=== PATIENT | female | born 1970 | race African-American/Black ===

== ENCOUNTER 2018-05-28 08:11 | Inpatient (IN) | payer OTHER, SELFPAY ==
[2018-05-28 08:59] LABS: Absolute Lymphocytes (CBC) 0.9 K/uL (0.7-4.9); Absolute Monocytes 0.9 K/uL (0.1-1.3); Absolute Neutrophil 10.2 K/uL (1.8-8.0); Basophils % 0.3 % (0-1.3); Eosinophils % 0.4 % (0-4.4); Hematocrit 35.7 % (36.0-45.0); Lymphocytes % 7.9 % (15.3-44.8); MPV 8.9 fL (7.6-11.3); Monocytes % 7.1 % (3.3-12.3); RBC Red Blood Cell Count 4.15 M/uL (3.86-4.86)
[2018-05-28] MEDS ORDERED: IPRATROPIUM BROM 0.5MG/2.5ML ONE (09:01)
[2018-05-28] MEDS ORDERED: LEVALBUTEROL 1.25 MG/3 ML NEB ONE (09:02)
[2018-05-28] MEDS ORDERED: NA CHLORIDE 0.9% 1,000 ML ONE ×2 (09:02→09:55)
[2018-05-28 09:07] LABS: Protime INR 0.95
[2018-05-28 09:17] LABS: ALT/SGPT 17 U/L (12-78); AST/SGOT 10 U/L (15-37); Albumin 3.1 g/dL (3.4-5.0); Alkaline Phosphatase 62 U/L (45-117); BUN Blood Urea Nitrogen 10 mg/dL (7-18); Bicarbonate 26 mmol/L (21-32); Bilirubin Direct < 0.1 mg/dL (0-0.2); Bilirubin Total 0.4 mg/dL (0.2-1.0); CKMB Creatine Kinase MB < 1.0 ng/mL (0.3-3.6); Creatine Phosphokinase 77 U/L (26-192); Glucose Level 303 mg/dL (74-106); Lipase 129 U/L (73-393); Protein, Total 7.4 g/dL (6.4-8.2); Sodium Level 135 mmol/L (136-145); Troponin (Emerg Dept Use Only) < 0.02 ng/mL (0.0-0.045)
[2018-05-28] MEDS ORDERED: CEFTRIAXONE/SWI 1gm 1 GM/10 ML SYR ONE (09:28)
[2018-05-28 09:35] LABS: Urine Bacteria <20 /HPF (<20); Urine Culture Reflex Order NOT NEEDED
[2018-05-28 09:36] LABS: Urine Blood 1+ (NEG); Urine Glucose 3+ (NEG); Urine Protein 1+ (NEG); Urine Specific Gravity 1.015 (1.005-1.030); Urine pH 5.5 (5.0-7.0)
--- NOTE | 2018-05-28 09:54 | RAD REPORT ---
EXAM DESCRIPTION: RAD - Chest Single View - 05/28/2018 9:03 am CLINICAL HISTORY: Shortness of breath, vomiting, productive cough COMPARISON: None. TECHNIQUE: AP portable chest image was obtained 0857 hours . FINDINGS: Lungs are underinflated. There is a moderate-sized area of airspace opacification in the r ight midlung field. No significant left lung field process. Heart and vasculature are normal. No erlinda urable pleural effusion and no pneumothorax. No acute bony abnormality seen. No acute aortic findings suspected. IMPRESSION: Moderately large right lung field pneumonia.
[2018-05-28] MEDS ORDERED: AZITHROMYCIN IV 500 MG in NA CHLORIDE 0.9% 250 ML IVPB ONE (10:07)
--- NOTE | 2018-05-28 10:23 | ER ---
Nurse's Notes [facility] Name: Olivia Stewart Age: 47 yrs Sex: Female : 1970 Arrival Date: 05/28/2018 Time: 08:14 Bed 15 Private MD: out of town, doctor Diagnosis: Pneumonia, unspecified organism;Hypoxia Presentation: 05/28 08:15 Presenting complaint: Patient states: diarrhea, SOB, vomiting, dry heaving, left ear sv pain, productive cough, congestion since 05/25/18. Transition of care: patient was not received from another setting of care. Onset of symptoms was May 25, 2018. Care prior to arrival: None. 08:15 Method Of Arrival: Ambulatory sv 08:15 Acuity: HARDY 3 sv 08:22 Risk Assessment: Do you want to hurt yourself or someone else? Patient reports no rb1 desire to harm self or others. Initial Sepsis Screen: Does the patient have a suspected source of infection? Yes: Productive cough/pneumonia. 12:00 Initial Sepsis Screen: Does the patient meet any 2 criteria? RR > 20 per min. HR > 90 aj1 bpm. Yes. Triage Assessment: 08:15 General: Appears in no apparent distress. uncomfortable, Behavior is calm, cooperative, sv appropriate for age. Pain: Denies pain. EENT: Reports pain in left ear. Neuro: Level of Consciousness is awake, alert, obeys commands, Oriented to person, place, time, situation, Moves all extremities. Full function Gait is steady. Respiratory: Reports shortness of breath cough that is productive, pain with cough Airway is patent Respiratory effort is even, unlabored, Respiratory pattern is regular, symmetrical. Historical: - Allergies: 08:18 No Known Allergies; sv - PMHx: 08:18 Diabetes - NIDDM; Hypertension; sv - PSHx: 08:18 Tubal ligation; ; sv - Immunization history:: Flu vaccine is not up to date. - Social history:: Smoking status: Patient/guardian denies using tobacco. - Ebola Screening: : No symptoms or risks identified at this time. Screenin:22 Abuse screen: Denies threats or abuse. Nutritional screening: No deficits noted. rb1 Tuberculosis screening: No symptoms or risk factors identified. Fall Risk None identified. Assessment: 08:22 General: Appears uncomfortable, Behavior is calm, cooperative. Pain: Denies pain. rb1 Neuro: Level of Consciousness is awake, alert, obeys commands, Oriented to person, place, time, situation. Cardiovascular: Capillary refill < 3 seconds is brisk in bilateral fingers. 08:22 Respiratory: Reports shortness of breath at rest cough that is productive, blood tinged rb1 sputum Airway is patent Respiratory effort is even, unlabored, Respiratory pattern is regular, symmetrical, Breath sounds are diminished in right posterior lower lobe. GI: Reports diarrhea, nausea, vomiting. : No signs and/or symptoms were reported regarding the genitourinary system. Derm: Skin is dry, Skin is normal, Skin temperature is warm. 10:00 Reassessment: Patient reports chest pain 3/10 in center of chest. Patient is not aj1 wearing O2 at this time, patient placed back on O2 \T\ 2L nc, Notified Ger Chavira NP of patient complaint. Repeat EKG obtained. After being back on O2 for 3 minutes patient reports that her chest pain has resolved. 10:32 General: Appears in no apparent distress. uncomfortable, Behavior is calm, cooperative. aj1 Pain: Denies pain. Neuro: Level of Consciousness is awake, alert, obeys commands, Oriented to person, place, time, situation. Cardiovascular: Patient's skin is warm and dry. Respiratory: Airway is patent Respiratory effort is even, unlabored, Respiratory pattern is regular, symmetrical. GI: Reports nausea. : No signs and/or symptoms were reported regarding the genitourinary system. EENT: No signs and/or symptoms were reported regarding the EENT system. Derm: No signs and/or symptoms reported regarding the dermatologic system. Skin is pink, warm \T\ dry. normal. Musculoskeletal: No signs and/or symptoms reported regarding the musculoskeletal system. Circulation, motion, and sensation intact. 11:29 Reassessment: Patient appears in no apparent distress at this time. No changes from aj1 previously documented assessment. Patient and/or family updated on plan of care and expected duration. Pain level reassessed. Patient is alert, oriented x 3, equal unlabored respirations, skin warm/dry/pink. Vital Signs: 08:18 BP 147 / 79; Pulse 130; Resp 20; Temp 99.2; Pulse Ox 97% on R/A; Weight 86.18 kg; sv Height 5 ft. 5 in. (165.10 cm); Pain 0/10; 08:22 Pulse Ox 87% on R/A; rb1 09:00 BP 142 / 71; Pulse 123; Resp 19; Pulse Ox 100% on 2 lpm NC; dh3 09:29 BP 136 / 71; Pulse 124; Resp 18; Pulse Ox 100% on 2 lpm NC; dh3 10:33 BP 117 / 63; Pulse 120; Resp 18; Pulse Ox 95% on 2 lpm NC; aj1 11:31 BP 121 / 68; Pulse 119; Resp 24; Temp 98.7(O); Pulse Ox 95% on 2 lpm NC; aj1 08:18 Body Mass Index 31.62 (86.18 kg, 165.10 cm) sv 08:22 Administered 2 L NC, O2 sat increased to 96%. rb1 ED Course: 08:14 Patient arrived in ED. sb2 08:14 out of town, doctor is Private Physician. sb2 08:15 Ara Chavira [facility]-C is [facility]. kb 08:15 Roula Partida MD is Attending Physician. kb 08:17 Triage completed. sv 08:18 Arm band placed on. sv 08:22 Pulse ox on. NIBP on. rb1 08:30 Felicitas Delvalle, ANTWON is Primary Nurse. rb1 08:45 Flu and/or RSV swab sent to lab. dh3 09:02 Urine collected: clean catch specimen, clear, EKG done, by ED staff, reviewed by robbin SULLIVAN. 09:03 Chest Single View XRAY In Process Unspecified. EDMS 09:11 Second set of blood cultures drawn by dc, by venipuncture 23G to left ac. dh3 09:54 Report given to ANTWON Villasenor. rb1 10:08 Patient has correct armband on for positive identification. Bed in low position. Call rb1 light in reach. Side rails up X 1. 10:22 Clifford Oliva DO is Hospitalizing Provider. kb 11:45 Report given to ANTWON Culver on 2nd floor. aj1 12:00 No provider procedures requiring assistance completed. Patient admitted, IV remains in aj1 place. Administered Medications: 09:00 Drug: Xopenex (3) 1.25 mg Route: Inhalation; rb1 09:00 Drug: AtroVENT Aerosol 0.5 mg Route: Inhalation; rb1 09:20 Drug: Rocephin - (cefTRIAXone) 1 grams Route: IVPB; Infused Over: 30 mins; Site: right rb1 antecubital; 12:01 Follow up: Response: No adverse reaction aj1 10:42 Drug: Zithromax 500 mg Route: IVPB; Infused Over: 1 hrs; Site: right antecubital; aj1 12:01 Follow up: IV Status: Completed infusion; IV Intake: 250ml aj1 10:43 Drug: NS 0.9% (30 ml/kg) 30 ml/kg Route: IV; Rate: bolus; Site: right antecubital; aj1 12:02 Follow up: IV Status: Completed infusion; IV Intake: 2000ml aj1 Point of Care Testing: Blood Glucose: 08:44 Blood Glucose: 322 mg/dL; 3 Ranges: Intake: 12:01 IV: 250ml; Total: 250ml. aj1 12:02 IV: 2000ml; Total: 2250ml. aj1 Outcome: 10:23 Decision to Hospitalize by Provider. kb 12:00 Admitted to Tele accompanied by tech, via wheelchair, with oxygen, with chart. aj1 12:00 Condition: stable 12:00 Discharge instructions given to patient, Instructed on the need for admit, Demonstrated understanding of instructions. 12:02 Patient left the ED. aj1 Signatures: Dispatcher [employer] EDMS Ara Chavira, [employer]KER-C [employer]KER-Jacklyn Lemus RN RN aj1 Susan Storm RN ANTWON sv Felicitas Delvalle, RN RN rb1 Kirti Luciano 3 Yee Avila sb2 Corrections: (The following items were deleted from the chart) 08:22 08:15 Presenting complaint: Patient states: diarrhea, SOB, vomiting, dry heaving, left sv ear pain, congestion since 05/25/18. sv
--- NOTE | 2018-05-28 10:23 | EDPHYS ---
Physician Documentation [facility] Name: Olivia Stewart Age: 47 yrs Sex: Female : 1970 Arrival Date: 05/28/2018 Time: 08:14 Bed 15 Private MD: out of town, doctor ED Physician Roula Partida HPI: 05/28 10:18 This 47 yrs old Black Female presents to ER via Ambulatory with complaints of kb Congestion, Productive Cough, Shortness Of Breath. 10:18 The patient or guardian reports cough, that is intermittent, described as moderate, kb with productive sputum, pink, difficulty breathing. Onset: The symptoms/episode began/occurred 4 day(s) ago. Severity of symptoms: At their worst the symptoms were moderate, severe, in the emergency department the symptoms are unchanged. Modifying factors: The symptoms are alleviated by nothing, the symptoms are aggravated by nothing. Associated signs and symptoms: Pertinent positives: rhinorrhea, Pertinent negatives: diarrhea, ear ache, fever, nausea, sore throat, vomiting. The patient has not experienced similar symptoms in the past. The patient has not recently seen a physician. Pt reports cough and congestion that started on . Symptoms have gotten worse since then. Yesterday started having shortness of breath and it was worse this morning. . Historical: - Allergies: 08:18 No Known Allergies; sv - PMHx: 08:18 Diabetes - NIDDM; Hypertension; sv - PSHx: 08:18 Tubal ligation; ; sv - Immunization history:: Flu vaccine is not up to date. - Social history:: Smoking status: Patient/guardian denies using tobacco. - Ebola Screening: : No symptoms or risks identified at this time. ROS: 09:50 Constitutional: Negative for fever, chills, and weight loss, Neck: Negative for injury, kb pain, and swelling, Cardiovascular: Negative for chest pain, palpitations, and edema, Abdomen/GI: Negative for abdominal pain, nausea, vomiting, diarrhea, and constipation, Back: Negative for injury and pain, : Negative for injury, bleeding, discharge, and swelling, MS/Extremity: Negative for injury and deformity, Skin: Negative for injury, rash, and discoloration, Neuro: Negative for headache, weakness, numbness, tingling, and seizure. 09:50 ENT: Positive for rhinorrhea, sinus congestion. 09:50 Respiratory: Positive for cough, pink sputum, dyspnea on exertion, shortness of breath, Negative for hemoptysis, orthopnea, pleurisy, wheezing. Exam: 10:15 Constitutional: This is a well developed, well nourished patient who is awake, alert, kb and in no acute distress. Head/Face: Normocephalic, atraumatic. ENT: Nares patent. No nasal discharge, no septal abnormalities noted. Tympanic membranes are normal and external auditory canals are clear. Oropharynx with no redness, swelling, or masses, exudates, or evidence of obstruction, uvula midline. Mucous membranes moist. Neck: Trachea midline, no thyromegaly or masses palpated, and no cervical lymphadenopathy. Supple, full range of motion without nuchal rigidity, or vertebral point tenderness. No Meningismus. Chest/axilla: Normal chest wall appearance and motion. Nontender with no deformity. No lesions are appreciated. Cardiovascular: Regular rate and rhythm with a normal S1 and S2. No gallops, murmurs, or rubs. Normal PMI, no JVD. No pulse deficits. Abdomen/GI: Soft, non-tender, with normal bowel sounds. No distension or tympany. No guarding or rebound. No evidence of tenderness throughout. Skin: Warm, dry with normal turgor. Normal color with no rashes, no lesions, and no evidence of cellulitis. MS/ Extremity: Pulses equal, no cyanosis. Neurovascular intact. Full, normal range of motion. Neuro: Awake and alert, GCS 15, oriented to person, place, time, and situation. Cranial nerves II-XII grossly intact. Motor strength 5/5 in all extremities. Sensory grossly intact. Cerebellar exam normal. Normal gait. 10:15 Respiratory: mild respiratory distress is noted, Respirations: labored breathing, that is mild, Breath sounds: rales, are heard in the right upper lobe, right middle lobe, right lower lobe, right posterior upper lobe, right posterior middle lobe and right posterior lower lobe. Vital Signs: 08:18 BP 147 / 79; Pulse 130; Resp 20; Temp 99.2; Pulse Ox 97% on R/A; Weight 86.18 kg; sv Height 5 ft. 5 in. (165.10 cm); Pain 0/10; 08:22 Pulse Ox 87% on R/A; rb1 09:00 BP 142 / 71; Pulse 123; Resp 19; Pulse Ox 100% on 2 lpm NC; dh3 09:29 BP 136 / 71; Pulse 124; Resp 18; Pulse Ox 100% on 2 lpm NC; dh3 10:33 BP 117 / 63; Pulse 120; Resp 18; Pulse Ox 95% on 2 lpm NC; aj1 11:31 BP 121 / 68; Pulse 119; Resp 24; Temp 98.7(O); Pulse Ox 95% on 2 lpm NC; aj1 08:18 Body Mass Index 31.62 (86.18 kg, 165.10 cm) sv 08:22 Administered 2 L NC, O2 sat increased to 96%. rb1 MDM: 08:24 Patient medically screened. kb 10:15 Data reviewed: vital signs, nurses notes. Data interpreted: Pulse oximetry: on room air kb is 87 %. Interpretation: hypoxia. Plan: will initiate a nebulizer treatment. Counseling: I had a detailed discussion with the patient and/or guardian regarding: the historical points, exam findings, and any diagnostic results supporting the discharge/admit diagnosis, lab results, radiology results, the need for further work-up and treatment in the hospital. Physician consultation: Clifford Oliva DO was contacted at 10:15, regarding admission, to the telemetry unit. patient's condition, in the emergency department to see patient at 10:15. 05/28 08:33 Order name: Basic Metabolic Panel; Complete Time: 09:19 kb 05/28 08:33 Order name: Blood Culture Adult (2) kb 05/28 08:33 Order name: CBC with Diff; Complete Time: 09:15 kb 05/28 08:33 Order name: Ckmb; Complete Time: 09:19 kb 05/28 08:33 Order name: CPK; Complete Time: 09:19 kb 05/28 08:33 Order name: Lactate; Complete Time: 09:38 kb 05/28 08:33 Order name: LFT's; Complete Time: 09:19 kb 05/28 08:33 Order name: Lipase; Complete Time: 09:19 kb 05/28 08:33 Order name: Procalcitonin; Complete Time: 09:38 kb 05/28 08:33 Order name: Protime (+inr); Complete Time: 09:09 kb 05/28 08:33 Order name: Ptt, Activated; Complete Time: 09:09 kb 05/28 08:33 Order name: Troponin (emerg Dept Use Only); Complete Time: 09:19 kb 05/28 08:33 Order name: Urine Microscopic Only; Complete Time: 09:38 kb 05/28 08:35 Order name: Flu; Complete Time: 09:19 kb 05/28 08:33 Order name: Chest Single View XRAY; Complete Time: 09:55 kb 05/28 08:33 Order name: Accucheck; Complete Time: 08:44 kb 05/28 08:33 Order name: Cardiac monitoring; Complete Time: 08:45 kb 05/28 08:33 Order name: EKG - Nurse/Tech; Complete Time: 09:14 kb 05/28 08:33 Order name: IV Saline Lock - Large Bore; Complete Time: 08:45 kb 05/28 08:33 Order name: Labs collected and sent; Complete Time: 08:48 kb 05/28 08:33 Order name: O2 Per Protocol; Complete Time: 08:45 kb 05/28 08:33 Order name: O2 Sat Monitoring; Complete Time: 08:45 kb 05/28 09:12 Order name: Urine Dipstick--Ancillary (enter results); Complete Time: 09:38 eb 05/28 09:12 Order name: Urine --Ancillary (enter results); Complete Time: 09:38 eb 05/28 09:34 Order name: Glucose, Ancillary Testing; Complete Time: 09:38 EDMS 05/28 08:33 Order name: Urine Dipstick-Ancillary (obtain specimen); Complete Time: 09:14 kb Administered Medications: 09:00 Drug: Xopenex (3) 1.25 mg Route: Inhalation; rb1 09:00 Drug: AtroVENT Aerosol 0.5 mg Route: Inhalation; rb1 09:20 Drug: Rocephin - (cefTRIAXone) 1 grams Route: IVPB; Infused Over: 30 mins; Site: right rb1 antecubital; 12:01 Follow up: Response: No adverse reaction aj1 10:42 Drug: Zithromax 500 mg Route: IVPB; Infused Over: 1 hrs; Site: right antecubital; aj1 12:01 Follow up: IV Status: Completed infusion; IV Intake: 250ml aj1 10:43 Drug: NS 0.9% (30 ml/kg) 30 ml/kg Route: IV; Rate: bolus; Site: right antecubital; aj1 12:02 Follow up: IV Status: Completed infusion; IV Intake: 2000ml aj1 Point of Care Testing: Blood Glucose: 08:44 Blood Glucose: 322 mg/dL; dh3 Ranges: Critical Glucose Levels:Adult <50 mg/dl or >400 mg/dl <40 mg/dl or >180 mg/dl Disposition: 17: Co-signature as Attending Physician, Roula Partida MD. tx2 Disposition: 05/28/18 10:23 Hospitalization ordered by Clifford Oliva for Observation. Preliminary diagnosis are Pneumonia, unspecified organism, Hypoxia. - Bed requested for Telemetry/MedSurg (observation). - Status is Observation. aj1 - Condition is Stable. - Problem is new. - Symptoms are unchanged. UTI on Admission? No Signatures: Dispatcher [employer] EDMS Ara Chavira, CARLOS-C AIRLINE OPERATIONS AGENT-Jacklyn Lemus RN RN aj1 Susan Storm RN RN sv Barber, Rebecca, ANTWON [facility] Roula Partida MD MD tx2 Mesha Peterson Corrections: (The following items were deleted from the chart) 10:23 10:23 Hospitalization Ordered by Clifford Oliva DO for Observation. Preliminary kb diagnosis is Pneumonia, unspecified organism. Bed requested for Telemetry/MedSurg (observation). Status is Observation. Condition is Stable. Problem is new. Symptoms are unchanged. UTI on Admission? No. kb 11:02 10:23 05/28/2018 10:23 Hospitalization Ordered by Clifford Oliva DO for Observation. eb Preliminary diagnosis is Pneumonia, unspecified organism; Hypoxia. Bed requested for Telemetry/MedSurg (observation). Status is Observation. Condition is Stable. Problem is new. Symptoms are unchanged. UTI on Admission? No. kb 12:02 11:02 05/28/2018 10:23 Hospitalization Ordered by Clifford Oliva DO for Observation. aj1 Preliminary diagnosis is Pneumonia, unspecified organism; Hypoxia. Bed requested for Telemetry/MedSurg (observation). Status is Observation. Condition is Stable. Problem is new. Symptoms are unchanged. UTI on Admission? No. eb
--- NOTE | 2018-05-28 10:50 | P.HP ---
Certification for Inpatient Patient admitted to: Observation With expected LOS: <2 Midnights Patient will require the following post-hospital care: None Practitioner: I am a practitioner with admitting privileges, knowledge of patient current condition, hospital course, and medical plan of care. Services: Services provided to patient in accordance with Admission requirements found in Title 42 Section 412.3 of the Code of Federal Regulations Patient History Date of Service: 05/28/18 Primary Care Provider: [facility]([place], [place]) Reason for admission: Shortness of breath History of Present Illness: 47-year-old female presented to the emergency room with increasing shortness of breath and cough. Patient reports increasing shortness of breath, cough and congestion since . Her condition is not improved. Patient reports mild fever. Patient came to the ER for further evaluation. In the ER patient found to be hypoxic with a room air saturation of 87%. She was slightly tachycardic. On lab white count 12.0. Hemoglobin 12.6. Sodium 135, potassium 4.0, BUN of 10, creatinine 0.7 with a GFR greater than 90. Glucose 303. Pro calcitonin negative. Urinalysis negative. test negative. Influenza test negative. Chest x-ray showed a moderate to large right sided pneumonia. Patient was given IV fluids and antibiotic therapy in the emergency room. Patient admitted for further treatment. In the ER patient appeared stable. Shortness of breath improved. Patient reports secondhand smoke exposure. Patient with history of diabetes, hypertension. Allergies No Known Allergies Allergy (Unverified 01/22/16 23:19) Home medications list reviewed: Yes - Past Medical/Surgical History Diabetic: Yes -: Diabetes mellitus type 2 -: Hypertension -: Obesity -: Secondhand tobacco exposure -: Tubal ligation -: Psychosocial/ Personal History: Patient is . She has 5 children. 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 - Family History Mother -: Heart disease, Hypertension, Diabetes Father -: Heart disease, Diabetes - Social History Smoking Status: Never smoker Alcohol use: Yes CD- Drugs: No Caffeine use: Yes Place of Residence: Home Review of Systems General: Weakness Eyes: As per HPI ENT: Nose Congestion, As per HPI Respiratory: Cough, Shortness of Breath, As per HPI Cardiovascular: Unremarkable Gastrointestinal: Unremarkable Genitourinary: Unremarkable Musculoskeletal: Unremarkable Integumentary: Unremarkable Neurological: Unremarkable Lymphatics: Unremarkable Physical Examination - Physical Exam General: Alert, In no apparent distress, Oriented x3, Cooperative HEENT: Atraumatic, Normocephalic, Other (Mucous congestion bilateral) Neck: Supple, No Thyromegaly Respiratory: Crackles/rales (Right-sided) Cardiovascular: Abnormal pulses (Mild tachycardia) Gastrointestinal: Normal bowel sounds, Soft and benign, Non-distended, No tenderness, No masses, No rebound, No guarding Musculoskeletal: No erythema, No tenderness, No warmth Integumentary: No tenderness/swelling, No erythema, No warmth, No cyanosis Neurological: Normal speech, Normal strength at 5/5 x4 extr, Normal tone, Normal affect Lymphatics: No axilla or inguinal lymphadenopathy - Studies Laboratory Data (last 24 hrs) 05/28/18 08:37: PT 11.2, INR 0.95, APTT 28.5 05/28/18 08:37: WBC 12.0 H, Hgb 12.6, Hct 35.7 L, Plt Count 269 05/28/18 08:37: Sodium 135 L, Potassium 4.0, BUN 10, Creatinine 0.71, Glucose 303 H, Total Bilirubin 0.4, AST 10 L, ALT 17, Alkaline Phosphatase 62, Lipase 129 Microbiology Data (last 24 hrs): 05/28/18 08:37 Nasopharnyx Influenza Type A Antigen Screen - Final 05/28/18 08:37 Nasopharnyx Influenza Type B Antigen Screen - Final Assessment and Plan - Plan Impression: Shortness of breath, hypoxia and tachycardia secondary right-sided pneumonia Mild dehydration Diabetes mellitus type 2, A1c 8.0 Hypertension Obesity Suspect underlying sleep apnea Plan: Shortness of breath, hypoxia and tachycardia secondary right-sided pneumonia: Patient admitted for treatment. Will continue with Rocephin and Zithromax. Blood cultures obtained. Influenza test negative. Will monitor on telemetry. Will recheck chest x-ray in the morning. Will reassess tomorrow. Will wean off oxygen. Anticipate discharge in the next 24-48 hr depending on her status. Will continue with IV fluids Mild dehydration: Continue with IV fluids. Will monitor and adjust appropriately. Diabetes mellitus type 2, A1c 8.0: Will continue with her home medication. This includes Actos, glipizide and metformin. Will provide sliding scale. Lifestyle modification education addressed in detail. If blood sugars remain above 300 will consider adding basal insulin. Hypertension: Restart home medication of carvedilol, hydrochlorothiazide Norvasc and losartan. Will monitor and adjust appropriately. Obesity: Will calculate BMI. Will address lifestyle modification education. Suspect underlying sleep apnea: Patient likely with obstructive sleep apnea. Will recommend sleep study to be done as an outpatient. Discharge Plan: Home Plan to discharge in: 48 Hours - Advance Directives Does patient have a Living Will: No Does patient have a Durable POA for Healthcare: No - Code Status/Comfort Care Code Status Assessed: Yes (Patient full code) Time Spent Managing Pts Care (In Minutes): 55
[2018-05-28] MEDS: INSULIN -REGULAR HUMAN 50 UNIT/0.5 ML ML SQ SCH ×3 (11:43→21:00)
[2018-05-28] MEDS ORDERED: ACETAMINOPHEN 500 MG TAB PO PRN (11:43)
[2018-05-28] MEDS ORDERED: ONDANSETRON 4 MG/2 ML VIAL IV PRN (11:43)
[2018-05-28] MEDS ORDERED: IPRATROPIUM BROM 0.5MG/2.5ML NEB PRN (11:43)
[2018-05-28] MEDS ORDERED: ALBUTEROL 2.5 MG/3 ML NEB SOL NEB PRN (11:43)
[2018-05-28] MEDS: NA CHLORIDE 0.9% 1,000 ML IV SCH ×2 (12:51→20:11)
[2018-05-28] MEDS: BENZONATATE 100 MG CAP PO PRN ×2 (12:58→20:10)
[2018-05-28] MEDS: ENOXAPARIN 40 MG/0.4 ML SQ SCH (17:00)
[2018-05-28] MEDS: CARVEDILOL 12.5 MG TAB PO SCH ×2 (17:03→22:16)
[2018-05-28] MEDS: METFORMIN HCL 500 MG TAB PO SCH (17:21)
[2018-05-28] MEDS: glipiZIDE 5 MG TAB PO SCH (17:21)
[2018-05-28] MEDS: FLUTICASONE 50MCG NASAL SPRAY NAS SCH (20:09)
[2018-05-28] MEDS: GUAIFENESIN 600 MG SA TAB PO SCH (20:10)
[2018-05-28] MEDS: guaiFENesin 100 MG/5 ML UCUP PO PRN (22:16)
[2018-05-29 05:13] LABS: Absolute Lymphocytes (CBC) 1.6 K/uL (0.7-4.9); Absolute Monocytes 1.3 K/uL (0.1-1.3); Absolute Neutrophil 8.8 K/uL (1.8-8.0); Basophils % 0.4 % (0-1.3); Eosinophils % 0.2 % (0-4.4); Lymphocytes % 13.5 % (15.3-44.8); MPV 9.1 fL (7.6-11.3); Monocytes % 11.4 % (3.3-12.3); RBC Red Blood Cell Count 3.42 M/uL (3.86-4.86)
[2018-05-29] MEDS: CARVEDILOL 12.5 MG TAB PO SCH ×2 (05:32→17:28)
[2018-05-29] MEDS: guaiFENesin 100 MG/5 ML UCUP PO PRN ×2 (05:32→14:48)
[2018-05-29] MEDS: PANTOPRAZOLE 40MG TABLET PO SCH (05:32)
[2018-05-29 05:43] LABS: BUN Blood Urea Nitrogen 7 mg/dL (7-18); Bicarbonate 23 mmol/L (21-32); Glucose Level 185 mg/dL (74-106); Magnesium 1.9 mg/dL (1.8-2.4); Potassium 3.7 mmol/L (3.5-5.1); Sodium Level 139 mmol/L (136-145)
[2018-05-29] MEDS: FLUTICASONE 50MCG NASAL SPRAY NAS SCH ×2 (08:42→21:49)
[2018-05-29] MEDS: PIOGLITAZONE 15 MG TAB PO SCH (08:43)
[2018-05-29] MEDS: hydroCHLOROthiazide 25 MG TAB PO SCH (08:45)
[2018-05-29] MEDS: METFORMIN HCL 500 MG TAB PO SCH ×2 (08:46→16:39)
[2018-05-29] MEDS: LOSARTAN POTASSIUM 50 MG TABLET PO SCH (08:47)
[2018-05-29] MEDS: AMLODIPINE 10 MG TAB PO SCH (08:47)
[2018-05-29] MEDS: glipiZIDE 5 MG TAB PO SCH ×2 (08:47→16:39)
[2018-05-29] MEDS: GUAIFENESIN 600 MG SA TAB PO SCH ×2 (08:47→21:48)
[2018-05-29] MEDS: NA CHLORIDE 0.9% 1,000 ML IV SCH ×2 (08:48→16:43)
[2018-05-29] MEDS: INSULIN -REGULAR HUMAN 50 UNIT/0.5 ML ML SQ SCH ×4 (08:48→21:00)
[2018-05-29] MEDS ORDERED: POTASSIUM 25 MEQ EFFERV TAB PO ONE (09:00)
[2018-05-29] MEDS ORDERED: CEFTRIAXONE/SWI 1gm 1 GM/10 ML SYR IV SCH (09:00)
[2018-05-29] MEDS ORDERED: CEFTRIAXONE 1 GM/NS 50 ML 1 GM/50 ML BAG IV SCH (09:00)
[2018-05-29] MEDS ORDERED: AZITHROMYCIN IV 500 MG in NA CHLORIDE 0.9% 250 ML IVPB SCH (09:00)
--- NOTE | 2018-05-29 09:17 | P.PN ---
Subjective Date of Service: 05/29/18 Primary Care Provider: [facility]([place], [place]) Chief Complaint: Shortness of breath Subjective: Improving (Cough improved. Shortness of breath improved) Physical Examination - Vital Signs Temperature: 98.5 F Blood Pressure: 123/66 Pulse: 110 Respirations: 20 Pulse Ox (%): 90 - Physical Exam General: Alert, In no apparent distress, Oriented x3, Cooperative HEENT: Atraumatic Neck: Supple Respiratory: Other (Better air movement bilateral. Less congestion and crackles noted.) Cardiovascular: Abnormal pulses (Mild tachycardia but improved) Gastrointestinal: Normal bowel sounds, Soft and benign, Non-distended, No ascites, No tenderness, No masses, No rebound, No guarding Musculoskeletal: No erythema, No tenderness, No warmth Integumentary: No tenderness/swelling, No erythema, No warmth, No cyanosis Neurological: Normal speech, Normal strength at 5/5 x4 extr, Normal tone, Normal affect Lymphatics: No axilla or inguinal lymphadenopathy - Studies Laboratory Data (last 24 hrs) 05/28/18 08:37: Sodium 135 L, Potassium 4.0, BUN 10, Creatinine 0.71, Glucose 303 H, Total Bilirubin 0.4, AST 10 L, ALT 17, Alkaline Phosphatase 62, Lipase 129 Microbiology Data (last 24 hrs): 05/28/18 08:37 Nasopharnyx Influenza Type A Antigen Screen - Final 05/28/18 08:37 Nasopharnyx Influenza Type B Antigen Screen - Final Medications List Reviewed: Yes Assessment & Plan Discharge Plan: Home Plan to discharge in: 24 Hours Physician Review Additional Text: Impression: Shortness of breath, hypoxia and tachycardia secondary right-sided pneumonia Mild dehydration Diabetes mellitus type 2, A1c 8.0 Hypertension Obesity Suspect underlying sleep apnea Anemia likely from hydration Plan: Shortness of breath, hypoxia and tachycardia secondary right-sided pneumonia: Patient improved. Shortness of breath and cough improved. Continue wean off oxygen. Continue IV antibiotic therapy. Influenza test negative. Encourage ambulation. Will provide incentive spirometer. Anticipate discharge in the next 24 hr. Recheck chest x-ray. Mild dehydration: Continue with IV fluids. Will monitor and adjust appropriately. Diabetes mellitus type 2, A1c 8.0: Will continue with her home medication. This includes Actos, glipizide and metformin. Will provide sliding scale. Lifestyle modification education addressed in detail. If blood sugars remain above 300 will consider adding basal insulin. Hypertension: Continue with home medication-carvedilol, hydrochlorothiazide Norvasc and losartan. Will monitor and adjust appropriately. Obesity, BMI 31.6: Will address lifestyle modification education. Suspect underlying sleep apnea: Patient likely with obstructive sleep apnea. Will recommend sleep study to be done as an outpatient. Anemia likely from hydration: Will monitor closely. Time Spent Managing Pts Care (In Minutes): 55
--- NOTE | 2018-05-29 10:16 | EKG ---
Test Date: 2018-05-28 Test Time: 10:05:48 Cna Per Diem: MEASUREMENT RESULTS: Intervals: Rate: 122 [place]: 156 QRSD: 66 QT: 352 QTc: 501 [place]: P: 99 [place]: 156 QRS: -31 T: 102 INTERPRETIVE STATEMENTS: Sinus tachycardia Possible Left atrial enlargement Left axis deviation Pulmonary disease pattern ST & T wave abnormality, consider lateral ischemia Abnormal ECG Compared to ECG 05/28/2018 08:52:02 ST (T wave) deviation now present Myocardial infarct finding no longer present Electronically Signed On 05-29-18 10:16:12 SHOE REPAIRER HELPER by Shemar Schaeffer
--- NOTE | 2018-05-29 10:17 | EKG ---
Test Date: 2018-05-28 Test Time: 08:52:02 Insurance Loss Adjuster: CURT MEASUREMENT RESULTS: Intervals: Rate: 122 [place]: 144 QRSD: 74 QT: 308 QTc: 438 [place]: P: 66 [place]: 144 QRS: -33 T: 54 INTERPRETIVE STATEMENTS: Sinus tachycardia Possible Left atrial enlargement Left axis deviation Septal infarct, age undetermined Abnormal ECG Compared to ECG 06/01/2011 08:42:59 Left-axis deviation now present Myocardial infarct finding now present Sinus rhythm no longer present Electronically Signed On 05-29-18 10:17:33 [employer]BACCO PACKER by Shemar Schaeffer
[2018-05-29] MEDS: BENZONATATE 100 MG CAP PO PRN (12:09)
--- NOTE | 2018-05-29 12:46 | RAD REPORT ---
EXAM DESCRIPTION: RAD - Chest Pa And Lat (2 Views) - 05/29/2018 6:13 am CLINICAL HISTORY: follow up pneumonia Chest pain. COMPARISON: Chest Single View dated 05/28/2018 FINDINGS: Since 05/28/2018, there has been mild improvement in the bilateral pneumonia pattern, wors e on the right. The heart is normal in size. No displaced fractures. IMPRESSION: Mild improvement in the pneumonia pattern since the comparative study.
[2018-05-29] MEDS: levoFLOXacin 500 MG TAB PO SCH (14:42)
[2018-05-29] MEDS: ENOXAPARIN 40 MG/0.4 ML SQ SCH (16:40)
[2018-05-30] MEDS: NA CHLORIDE 0.9% 1,000 ML IV SCH ×2 (00:29→13:43)
[2018-05-30 06:07] LABS: Absolute Monocytes 1.8 K/uL (0.1-1.3); Absolute Neutrophil 7.3 K/uL (1.8-8.0); Basophils % 0.3 % (0-1.3); Hematocrit 27.6 % (36.0-45.0); Lymphocytes % 17.8 % (15.3-44.8); MPV 8.7 fL (7.6-11.3); RBC Red Blood Cell Count 3.24 M/uL (3.86-4.86)
[2018-05-30 06:25] LABS: BUN Blood Urea Nitrogen 6 mg/dL (7-18); Bicarbonate 25 mmol/L (21-32); Glucose Level 131 mg/dL (74-106); Magnesium 1.8 mg/dL (1.8-2.4); Potassium 3.2 mmol/L (3.5-5.1); Sodium Level 138 mmol/L (136-145)
[2018-05-30] MEDS ORDERED: MAGNESIUM SULFATE 1 gm IVPB 1 GM/100 ML BAG IV ONE (06:29)
[2018-05-30] MEDS ORDERED: POTASSIUM 25 MEQ EFFERV TAB PO ONE (06:29)
[2018-05-30] MEDS: PANTOPRAZOLE 40MG TABLET PO SCH (06:49)
[2018-05-30] MEDS: CARVEDILOL 12.5 MG TAB PO SCH ×2 (06:50→17:01)
[2018-05-30] MEDS: INSULIN -REGULAR HUMAN 50 UNIT/0.5 ML ML SQ SCH ×3 (07:30→17:00)
[2018-05-30] MEDS: PIOGLITAZONE 15 MG TAB PO SCH (08:16)
[2018-05-30] MEDS: METFORMIN HCL 500 MG TAB PO SCH ×2 (08:18→17:01)
[2018-05-30] MEDS: glipiZIDE 5 MG TAB PO SCH ×2 (08:18→17:01)
[2018-05-30] MEDS: hydroCHLOROthiazide 25 MG TAB PO SCH (08:19)
[2018-05-30] MEDS: levoFLOXacin 500 MG TAB PO SCH (08:19)
[2018-05-30] MEDS: GUAIFENESIN 600 MG SA TAB PO SCH (08:20)
[2018-05-30] MEDS: AMLODIPINE 10 MG TAB PO SCH (08:20)
[2018-05-30] MEDS: LOSARTAN POTASSIUM 50 MG TABLET PO SCH (08:20)
[2018-05-30] MEDS: FLUTICASONE 50MCG NASAL SPRAY NAS SCH (08:21)
--- NOTE | 2018-05-30 08:50 | P.DS ---
Admission Date: 05/29/18 Discharge Date: 05/30/18 Primary Care Provider: [facility]ina([place], [place]) Disposition: ROUTINE DISCHARGE Discharge Condition: GOOD Reason for Admission: Shortness of breath Consultations: None Procedures: CXR: COMPARISON: None. TECHNIQUE: AP portable chest image was obtained 0857 hours . FINDINGS: Lungs are underinflated. There is a moderate-sized area of airspace opacification in the right midlung field. No significant left lung field process. Heart and vasculature are normal. No measurable pleural effusion and no pneumothorax. No acute bony abnormality seen. No acute aortic findings suspected. IMPRESSION: Moderately large right lung field pneumonia. Follow up CXR: COMPARISON: Chest Single View dated 05/28/2018 FINDINGS: Since 05/28/2018, there has been mild improvement in the bilateral pneumonia pattern, worse on the right. The heart is normal in size. No displaced fractures. IMPRESSION: Mild improvement in the pneumonia pattern since the comparative study. Medical Problem List: Shortness of breath, hypoxia and tachycardia secondary to bilateral pneumonia right greater than left Mild dehydration, resolved Diabetes mellitus type 2, A1c 8.0 Hypertension Obesity, BMI 31.6 Suspect underlying sleep apnea Anemia likely from hydration Chronic rhinitis Brief History of Present Illness: 47-year-old female presented to the emergency room with increasing shortness of breath and cough. Patient reports increasing shortness of breath, cough and congestion since . Her condition is not improved. Patient reports mild fever. Patient came to the ER for further evaluation. In the ER patient found to be hypoxic with a room air saturation of 87%. She was slightly tachycardic. On lab white count 12.0. Hemoglobin 12.6. Sodium 135, potassium 4.0, BUN of 10, creatinine 0.7 with a GFR greater than 90. Glucose 303. Pro calcitonin negative. Urinalysis negative. test negative. Influenza test negative. Chest x-ray showed a moderate to large right sided pneumonia. Patient was given IV fluids and antibiotic therapy in the emergency room. Patient admitted for further treatment. In the ER patient appeared stable. Shortness of breath improved. Patient reports secondhand smoke exposure. Patient with history of diabetes, hypertension. Hospital Course: Patient presented with shortness of breath, hypoxia and tachycardia secondary to bilateral pneumonia right greater than left. Patient was admitted for treatment. Patient received oxygen, antibiotic therapy. Influenza test negative. Blood cultures negative. Patient responded well to therapy. At discharge she did not require any oxygen. Chest x-ray showed improvement. At discharge she will continue with Levaquin 500 mg 1 pill daily for 5 more days. Patient will continue with Mucinex 600 mg 1 pill twice daily for congestion and Tessalon 100 mg 3 times a day as needed for cough. Patient will also be provided Pro air 2 puffs 3 times a day as needed for shortness of breath. Patient will need to follow up with her PCP in 1 week to follow up this hospitalization. Recommendation to recheck chest x-ray in 4 weeks to monitor resolution. Patient had mild dehydration. Patient encouraged to continue increase oral intake. Recommend to recheck lab-BMP in 1 week. Patient has diabetes type 2. A1c 8.0. At discharge she will continue with Actos 45 mg daily, glipizide 10 mg 1 pill twice daily, and metformin 1000 mg twice daily. Recommendation is to maintain blood sugars less than 140 fasting and less than 200 after meals. Further adjustment can be done by her PCP. Recommend to recheck A1c in 3 months to monitor her progress. If her diabetes does not improve patient may require insulin in the future. Patient has hypertension. Blood pressures remain stable. At discharge she will continue with carvedilol 12.5 mg 1 pill twice daily, hydrochlorothiazide 25 mg 1 pill daily, Norvasc 10 mg 1 pill daily, and losartan 50 mg 1 pill daily. Recommendation is to maintain blood pressures less than 150/80. Further adjustment can be done by her PCP. Patient has Anemia. This remained stable. Recommend to continue with multi vitamin daily. This can be further worked up as an outpatient. Recommend to recheck lab-CBC in 1 week to monitor progress. Patient may have underlying obstructive sleep apnea. Recommendation for the patient to have a sleep study done as an outpatient to further evaluate. Patient may have underlying chronic rhinitis. Patient may continue with Flonase 1 spray per nostril twice daily. Patient with obesity, BMI 31.6. Lifestyle modification education will be provided. Vital Signs/Physical Exam: Temp Pulse Resp BP Pulse Ox 98.7 F 115 H 18 130/64 87 L 05/30/18 04:00 05/30/18 06:50 05/30/18 04:00 05/30/18 06:50 05/30/18 04:00 General: Alert, In no apparent distress, Oriented x3, Cooperative HEENT: Atraumatic Neck: Supple Respiratory: Clear to auscultation bilaterally, Normal air movement Cardiovascular: Normal pulses, Regular rate/rhythm Gastrointestinal: Normal bowel sounds, Soft and benign, Non-distended, No tenderness, No masses, No rebound, No guarding Musculoskeletal: No erythema, No tenderness, No warmth Integumentary: No tenderness/swelling, No erythema, No warmth, No cyanosis Neurological: Normal speech, Normal strength at 5/5 x4 extr, Normal tone, Normal affect Lymphatics: No axilla or inguinal lymphadenopathy Laboratory Data at Discharge: WBC 11.1 K/uL (4.3-10.9) H 05/30/18 05:30 Hgb 9.9 g/dL (12.0-15.0) L 05/30/18 05:30 Hct 27.6 % (36.0-45.0) L 05/30/18 05:30 Plt Count 264 K/uL (152-406) 05/30/18 05:30 PT 11.2 SECONDS (9.5-12.5) 05/28/18 08:37 INR 0.95 05/28/18 08:37 APTT 28.5 SECONDS (24.3-36.9) 05/28/18 08:37 Sodium 138 mmol/L (136-145) 05/30/18 05:30 Potassium 3.2 mmol/L (3.5-5.1) L 05/30/18 05:30 BUN 6 mg/dL (7-18) L 05/30/18 05:30 Creatinine 0.55 mg/dL (0.55-1.3) 05/30/18 05:30 Glucose 131 mg/dL (74-106) H 05/30/18 05:30 Magnesium 1.8 mg/dL (1.8-2.4) 05/30/18 05:30 Total Bilirubin 0.4 mg/dL (0.2-1.0) 05/28/18 08:37 AST 10 U/L (15-37) L 05/28/18 08:37 ALT 17 U/L (12-78) 05/28/18 08:37 Alkaline Phosphatase 62 U/L (45-117) 05/28/18 08:37 Lipase 129 U/L (73-393) 05/28/18 08:37 Home Medications: Amlodipine [Norvasc*] 10 mg PO DAILY 05/28/18 Carvedilol [Coreg] 12.5 mg PO BID 05/28/18 Glipizide [Glipizide ER] 10 mg PO BID 05/28/18 Hydrocodone/Acetaminophen [Orange 5-325 Tablet] 1 each PO Q6H PRN 05/28/18 Losartan Potassium [Cozaar*] 50 mg PO DAILY 05/28/18 Metformin HCl [Glucophage] 1,000 mg PO BID 05/28/18 Pioglitazone HCl [Actos] 45 mg PO DAILY 05/28/18 Albuterol Sulfate [Proair Hfa] 2 puff IH TID PRN #1 hfa.aer.ad 05/30/18 Benzonatate [Tessalon Perle*] 100 mg PO TID PRN #30 cap 05/30/18 Fluticasone [Flonase 50MCG Nasal [place]*] 1 sprays OSMANY BID #1 btl 05/30/18 Guaifenesin [Mucinex] 600 mg PO BID #30 tablet.er 05/30/18 Multivitamin [Daily Multiple Vitamin] 1 each PO DAILY #90 tablet 05/30/18 hydroCHLOROthiazide [Hydrodiuril*] 25 mg PO DAILY tab 05/30/18 levoFLOXacin [Levaquin*] 500 mg PO DAILY #5 tab 05/30/18 New Medications: Albuterol Sulfate [Proair Hfa] 2 puff IH TID PRN #1 hfa.aer.ad PRN Reason: Shortness Of Breath Benzonatate [Tessalon [place]*] 100 mg PO TID PRN #30 cap PRN Reason: Cough Fluticasone [Flonase 50MCG Nasal [place]*] 1 sprays OSMANY BID #1 btl Guaifenesin [Mucinex] 600 mg PO BID #30 tablet.er levoFLOXacin [Levaquin*] 500 mg PO DAILY #5 tab Multivitamin [Daily Multiple Vitamin] 1 each PO DAILY #90 tablet Patient Discharge Instructions: 1. Patient will need a follow up with her PCP in 1 week to follow up this hospitalization. 2. Patient presented with shortness of breath, hypoxia and tachycardia secondary to bilateral pneumonia right greater than left. Patient was admitted for treatment. Patient received oxygen, antibiotic therapy. Influenza test negative. Blood cultures negative. Patient responded well to therapy. At discharge she did not require any oxygen. Chest x-ray showed improvement. At discharge she will continue with Levaquin 500 mg 1 pill daily for 5 more days. Patient will continue with Mucinex 600 mg 1 pill twice daily for congestion and Tessalon 100 mg 3 times a day as needed for cough. Patient will also be provided Pro air 2 puffs 3 times a day as needed for shortness of breath. Patient will need to follow up with her PCP in 1 week to follow up this hospitalization. Recommendation to recheck chest x-ray in 4 weeks to monitor resolution. 3. Patient had mild dehydration. Patient encouraged to continue increase oral intake. Recommend to recheck lab-BMP in 1 week. 4. Patient has diabetes type 2. A1c 8.0. At discharge she will continue with Actos 45 mg daily, glipizide 10 mg 1 pill twice daily, and metformin 1000 mg twice daily. Recommendation is to maintain blood sugars less than 140 fasting and less than 200 after meals. Further adjustment can be done by her PCP. Recommend to recheck A1c in 3 months to monitor her progress. If her diabetes does not improve patient may require insulin in the future. 5. Patient has hypertension. Blood pressures remain stable. At discharge she will continue with carvedilol 12.5 mg 1 pill twice daily, hydrochlorothiazide 25 mg 1 pill daily, Norvasc 10 mg 1 pill daily, and losartan 50 mg 1 pill daily. Recommendation is to maintain blood pressures less than 150/80. Further adjustment can be done by her PCP. 6. Patient has Anemia. This remained stable. Recommend to continue with multi vitamin daily. This can be further worked up as an outpatient. Recommend to recheck lab-CBC in 1 week to monitor progress. 7. Patient may have underlying obstructive sleep apnea. Recommendation for the patient to have a sleep study done as an outpatient to further evaluate. 8. Patient may have underlying chronic rhinitis. Patient may continue with Flonase 1 spray per nostril twice daily. 9. Patient with obesity, BMI 31.6. Lifestyle modification education will be provided. Diet: ADA Activity: Ad mikey Time spent managing pt's care (in minutes): 55
--- NOTE | 2018-05-30 10:34 | RAD REPORT ---
EXAM DESCRIPTION: RAD - Chest Single View - 05/30/2018 6:08 am CLINICAL HISTORY: Follow up pneumonia Chest pain. COMPARISON: Chest Pa And Lat (2 Views) dated 05/29/2018; Chest Single View dated 05/28/2018 FINDINGS: Portable technique limits examination quality. Mild improvement in the bilateral pulmonary opacities since comparative study suggests mild improving pneumonia. The heart is normal in size. No displaced fractures.
[2018-05-30] MEDS ORDERED: LOPERAMIDE HCL 2 MG CAPSULE PO PRN (12:45)
[2018-05-30] MEDS ORDERED: LACTOBACILLUS/ACIDOPHILUS TAB PO SCH (14:00)
[2018-05-30] MEDS: ENOXAPARIN 40 MG/0.4 ML SQ SCH (17:02)
== END 2018-05-30 19:35 | disposition home or self-care (01) | DRG 195 ==
LOC: ER 08:11 → ERHOLD 10:37 → 2ND 11:49 → OBSVTOIN 05-29 17:54
PROVIDERS: ADMIT Family Medicine; ATTEND Family Medicine
DX: J18.9 Pneumonia, unspecified organism (principal); R09.02 Hypoxemia; Z77.22 Contact with and (suspected) exposure to environmental tobacco smoke (acute) (chronic); R00.0 Tachycardia, unspecified; E86.0 Dehydration; E11.9 Type 2 diabetes mellitus without complications; I10 Essential (primary) hypertension; D64.9 Anemia, unspecified; J31.0 Chronic rhinitis; E66.9 Obesity, unspecified; Z68.31 Body mass index [BMI] 31.0-31.9, adult
CPT/HCPCS: 36415; 71045; 71046; 80048; 80076; 81003; 81015; 81025; 82550; 82553; 82962; 83605; 83690; 83735; 84132; 84145; 84484; 85025; 85610; 85730; 87040; 87070; 87205; 87493; 87804; 93005; 94640; 96365; 96375; 99285; G0378; J0456; J0696; J1650; J3475; J7030

== ENCOUNTER 2018-12-04 22:43 | Observation (INO) | payer OTHER, SELFPAY ==
[2018-12-04 23:38] LABS: Absolute Lymphocytes (CBC) 2.3 K/uL (0.7-4.9); Basophils % 0.8 % (0-1.3); Eosinophils % 0.9 % (0-4.4); Hematocrit 39.9 % (36.0-45.0); Lymphocytes % 31.8 % (15.3-44.8); MPV 9.8 fL (7.6-11.3); Monocytes % 11.5 % (3.3-12.3); RBC Red Blood Cell Count 4.65 M/uL (3.86-4.86)
[2018-12-04 23:39] LABS: Protime INR 0.92
[2018-12-04 23:54] LABS: ALT/SGPT 18 U/L (12-78); AST/SGOT 17 U/L (15-37); Alkaline Phosphatase 69 U/L (45-117); BUN Blood Urea Nitrogen 10 mg/dL (7-18); Bicarbonate 27 mmol/L (21-32); Bilirubin Direct < 0.1 mg/dL (0-0.2); Bilirubin Total 0.3 mg/dL (0.2-1.0); Glucose Level 305 mg/dL (74-106); Magnesium 2.1 mg/dL (1.8-2.4); NT PRO-BNP 630 pg/mL (<125); Potassium 3.9 mmol/L (3.5-5.1); Protein, Total 7.2 g/dL (6.4-8.2); Sodium Level 140 mmol/L (136-145); Troponin (Emerg Dept Use Only) < 0.02 ng/mL (0.0-0.045)
--- NOTE | 2018-12-05 01:27 | EDPHYS ---
Physician Documentation [facility] Name: Olivia Stewart Age: 48 yrs Sex: Female : 1970 Arrival Date: 12/04/2018 Time: 22:44 Bed 17 Private MD: ED Physician Gurvinder Lugo HPI: 12/04 23:35 This 48 yrs old Black Female presents to ER via Ambulatory with complaints of Shortness snw Of Breath, Breathing Difficulty. 23:35 The patient has shortness of breath at rest, while talking. Onset: The symptoms/episode snw began/occurred suddenly, gradually, 3 day(s) ago, and became worse just prior to arrival. Associated signs and symptoms: The patient has no apparent associated signs or symptoms. Severity of symptoms: At their worst the symptoms were moderate severe in the emergency department the symptoms are unchanged. It is unknown whether or not the patient has had similar symptoms in the past. The patient has not recently seen a physician. pt has been out of multiple HTN meds and diuretics for about a month. 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 - Social history:: Smoking status: Patient/guardian denies using tobacco, Patient/guardian denies using alcohol, street drugs. - Ebola Screening: : Patient negative for fever greater than or equal to 101.5 degrees Fahrenheit, and additional compatible Ebola Virus Disease symptoms Patient denies exposure to infectious person Patient denies travel to an Ebola-affected area in the 21 days before illness onset. ROS: 23:34 Constitutional: Negative for fever, chills, and weight loss, Eyes: Negative for injury, snw pain, redness, and discharge, ENT: Negative for injury, pain, and discharge, Neck: Negative for injury, pain, and swelling. 23:34 Abdomen/GI: Negative for abdominal pain, nausea, vomiting, diarrhea, and constipation, Back: Negative for injury and pain, : Negative for injury, bleeding, discharge, and swelling, MS/Extremity: Negative for injury and deformity, Skin: Negative for injury, rash, and discoloration, Neuro: Negative for headache, weakness, numbness, tingling, and seizure, Psych: Negative for depression, anxiety, suicide ideation, homicidal ideation, and hallucinations. 23:34 Cardiovascular: Positive for chest pain, edema. 23:34 Respiratory: Positive for cough, shortness of breath, at rest. Exam: 23:33 Constitutional: This is a well developed, well nourished patient who is awake, alert, snw and in no acute distress. Head/Face: Normocephalic, atraumatic. Eyes: Pupils equal round and reactive to light, extra-ocular motions intact. Lids and lashes normal. Conjunctiva and sclera are non-icteric and not injected. Cornea within normal limits. Periorbital areas with no swelling, redness, or edema. ENT: Nares patent. No nasal discharge, no septal abnormalities noted. Tympanic membranes are normal and external auditory canals are clear. Oropharynx with no redness, swelling, or masses, exudates, or evidence of obstruction, uvula midline. Mucous membranes moist. Neck: Trachea midline, no thyromegaly or masses palpated, and no cervical lymphadenopathy. Supple, full range of motion without nuchal rigidity, or vertebral point tenderness. No Meningismus. Chest/axilla: Normal chest wall appearance and motion. Nontender with no deformity. No lesions are appreciated. 23:33 Abdomen/GI: Soft, non-tender, with normal bowel sounds. No distension or tympany. No guarding or rebound. No evidence of tenderness throughout. Back: No spinal tenderness. No costovertebral tenderness. Full range of motion. Skin: Warm, dry with normal turgor. Normal color with no rashes, no lesions, and no evidence of cellulitis. MS/ Extremity: Pulses equal, no cyanosis. Neurovascular intact. Full, normal range of motion. Neuro: Awake and alert, GCS 15, oriented to person, place, time, and situation. Cranial nerves II-XII grossly intact. Motor strength 5/5 in all extremities. Sensory grossly intact. Cerebellar exam normal. Normal gait. Psych: Awake, alert, with orientation to person, place and time. Behavior, mood, and affect are within normal limits. 23:33 Cardiovascular: Rate: tachycardic, Rhythm: regular, Heart sounds: normal. 23:33 Respiratory: moderate respiratory distress is noted, Respirations: accessory muscle usage, nasal flaring, intercostal retractions, shallow respirations, tachypnea, Breath sounds: rales, that are moderate, are located in both bases, decreased breath sounds, that are moderate. Vital Signs: 22:50 BP 157 / 82; Pulse 106; Resp 20; Temp 98.6(O); Pulse Ox 88% on R/A; Weight 90.72 kg fc (R); Height 5 ft. 5 in. (165.10 cm) (R); Pain 5/10; 23:30 BP 152 / 84; Pulse 81; Resp 20 S; Pulse Ox 98% on R/A; cc3 12/05 00:15 BP 134 / 76; Pulse 80; Resp 17 S; Pulse Ox 98% on R/A; cc3 01:08 BP 160 / 89; Pulse 82; Resp 19 S; Pulse Ox 98% on R/A; cc3 02:18 BP 145 / 81; Pulse 90; Resp 20 S; Pulse Ox 97% on R/A; cc3 03:00 BP 151 / 85; Pulse 95; Resp 19 S; Pulse Ox 98% on R/A; cc3 12/04 22:50 Body Mass Index 33.28 (90.72 kg, 165.10 cm) fc MDM: 12/04 23:00 The patient's pulmonary embolism risk score was calculated as follows: alternative snw diagnosis is less likely (3 Pts) the patients heart rate is greater than 100 beats per minute (1.5 Pts) Total Score: 3-6 points. This patient was found to be at moderate risk for a pulmonary embolism by using the Well's assessment criteria. Data reviewed: vital signs, nurses notes, lab test result(s), EKG, radiologic studies. Data interpreted: Pulse oximetry: on room air is 88 %. Interpretation: hypoxia. Plan: O2 by NC applied. Counseling: I had a detailed discussion with the patient and/or guardian regarding: the historical points, exam findings, and any diagnostic results supporting the discharge/admit diagnosis, the presence of at least one elevated blood pressure reading (>120/80) during this emergency department visit, lab results, radiology results, the need for further work-up and treatment in the hospital. Physician consultation: Charly Pitts MD was called at 01:28, was contacted at 01:28, regarding admission, to the telemetry unit. 23:27 Patient medically screened. snw 12/04 23:19 Order name: Basic Metabolic Panel; Complete Time: 23:59 snw 12/04 23:19 Order name: CBC with Diff; Complete Time: 23:47 snw 12/04 23:19 Order name: LFT's; Complete Time: 23:59 snw 12/04 23:19 Order name: Magnesium; Complete Time: 23:59 snw 12/04 23:19 Order name: NT PRO-BNP; Complete Time: 23:59 snw 12/04 23:19 Order name: PT-INR; Complete Time: 23:47 snw 12/04 23:19 Order name: Troponin (emerg Dept Use Only); Complete Time: 23:59 snw 12/04 23:19 Order name: XRAY Chest (1 view) snw 12/04 23:19 Order name: EKG; Complete Time: 23:21 snw 12/04 23:19 Order name: Cardiac monitoring; Complete Time: 23:20 snw 12/04 23:19 Order name: CT Chest For PE Angio snw 12/05 05:59 Order name: Procalcitonin EDNY 12/05 08:42 Order name: Glucose, Ancillary Testing EDNY 12/04 23:19 Order name: EKG - Nurse/Tech; Complete Time: 23:20 snw 12/04 23:19 Order name: IV Saline Lock; Complete Time: 23:23 snw 12/04 23:19 Order name: Labs collected and sent; Complete Time: 23:23 snw 12/04 23:19 Order name: O2 Per Protocol; Complete Time: 23:23 snw 12/04 23:19 Order name: O2 Sat Monitoring; Complete Time: 23:23 snw Administered Medications: 12/05 01:40 Drug: Lasix 20 mg Route: IVP; Site: right antecubital; cc3 02:00 Follow up: Response: No adverse reaction cc3 Disposition: 12/05/18 01:27 Hospitalization ordered by Charly Pitts for Observation. Preliminary diagnosis are Acute systolic (congestive) heart failure, Dyspnea, unspecified. - Bed requested for Telemetry/MedSurg (observation). - Status is Observation. aj - Condition is Stable. - Problem is new. - Symptoms are unchanged. UTI on Admission? No Signatures: Dispatcher [employer] EDMS Hawa Bingham RN Rubi Greene RN RN aj Therrien, Shelly, AUTO BODY REPAIRER-C AUTO BODY REPAIRER-Csnw Lakshmi Moody RN ANTWON Mitchell Kwame em1 Zara Goodwin cc3 Corrections: (The following items were deleted from the chart) 01:43 01:27 Hospitalization Ordered by Charly Pitts MD for Observation. Preliminary mw diagnosis is Acute systolic (congestive) heart failure; Dyspnea, unspecified. Bed requested for Telemetry/MedSurg (observation). Status is Observation. Condition is Stable. Problem is new. Symptoms are unchanged. UTI on Admission? No. snw 12:46 01:43 12/05/2018 01:27 Hospitalization Ordered by Charly Pitts MD for Observation. em1 Preliminary diagnosis is Acute systolic (congestive) heart failure; Dyspnea, unspecified. Bed requested for [facility] ER HOLD. Status is Observation. Condition is Stable. Problem is new. Symptoms are unchanged. UTI on Admission? No. mw 13:54 12:46 12/05/2018 01:27 Hospitalization Ordered by Charly Pitts MD for Observation. aj Preliminary diagnosis is Acute systolic (congestive) heart failure; Dyspnea, unspecified. Bed requested for Telemetry/MedSurg (observation). Status is Observation. Condition is Stable. Problem is new. Symptoms are unchanged. UTI on Admission? No. em1
--- NOTE | 2018-12-05 01:27 | ER ---
Nurse's Notes [facility] Name: Olivia Stewart Age: 48 yrs Sex: Female : 1970 Arrival Date: 12/04/2018 Time: 22:44 Bed 17 Private MD: Diagnosis: Acute systolic (congestive) heart failure;Dyspnea, unspecified Presentation: 12/04 22:50 Presenting complaint: Patient states: that 3 days ago she was working and noted that fc she was short of breath, then tonight she started to have a cough with yellow sputum. States that she feels as if she cannot catch her breath. Hx of pneumonia 6 months ago. Transition of care: patient was not received from another setting of care. Onset of symptoms was December 01, 2018. Risk Assessment: Do you want to hurt yourself or someone else? Patient reports no desire to harm self or others. Initial Sepsis Screen: Does the patient meet any 2 criteria? HR > 90 bpm. Yes Does the patient have a suspected source of infection? Yes: Productive cough/pneumonia. Care prior to arrival: None. 22:50 Method Of Arrival: Ambulatory 22:50 Acuity: HARDY 3 Triage Assessment: 23:01 General: Appears in no apparent distress. uncomfortable. Respiratory: Reports shortness cc3 of breath at rest on exertion since 3 days ago Onset: The symptoms/episode began/occurred 3 days ago, the patient has moderate shortness of breath. CAMP BOSS: 22:50 LMP 12/04/2018 Historical: - Allergies: 23:13 Lisinopril; - Home Meds: 23:13 carvedilol oral oral [Active]; Glipizide Oral [Active]; Metformin Oral [Active]; fc amlodipine oral [Active]; losartan oral oral [Active]; - PMHx: 23:13 Diabetes - NIDDM; Hypertension; Pneumonia; fc - PSHx: 23:13 ; fc - Immunization history:: Last tetanus immunization: unknown. - Social history:: Smoking status: Patient/guardian denies using tobacco, Patient/guardian denies using alcohol, street drugs. - Ebola Screening: : Patient negative for fever greater than or equal to 101.5 degrees Fahrenheit, and additional compatible Ebola Virus Disease symptoms Patient denies exposure to infectious person Patient denies travel to an Ebola-affected area in the 21 days before illness onset. Screenin:50 Abuse screen: Denies threats or abuse. Nutritional screening: No deficits noted. fc Tuberculosis screening: No symptoms or risk factors identified. Fall Risk None identified. Assessment: 23:01 General: Appears in no apparent distress. uncomfortable, Behavior is calm, cooperative, cc3 appropriate for age. Pain: Denies pain. Neuro: Level of Consciousness is awake, alert, obeys commands, Oriented to person, place, time, situation, Appropriate for age. Cardiovascular: Rhythm is sinus rhythm. Respiratory: Airway is patent Respiratory effort is even, unlabored, Respiratory pattern is regular, symmetrical, Breath sounds are diminished bilaterally. in bilateral bases Breath sounds with rales bilaterally. in bilateral bases. GI: Abdomen is round non-distended. : No signs and/or symptoms were reported regarding the genitourinary system. EENT: No signs and/or symptoms were reported regarding the EENT system. Derm: Skin is intact, is healthy with good turgor, Skin is normal, black. Musculoskeletal: Circulation, motion, and sensation intact. Range of motion: intact in all extremities. 12/05 00:39 Reassessment: Patient appears in no apparent distress at this time. Patient and/or cc3 family updated on plan of care and expected duration. Pain level reassessed. Patient is alert, oriented x 3, equal unlabored respirations, skin warm/dry/pink. Patient taken to CT scan department by diesel maintenance technician [place] by carlos manuel. Patient denies pain at this time. 01:03 Reassessment: Patient appears in no apparent distress at this time. Patient and/or cc3 family updated on plan of care and expected duration. Pain level reassessed. Patient is alert, oriented x 3, equal unlabored respirations, skin warm/dry/pink. Patient came back from CT scan department, awaiting result. Patient denies pain at this time. 02:18 Reassessment: Patient appears in no apparent distress at this time. Patient and/or cc3 family updated on plan of care and expected duration. Pain level reassessed. Patient is alert, oriented x 3, equal unlabored respirations, skin warm/dry/pink. Patient denies pain at this time. Patient states feeling better. 03:00 Reassessment: Patient appears in no apparent distress at this time. Patient and/or cc3 family updated on plan of care and expected duration. Pain level reassessed. Patient is alert, oriented x 3, equal unlabored respirations, skin warm/dry/pink. Patient for admission but put in ER Hold, documentation continued in [facility]. Patient denies pain at this time. Vital Signs: 12/04 22:50 BP 157 / 82; Pulse 106; Resp 20; Temp 98.6(O); Pulse Ox 88% on R/A; Weight 90.72 kg fc (R); Height 5 ft. 5 in. (165.10 cm) (R); Pain 5/10; 23:30 BP 152 / 84; Pulse 81; Resp 20 S; Pulse Ox 98% on R/A; cc3 12/05 00:15 BP 134 / 76; Pulse 80; Resp 17 S; Pulse Ox 98% on R/A; cc3 01:08 BP 160 / 89; Pulse 82; Resp 19 S; Pulse Ox 98% on R/A; cc3 02:18 BP 145 / 81; Pulse 90; Resp 20 S; Pulse Ox 97% on R/A; cc3 03:00 BP 151 / 85; Pulse 95; Resp 19 S; Pulse Ox 98% on R/A; cc3 12/04 22:50 Body Mass Index 33.28 (90.72 kg, 165.10 cm) ED Course: 12/04 22:44 Patient arrived in ED. am2 22:50 Arm band placed on Patient placed in an exam room, on a stretcher. fc 22:50 Patient has correct armband on for positive identification. Placed in gown. Bed in low fc position. Call light in reach. equipment monitor phototypesetting on. Pulse ox on. NIBP on. 22:50 No provider procedures requiring assistance completed. fc 23:01 Zara Goodwin is Primary Nurse. cc3 23:10 Triage completed. fc 23:16 Fiordaliza Ge FNP-C is [facility]. snw 23:16 Gurvinder Lugo MD is Attending Physician. snw 23:22 Inserted saline lock: 20 gauge in right antecubital area, using aseptic technique. mt Blood collected. 12/05 00:26 XRAY Chest (1 view) In Process Unspecified. EDMS 01:11 CT Chest For PE Angio In Process Unspecified. EDMS 01:26 Charly Pitts MD is Hospitalizing Provider. snw 07:00 Report given to ANTWON Mcgill. cc3 10:56 Echocardiogram with Doppler done by cardio tech. tc Administered Medications: 01:40 Drug: Lasix 20 mg Route: IVP; Site: right antecubital; cc3 02:00 Follow up: Response: No adverse reaction cc3 Outcome: 01:27 Decision to Hospitalize by Provider. snw 13:54 Patient left the ED. aj Signatures: Dispatcher [employer] EDRubi Denis RN RN aj Therrien, Shelly, NUCLEAR MEDICINE OFFICER-C NUCLEAR MEDICINE OFFICER-Csnw Lakshmi Moody RN RN fc Callis, Tiffany, finishing area supervisor EKG Ttc Rubi White amManju Heard mt, Charlene cc3 Corrections: (The following items were deleted from the chart) 06:19 03:00 Reassessment: Patient appears in no apparent distress at this time. Patient cc3 and/or family updated on plan of care and expected duration. Pain level reassessed. Patient is alert, oriented x 3, equal unlabored respirations, skin warm/dry/pink. Patient for admission but put in ER Hold, [facility] cc3
[2018-12-05] MEDS ORDERED: FUROSEMIDE 20 MG/ 2ML VIAL ONE (01:55)
--- NOTE | 2018-12-05 02:26 | P.HP ---
Certification for Inpatient Patient admitted to: Observation With expected LOS: <2 Midnights Practitioner: I am a practitioner with admitting privileges, knowledge of patient current condition, hospital course, and medical plan of care. Services: Services provided to patient in accordance with Admission requirements found in Title 42 Section 412.3 of the Code of Federal Regulations Patient History Date of Service: 12/05/18 Reason for admission: dyspnea, hypoxia History of Present Illness: Ms Stewart is a 48 years old woman with history of DM II, HTN, admitted for pneumonia about 6 months ago, who start with SOB last night around 20:30. She has had some wet cough with white secretion, but sometimes some yellowish. She denied fever or chills. No chest pain either. At arrival to ER, she was hypoxic 88% on RA, afebrile, BP 157/82, HR 106. CXR with bilateral venous congestion, WBC shows normal WBC count. At my encounter she was not on distress. Allergies No Known Allergies Allergy (Unverified 01/22/16 23:19) Home Medications: Amlodipine [Norvasc*] 10 mg PO DAILY 05/28/18 Carvedilol [Coreg] 12.5 mg PO BID 05/28/18 Glipizide [Glipizide ER] 10 mg PO BID 05/28/18 Hydrocodone/Acetaminophen [[place] 5-325 Tablet] 1 each PO Q6H PRN 05/28/18 Losartan Potassium [Cozaar*] 50 mg PO DAILY 05/28/18 Metformin HCl [Glucophage] 1,000 mg PO BID 05/28/18 Pioglitazone HCl [Actos] 45 mg PO DAILY 05/28/18 Albuterol Sulfate [Proair Hfa] 2 puff IH TID PRN #1 hfa.aer.ad 05/30/18 Benzonatate [Tessalon Perle*] 100 mg PO TID PRN #30 cap 05/30/18 Fluticasone [Flonase 50MCG Nasal [place]*] 1 sprays OSMANY BID #1 btl 05/30/18 Guaifenesin [Mucinex] 600 mg PO BID #30 tablet.er 05/30/18 Multivitamin [Daily Multiple Vitamin] 1 each PO DAILY #90 tablet 05/30/18 hydroCHLOROthiazide [Hydrodiuril] 25 mg PO DAILY #30 tab 05/30/18 levoFLOXacin [Levaquin*] 500 mg PO DAILY #5 tab 05/30/18 - Past Medical/Surgical History Has patient received pneumonia vaccine in the past: Yes Diabetic: Yes -: Diabetes mellitus type 2 -: Hypertension -: Obesity -: Secondhand tobacco exposure -: Tubal ligation -: Psychosocial/ Personal History: Patient is . She has 5 children. 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 - Family History Mother -: Heart disease, Hypertension, Diabetes Father -: Heart disease, Diabetes - Social History Smoking Status: Never smoker Alcohol use: Yes CD- Drugs: No Caffeine use: Yes Place of Residence: Home Review of Systems 10-point ROS is otherwise unremarkable Physical Examination - Physical Exam General: Alert, In no apparent distress HEENT: Atraumatic, PERRLA, Mucous membr. moist/pink, EOMI, Sclerae nonicteric Neck: Supple, 2+ carotid pulse no bruit, No LAD, Without JVD or thyroid abnormality Respiratory: Normal air movement, Crackles/rales (bibasilar rales) Cardiovascular: Regular rate/rhythm, Normal S1 S2 Gastrointestinal: Normal bowel sounds, No tenderness Musculoskeletal: No tenderness Integumentary: No rashes Neurological: Normal speech, Normal strength at 5/5 x4 extr, Normal tone, Normal affect Lymphatics: No axilla or inguinal lymphadenopathy - Studies Laboratory Data (last 24 hrs) 12/04/18 23:24: PT 10.9, INR 0.92 12/04/18 23:24: WBC 7.2, Hgb 13.7, Hct 39.9, Plt Count 252 12/04/18 23:24: Sodium 140, Potassium 3.9, BUN 10, Creatinine 1.01, Glucose 305 H, Magnesium 2.1, Total Bilirubin 0.3, AST 17, ALT 18, Alkaline Phosphatase 69 Assessment and Plan - Problems (Diagnosis) (1) Hypoxia Current Visit: Yes Status: Acute (2) Diabetes mellitus Current Visit: Yes Status: Acute Qualifiers: Diabetes mellitus type: type 2 Diabetes mellitus senior living insulin use: without petroleum terminal plant operator use Diabetes mellitus complication status: with other specified complication Qualified Code(s): E11.69 - Type 2 diabetes mellitus with other specified complication (3) HTN (hypertension) Current Visit: Yes Status: Acute Qualifiers: Hypertension type: essential hypertension Qualified Code(s): I10 - Essential (primary) hypertension (4) Dyspnea Current Visit: Yes Status: Acute Qualifiers: Dyspnea type: shortness of breath Qualified Code(s): R06.02 - Shortness of breath; R06.00 - Dyspnea, unspecified; R06.01 - Orthopnea - Plan The patient will be admitted due to dyspnea, hypoxia possible secondary to CHF. Will continue with Lasix IV, order ECHO in AM, close monitoring of vital signs and body fluid balance. - Advance Directives Does patient have a Living Will: No Does patient have a Durable POA for Healthcare: No - Code Status/Comfort Care Code Status Assessed: Yes Code Status: Full Code
[2018-12-05] MEDS ORDERED: ONDANSETRON 4 MG/2 ML VIAL IV PRN (03:29)
[2018-12-05] MEDS: INSULIN -REGULAR HUMAN 50 UNIT/0.5 ML ML SQ SCH ×4 (07:30→20:53)
[2018-12-05] MEDS ORDERED: ENOXAPARIN 40 MG/0.4 ML SQ ONE (08:36)
[2018-12-05] MEDS ORDERED: FUROSEMIDE 40 MG/4 ML VIAL ONE (08:36)
[2018-12-05] MEDS ORDERED: INSULIN -REGULAR HUMAN 50 UNIT/0.5 ML ML ONE (08:38)
[2018-12-05] MEDS: FUROSEMIDE 40 MG/4 ML VIAL IV SCH ×2 (08:38→17:01)
[2018-12-05] MEDS: ENOXAPARIN 40 MG/0.4 ML SQ SCH (08:38)
--- NOTE | 2018-12-05 08:53 | RAD REPORT ---
EXAM DESCRIPTION: RAD - Chest Single View - 12/05/2018 12:26 am CLINICAL HISTORY: Cough, dyspnea COMPARISON: April 2018 TECHNIQUE: AP portable chest image was obtained 2345 hours . FINDINGS: Lung volumes are low accentuating baseline interstitial pattern. No focal right lung field finding. The airspace opacity seen on the prior study have cleared. Minimal prominence of the inters titial markings on the left. Trachea is midline. Heart and vasculature are normal. No measurable pleu ral effusion and no pneumothorax. No acute bony abnormality seen. No acute aortic findings suspected. IMPRESSION: No focal lung parenchymal process seen. Multiple airspace opacity seen in April has c leared. Lung markings are accentuated by shallow inspiration potentially masking early interstitial edema or infiltrate.
--- NOTE | 2018-12-05 10:08 | RAD REPORT ---
EXAM DESCRIPTION: CT - Chest For Pe Angio - 12/05/2018 3:56 am CLINICAL HISTORY: The patient is 48 years old and is Female; Cough;Dyspnea;SOB TECHNIQUE: Axial computed tomographic angiography images of the chest with intravenous contrast usin g pulmonary embolism protocol. Sagittal and coronal reformatted images were created and reviewed. This CT exam was performed using one or more of the following dose reduction techniques: automated exposure control, adjustment of the mA and/or kV according to patient size, and/or use of iterative reconstruction technique. MIP reconstructed images were created and reviewed. COMPARISON: No relevant prior studies available. FINDINGS: PULMONARY ARTERIES: There are no obvious filling defects identified within the pulmonary arteries to suggest pulmonary embolism. AORTA: No acute findings. No thoracic aortic aneurysm. LUNGS: Scattered nodular groundglass opacities are present throughout the lungs. PLEURAL SPACE: Unremarkable. No significant effusion. No pneumothorax. HEART: Unremarkable. No cardiomegaly. No significant pericardial effusion. No evidence of RV dysfunction. MEDIASTINUM: The tracheobronchial tree is widely patent. BONES/JOINTS: No acute fracture. No dislocation. SOFT TISSUES: Unremarkable. LYMPH NODES: Unremarkable. No enlarged lymph nodes. IMPRESSION: 1. No evidence of pulmonary embolism. 2. Diffuse nodular groundglass opacities throughout the lungs. Groundglass opacification is a nonsp ecific finding and not necessarily indicative of significant pathology. However, in the appropriate c linical setting, pulmonary edema, pneumonia, or various causes of alveolitis should be considered. Electronically signed by: Kristyn Jara MD 12/05/2018 1:16 AM CDT Due to temporary technical issues with the PACS/Fluency reporting system, reports are being signed by the in house radiologist as a courtesy to ensure prompt reporting. The interpreting radiologist is f ully responsible for the content of the report.
--- NOTE | 2018-12-05 12:52 | EKG ---
Test Date: 2018-12-04 Test Time: 23:15:00 Tobacco Grader: RUMA MEASUREMENT RESULTS: Intervals: Rate: 104 NE: 162 QRSD: 76 QT: 344 QTc: 452 [place]: P: 66 NE: 162 QRS: -34 T: 55 INTERPRETIVE STATEMENTS: Sinus tachycardia Left axis deviation Minimal voltage criteria for LVH, may be normal variant Anteroseptal infarct, age undetermined Abnormal ECG Compared to ECG 05/28/2018 10:05:48 Left ventricular hypertrophy now present Myocardial infarct finding now present ST (T wave) deviation no longer present Possible ischemia no longer present Electronically Signed On 12-05-18 12:49:36 CDT by Андрей Woods
--- NOTE | 2018-12-05 13:30 | ECHO ---
HEIGHT: 5 ft 5 in WEIGHT: 198 lb 0 oz DATE OF STUDY: 12/05/[address]: Charly Pak MD 2-DIMENSIONAL: YES M.MODE: YES DOPPLER: YES COLOR FLOW: YES TDS: NO PORTABLE: NO DEFINITY: NO BUBBLE STUDY: NO DIAGNOSIS: CONGESTIVE HEART FAILURE CARDIAC HISTORY: CATHERIZATION: NO SURGERY: NO PROSTHETIC VALVE: NO PACEMAKER: NO MEASUREMENTS (cm) DIASTOLIC (NORMALS) SYSTOLIC (NORMALS) IVSd 0.9 (0.6-1.2) LA Diam 3.7 (1.9-4.0) LVEF 52% LVIDd 4.0 (3.5-5.7) LVIDs 2.9 (2.0-3.5) %FS 26% LVPWd 1.2 (0.6-1.2) Ao Diam 2.6 (2.0-3.7) 2 DIMENSIONAL ASSESSMENT: RIGHT ATRIUM: NORMAL LEFT ATRIUM: NORMAL RIGHT VENTRICLE: NORMAL LEFT VENTRICLE: NORMAL TRICUSPID VALVE: NORMAL MITRAL VALVE: NORMAL PULMONIC VALVE: NORMAL AORTIC VALVE: NORMAL PERICARDIAL EFFUSION: NONE AORTIC ROOT: NORMAL LEFT VENTRICULAR WALL MOTION: NORMAL LEFT VENTRICULAR COMPLIANCE. DOPPLER/COLOR FLOW: MILD TRICUSPID REGURGITATION. COMMENTS: MILD TRICUSPID REGURGITATION NORMAL RIGHT VENTRICULAR SYSTOLIC PRESSURE. DECREASED LEFT VENTRICULAR COMPLIANCE. NO EFFUSION. TECHNOLOGIST: BRENT ZAYAS
[2018-12-05] MEDS: GLIPIZIDE S.A. 5 MG TAB PO SCH (17:01)
--- NOTE | 2018-12-05 18:43 | PN ---
Date of Progress Note: 12/05/2018 Subjective: The patient is seen and examined. Chart reviewed and case discussed with RN. The patient feels that her shortness of breath has improved slightly, was given Lasix in the ER. Medications list reviewed. Physical Examination: Vital Signs: Temperature 97.4, heart rate 92, blood pressure 151/99, respirations 18, O2 99% on room air. General: Awake, alert, oriented x3, not in any acute distress. Ill-appearing female, obese. CV: S1, S2. Regular rate and rhythm. Peripheral pulses present. Respiratory: Diminished breath sounds. Some crackles present. No wheezing or stridor. Gastrointestinal: Abdomen is soft, nontender, nondistended. Positive bowel sounds. No guarding or rigidity. Extremities: No clubbing or cyanosis. The patient does have peripheral edema. Neurologic: Nonfocal. Laboratory Data: Glucose is 269. Procalcitonin less than 0.05. CT angio chest negative for pulmonary embolism. Does show diffuse nodular ground-glass opacities throughout the lungs, nonspecific finding. Assessment And Plan: 1. Hypoxia. CT angio negative for pulmonary embolism likely due to new onset congestive heart failure. 2. Shortness of breath, likely secondary to congestive heart failure. 3. Acute congestive heart failure, unknown ejection fraction. We will obtain echocardiogram. The patient has improved. The patient has improvement with IV Lasix. We will continue to monitor I's and O's, strict fluid restriction and monitor daily weights. The patient has been counseled regarding dietary restrictions. 4. Diabetes mellitus type 2 without long-term use of insulin with hyperglycemia. Continue sliding scale insulin, monitor blood glucose levels. 5. Essential hypertension, stable. 6. Obesity, BMI 32.9. 7. Deep venous thrombosis prophylaxis addressed. Plan: Continue to monitor. We will follow up on echocardiogram. Likely discharge in next 24 hours depending on clinical response. /REVA Voice ID: [id number] Report ID: [id number] TANNER
[2018-12-05] MEDS ORDERED: POTASSIUM CL SA 10 MEQ TAB PO ONE (19:29)
[2018-12-05] MEDS: CARVEDILOL 12.5 MG TAB PO SCH (20:52)
[2018-12-06 06:11] LABS: Absolute Lymphocytes (CBC) 2.3 K/uL (0.7-4.9); Basophils % 0.7 % (0-1.3); Eosinophils % 1.8 % (0-4.4); Hematocrit 38.5 % (36.0-45.0); Lymphocytes % 32.1 % (15.3-44.8); MPV 9.6 fL (7.6-11.3); Monocytes % 16.9 % (3.3-12.3)
[2018-12-06 06:26] LABS: BUN Blood Urea Nitrogen 11 mg/dL (7-18); Bicarbonate 27 mmol/L (21-32); Glucose Level 176 mg/dL (74-106); Potassium 3.5 mmol/L (3.5-5.1); Sodium Level 140 mmol/L (136-145)
[2018-12-06 08:19] LABS: Blood Morphology Comment NOT SEEN (NOT SEEN); Platelet Estimate ADEQ
[2018-12-06] MEDS: INSULIN -REGULAR HUMAN 50 UNIT/0.5 ML ML SQ SCH ×2 (08:30→12:40)
[2018-12-06] MEDS: FUROSEMIDE 40 MG/4 ML VIAL IV SCH (08:30)
[2018-12-06] MEDS: GLIPIZIDE S.A. 5 MG TAB PO SCH (08:31)
[2018-12-06] MEDS: CARVEDILOL 12.5 MG TAB PO SCH (08:31)
[2018-12-06] MEDS: ENOXAPARIN 40 MG/0.4 ML SQ SCH (08:33)
[2018-12-06] MEDS ORDERED: LOSARTAN POTASSIUM 50 MG TABLET PO SCH (09:00)
[2018-12-06] MEDS ORDERED: POTASSIUM CL SA 10 MEQ TAB PO ONE (09:00)
[2018-12-06 09:27] LABS: Urine Appearance CLOUDY; Urine Blood 3+ (NEG); Urine Color OTHER; Urine Glucose NEGATIVE (NEG); Urine Protein 2+ (NEG); Urine Specific Gravity >=1.030 (1.005-1.030); Urine Urobilinogen 0.2 mg/dL (0.2-1.0)
[2018-12-06 09:40] LABS: Urine Bilirubin NEGATIVE (NEG); Urine Microscopic Reflex ORDER UMIC
[2018-12-06 09:49] LABS: Urine Bacteria <20 /HPF (<20); Urine Culture Reflex Order REFLEXED; Urine RBC >50 /HPF (NONE SEEN)
--- NOTE | 2018-12-07 02:16 | DS ---
Date of Discharge: 12/06/2018 Admitting Diagnoses: 1.Hypoxia. 2.Diabetes mellitus, type 2, without long-term use of insulin. 3.Essential hypertension. 4.Dyspnea. Discharge Diagnoses: 1.Hypoxia. CT angio negative for PE. 2.Shortness of breath, likely related to congestive heart failure. 3.Acute congestive heart failure, new onset, diastolic dysfunction. Echocardiogram shows EF of 52%, decreased left ventricular compliance. 4.Diabetes mellitus, type 2, without long-term use of insulin with hyperglycemia, stable. 5.Essential hypertension, stable. 6.Obesity, BMI 32.9. Hospital Course: The patient is a 48-year-old female with past medical history of diabetes, hyperten tessy, comes in with shortness of breath, hypoxia. The patient was 88% on room air. Her chest x-ray showed venous congestion. She was thought to have congestive heart failure from longstanding diabete s and hypertension. The patient was started on Lasix. Echocardiogram was obtained, which showed EF of 52%. She did have decreased left ventricular compliance. There was no effusion. Her procalciton in was negative. There were no signs of infection. The patient's breathing was better. She was abl e to be weaned off supplemental oxygen. The patient was then referred for outpatient [facility]. She was able to ambulate without difficulty. She was counseled regarding tight glycemic and b lood pressure control. The patient was then cleared for discharge, sent home in a stable condition. Activity: As tolerated. Medications: As per medication reconciliation list. Followup: Follow up with primary care physician in 2-3 days. Follow up with overhead cleaner maintainer, Dr. Bry anderson, in 1 week. Return to ER for worsening condition. Diet: Diabetic, 1500 mL and 2 g sodium restriction. Physical Examination: General: Awake, alert, oriented x3. No acute distress. CV: S1, S2. No murmurs. Respiratory: Moving air well bilaterally. Abdomen: Soft, nontender, nondistended. Positive bowel sounds. Extremities: No clubbing, cyanosis, or edema. Neuro: Nonfocal. SA/MODL Voice ID: [id number] Report ID: [id number]
== END 2018-12-06 13:15 | disposition home or self-care (01) ==
LOC: ER 22:43 → ERHOLD 12-05 02:17 → 2ND 12-05 12:49
PROVIDERS: ADMIT Internal Medicine; ATTEND Internal Medicine
DX: I11.0 Hypertensive heart disease with heart failure (principal); I50.31 Acute diastolic (congestive) heart failure; E11.65 Type 2 diabetes mellitus with hyperglycemia; E66.9 Obesity, unspecified; Z68.31 Body mass index [BMI] 31.0-31.9, adult; R09.02 Hypoxemia
CPT/HCPCS: 36415; 71045; 71275; 80048; 80076; 81003; 81015; 82962; 83735; 83880; 84145; 84484; 85025; 85610; 87077; 87086; 87088; 87186; 93005; 93306; 94760; 96374; 99284; G0378; J1650; J1940; Q9967

== ENCOUNTER 2023-11-08 07:01 | Emergency (ER) | payer OTHER ==
--- OUTSIDE RECORDS SUMMARY | 2023-11-08 07:15 | XMS REPORT | Continuity of Care Document ---
Author Name Unknown Address [address] [facility] [address] [place] [address] [facility] thconnect Address [address] [facility]. [address] [place] [address] Care Team Providers Care Telecommunications Officer Name Role Phone Pcp, Patient Does Not Have A Primary Care Physic sonia Campaigns, Generic Provider Attending Clinician Unavailable ESAU MERRITT Attending Clinician Unavailable Esau Merritt MD Attending Clinician [phone] Attending Clinician Unavailable Jd Becker DO Attending Clinician [phone] JD BECKER Attending Clinician Unavailable ESAU MERRITT Admitting Clinician Unavailable JD BECKER Admitting Clinician Unavailable Payers Payer Name Policy Type Policy Number Effective Date Expirati on Date Source [facility] RAUL PADILLA COPAY FOCUS 9 [id number] 2023 00:00:00 Allergies, Adverse Reactions, Alerts Allergy Name Allergy Type Status Severity Reaction(s) Onset Date Inactive Date Treating Clinician Comments Source Tylenol- Codeine Propensi ty to adverse reaction to drug Active 10-03 00:00: 00 Mikey Davila LISINOPR [place] DRUG INGREDI Active COUGH 09-05 00:00: 00 [facility] AMLODIPI NE DRUG INGREDI Active Med Swelling 09-05 00:00: 00 [facility] Amlodipi ne Propensi ty to adverse reaction s Active Swelling - 00:00: 00 [facility] Lisinopr il Propensi ty to adverse reaction s Active Cough -08 00:00: 00 [facility] [place] - Intraven ous Propensi ty to adverse reaction to drug Active 6-23 00:00: 00 Mikey Davila n Propensi ty to adverse reaction to drug Active 5-17 00:00: 00 Mikey Davila Lisinopr il - Oral Propensi ty to adverse reaction to drug Active -22 00:00: 00 Mikey Davila NO KNOWN ALLERGIE S Drug Class Active [facility] Social History Social Habit Start Date Stop Date Quantity Comments [facility] 2023-05-02 00:00:00 2023-05-02 00:00:00 Current non-drinker of alcohol (finding) [facility] History of Social function 2023-05-02 00:00:00 2023-05-02 00:00:00 [facility] Tobacco use and exposure 2013-10-31 00:00:00 2013-10-31 00:00:00 Smokeless tobacco non-user [facility] Sex Assigned At 1970 00:00:00 1970 00:00:00 [facility] Smoking Status Start Date Stop Date Source Never smoked tobacco [facility] Medications Ordered Medication Name Filled Medication Name Start Date Stop Date Current Medication? Ordering Clinician Indication Dosage Frequency Signature (SIG) Comments Components Source rosuvastati n 20 mg tablet 10-03 00:00: 00 Yes 1mg Mikey Davila furosemide 40 mg tablet 10-03 00:00: 00 Yes 1mg Mikey Davila losartan 100 mg tablet 10-03 00:00: 00 Yes 1mg Mikey Davila clopidogrel 75 mg tablet 10-03 00:00: 00 Yes 1mg Mikey Davila Juan Manuel Aspirin 325 mg tablet 10-03 00:00: 00 Yes 1mg Mikey Davila glipizide 10 mg tablet 10-03 00:00: 00 Yes 1mg Mikey Davila Janumet XR 50 mg-500 mg tablet,exte nded release 10-03 00:00: 00 Yes 1mg Mikey Davila potassium chloride ER 20 mEq tablet,exte nded release(par t/cryst) 10-03 00:00: 00 Yes 1mEq Mikey Davila Flonase Allergy Relief 50 mcg/actuati on nasal spray,suspe nsion 09-22 00:00: 00 Yes mcg/act uation Mikey Davila loratadine 10 mg tablet 09-22 00:00: 00 Yes 1mg Mikey Davila amoxicillin 500 mg tablet 09-22 00:00: 00 Yes 1mg Mikey Davila AMOXICILLIN 500 MG 09-22 00:00: 00 Yes Mikey Davila FLUTICASONE PROPIONATE 50 MCG/ACT SUSP 09-22 00:00: 00 Yes Mikey Davila levoFLOXaci n (LEVAQUIN) tablet 500 mg 09-06 03:15: 00 09-06 03:15 :00 No 500mg 500 mg, Oral, ONCE, 1 dose, On Wed09/06/23 at 2215, JENNY
Re ason for Anti-Infec tive: Empiric Therapy for Suspected Infection< br>Empiric Therapy Site: Respirator y
Durat ion of therapy: Once (ED) [facility] acetaminoph en-codeine (TYLENOL #3) 300-30 mg tablet 1 tablet 09-06 02:45: 00 09-06 03:01 :00 No 1{tbl} 1 tablet, Oral, ONCE, 1 dose, On Wed09/06/23 at 2145, JENNY [facility] metFORMIN (GLUCOPHAGE ) 500 mg tablet 09-05 19:58: 43 Yes [id number] 500mg Take 1 tablet by mouth in the morning and 1 tablet in the evening. Take with meals. [facility] amLODIPine (NORVASC) 5 mg tablet 09-05 19:58: 43 Yes [id number] 5mg Take 1 tablet by mouth in the morning. [facility] METOPROLOL SUCCINATE ORAL 09-05 19:58: 43 Yes [id number] 1{tbl} Take 1 Tab by mouth 2 (two) times daily. [facility] TAKE 10 ML BY MOUTH EVERY 4 TO 6 HOURS NEEDED FOR COUGH. 09-05 00:00: 00 Yes [id number] Mikey Davila TAKE 1 TABLET BY MOUTH IN THE MORNING FOR 9 DAYS 09-05 00:00: 00 Yes Mikey Davila DISSOLVE 1 TABLET IN MOUTH EVERY 12 HOURS NEEDED FOR NAUSEA AND VOMITING 09-05 00:00: 00 Yes Mikey Davila BROMPHEN/PS EUDOEPHEDRI NE HCL/DEXTRO METHORPHAN HBR 30-2-10 MG/5ML SYRP 09-05 00:00: 00 Yes Mikey Davila TAKE 1 TABLET BY MOUTH EVERY 4 HOURS NEEDED FOR SEVERE COUGH OR BODY ACHES FOR UP TO 7 DAYS 09-05 00:00: 00 Yes Mikey Davila ondansetron 4 mg disintegrat ing tablet 09-05 00:00: 00 Yes [id number] 4mg Take 1 tablet by mouth every 12 (twelve) hours as needed for Nausea and Vomiting (N/V). [facility] levoFLOXaci n 500 mg tablet 09-05 00:00: 00 09-15 04:59 :00 Yes [id number] 500mg Take 1 tablet by mouth in the morning for 9 days. [facility] acetaminoph en-codeine 300-30 mg tablet 09-05 00:00: 00 09-13 04:59 :00 Yes [id number] 1{tbl} Take 1 tablet by mouth every 4 (four) hours as needed (severe cough or body aches) for up to 7 days. Indication s: acute pain [facility] furosemide 40 mg tablet 07-01 00:00: 00 Yes mg Mikey Davila glipizide 10 mg tablet 07-01 00:00: 00 Yes mg Mikey Davila losartan 100 mg tablet 07-01 00:00: 00 Yes mg Mikey Davila TAKE 1 TABLET AT BEDTIME. 06-11 00:00: 00 Yes 20 Mikey Davila TAKE 1 TABLET TWICE DAILY 30 MINUTES BEFORE MEALS. 06-11 00:00: 00 Yes 10 Mikey Davila TAKE 1 TABLET DAILY. 06-11 00:00: 00 Yes 10 Mikey Davila TAKE 1 TABLET TWICE DAILY WITH MEALS 06-11 00:00: 00 Yes [id number] Mikey Davila TAKE 1 TABLET DAILY. 06-11 00:00: 00 Yes 40 Mikey Davila TAKE 1 TABLET DAILY. 06-11 00:00: 00 Yes 100 Mikey Davila POTASSIUM CHLORIDE ER 10 MEQ CPCR 06-11 00:00: 00 Yes Mikey Davila ibuprofen 600 mg tablet 2022-05 00:00: 00 Yes mg Mikey Davila methocarbam ol 750 mg tablet 2022-05 00:00: 00 Yes mg Mikey Davila ketoconazol e 2 % shampoo 2022-05 00:00: 00 Yes % Mikey Davila ibuprofen (IBU) tablet 600 mg 2022-05 22:45: 00 05-02 23:15 :00 No 600mg 600 mg, Oral, ONCE, 1 dose, On 05/02/23 at 1645, JENNY [facility] ibuprofen 600 mg tablet 2022-05 00:00: 00 Yes [id number] 600mg Take 1 tablet by mouth every 6 (six) hours as needed for Pain (scale 4-6) for up to 30 doses. [facility] methocarbam oL 750 mg tablet 2022-05 00:00: 00 Yes [id number] 750mg Take 1 tablet by mouth 4 (four) times daily. [facility] TAKE 1 TABLET BY MOUTH EVERY 6 HOURS NEEDED FOR PAIN (SCALE 4-6) FOR UP TO 30 DOSES 2022-05 00:00: 00 10-03 00:00 :00 No Mikey Davila TAKE 1 TABLET TWICE DAILY WITH FOOD. 2022-05 00:00: 00 10-03 00:00 :00 No [id number] Mikey Davila TAKE 1 TABLET BY MOUTH TWICE A DAY 12-30 00:00: 00 10-03 00:00 :00 No [id number] Mikey Davila TAKE 1 TABLET DAILY. 12-30 00:00: 00 10-03 00:00 :00 No 40 Mikeyhola Davila TAKE 1 TABLET DAILY. 12-30 00:00: 00 10-03 00:00 :00 No 100 Mikey Davila TAKE 1 TABLET DAILY. 12-30 00:00: 00 10-03 00:00 :00 No 10 Mikeyhola Davila TAKE 1 TABLET TWICE DAILY 30 MINUTES BEFORE MEALS. 12-30 00:00: 00 10-03 00:00 :00 No 10 Mikey Davila TAKE 1 TABLET DAILY. 12-30 00:00: 00 10-03 00:00 :00 No 20 Mikey Quyen Davila APPLY TO SCALP EVERY OTHER DAY FOR 5 MINUTES AND RINSE. 6-16 00:00: 00 10-03 00:00 :00 No 2 Mikey Quyen Davila POT CHLORIDE 10MEQ ER 3- 00:00: 00 Yes Mikyehola Davila JANUMET 50-1000 3- 00:00: 00 10-03 00:00 :00 No Mikey Quyen Davila LOSARTAN 100MG 3- 00:00: 00 10-03 00:00 :00 No 100 Mikeyhloa Davila ROSUVASTATI N 20MG 3- 00:00: 00 10-03 00:00 :00 No 20 Mikey Quyen Davila GLIPIZIDE 10MG 3- 00:00: 00 10-03 00:00 :00 No [id number] Mikeyhola Davila FUROSEMIDE 40MG 3- 00:00: 00 10-03 00:00 :00 No [id number] Mikey Davila TAKE 1 TABLET TWICE DAILY 30 MINUTES BEFORE MEALS. - 00:00: 00 10-03 00:00 :00 No 10 Mikey Davila TAKE 1 TABLET BY MOUTH TWICE A DAY 06-22 00:00: 00 10-03 00:00 :00 No [id number] Mikey Quyen Giovanni TAKE 1 TABLET DAILY. 06-22 00:00: 00 10-03 00:00 :00 No 40 Mikey Davila TAKE 1 TABLET DAILY. 06-22 00:00: 00 10-03 00:00 :00 No 100 Mikey Davila TAKE 1 TABLET DAILY. 06-22 00:00: 00 10-03 00:00 :00 No 10 Mikey Davila TAKE 1 TABLET DAILY. 06-22 00:00: 00 10-03 00:00 :00 No 20 Mikey Davila FUROSEMIDE 40MG 06-18 00:00: 00 10-03 00:00 :00 No Mikey Davila JANUMET 50-1000 06-18 00:00: 00 10-03 00:00 :00 No Mikey Davila GLIPIZIDE 10MG 06-18 00:00: 00 10-03 00:00 :00 No Mikey Davila TAKE 1 TABLET DAILY. 2021-05 00:00: 00 10-03 00:00 :00 No Mikey Davila Dose Unknown 2021-05 00:00: 00 10-03 00:00 :00 No 500 Mikey Davila TAKE 1 TABLET BY MOUTH ONCE DAILY 2021-05 00:00: 00 10-03 00:00 :00 No Mikey Davila TAKE 1 TABLET BY MOUTH ONCE DAILY NEEDED FOR ALLERGIES 2021-05 00:00: 00 10-03 00:00 :00 No 10 Mikey Davila USE 1 SPRAY(S) IN EACH NOSTRIL IN THE MORNING 2021-05 00:00: 00 10-03 00:00 :00 No Mikey Davila TAKE 1 TABLET BY MOUTH EVERY 8 HOURS NEEDED 2021-05 00:00: 00 10-03 00:00 :00 No [id number] Mikey Davila TAKE 1 TABLET BY MOUTH TWICE A DAY 2021-05 00:00: 10-03 00:00 :00 No [id number] Mikey Davila TAKE 1 TABLET DAILY. 2021-05 00:00: 00 10-03 00:00 :00 No 100unit Mikey Quyen Davila 1 po qd 2021-05 00:00: 00 10-03 00:00 :00 No 10unit Mikey Quyen Davila TAKE 1 TABLET DAILY. 2021-05 00:00: 00 10-03 00:00 :00 No 10 Mikey Quyen Davila TAKE 1 TABLET DAILY. 2021-05 00:00: 00 10-03 00:00 :00 No 40 Mikey F Giovanni TAKE 1 TABLET TWICE DAILY 30 MINUTES BEFORE MEALS. 2021-05 00:00: 00 10-03 00:00 :00 No 10 Mikey F Giovanni Dose Unknown 02-11 00:00: 00 Yes Mikey Davila TAKE 1 TABLET TWICE DAILY 30 MINUTES BEFORE MEALS. 02-11 00:00: 00 No TAKE 1 TABLET TWICE DAILY 30 MINUTES BEFORE MEALS. 02-11 00:00: 00 No TAKE 1 TABLET TWICE DAILY 30 MINUTES BEFORE MEALS. 02-11 00:00: 00 No Dose Unknown 02-05 00:00: 00 No Dose Unknown 02-05 00:00: 00 No Dose Unknown 02-05 00:00: 00 No Dose Unknown 02-05 00:00: 00 No Dose Unknown 02-05 00:00: 00 No Dose Unknown 02-05 00:00: 00 No Dose Unknown 02-05 00:00: 00 10-03 00:00 :00 No Mikey F Giovanin Dose Unknown 02-05 00:00: 00 10-03 00:00 :00 No Mikey F Giovanni Dose Unknown 12-31 00:00: 00 Yes Mikey F Giovanni TAKE 1 TABLET BY MOUTH TWICE A DAY 12-31 00:00: 00 Yes [id number] Mikey Quyen Davila TAKE 1 TABLET DAILY. 12-31 00:00: 00 Yes 40 Mikey F Giovanni Dose Unknown 12-31 00:00: 00 No TAKE 1 TABLET BY MOUTH TWICE A DAY 12-31 00:00: 00 No [id number] TAKE 1 TABLET DAILY. 12-31 00:00: 00 No 40 Dose Unknown 12-31 00:00: 00 No TAKE 1 TABLET BY MOUTH TWICE A DAY 12-31 00:00: 00 No [id number] TAKE 1 TABLET DAILY. 12-31 00:00: 00 No 40 Dose Unknown 12-31 00:00: 00 No TAKE 1 TABLET BY MOUTH TWICE A DAY 12-31 00:00: 00 No [id number] TAKE 1 TABLET DAILY. 12-31 00:00: 00 No 40 &lt 12-30 00:00: 00 Yes 40 Mikey Davila TAKE 1 TABLET BY MOUTH TWICE DAILY 12-30 00:00: 00 Yes 500 Mikey Davila &lt 12-30 00:00: 00 No 40 TAKE 1 TABLET BY MOUTH TWICE DAILY 12-30 00:00: 00 No 500 &lt 12-30 00:00: 00 No 40 TAKE 1 TABLET BY MOUTH TWICE DAILY 12-30 00:00: 00 No 500 &lt 12-30 00:00: 00 No 40 TAKE 1 TABLET BY MOUTH TWICE DAILY 12-30 00:00: 00 No 500 TAKE 1 TABLET BY MOUTH TWICE DAILY 11-20 00:00: 00 Yes Mikey Davila USE 1 SPRAY(S) IN EACH NOSTRIL IN THE MORNING 11-20 00:00: 00 Yes Mikey Davila TAKE 1 TABLET BY MOUTH TWICE DAILY 11-20 00:00: 00 No USE 1 SPRAY(S) IN EACH NOSTRIL IN THE MORNING 11-20 00:00: 00 No TAKE 1 TABLET BY MOUTH TWICE DAILY 11-20 00:00: 00 No USE 1 SPRAY(S) IN EACH NOSTRIL IN THE MORNING 11-20 00:00: 00 No TAKE 1 TABLET BY MOUTH TWICE DAILY 11-20 00:00: 00 No USE 1 SPRAY(S) IN EACH NOSTRIL IN THE MORNING 2021-0 6 00:00: 00 No Dose Unknown 2-0 09-26 00:00: 00 Yes Mikey Davila Jardiance 10 mg tablet 2021-0 09-26 00:00: 00 No 1mg Jardiance 10 mg tablet 2-0 09-26 00:00: 00 No 1mg Jardiance 10 mg tablet 2021-0 09-26 00:00: 00 No 1mg Dose Unknown 2021-0 09-24 00:00: 00 Yes Mikey Davila Dose Unknown 2021-0 09-24 00:00: 00 No Dose Unknown 2021-0 09-24 00:00: 00 No Dose Unknown 2021-0 09-24 00:00: 00 No Dose Unknown 2021-0 09-23 00:00: 00 Yes Mikey Davila Dose Unknown 2021-0 09-23 00:00: 00 No Dose Unknown 2021-0 09-23 00:00: 00 No Dose Unknown 2021-0 09-23 00:00: 00 No Dose Unknown 2-0 09-22 00:00: 00 Yes Mikey Davila Dose Unknown 2021-0 4 00:00: 00 No Dose Unknown 2-0 4 00:00: 00 No Dose Unknown 2-0 25 00:00: 00 No Dose Unknown 2021-0 09-20 00:00: 00 Yes Mikey Davila Dose Unknown 0 09-20 00:00: 00 No Dose Unknown 2021-0 09-20 00:00: 00 No Dose Unknown 2021-0 09-20 00:00: 00 No furosemide 40 mg tablet 0 09-19 00:00: 00 No 1mg losartan 100 mg tablet 0 09-19 00:00: 00 No 1mg Jardiance 10 mg tablet 2021-0 09-19 00:00: 00 No 1mg carvedilol 12.5 mg tablet 0 09-19 00:00: 00 No 1mg Janumet XR 50 mg-1,000 mg tablet,exte nded release 0 - 00:00: 00 No 1mg TAKE 1 TABLET TWICE DAILY 30 MINUTES BEFORE MEALS. 2021-0 - 00:00: 00 No rosuvastati n 20 mg tablet 09-19 00:00: 00 No 1mg potassium chloride ER 10 mEq tablet,exte nded release 09-19 00:00: 00 No 1mEq loratadine 10 mg capsule 09-19 00:00: 00 No 1mg Dose Unknown 09-19 00:00: 00 No Dose Unknown 09-19 00:00: 00 No furosemide 40 mg tablet 09-19 00:00: 00 No 1mg losartan 100 mg tablet 09-19 00:00: 00 No 1mg Jardiance 10 mg tablet 09-19 00:00: 00 No 1mg carvedilol 12.5 mg tablet 09-19 00:00: 00 No 1mg Janumet XR 50 mg-1,000 mg tablet,exte nded release 09-19 00:00: 00 No 1mg TAKE 1 TABLET TWICE DAILY 30 MINUTES BEFORE MEALS. 09-19 00:00: 00 No rosuvastati n 20 mg tablet 09-19 00:00: 00 No 1mg potassium chloride ER 10 mEq tablet,exte nded release 09-19 00:00: 00 No 1mEq loratadine 10 mg capsule 09-19 00:00: 00 No 1mg Dose Unknown 09-19 00:00: 00 No Dose Unknown 09-19 00:00: 00 No furosemide 40 mg tablet 09-19 00:00: 00 No 1mg losartan 100 mg tablet 09-19 00:00: 00 No 1mg Jardiance 10 mg tablet 09-19 00:00: 00 No 1mg carvedilol 12.5 mg tablet 09-19 00:00: 00 No 1mg Janumet XR 50 mg-1,000 mg tablet,exte nded release 09-19 00:00: 00 No 1mg TAKE 1 TABLET TWICE DAILY 30 MINUTES BEFORE MEALS. 09-19 00:00: 00 No rosuvastati n 20 mg tablet 09-19 00:00: 00 No 1mg potassium chloride ER 10 mEq tablet,exte nded release 09-19 00:00: 00 No 1mEq loratadine 10 mg capsule 09-19 00:00: 00 No 1mg Dose Unknown 0 09-19 00:00: 00 No Dose Unknown 0 09-19 00:00: 00 No furosemide 40 mg tablet 0 09-19 00:00: 00 Yes 1mg Mikey Davila losartan 100 mg tablet 09-19 00:00: 00 Yes 1mg Mikey Davila potassium chloride ER 10 mEq tablet,exte nded release 09-19 00:00: 00 Yes 1mEq Mikey Davila Dose Unknown 09-19 00:00: 00 Yes Mikey Quyen Giovanni Dose Unknown 09-19 00:00: 00 Yes Mikey Quyen Giovanni Dose Unknown 09-19 00:00: 00 Yes Mikey Quyen Giovanni Dose Unknown 09-19 00:00: 00 Yes Mikey Quyen Giovanni Dose Unknown 0 09-19 00:00: 00 Yes Mikey Quyen Giovanni Dose Unknown 0 09-19 00:00: 00 Yes Mikey Quyen Davila Dose Unknown 0 09-19 00:00: 00 Yes Mikey Davila Dose Unknown 2020-05 00:00: 00 No Dose Unknown 2020-05 00:00: 00 No Dose Unknown 2020-05 00:00: 00 No Dose Unknown 2020-05 00:00: 00 Yes Mikey Davila Janumet XR 50 mg-1,000 mg tablet,exte nded release 2020-05 00:00: 00 No 1mg TAKE 1 TABLET TWICE DAILY 30 MINUTES BEFORE MEALS. 2020-05 00:00: 00 No Janumet XR 50 mg-1,000 mg tablet,exte nded release 2020-05 00:00: 00 No 1mg TAKE 1 TABLET TWICE DAILY 30 MINUTES BEFORE MEALS. 2020-05 00:00: 00 No Janumet XR 50 mg-1,000 mg tablet,exte nded release 2020-05 00:00: 00 No 1mg TAKE 1 TABLET TWICE DAILY 30 MINUTES BEFORE MEALS. 2020-05 00:00: 00 No Dose Unknown 2020-05 00:00: 00 Yes Mikey Davila Dose Unknown 2020-05 00:00: 00 Yes Mikey Davila TAKE 1 TABLET TWICE DAILY 30 MINUTES BEFORE MEALS. 2020-05 00:00: 00 No losartan 100 mg tablet 2020-05 00:00: 00 No 1mg amlodipine 10 mg tablet 2020-05 00:00: 00 No 1mg furosemide 40 mg tablet 2020-05 00:00: 00 No 1mg Janumet XR 50 mg-1,000 mg tablet,exte nded release 2020-05 00:00: 00 No 1mg carvedilol 12.5 mg tablet 2020-05 00:00: 00 No 1mg rosuvastati n 20 mg tablet 2020-05 00:00: 00 No 1mg potassium chloride ER 10 mEq tablet,exte nded release 2020-05 00:00: 00 No 1mEq loratadine 10 mg capsule 2020-05 00:00: 00 No 1mg TAKE 1 TABLET TWICE DAILY 30 MINUTES BEFORE MEALS. 2020-05 00:00: 00 No losartan 100 mg tablet 2020-05 00:00: 00 No 1mg amlodipine 10 mg tablet 2020-05 00:00: 00 No 1mg furosemide 40 mg tablet 2020-05 00:00: 00 No 1mg Janumet XR 50 mg-1,000 mg tablet,exte nded release 2020-05 00:00: 00 No 1mg carvedilol 12.5 mg tablet 2020-05 00:00: 00 No 1mg rosuvastati n 20 mg tablet 2020-05 00:00: 00 No 1mg potassium chloride ER 10 mEq tablet,exte nded release 2020-05 00:00: 00 No 1mEq loratadine 10 mg capsule 2020-05 00:00: 00 No 1mg TAKE 1 TABLET TWICE DAILY 30 MINUTES BEFORE MEALS. 2020-05 00:00: 00 No losartan 100 mg tablet 2020-05 00:00: 00 No 1mg amlodipine 10 mg tablet 2020-05 00:00: 00 No 1mg furosemide 40 mg tablet 2020-05 00:00: 00 No 1mg Janumet XR 50 mg-1,000 mg tablet,exte nded release 2020-05 00:00: 00 No 1mg carvedilol 12.5 mg tablet 2020-05 00:00: 00 No 1mg rosuvastati n 20 mg tablet 2020-05 00:00: 00 No 1mg potassium chloride ER 10 mEq tablet,exte nded release 2020-05 00:00: 00 No 1mEq loratadine 10 mg capsule 2020-05 00:00: 00 No 1mg losartan 100 mg tablet 2020-05 00:00: 00 Yes 1mg Mikey Davila amlodipine 10 mg tablet 2020-05 00:00: 00 Yes 1mg Mikey Davila furosemide 40 mg tablet 2020-05 00:00: 00 Yes 1mg Mikey Davila potassium chloride ER 10 mEq tablet,exte nded release 2020-05 00:00: 00 Yes 1mEq Mikey Davila Dose Unknown 2020-05 00:00: 00 Yes Mikey Quyen Giovanni Dose Unknown 2020-05 00:00: 00 Yes Mikey F Giovanni Dose Unknown 2020-05 00:00: 00 Yes Mikey F Giovanni Dose Unknown 2020-05 00:00: 00 Yes Mikey F Giovanni Dose Unknown 2020-05 00:00: 00 Yes Mikey Napier Giovanni Flonase Allergy Relief 50 mcg/actuati on nasal spray,suspe nsion 12-04 00:00: 00 No 1mcg/ac tuation loratadine 10 mg capsule 12-04 00:00: 00 No 1mg Flonase Allergy Relief 50 mcg/actuati on nasal spray,suspe nsion 12-04 00:00: 00 No 1mcg/ac tuation loratadine 10 mg capsule 12-04 00:00: 00 No 1mg Flonase Allergy Relief 50 mcg/actuati on nasal spray,suspe nsion 12-04 00:00: 00 No 1mcg/ac tuation loratadine 10 mg capsule 12-04 00:00: 00 No 1mg Dose Unknown 12-04 00:00: 00 Yes Mikey Davila loratadine 10 mg capsule 12-04 00:00: 00 Yes 1mg Mikey Davila TAKE 1 TABLET TWICE DAILY 30 MINUTES BEFORE MEALS. 11-26 00:00: 00 No TAKE 1 TABLET TWICE DAILY 30 MINUTES BEFORE MEALS. 11-26 00:00: 00 No TAKE 1 TABLET TWICE DAILY 30 MINUTES BEFORE MEALS. 11-26 00:00: 00 No Dose Unknown 11-26 00:00: 00 Yes Mikey Davila Janumet XR 50 mg-1,000 mg tablet,exte nded release 11-21 00:00: 00 No 1mg Janumet XR 50 mg-1,000 mg tablet,exte nded release 11-21 00:00: 00 No 1mg Janumet XR 50 mg-1,000 mg tablet,exte nded release 11-21 00:00: 00 No 1mg Janumet XR 50 mg-1,000 mg tablet,exte nded release 11-21 00:00: 00 Yes 1mg Mikey Davila Lantus Solostar U-100 Insulin 100 unit/mL (3 mL) subcutaneou s pen 11-18 00:00: 00 No (3 mL) losartan 100 mg tablet 11-18 00:00: 00 No 1mg amlodipine 10 mg tablet 11-18 00:00: 00 No 1mg furosemide 40 mg tablet 11-18 00:00: 00 No 1mg metformin 1,000 mg tablet 11-18 00:00: 00 No 1mg carvedilol 12.5 mg tablet 11-18 00:00: 00 No 1mg rosuvastati n 20 mg tablet 11-18 00:00: 00 No 1mg Lantus Solostar U-100 Insulin 100 unit/mL (3 mL) subcutaneou s pen 11-18 00:00: 00 No (3 mL) losartan 100 mg tablet 11-18 00:00: 00 No 1mg amlodipine 10 mg tablet 11-18 00:00: 00 No 1mg furosemide 40 mg tablet 11-18 00:00: 00 No 1mg metformin 1,000 mg tablet 11-18 00:00: 00 No 1mg carvedilol 12.5 mg tablet 11-18 00:00: 00 No 1mg rosuvastati n 20 mg tablet 11-18 00:00: 00 No 1mg Lantus Solostar U-100 Insulin 100 unit/mL (3 mL) subcutaneou s pen 11-18 00:00: 00 No (3 mL) losartan 100 mg tablet 11-18 00:00: 00 No 1mg amlodipine 10 mg tablet 11-18 00:00: 00 No 1mg furosemide 40 mg tablet 11-18 00:00: 00 No 1mg metformin 1,000 mg tablet 11-18 00:00: 00 No 1mg carvedilol 12.5 mg tablet 11-18 00:00: 00 No 1mg rosuvastati n 20 mg tablet 11-18 00:00: 00 No 1mg Dose Unknown 11-18 00:00: 00 Yes 500 Mikey Davila losartan 100 mg tablet 11-18 00:00: 00 Yes 1mg Mikey Davila amlodipine 10 mg tablet 11-18 00:00: 00 Yes 1mg Mikey Davila furosemide 40 mg tablet 11-18 00:00: 00 Yes 1mg Mikey Davila carvedilol 12.5 mg tablet 11-18 00:00: 00 Yes 1mg Mikey Davila rosuvastati n 20 mg tablet 11-18 00:00: 00 Yes 1mg Mikey Davila Dose Unknown 11-18 00:00: 00 Yes Mikey Davila Lantus Solostar U-100 Insulin 100 unit/mL (3 mL) subcutaneou s pen 08-02 00:00: 00 No (3 mL) metformin 1,000 mg tablet 08-02 00:00: 00 No 1mg Lantus Solostar U-100 Insulin 100 unit/mL (3 mL) subcutaneou s pen 08-02 00:00: 00 No (3 mL) metformin 1,000 mg tablet 08-02 00:00: 00 No 1mg Lantus Solostar U-100 [facility]ulin 100 unit/mL (3 mL[facility] 00:00: 00 No (3 mL) metformin 1,000 mg tablet 08-02 00:00: 00 No 1mg Dose Unknown 08-02 00:00: 00 Yes 500 Mikey Davila metformin 1,000 mg tablet 08-02 00:00: 00 Yes 1mg Mikey Davila Lantus Solostar U-100 Insulin 100 unit/mL (3 mL) [facility] 06[facility]18 00:00: 00 No (3 mL) furosemide 40 mg tablet 06-18 00:00: 00 No 1mg losartan 100 mg tablet 06-18 00:00: 00 No 1mg amlodipine 10 mg tablet 06-18 00:00: 00 No 1mg carvedilol 12.5 mg tablet 06-18 00:00: 00 No 1mg rosuvastati n 20 mg tablet 06-18 00:00: 00 No 1mg potassium chloride ER 10 mEq tablet,exte nded release 06-18 00:00: 00 No 1mEq Lantus Solostar U-100 Insulin 100 unit/mL (3 mL) [facility] 06[facility] 00:00: 00 No (3 mL) furosemide 40 mg tablet 06-18 00:00: 00 No 1mg losartan 100 mg tablet 06-18 00:00: 00 No 1mg amlodipine 10 mg tablet 06-18 00:00: 00 No 1mg carvedilol 12.5 mg tablet 06-18 00:00: 00 No 1mg rosuvastati n 20 mg tablet 06-18 00:00: 00 No 1mg potassium chloride ER 10 mEq tablet,exte nded release 06-18 00:00: 00 No 1mEq Lantus Solostar U-100 Insulin 100 unit/mL (3 mL) subcutaneou s pen 06-18 00:00: 00 No (3 mL) furosemide 40 mg tablet 06-18 00:00: 00 No 1mg losartan 100 mg tablet 06-18 00:00: 00 No 1mg amlodipine 10 mg tablet 06-18 00:00: 00 No 1mg carvedilol 12.5 mg tablet 06-18 00:00: 00 No 1mg rosuvastati n 20 mg tablet 06-18 00:00: 00 No 1mg potassium chloride ER 10 mEq tablet,exte nded release 06-18 00:00: 00 No 1mEq Lantus Solostar U-100 Insulin 100 unit/mL (3 mL) subcutaneou s pen 06-18 00:00: 00 Yes (3 mL) Mikey Davila furosemide 40 mg tablet 06-18 00:00: 00 Yes 1mg Mikey Davila losartan 100 mg tablet 06-18 00:00: 00 Yes 1mg Mikey Davila amlodipine 10 mg tablet 06-18 00:00: 00 Yes 1mg Mikey Davila carvedilol 12.5 mg tablet 06-18 00:00: 00 Yes 1mg Mikey Davila rosuvastati n 20 mg tablet 06-18 00:00: 00 Yes 1mg Mikey Davila potassium chloride ER 10 mEq tablet,exte nded release 06-18 00:00: 00 Yes 1mEq Mikey Davila Lantus Solostar U-100 Insulin 100 unit/mL (3 mL) subcutaneou s pen 2019-05 00:00: 00 No (3 mL) furosemide 40 mg tablet 2019-05 00:00: 00 No 1mg losartan 100 mg tablet 2019-05 00:00: 00 No 1mg amlodipine 10 mg tablet 2019-05 00:00: 00 No 1mg carvedilol 12.5 mg tablet 2019-05 00:00: 00 No 1mg rosuvastati n 20 mg tablet 2019-05 00:00: 00 No 1mg potassium chloride ER 10 mEq tablet,exte nded release 2019-05 00:00: 00 No 1mEq Lantus Solostar U-100 Insulin 100 unit/mL (3 mL) subcutaneou s pen 2019-05 00:00: 00 No (3 mL) furosemide 40 mg tablet 2019-05 00:00: 00 No 1mg losartan 100 mg tablet 2019-05 00:00: 00 No 1mg amlodipine 10 mg tablet 2019-05 00:00: 00 No 1mg carvedilol 12.5 mg tablet 2019-05 00:00: 00 No 1mg rosuvastati n 20 mg tablet 2019-05 00:00: 00 No 1mg potassium chloride ER 10 mEq tablet,exte nded release 2019-05 00:00: 00 No 1mEq Lantus Solostar U-100 Insulin 100 unit/mL (3 mL) subcutaneou s pen 2019-05 00:00: 00 No (3 mL) furosemide 40 mg tablet 2019-05 00:00: 00 No 1mg losartan 100 mg tablet 2019-05 00:00: 00 No 1mg amlodipine 10 mg tablet 2019-05 00:00: 00 No 1mg carvedilol 12.5 mg tablet 2019-05 00:00: 00 No 1mg rosuvastati n 20 mg tablet 2019-05 00:00: 00 No 1mg potassium chloride ER 10 mEq tablet,exte nded release 2019-05 00:00: 00 No 1mEq Lantus Solostar U-100 Insulin 100 unit/mL (3 mL) subcutaneou s pen 2019-05 00:00: 00 Yes (3 mL) Mikey Davila furosemide 40 mg tablet 2019-05 00:00: 00 Yes 1mg Mikey Davila losartan 100 mg tablet 2019-05 00:00: 00 Yes 1mg Mikey Davila amlodipine 10 mg tablet 2019-05 00:00: 00 Yes 1mg Mikey Davila carvedilol 12.5 mg tablet 2019-05 00:00: 00 Yes 1mg Mikey Davila rosuvastati n 20 mg tablet 2019-05 00:00: 00 Yes 1mg Mikey Davila potassium chloride ER 10 mEq tablet,exte nded release 2019-05 00:00: 00 Yes 1mEq Mikey Davila metformin ER 1,000 mg 24 hr tablet,exte nded release (gastric) 2019-05 00:00: 00 No 1mg metformin ER 1,000 mg 24 hr tablet,exte nded release (gastric) 2019-05 00:00: 00 No 1mg metformin ER 1,000 mg 24 hr tablet,exte nded release (gastric) 2019-05 00:00: 00 No 1mg metformin ER 1,000 mg 24 hr tablet,exte nded release (gastric) 2019-05 00:00: 00 Yes 1mg Mikey Davila furosemide 40 mg tablet 02-25 00:00: 00 No 1mg losartan 100 mg tablet 02-25 00:00: 00 No 1mg amlodipine 10 mg tablet 02-25 00:00: 00 No 1mg Janumet XR 50 mg-1,000 mg tablet,exte nded release 02-25 00:00: 00 No 1mg carvedilol 12.5 mg tablet 02-25 00:00: 00 No 1mg rosuvastati n 20 mg tablet 02-25 00:00: 00 No 1mg potassium chloride ER 10 mEq tablet,exte nded release 02-25 00:00: 00 No 1mEq Lantus Solostar U-100 Insulin 100 unit/mL (3 mL) subcutaneou s pen 02-25 00:00: 00 No (3 mL) furosemide 40 mg tablet 02-25 00:00: 00 No 1mg losartan 100 mg tablet 02-25 00:00: 00 No 1mg amlodipine 10 mg tablet 02-25 00:00: 00 No 1mg Janumet XR 50 mg-1,000 mg tablet,exte nded release 02-25 00:00: 00 No 1mg carvedilol 12.5 mg tablet 02-25 00:00: 00 No 1mg rosuvastati n 20 mg tablet 02-25 00:00: 00 No 1mg potassium chloride ER 10 mEq tablet,exte nded release 02-25 00:00: 00 No 1mEq Lantus Solostar U-100 Insulin 100 unit/mL (3 mL) subcutaneou s pen 02-25 00:00: 00 No (3 mL) furosemide 40 mg tablet 02-25 00:00: 00 No 1mg losartan 100 mg tablet 02-25 00:00: 00 No 1mg amlodipine 10 mg tablet 02-25 00:00: 00 No 1mg Janumet XR 50 mg-1,000 mg tablet,exte nded release 02-25 00:00: 00 No 1mg carvedilol 12.5 mg tablet 02-25 00:00: 00 No 1mg rosuvastati n 20 mg tablet 02-25 00:00: 00 No 1mg potassium chloride ER 10 mEq tablet,exte nded release 02-25 00:00: 00 No 1mEq Lantus Solostar U-[facility] 00 No (3 mL) Lantus Solostar U-100 Insulin 100 unit[facility] (3 [facility]:00: 00 Yes (3 mL) Mikey Davila furosemide 40 mg tablet 02-25 00:00: 00 Yes 1mg Mikey Davila losartan 100 mg tablet 02-25 00:00: 00 Yes 1mg Mikey Davila amlodipine 10 mg tablet 02-25 00:00: 00 Yes 1mg Mikey Davila Janumet XR 50 mg-1,000 mg tablet,exte nded release 02-25 00:00: 00 Yes 1mg Mikey Davila carvedilol 12.5 mg tablet 02-25 00:00: 00 Yes 1mg Mikey Davila rosuvastati n 20 mg tablet 02-25 00:00: 00 Yes 1mg Mikey Davila potassium chloride ER 10 mEq tablet,exte nded release 02-25 00:00: 00 Yes 1mEq Mikey Davila Lantus Solostar U-100 Insulin 100 unit/mL (3 mL) subcutaneou s pen 12-18 00:00: 00 No (3 mL) amlodipine 10 mg tablet 12-18 00:00: 00 No 1mg losartan 100 mg tablet 12-18 00:00: 00 No 1mg furosemide 40 mg tablet 12-18 00:00: 00 No 1mg glimepiride 4 mg tablet 12-18 00:00: 00 No 1mg carvedilol 12.5 mg tablet 12-18 00:00: 00 No 1mg metformin ER 1,000 mg 24 hr tablet,exte nded release (gastric) 12-18 00:00: 00 No 1mg rosuvastati n 20 mg tablet 12-18 00:00: 00 No 1mg potassium chloride ER 10 mEq tablet,exte nded release 12-18 00:00: 00 No 1mEq Lantus Solostar U-100 Insulin 100 unit/mL (3 mL) subcutaneou s pen 12-18 00:00: 00 No (3 mL) amlodipine 10 mg tablet 12-18 00:00: 00 No 1mg losartan 100 mg tablet 12-18 00:00: 00 No 1mg furosemide 40 mg tablet 12-18 00:00: 00 No 1mg glimepiride 4 mg tablet 12-18 00:00: 00 No 1mg carvedilol 12.5 mg tablet 12-18 00:00: 00 No 1mg metformin ER 1,000 mg 24 hr tablet,exte nded release (gastric) 12-18 00:00: 00 No 1mg rosuvastati n 20 mg tablet 12-18 00:00: 00 No 1mg potassium chloride ER 10 mEq tablet,exte nded release 12-18 00:00: 00 No 1mEq Lantus Solostar U-100 Insulin 100 unit/mL (3 mL) subcutaneou s pen 12-18 00:00: 00 No (3 mL) amlodipine 10 mg tablet 12-18 00:00: 00 No 1mg losartan 100 mg tablet 12-18 00:00: 00 No 1mg furosemide 40 mg tablet 12-18 00:00: 00 No 1mg glimepiride 4 mg tablet 12-18 00:00: 00 No 1mg carvedilol 12.5 mg tablet 12-18 00:00: 00 No 1mg metformin ER 1,000 mg 24 hr tablet,exte nded release (gastric) 12-18 00:00: 00 No 1mg rosuvastati n 20 mg tablet 12-18 00:00: 00 No 1mg potassium chloride ER 10 mEq tablet,exte nded release 12-18 00:00: 00 No 1mEq Lantus Solostar U-100 Insulin 100 unit[facility] (3 [facility]:00: 00 Yes (3 mL) Mikey Davila amlodipine 10 mg tablet 12-18 00:00: 00 Yes 1mg Mikey Davila losartan 100 mg tablet 12-18 00:00: 00 Yes 1mg Mikey Davila furosemide 40 mg tablet 12-18 00:00: 00 Yes 1mg Mikey Davila glimepiride 4 mg tablet 12-18 00:00: 00 Yes 1mg Mikey Davila carvedilol 12.5 mg tablet 12-18 00:00: 00 Yes 1mg Mikey Davila metformin ER 1,000 mg 24 hr tablet,exte nded release (gastric) 12-18 00:00: 00 Yes 1mg Mikey Davila rosuvastati n 20 mg tablet 12-18 00:00: 00 Yes 1mg Mikey Davila potassium chloride ER 10 mEq tablet,exte nded release 12-18 00:00: 00 Yes 1mEq Mikey Davila Lantus Solostar U-100 Insulin 100 unit/mL (3 [facility] 00:00: 00 No (3 mL) amlodipine 10 mg tablet 11-06 00:00: 00 No 1mg losartan 100 mg tablet 11-06 00:00: 00 No 1mg furosemide 40 mg tablet 11-06 00:00: 00 No 1mg glimepiride 4 mg tablet 11-06 00:00: 00 No 1mg carvedilol 12.5 mg tablet 11-06 00:00: 00 No 1mg metformin ER 1,000 mg 24 hr tablet,exte nded release (gastric) 11-06 00:00: 00 No 1mg rosuvastati n 20 mg tablet 11-06 00:00: 00 No 1mg potassium chloride ER 10 mEq tablet,exte nded release 11-06 00:00: 00 No 1mEq Lantus Solostar U-100 Insulin 100 unit/mL (3 mL[facility] 00:00: 00 No (3 mL) amlodipine 10 mg tablet 11-06 00:00: 00 No 1mg losartan 100 mg tablet 11-06 00:00: 00 No 1mg furosemide 40 mg tablet 11-06 00:00: 00 No 1mg glimepiride 4 mg tablet 11-06 00:00: 00 No 1mg carvedilol 12.5 mg tablet 11-06 00:00: 00 No 1mg metformin ER 1,000 mg 24 hr tablet,exte nded release (gastric) 11-06 00:00: 00 No 1mg rosuvastati n 20 mg tablet 11-06 00:00: 00 No 1mg potassium chloride ER 10 mEq tablet,exte nded release 11-06 00:00: 00 No 1mEq Lantus Solostar U-100 Insulin 100 unit/mL (3 mL[facility] 00:00: 00 No (3 mL) amlodipine 10 mg tablet 11-06 00:00: 00 No 1mg losartan 100 mg tablet 11-06 00:00: 00 No 1mg furosemide 40 mg tablet 11-06 00:00: 00 No 1mg glimepiride 4 mg tablet 11-06 00:00: 00 No 1mg carvedilol 12.5 mg tablet 11-06 00:00: 00 No 1mg metformin ER 1,000 mg 24 hr tablet,exte nded release (gastric) 11-06 00:00: 00 No 1mg rosuvastati n 20 mg tablet 11-06 00:00: 00 No 1mg potassium chloride ER 10 mEq tablet,exte nded release 11-06 00:00: 00 No 1mEq Lantus Solostar U-100 Insulin 100 unit/mL (3 mL) subcutaneou s pen 11-06 00:00: 00 Yes (3 mL) Mikey Davila amlodipine 10 mg tablet 11-06 00:00: 00 Yes 1mg Mikey Davila losartan 100 mg tablet 11-06 00:00: 00 Yes 1mg Mikey Davila furosemide 40 mg tablet 11-06 00:00: 00 Yes 1mg Mikey Davila glimepiride 4 mg tablet 11-06 00:00: 00 Yes 1mg Mikey Davila carvedilol 12.5 mg tablet 11-06 00:00: 00 Yes 1mg Mikey Davila metformin ER 1,000 mg 24 hr tablet,exte nded release (gastric) 11-06 00:00: 00 Yes 1mg Mikey Davila rosuvastati n 20 mg tablet 11-06 00:00: 00 Yes 1mg Mikey Davila potassium chloride ER 10 mEq tablet,exte nded release 11-06 00:00: 00 Yes 1mEq Mikey Davila Polytrim 10,000 unit-1 mg/mL eye drops 20 00:00: 00 No 11 mg/mL Polytrim 10,000 unit-1 mg/mL eye drops 20 00:00: 00 No 11 mg/mL Polytrim 10,000 unit-1 mg/mL eye drops 09-17 00:00: 00 No 11 mg/mL Polytrim 10,000 unit-1 mg/mL eye drops 09-17 00:00: 00 Yes 11 mg/mL Mikey Davila Victoza 2-Claudy 0.6 mg/0.1 mL (18 mg/3 mL) subcutaneou s pen injector 09-12 00:00: 00 No (18 mg/3 mL) Victoza 2-Claudy 0.6 mg/0.1 mL (18 mg/3 mL) subcutaneou s pen injector 09-12 00:00: 00 No (18 mg/3 mL) Victoza 2-Claudy 0.6 mg/0.1 mL (18 mg/3 mL) subcutaneou s pen injector 09-12 00:00: 00 No (18 mg/3 mL) Victoza 2-Claudy 0.6 mg/0.1 mL (18 mg/3 mL) subcutaneou s pen injector 09-12 00:00: 00 Yes (18 mg/3 mL) Mikey Davila Lantus Solostar U-100 Insulin 100 unit/mL (3 mL) subcutaneou s pen 09-10 00:00: 00 No (3 mL) amlodipine 10 mg tablet 09-10 00:00: 00 No 1mg rosuvastati n 20 mg tablet 09-10 00:00: 00 No 1mg losartan 100 mg tablet 09-10 00:00: 00 No 1mg furosemide 40 mg tablet 09-10 00:00: 00 No 1mg carvedilol 12.5 mg tablet 09-10 00:00: 00 No 1mg potassium chloride ER 10 mEq tablet,exte nded release 09-10 00:00: 00 No 1mEq Lantus Solostar U-100 Insulin 100 unit/mL (3 mL) subcutaneou s pen 09-10 00:00: 00 No (3 mL) amlodipine 10 mg tablet 09-10 00:00: 00 No 1mg rosuvastati n 20 mg tablet 09-10 00:00: 00 No 1mg losartan 100 mg tablet 09-10 00:00: 00 No 1mg furosemide 40 mg tablet 09-10 00:00: 00 No 1mg carvedilol 12.5 mg tablet 09-10 00:00: 00 No 1mg potassium chloride ER 10 mEq tablet,exte nded release 09-10 00:00: 00 No 1mEq Lantus Solostar U-100 Insulin 100 unit/mL (3 mL) subcutane s pen 09-10 00:00: 00 No (3 mL) amlodipine 10 mg tablet 09-10 00:00: 00 No 1mg rosuvastati n 20 mg tablet 09-10 00:00: 00 No 1mg losartan 100 mg tablet 09-10 00:00: 00 No 1mg furosemide 40 mg tablet 09-10 00:00: 00 No 1mg carvedilol 12.5 mg tablet 09-10 00:00: 00 No 1mg potassium chloride ER 10 mEq tablet,exte nded release 09-10 00:00: 00 No 1mEq Lantus Solostar U-100 Insulin 100 unit/mL (3 [facility]:00: 00 Yes (3 mL) Mikey Davila amlodipine 10 mg tablet 09-10 00:00: 00 Yes 1mg Mikey Davila rosuvastati n 20 mg tablet 09-10 00:00: 00 Yes 1mg Mikey Davila losartan 100 mg tablet 09-10 00:00: 00 Yes 1mg Mikey Davila furosemide 40 mg tablet 09-10 00:00: 00 Yes 1mg Mikey Davila carvedilol 12.5 mg tablet 09-10 00:00: 00 Yes 1mg Mikey Davila potassium chloride ER 10 mEq tablet,exte nded release 09-10 00:00: 00 Yes 1mEq Mikey Davila Victoza 2-Claudy 0.6 mg/0.1 mL (18 mg/3 mL) subcutane s pen injector 210 00:00: 00 No (18 mg/3 mL) Levemir FlexTouch U-100 Insulin 100 unit/mL (3 mL) subcutaneou s pen 0 2-10 00:00: 00 No 1(3 mL) rosuvastati n 20 mg tablet 0 2-10 00:00: 00 No 1mg amlodipine 10 mg tablet 0 2-10 00:00: 00 No 1mg furosemide 40 mg tablet 0 2-10 00:00: 00 No 1mg losartan 100 mg tablet 0 2-10 00:00: 00 No 1mg carvedilol 12.5 mg tablet 0 2-10 00:00: 00 No 1mg potassium chloride ER 10 mEq tablet,exte nded release 0 2-10 00:00: 00 No 1mEq Victoza 2-Claudy 0.6 mg/0.1 mL (18 mg/3 mL) subcutaneou s pen injector 0 2-10 00:00: 00 No (18 mg/3 mL) Levemir FlexTouch U-100 Insulin 100 unit/mL (3 mL) subcutaneou s pen 0 2-10 00:00: 00 No 1(3 mL) rosuvastati n 20 mg tablet 2-10 00:00: 00 No 1mg amlodipine 10 mg tablet 2-10 00:00: 00 No 1mg furosemide 40 mg tablet 2-10 00:00: 00 No 1mg losartan 100 mg tablet 2-10 00:00: 00 No 1mg carvedilol 12.5 mg tablet 2-10 00:00: 00 No 1mg potassium chloride ER 10 mEq tablet,exte nded release 2-10 00:00: 00 No 1mEq Victoza 2-Claudy 0.6 mg/0.1 mL (18 mg/3 mL) subcutaneou s pen injector 2-10 00:00: 00 No (18 mg/3 mL) Levemir FlexTouch U-100 Insulin 100 unit/mL (3 mL) subcutaneou s pen 2-10 00:00: 00 No 1(3 mL) rosuvastati n 20 mg tablet 2-10 00:00: 00 No 1mg amlodipine 10 mg tablet 2-10 00:00: 00 No 1mg furosemide 40 mg tablet 0 2-10 00:00: 00 No 1mg losartan 100 mg tablet 0 2-10 00:00: 00 No 1mg carvedilol 12.5 mg tablet 0 2-10 00:00: 00 No 1mg potassium chloride ER 10 mEq tablet,exte nded release 0 2-10 00:00: 00 No 1mEq Victoza 2-Claudy 0.6 mg/0.1 mL (18 mg/3 mL) subcutaneou s pen injector 0 2-10 00:00: 00 Yes (18 mg/3 mL) Mikey Davila Levemir FlexTouch U-100 Insulin 100 unit/mL (3 mL) subcutaneou s pen 0 2-10 00:00: 00 Yes 1(3 mL) Mikey Davila rosuvastati n 20 mg tablet 0 2-10 00:00: 00 Yes 1mg Mikey Davila amlodipine 10 mg tablet 2-10 00:00: 00 Yes 1mg Mikey Davila furosemide 40 mg tablet 2-10 00:00: 00 Yes 1mg Mikey Davila losartan 100 mg tablet 2-10 00:00: 00 Yes 1mg Mikey Davila carvedilol 12.5 mg tablet 2-10 00:00: 00 Yes 1mg Mikey Davila potassium chloride ER 10 mEq tablet,exte nded release 0 2-10 00:00: 00 Yes 1mEq Mikey Davila Levemir FlexTouch U-100 Insulin 100 unit/mL (3 mL) subcutaneou s pen 0 2-05 00:00: 00 No 1(3 mL) amlodipine 10 mg tablet 2-05 00:00: 00 No 1mg metformin ER 500 mg 24 hr tablet,exte nded release (gastric) 0 2-05 00:00: 00 No 2mg carvedilol 12.5 mg tablet 2-05 00:00: 00 No 1mg Levemir FlexTouch U-100 Insulin 100 unit/mL (3 mL) subcutaneou s pen 2-05 00:00: 00 No 1(3 mL) amlodipine 10 mg tablet 07-05 00:00: 00 No 1mg metformin ER 500 mg 24 hr tablet,exte nded release (gastric) 2- 00:00: 00 No 2mg carvedilol 12.5 mg tablet 2- 00:00: 00 No 1mg Levemir FlexTouch U-100 Insulin 100 unit/mL (3 mL) subcutaneou s pen 2- 00:00: 00 No 1(3 mL) amlodipine 10 mg tablet 2- 00:00: 00 No 1mg metformin ER 500 mg 24 hr tablet,exte nded release (gastric) 07-05 00:00: 00 No 2mg carvedilol 12.5 mg tablet 2 00:00: 00 No 1mg Levemir FlexTouch U-100 Insulin 100 unit/mL (3 mL) subcutaneou s pen 2- 00:00: 00 Yes 1(3 mL) Mikey Davila amlodipine 10 mg tablet 2- 00:00: 00 Yes 1mg Mikey Davila metformin ER 500 mg 24 hr tablet,exte nded release (gastric) 2- 00:00: 00 Yes 2mg Mikey Davila carvedilol 12.5 mg tablet 2- 00:00: 00 Yes 1mg Mikey Davila metformin ER 500 mg 24 hr tablet,exte nded release 2- 00:00: 00 No 2mg carvedilol 12.5 mg tablet 2- 00:00: 00 No 1mg Levemir FlexTouch U-100 Insulin 100 unit/mL (3 mL) subcutaneou s pen 2- 00:00: 00 No 1(3 mL) amlodipine 10 mg tablet 2- 00:00: 00 No 1mg metformin ER 500 mg 24 hr tablet,exte nded release 2- 00:00: 00 No 2mg carvedilol 12.5 mg tablet 2- 00:00: 00 No 1mg Levemir FlexTouch U-100 Insulin 100 unit/mL (3 mL) subcutaneou s pen 2- 00:00: 00 No 1(3 mL) amlodipine 10 mg tablet 2 00:00: 00 No 1mg metformin ER 500 mg 24 hr tablet,exte nded release 07-04 00:00: 00 No 2mg carvedilol 12.5 mg tablet 07-04 00:00: 00 No 1mg Levemir FlexTouch U-100 Insulin 100 unit/mL (3 mL) subcutaneou s pen 07-04 00:00: 00 No 1(3 mL) amlodipine 10 mg tablet 07-04 00:00: 00 No 1mg Levemir FlexTouch U-100 Insulin 100 unit/mL (3 mL) subcutaneou s pen 07-04 00:00: 00 Yes 1(3 mL) Mikey Davila amlodipine 10 mg tablet 07-04 00:00: 00 Yes 1mg Mikey Davila metformin ER 500 mg 24 hr tablet,exte nded release 07-04 00:00: 00 Yes 2mg Mikey Davila carvedilol 12.5 mg tablet 07-04 00:00: 00 Yes 1mg Mikey Davila losartan 100 mg tablet 06-13 00:00: 00 No 1mg furosemide 40 mg tablet 06-13 00:00: 00 No 1mg potassium chloride ER 10 mEq tablet,exte nded release 06-13 00:00: 00 No 1mEq losartan 100 mg tablet 06-13 00:00: 00 No 1mg furosemide 40 mg tablet 06-13 00:00: 00 No 1mg losartan 100 mg tablet 06-13 00:00: 00 No 1mg furosemide 40 mg tablet 06-13 00:00: 00 No 1mg potassium chloride ER 10 mEq tablet,exte nded release 06-13 00:00: 00 No 1mEq potassium chloride ER 10 mEq tablet,exte nded release 06-13 00:00: 00 No 1mEq losartan 100 mg tablet 06-13 00:00: 00 Yes 1mg Mikey Davila furosemide 40 mg tablet 06-13 00:00: 00 Yes 1mg Mikey Davila potassium chloride ER 10 mEq tablet,exte nded release 06-13 00:00: 00 Yes 1mEq Mikey Davila furosemide 40 mg tablet 06-12 00:00: 00 No 1mg potassium chloride ER 10 mEq tablet,exte nded release 06-12 00:00: 00 No 1mEq furosemide 40 mg tablet 06-12 00:00: 00 No 1mg potassium chloride ER 10 mEq tablet,exte nded release 06-12 00:00: 00 No 1mEq furosemide 40 mg tablet 06-12 00:00: 00 No 1mg potassium chloride ER 10 mEq tablet,exte nded release 06-12 00:00: 00 No 1mEq furosemide 40 mg tablet 06-12 00:00: 00 Yes 1mg Mikey Davila potassium chloride ER 10 mEq tablet,exte nded release 06-12 00:00: 00 Yes 1mEq Mikey Davila Levemir FlexTouch U-100 Insulin 100 unit/mL (3 mL) subcutaneou s pen 2018-05 00:00: 00 No 1(3 mL) amlodipine 10 mg tablet 2018-05 00:00: 00 No 1mg furosemide 40 mg tablet 2018-05 00:00: 00 No 1mg atorvastati n 40 mg tablet 2018-05 00:00: 00 No 1mg metformin ER 500 mg 24 hr tablet,exte nded release 2018-05 00:00: 00 No 2mg potassium chloride ER 10 mEq tablet,exte nded release 2018-05 00:00: 00 No 1mEq Levemir FlexTouch U-100 Insulin 100 unit/mL (3 mL) subcutaneou s pen 2018-05 00:00: 00 No 1(3 mL) amlodipine 10 mg tablet 2018-05 00:00: 00 No 1mg furosemide 40 mg tablet 2018-05 00:00: 00 No 1mg atorvastati n 40 mg tablet 2018-05 00:00: 00 No 1mg metformin ER 500 mg 24 hr tablet,exte nded release 2018-05 00:00: 00 No 2mg potassium chloride ER 10 mEq tablet,exte nded release 2018-05 00:00: 00 No 1mEq Levemir FlexTouch U-100 Insulin 100 unit/mL (3 mL) subcutaneou s pen 2018-05 00:00: 00 No 1(3 mL) amlodipine 10 mg tablet 2018-05 00:00: 00 No 1mg furosemide 40 mg tablet 2018-05 00:00: 00 No 1mg atorvastati n 40 mg tablet 2018-05 00:00: 00 No 1mg metformin ER 500 mg 24 hr tablet,exte nded release 2018-05 00:00: 00 No 2mg potassium chloride ER 10 mEq tablet,exte nded release 2018-05 00:00: 00 No 1mEq Levemir FlexTouch U-100 Insulin 100 unit/mL (3 mL) subcutaneou s pen 2018-05 00:00: 00 Yes 1(3 mL) Mikey Davila amlodipine 10 mg tablet 2018-05 00:00: 00 Yes 1mg Mikey Davila furosemide 40 mg tablet 2018-05 00:00: 00 Yes 1mg Mikey Davila atorvastati n 40 mg tablet 2018-05 00:00: 00 Yes 1mg Mikey Davila metformin ER 500 mg 24 hr tablet,exte nded release 2018-05 00:00: 00 Yes 2mg Mikey Davila potassium chloride ER 10 mEq tablet,exte nded release 2018-05 00:00: 00 Yes 1mEq Mikey Davila furosemide 40 mg tablet 2018-05 00:00: 00 No 1mg amlodipine 10 mg tablet 2018-05 00:00: 00 No 1mg carvedilol 12.5 mg tablet 2018-05 00:00: 00 No 1mg potassium chloride ER 10 mEq tablet,exte nded release 2018-05 00:00: 00 No 1mEq furosemide 40 mg tablet 2018-05 00:00: 00 No 1mg amlodipine 10 mg tablet 2018-05 00:00: 00 No 1mg carvedilol 12.5 mg tablet 2018-05 00:00: 00 No 1mg potassium chloride ER 10 mEq tablet,exte nded release 2018-05 00:00: 00 No 1mEq furosemide 40 mg tablet 2018-05 00:00: 00 No 1mg amlodipine 10 mg tablet 2018-05 00:00: 00 No 1mg carvedilol 12.5 mg tablet 2018-05 00:00: 00 No 1mg potassium chloride ER 10 mEq tablet,exte nded release 2018-05 00:00: 00 No 1mEq furosemide 40 mg tablet 2018-05 00:00: 00 Yes 1mg Mikey Davila amlodipine 10 mg tablet 2018-05 00:00: 00 Yes 1mg Mikey Davila carvedilol 12.5 mg tablet 2018-05 00:00: 00 Yes 1mg Mikey Davila potassium chloride ER 10 mEq tablet,exte nded release 2018-05 00:00: 00 Yes 1mEq Mikey Napier Giovanni furosemide 40 mg tablet 12-21 00:00: 00 No 1mg amlodipine 10 mg tablet 12-21 00:00: 00 No 1mg carvedilol 12.5 mg tablet 12-21 00:00: 00 No 1mg potassium chloride ER 10 mEq tablet,exte nded release 12-21 00:00: 00 No 1mEq furosemide 40 mg tablet 12-21 00:00: 00 No 1mg amlodipine 10 mg tablet 12-21 00:00: 00 No 1mg carvedilol 12.5 mg tablet 12-21 00:00: 00 No 1mg potassium chloride ER 10 mEq tablet,exte nded release 12-21 00:00: 00 No 1mEq furosemide 40 mg tablet 12-21 00:00: 00 No 1mg amlodipine 10 mg tablet 12-21 00:00: 00 No 1mg carvedilol 12.5 mg tablet 12-21 00:00: 00 No 1mg potassium chloride ER 10 mEq tablet,exte nded release 12-21 00:00: 00 No 1mEq furosemide 40 mg tablet 12-21 00:00: 00 Yes 1mg Mikey Davila amlodipine 10 mg tablet 12-21 00:00: 00 Yes 1mg Mikey Davila carvedilol 12.5 mg tablet 12-21 00:00: 00 Yes 1mg Mikey Davila potassium chloride ER 10 mEq tablet,exte nded release 12-21 00:00: 00 Yes 1mEq Mikey Davila amlodipine 10 mg tablet 2017-05 00:00: 00 No 1mg hydrochloro thiazide 25 mg tablet 2017-05 00:00: 00 No 1mg metformin 1,000 mg tablet 2017-05 00:00: 00 No 1mg glipizide ER 10 mg tablet, extended release 24 hr 2017-05 00:00: 00 No 1mg carvedilol 12.5 mg tablet 2017-05 00:00: 00 No 1mg amlodipine 10 mg tablet 2017-05 00:00: 00 No 1mg hydrochloro thiazide 25 mg tablet 2017-05 00:00: 00 No 1mg metformin 1,000 mg tablet 2017-05 00:00: 00 No 1mg glipizide ER 10 mg tablet, extended release 24 hr 2017-05 00:00: 00 No 1mg carvedilol 12.5 mg tablet 2017-05 00:00: 00 No 1mg amlodipine 10 mg tablet 2017-05 00:00: 00 No 1mg hydrochloro thiazide 25 mg tablet 2017-05 00:00: 00 No 1mg metformin 1,000 mg tablet 2017-05 00:00: 00 No 1mg glipizide ER 10 mg tablet, extended release 24 hr 2017-05 00:00: 00 No 1mg carvedilol 12.5 mg tablet 2017-05 00:00: 00 No 1mg amlodipine 10 mg tablet 2017-05 00:00: 00 Yes 1mg Mikey Davila hydrochloro thiazide 25 mg tablet 2017-05 00:00: 00 Yes 1mg Mikey Davila metformin 1,000 mg tablet 2017-05 00:00: 00 Yes 1mg Mikey Davila glipizide ER 10 mg tablet, extended release 24 hr 2017-05 00:00: 00 Yes 1mg Mikey Davila carvedilol 12.5 mg tablet 2017-05 221 00:00: 00 Yes 1mg Mikey Davila amlodipine 10 mg tablet 2017-05 00:00: 00 No 1mg amlodipine 10 mg tablet 2017-05 00:00: 00 No 1mg amlodipine 10 mg tablet 2017-05 00:00: 00 No 1mg amlodipine 10 mg tablet 2017-05 00:00: 00 Yes 1mg Mikey Davila metformin 1,000 mg tablet 02-07 00:00: 00 No 1mg glipizide ER 10 mg tablet, extended release 24 hr 02-07 00:00: 00 No 1mg metformin 1,000 mg tablet 02-07 00:00: 00 No 1mg glipizide ER 10 mg tablet, extended release 24 hr 02-07 00:00: 00 No 1mg metformin 1,000 mg tablet 02-07 00:00: 00 No 1mg glipizide ER 10 mg tablet, extended release 24 hr 02-07 00:00: 00 No 1mg metformin 1,000 mg tablet 02-07 00:00: 00 Yes 1mg Mikey Davila glipizide ER 10 mg tablet, extended release 24 hr 02-07 00:00: 00 Yes 1mg Mikey Davila lovastatin 20 mg tablet 12-27 00:00: 00 No 1mg amlodipine 10 mg tablet 12-27 00:00: 00 No 1mg glipizide ER 10 mg tablet, extended release 24 hr 12-27 00:00: 00 No 1mg carvedilol 12.5 mg tablet 12-27 00:00: 00 No 1mg lovastatin 20 mg tablet 12-27 00:00: 00 No 1mg amlodipine 10 mg tablet 12-27 00:00: 00 No 1mg glipizide ER 10 mg tablet, extended release 24 hr 12-27 00:00: 00 No 1mg carvedilol 12.5 mg tablet 12-27 00:00: 00 No 1mg lovastatin 20 mg tablet 12-27 00:00: 00 No 1mg amlodipine 10 mg tablet 12-27 00:00: 00 No 1mg glipizide ER 10 mg tablet, extended release 24 hr 12-27 00:00: 00 No 1mg carvedilol 12.5 mg tablet 12-27 00:00: 00 No 1mg lovastatin 20 mg tablet 12-27 00:00: 00 Yes 1mg Mikey Davila amlodipine 10 mg tablet 12-27 00:00: 00 Yes 1mg Mikey Davila glipizide ER 10 mg tablet, extended release 24 hr 12-27 00:00: 00 Yes 1mg Mikey Davila carvedilol 12.5 mg tablet 12-27 00:00: 00 Yes 1mg Mikey Davila glipizide ER 5 mg tablet, extended release 24 hr 12-17 00:00: 00 No 1mg glipizide ER 5 mg tablet, extended release 24 hr 12-17 00:00: 00 No 1mg glipizide ER 5 mg tablet, extended release 24 hr 12-17 00:00: 00 No 1mg glipizide ER 5 mg tablet, extended release 24 hr 12-17 00:00: 00 Yes 1mg Mikey Davila amlodipine 10 mg tablet 11-29 00:00: 00 No 1mg lovastatin 20 mg tablet 11-29 00:00: 00 No 1mg glipizide ER 5 mg tablet, extended release 24 hr 11-29 00:00: 00 No 1mg carvedilol 12.5 mg tablet 11-29 00:00: 00 No 1mg amlodipine 10 mg tablet 11-29 00:00: 00 No 1mg lovastatin 20 mg tablet 11-29 00:00: 00 No 1mg glipizide ER 5 mg tablet, extended release 24 hr 11-29 00:00: 00 No 1mg carvedilol 12.5 mg tablet 11-29 00:00: 00 No 1mg amlodipine 10 mg tablet 11-29 00:00: 00 No 1mg lovastatin 20 mg tablet 11-29 00:00: 00 No 1mg glipizide ER 5 mg tablet, extended release 24 hr 11-29 00:00: 00 No 1mg carvedilol 12.5 mg tablet 11-29 00:00: 00 No 1mg amlodipine 10 mg tablet 11-29 00:00: 00 Yes 1mg Mikey Davila lovastatin 20 mg tablet 11-29 00:00: 00 Yes 1mg Mikey Davila glipizide ER 5 mg tablet, extended release 24 hr 11-29 00:00: 00 Yes 1mg iMkey Davila carvedilol 12.5 mg tablet 11-29 00:00: 00 Yes 1mg Mikey Davila hydrochloro thiazide 25 mg tablet 08-24 00:00: 00 No 1mg hydrochloro thiazide 25 mg tablet 08-24 00:00: 00 No 1mg hydrochloro thiazide 25 mg tablet 08-24 00:00: 00 No 1mg hydrochloro thiazide 25 mg tablet 08-24 00:00: 00 Yes 1mg Mikey Davila amlodipine 10 mg tablet 08-17 00:00: 00 No 1mg metformin 1,000 mg tablet 08-17 00:00: 00 No 1mg carvedilol 12.5 mg tablet 08-17 00:00: 00 No 1mg lovastatin 10 mg tablet 08-17 00:00: 00 No 1mg amlodipine 10 mg tablet 08-17 00:00: 00 No 1mg metformin 1,000 mg tablet 08-17 00:00: 00 No 1mg carvedilol 12.5 mg tablet 08-17 00:00: 00 No 1mg lovastatin 10 mg tablet 08-17 00:00: 00 No 1mg amlodipine 10 mg tablet 08-17 00:00: 00 No 1mg metformin 1,000 mg tablet 08-17 00:00: 00 No 1mg carvedilol 12.5 mg tablet 08-17 00:00: 00 No 1mg lovastatin 10 mg tablet 08-17 00:00: 00 No 1mg amlodipine 10 mg tablet 08-17 00:00: 00 Yes 1mg Mikey Davila metformin 1,000 mg tablet 08-17 00:00: 00 Yes 1mg Mikey Davila carvedilol 12.5 mg tablet 08-17 00:00: 00 Yes 1mg Mikey Davila lovastatin 10 mg tablet 08-17 00:00: 00 Yes 1mg Mikey Davila amlodipine 10 mg tablet 06-21 00:00: 00 No 1mg amlodipine 10 mg tablet 06-21 00:00: 00 No 1mg amlodipine 10 mg tablet 06-21 00:00: 00 No 1mg amlodipine 10 mg tablet 06-21 00:00: 00 Yes 1mg Mikey Davila hydrochloro thiazide 25 mg tablet 06-16 00:00: 00 No 1mg carvedilol 12.5 mg tablet 06-16 00:00: 00 No 1mg metformin 1,000 mg tablet 06-16 00:00: 00 No 1mg lovastatin 10 mg tablet 06-16 00:00: 00 No 1mg hydrochloro thiazide 25 mg tablet 06-16 00:00: 00 No 1mg carvedilol 12.5 mg tablet 06-16 00:00: 00 No 1mg metformin 1,000 mg tablet 06-16 00:00: 00 No 1mg lovastatin 10 mg tablet 06-16 00:00: 00 No 1mg hydrochloro thiazide 25 mg tablet 06-16 00:00: 00 No 1mg carvedilol 12.5 mg tablet 06-16 00:00: 00 No 1mg metformin 1,000 mg tablet 06-16 00:00: 00 No 1mg lovastatin 10 mg tablet 06-16 00:00: 00 No 1mg hydrochloro thiazide 25 mg tablet 06-16 00:00: 00 Yes 1mg Mikey Davila carvedilol 12.5 mg tablet 06-16 00:00: 00 Yes 1mg Mikey Davila metformin 1,000 mg tablet 06-16 00:00: 00 Yes 1mg Mikey Davila lovastatin 10 mg tablet 06-16 00:00: 00 Yes 1mg Mikey Davila hydrochloro thiazide 25 mg tablet 06-01 00:00: 00 No 1mg carvedilol 12.5 mg tablet 06-01 00:00: 00 No 1mg hydrochloro thiazide 25 mg tablet 06-01 00:00: 00 No 1mg carvedilol 12.5 mg tablet 06-01 00:00: 00 No 1mg hydrochloro thiazide 25 mg tablet 06-01 00:00: 00 No 1mg carvedilol 12.5 mg tablet 06-01 00:00: 00 No 1mg hydrochloro thiazide 25 mg tablet 06-01 00:00: 00 Yes 1mg Mikey Davila carvedilol 12.5 mg tablet 06-01 00:00: 00 Yes 1mg Mikey Davila metformin 500 mg tablet 2016-05 00:00: 00 No 1mg metformin 500 mg tablet 2016-05 00:00: 00 No 1mg metformin 500 mg tablet 2016-05 00:00: 00 No 1mg metformin 500 mg tablet 2016-05 00:00: 00 Yes 1mg Mikey Davila pravastatin 40 mg tablet 08-19 00:00: 00 No 1mg pravastatin 40 mg tablet 08-19 00:00: 00 No 1mg pravastatin 40 mg tablet 08-19 00:00: 00 No 1mg pravastatin 40 mg tablet 08-19 00:00: 00 Yes 1mg Mikey Davila amlodipine 10 mg tablet 06-11 00:00: 00 No 1mg glipizide ER 10 mg tablet, extended release 24 hr 06-11 00:00: 00 No 1mg metformin 1,000 mg tablet 06-11 00:00: 00 No 1mg glyburide 5 mg tablet 06-11 00:00: 00 No 2mg amlodipine 10 mg tablet 06-11 00:00: 00 No 1mg glipizide ER 10 mg tablet, extended release 24 hr 06-11 00:00: 00 No 1mg metformin 1,000 mg tablet 06-11 00:00: 00 No 1mg glyburide 5 mg tablet 06-11 00:00: 00 No 2mg amlodipine 10 mg tablet 06-11 00:00: 00 No 1mg glipizide ER 10 mg tablet, extended release 24 hr 06-11 00:00: 00 No 1mg metformin 1,000 mg tablet 06-11 00:00: 00 No 1mg glyburide 5 mg tablet 06-11 00:00: 00 No 2mg amlodipine 10 mg tablet 06-11 00:00: 00 Yes 1mg Mikey Davila glipizide ER 10 mg tablet, extended release 24 hr 06-11 00:00: 00 Yes 1mg Mikey Davila metformin 1,000 mg tablet 06-11 00:00: 00 Yes 1mg Mikey Davila glyburide 5 mg tablet 06-11 00:00: 00 Yes 2mg Mikey Davila amlodipine 10 mg tablet 06-02 00:00: 00 No 1mg amlodipine 10 mg tablet 06-02 00:00: 00 No 1mg amlodipine 10 mg tablet 06-02 00:00: 00 No 1mg amlodipine 10 mg tablet 06-02 00:00: 00 Yes 1mg Mikey Davila loratadine 10 mg tablet 2015-05 00:00: 00 No 1mg Norvasc 5 mg tablet 2015-05 00:00: 00 No 1mg glipizide ER 10 mg tablet, extended release 24 hr 2015-05 00:00: 00 No 1mg hydrochloro thiazide 25 mg tablet 2015-05 00:00: 00 No 1mg metformin 1,000 mg tablet 2015-05 00:00: 00 No 1mg glyburide 5 mg tablet 2015-05 00:00: 00 No 2mg carvedilol 12.5 mg tablet 2015-05 00:00: 00 No 1mg amoxicillin 500 mg tablet 2015-05 00:00: 00 No 1mg loratadine 10 mg tablet 2015-05 00:00: 00 No 1mg Norvasc 5 mg tablet 2015-05 00:00: 00 No 1mg glipizide ER 10 mg tablet, extended release 24 hr 2015-05 00:00: 00 No 1mg hydrochloro thiazide 25 mg tablet 2015-05 00:00: 00 No 1mg metformin 1,000 mg tablet 2015-05 00:00: 00 No 1mg glyburide 5 mg tablet 2015-05 00:00: 00 No 2mg carvedilol 12.5 mg tablet 2015-05 00:00: 00 No 1mg amoxicillin 500 mg tablet 2015-05 00:00: 00 No 1mg loratadine 10 mg tablet 2015-05 00:00: 00 No 1mg Norvasc 5 mg tablet 2015-05 00:00: 00 No 1mg glipizide ER 10 mg tablet, extended release 24 hr 2015-05 00:00: 00 No 1mg hydrochloro thiazide 25 mg tablet 2015-05 00:00: 00 No 1mg metformin 1,000 mg tablet 2015-05 00:00: 00 No 1mg glyburide 5 mg tablet 2015-05 00:00: 00 No 2mg carvedilol 12.5 mg tablet 2015-05 00:00: 00 No 1mg amoxicillin 500 mg tablet 2015-05 00:00: 00 No 1mg loratadine 10 mg tablet 2015-05 00:00: 00 Yes 1mg Mikey Davila Norvasc 5 mg tablet 2015-05 00:00: 00 Yes 1mg Mikey Davila glipizide ER 10 mg tablet, extended release 24 hr 2015-05 00:00: 00 Yes 1mg Mikey Davila hydrochloro thiazide 25 mg tablet 2015-05 00:00: 00 Yes 1mg Mikey Davila metformin 1,000 mg tablet 2015-05 00:00: 00 Yes 1mg Mikey Davila glyburide 5 mg tablet 2015-05 00:00: 00 Yes 2mg Mikey Davila carvedilol 12.5 mg tablet 2015-05 00:00: 00 Yes 1mg Mikey Davila amoxicillin 500 mg tablet 2015-05 00:00: 00 Yes 1mg Mikey Davila glipizide ER 10 mg tablet, extended release 24 hr 01-16 00:00: 00 No 1mg hydrochloro thiazide 25 mg tablet 01-16 00:00: 00 No 1mg metformin 1,000 mg tablet 01-16 00:00: 00 No 1mg glyburide 5 mg tablet 01-16 00:00: 00 No 2mg carvedilol 12.5 mg tablet 01-16 00:00: 00 No 1mg Bactrim DS 800 mg-160 mg tablet 01-16 00:00: 00 No 1mg glipizide ER 10 mg tablet, extended release 24 hr 01-16 00:00: 00 No 1mg hydrochloro thiazide 25 mg tablet 01-16 00:00: 00 No 1mg metformin 1,000 mg tablet 01-16 00:00: 00 No 1mg glyburide 5 mg tablet 01-16 00:00: 00 No 2mg carvedilol 12.5 mg tablet 01-16 00:00: 00 No 1mg Bactrim DS 800 mg-160 mg tablet 01-16 00:00: 00 No 1mg glipizide ER 10 mg tablet, extended release 24 hr 01-16 00:00: 00 No 1mg hydrochloro thiazide 25 mg tablet 01-16 00:00: 00 No 1mg metformin 1,000 mg tablet 01-16 00:00: 00 No 1mg glyburide 5 mg tablet 01-16 00:00: 00 No 2mg carvedilol 12.5 mg tablet 01-16 00:00: 00 No 1mg Bactrim DS 800 mg-160 mg tablet 01-16 00:00: 00 No 1mg glipizide ER 10 mg tablet, extended release hr 01-16 00:00: 00 Yes 1mg Mikey Davila hydrochloro thiazide 25 mg tablet 01-16 00:00: 00 Yes 1mg Mikey Davila metformin 1,000 mg tablet 01-16 00:00: 00 Yes 1mg Mikey Quyen Giovanni glyburide 5 mg tablet 01-16 00:00: 00 Yes 2mg Mikey Davila carvedilol 12.5 mg tablet 01-16 00:00: 00 Yes 1mg Mikey Davila Bactrim DS 800 mg-160 mg tablet 01-16 00:00: 00 Yes 1mg Mikey Davila Novolin N 100 unit/mL subcutaneou s suspension 09-21 00:00: 00 No 10unit/ mL Novolin N 100 unit/mL subcutaneou s suspension 09-21 00:00: 00 No 10unit/ mL Novolin N 100 unit/mL subcutaneou s suspension 09-21 00:00: 00 No 10unit/ mL Novolin N 100 unit/mL subcutaneou s suspension 09-21 00:00: 00 Yes 10unit/ mL Mikey Davila loratadine 10 mg tablet 09-11 00:00: 00 No 1mg metoprolol tartrate 50 mg tablet 09-11 00:00: 00 No 1mg glyburide 5 mg tablet 09-11 00:00: 00 No 2mg metformin 1,000 mg tablet 09-11 00:00: 00 No 1mg lisinopril 20 mg-hydrochl orothiazide 12.5 mg tablet 09-11 00:00: 00 No 1mg amoxicillin 500 mg tablet 09-11 00:00: 00 No 1mg loratadine 10 mg tablet 09-11 00:00: 00 No 1mg metoprolol tartrate 50 mg tablet 09-11 00:00: 00 No 1mg glyburide 5 mg tablet 09-11 00:00: 00 No 2mg metformin 1,000 mg tablet 09-11 00:00: 00 No 1mg lisinopril 20 mg-hydrochl orothiazide 12.5 mg tablet 09-11 00:00: 00 No 1mg amoxicillin 500 mg tablet 09-11 00:00: 00 No 1mg loratadine 10 mg tablet 09-11 00:00: 00 No 1mg metoprolol tartrate 50 mg tablet 09-11 00:00: 00 No 1mg glyburide 5 mg tablet 09-11 00:00: 00 No 2mg metformin 1,000 mg tablet 09-11 00:00: 00 No 1mg lisinopril 20 mg-hydrochl orothiazide 12.5 mg tablet 09-11 00:00: 00 No 1mg amoxicillin 500 mg tablet 09-11 00:00: 00 No 1mg loratadine 10 mg tablet 09-11 00:00: 00 Yes 1mg Mikey Davila metoprolol tartrate 50 mg tablet 09-11 00:00: 00 Yes 1mg Mikey Davila glyburide 5 mg tablet 09-11 00:00: 00 Yes 2mg Mikey Davila metformin 1,000 mg tablet 09-11 00:00: 00 Yes 1mg Mikey Davila lisinopril 20 mg-hydrochl orothiazide 12.5 mg tablet 09-11 00:00: 00 Yes 1mg Mikey Davila amoxicillin 500 mg tablet 09-11 00:00: 00 Yes 1mg Mikey Davila metoprolol tartrate 50 mg tablet 2014-05 00:00: 00 No 1mg glyburide 5 mg tablet 2014-05 00:00: 00 No 2mg metoprolol tartrate 50 mg tablet 2014-05 00:00: 00 No 1mg glyburide 5 mg tablet 2014-05 00:00: 00 No 2mg metoprolol tartrate 50 mg tablet 2014-05 00:00: 00 No 1mg glyburide 5 mg tablet 2014-05 00:00: 00 No 2mg metoprolol tartrate 50 mg tablet 2014-05 00:00: 00 Yes 1mg Mikey Davila glyburide 5 mg tablet 2014-05 00:00: 00 Yes 2mg Mikey Davila glyburide 5 mg tablet 2014-05 00:00: 00 No 2mg lisinopril 20 mg-hydrochl orothiazide 12.5 mg tablet 2014-05 00:00: 00 No 1mg metformin 1,000 mg tablet 2014-05 00:00: 00 No 1mg glyburide 5 mg tablet 2014-05 00:00: 00 No 2mg lisinopril 20 mg-hydrochl orothiazide 12.5 mg tablet 2014-05 00:00: 00 No 1mg metformin 1,000 mg tablet 2014-05 00:00: 00 No 1mg glyburide 5 mg tablet 2014-05 00:00: 00 No 2mg lisinopril 20 mg-hydrochl orothiazide 12.5 mg tablet 2014-05 00:00: 00 No 1mg metformin 1,000 mg tablet 2014-05 00:00: 00 No 1mg glyburide 5 mg tablet 2014-05 00:00: 00 Yes 2mg Mikey Davila lisinopril 20 mg-hydrochl orothiazide 12.5 mg tablet 2014-05 00:00: 00 Yes 1mg Mikey Davila metformin 1,000 mg tablet 2014-05 00:00: 00 Yes 1mg Mikey Davila hydrochloro thiazide 25 mg tablet 07-25 00:00: 00 No 1mg amlodipine 5 mg tablet 07-25 00:00: 00 No 1mg glyburide 5 mg tablet 07-25 00:00: 00 No 2mg metformin 1,000 mg tablet 07-25 00:00: 00 No 1mg hydrochloro thiazide 25 mg tablet 07-25 00:00: 00 No 1mg amlodipine 5 mg tablet 07-25 00:00: 00 No 1mg glyburide 5 mg tablet 07-25 00:00: 00 No 2mg hydrochloro thiazide 25 mg tablet 07-25 00:00: 00 No 1mg amlodipine 5 mg tablet 07-25 00:00: 00 No 1mg glyburide 5 mg tablet 07-25 00:00: 00 No 2mg metformin 1,000 mg tablet 07-25 00:00: 00 No 1mg metformin 1,000 mg tablet 07-25 00:00: 00 No 1mg hydrochloro thiazide 25 mg tablet 07-25 00:00: 00 Yes 1mg Mikey Davila amlodipine 5 mg tablet 07-25 00:00: 00 Yes 1mg Mikey Davila glyburide 5 mg tablet 07-25 00:00: 00 Yes 2mg Mikey Davila metformin 1,000 mg tablet 07-25 00:00: 00 Yes 1mg Mikey Davila GLIMEPIRIDE ORAL 10-31 18:20: 32 Yes [id number] 6mg Take 6 mg by mouth daily. [facility] metFORMIN (GLUCOPHAGE ) 500 mg tablet 10-31 18:20: 32 Yes [id number] 500mg Take 500 mg by mouth 2 (two) times daily with meals. [facility] amLODIPine (NORVASC) 5 mg tablet 10-31 18:20: 32 Yes [id number] 5mg Take 5 mg by mouth daily. [facility] hydrochloro thiazide (ESIDRIX) 12.5 mg capsule 10-31 18:20: 32 Yes [id number] 12.5mg Take 12.5 mg by mouth daily. [facility] METOPROLOL SUCCINATE ORAL 10-31 18:20: 32 Yes [id number] 1{tbl} Take 1 Tab by mouth 2 (two) times daily. [facility] Immunizations Ordered Immunization Name Filled Immunization Name Date Status Comments Source Tdap Tdap 2023-08-25 00:00:00 Completed Mikey Davila TD, NOS Unknown Completed [facility] TDAP Unknown Completed [facility] TD, NOS Unknown Completed [facility] TDAP Unknown Completed [facility] TD, NOS Unknown Completed [facility] TDAP Unknown Completed [facility] Vital Signs Vital Name Observation Time Observation Value Comments S mathew Systolic blood pressure 2023-09-07 03:45:00 133 mm[Hg] [facility] Diastolic blood pressure 2023-09-07 03:45:00 59 mm[Hg] [facility] Heart rate 2023-09-07 03:45:00 92 /min [facility] Respiratory rate 2023-09-07 03:45:00 18 /min [facility] Oxygen saturation in Arterial blood by Pulse oximetry 2023-09-07 03:45:00 98 /min [facility] Body temperature 2023-09-07 01:00:00 37.72 Fatemeh [facility] Body height 2023-09-07 01:00:00 165.1 cm [facility] Body weight 2023-09-07 01:00:00 83.507 kg [facility] BMI 2023-09-07 01:00:00 30.64 kg/m2 [facility] Systolic blood pressure 2023-05-02 23:55:00 137 mm[Hg] [facility] Diastolic blood pressure 2023-05-02 23:55:00 74 mm[Hg] [facility] Heart rate 2023-05-02 23:55:00 76 /min [facility] Respiratory rate 2023-05-02 23:55:00 16 /min [facility] Oxygen saturation in Arterial blood by Pulse oximetry 2023-05-02 23:55:00 98 /min [facility] Body temperature 2023-05-02 22:35:00 37 Fatemeh [facility] Body height 2023-05-02 22:35:00 165.1 cm [facility] Body weight 2023-05-02 22:35:00 81.647 kg [facility] BMI 2023-05-02 22:35:00 29.95 kg/m2 [facility] BP Systolic 2023-10-04 08:50:00 132 mm[Hg] Step hen Quyen Giovanni BP Diastolic 2023-10-04 08:50:00 76 mm[Hg] Tree phen F Giovanni Weight Measured 2023-10-04 08:50:00 181.00 pounds Mikey F Giovanni Height Measured 2023-10-04 08:50:00 65.00 inches Mikey F Giovanni Body Temperature 2023-10-04 08:50:00 97.40 degrees Mikey F Giovanni Heart Rate 2023-10-04 08:50:00 89.00 /min Mckenna en F Giovanni Respiratory Rate 2023-10-04 08:50:00 18.00 /min Mikey Quyen Giovanni BP Systolic 2023-09-23 13:54:00 162 mm[Hg] Step hen F Giovanni BP Diastolic 2023-09-23 13:54:00 83 mm[Hg] Tree phen F Giovanni Weight Measured 2023-09-23 13:54:00 176.00 pounds Mikey F Giovanni Height Measured 2023-09-23 13:54:00 65.00 inches Mikey F Giovanni Body Temperature 2023-09-23 13:54:00 98.20 degrees Mikey F Giovanni Heart Rate 2023-09-23 13:54:00 88.00 /min Mckenna en F Giovanni Respiratory Rate 2023-09-23 13:54:00 Mikey F Giovanni BP Systolic 2023-08-25 16:26:00 153 mm[Hg] Step hen F Giovanni BP Diastolic 2023-08-25 16:26:00 88 mm[Hg] Tree phen F Giovanni Weight Measured 2023-08-25 16:26:00 183.40 pounds Mikey F Giovanni Height Measured 2023-08-25 16:26:00 65.00 inches Mikey F Giovanni Body Temperature 2023-08-25 16:26:00 98.10 degrees Mikey F Giovanni Heart Rate 2023-08-25 16:26:00 98.00 /min Mckenna en F Giovanni Respiratory Rate 2023-08-25 16:26:00 19.00 /min Mikey F Giovanni BP Systolic 2023-06-11 16:07:00 134 mm[Hg] Step hen F Giovanni BP Diastolic 2023-06-11 16:07:00 81 mm[Hg] Tree phen F Giovanni Weight Measured 2023-06-11 16:07:00 184.20 pounds Mikey F Giovanni Height Measured 2023-06-11 16:07:00 65.00 inches Mikey F Giovanni Body Temperature 2023-06-11 16:07:00 97.80 degrees Mikey F Giovanni Heart Rate 2023-06-11 16:07:00 85.00 /min Mckenna en F Giovanni Respiratory Rate 2023-06-11 16:07:00 Mikey F Giovanni BP Systolic 2023-04-20 11:23:00 Step hen F Giovanni BP Diastolic 2023-04-20 11:23:00 Tree phen F Giovanni Weight Measured 2023-04-20 11:23:00 180.00 pounds Mikey F Giovanni Height Measured 2023-04-20 11:23:00 65.00 inches Mikey F Giovanni Body Temperature 2023-04-20 11:23:00 Mikey F Giovanni Heart Rate 2023-04-20 11:23:00 Mckenna en F Giovanni Respiratory Rate 2023-04-20 11:23:00 Mikey F Giovanni BP Systolic 2023-04-16 14:13:00 Step hen F Giovanni BP Diastolic 2023-04-16 14:13:00 Tree phen F Giovanni Weight Measured 2023-04-16 14:13:00 180.00 pounds Mikey F Giovanni Height Measured 2023-04-16 14:13:00 65.00 inches Mikey F Giovanni Body Temperature 2023-04-16 14:13:00 Mikey F Giovanni Heart Rate 2023-04-16 14:13:00 Mckenna en F Giovanni Respiratory Rate 2023-04-16 14:13:00 Mikey F Giovnani BP Systolic 2022-12-30 15:06:00 165 mm[Hg] Step hen F Giovanni BP Diastolic 2022-12-30 15:06:00 88 mm[Hg] Tree phen F Giovanni Weight Measured 2022-12-30 15:06:00 183.60 pounds Mikey F Giovanni Height Measured 2022-12-30 15:06:00 65.00 inches Mikey F Giovanni Body Temperature 2022-12-30 15:06:00 98.00 degrees Mikey F Giovanni Heart Rate 2022-12-30 15:06:00 83.00 /min Mckenna en F Giovanni Respiratory Rate 2022-12-30 15:06:00 18.00 /min Mikey F Giovanni BP Systolic 2022-11-13 11:38:00 157 mm[Hg] Step hen F Giovanni BP Diastolic 2022-11-13 11:38:00 83 mm[Hg] Tree phen F Giovanni Weight Measured 2022-11-13 11:38:00 182.00 pounds Mikey F Giovanni Height Measured 2022-11-13 11:38:00 65.00 inches Mikey F Giovanni Body Temperature 2022-11-13 11:38:00 98.00 degrees Mikey F Giovanni Heart Rate 2022-11-13 11:38:00 97.00 /min Mckenna en F Giovanni Respiratory Rate 2022-11-13 11:38:00 18.00 /min Mikey F Giovanni BP Systolic 2022-06-22 11:23:00 146 mm[Hg] Step hen F Giovanni BP Diastolic 2022-06-22 11:23:00 81 mm[Hg] Tree phen F Giovanni Weight Measured 2022-06-22 11:23:00 187.20 pounds Mikey Quyen Davila Height Measured 2022-06-22 11:23:00 65.00 inches Mikey F Giovanni Body Temperature 2022-06-22 11:23:00 97.30 degrees Mikey F Giovanni Heart Rate 2022-06-22 11:23:00 87.00 /min Mckenna en F Giovanni Respiratory Rate 2022-06-22 11:23:00 Mikey F Giovanni BP Systolic 2022-05-11 14:12:00 143 mm[Hg] Step hen F Giovanni BP Diastolic 2022-05-11 14:12:00 83 mm[Hg] Tree phen F Giovanni Weight Measured 2022-05-11 14:12:00 189.60 pounds Mikey F Giovanni Height Measured 2022-05-11 14:12:00 65.00 inches Mikey Davila Body Temperature 2022-05-11 14:12:00 97.60 degrees Mikey F Giovanni Heart Rate 2022-05-11 14:12:00 91.00 /min Mckenna en F Giovanni Respiratory Rate 2022-05-11 14:12:00 19.00 /min Mikey F Giovanni BP Systolic 2022-03-31 13:42:00 130 mm[Hg] BP Diastolic 2022-03-31 13:42:00 82 mm[Hg] Weight Measured 2022-03-31 13:42:00 194.00 pounds Height Measured 2022-03-31 13:42:00 65.00 inches Body Temperature 2022-03-31 13:42:00 97.90 degrees Heart Rate 2022-03-31 13:42:00 86.00 /min Respiratory Rate 2022-03-31 13:42:00 16.00 /min BP Systolic 2022-02-11 11:57:00 158 mm[Hg] BP Diastolic 2022-02-11 11:57:00 78 mm[Hg] Weight Measured 2022-02-11 11:57:00 184.80 pounds Height Measured 2022-02-11 11:57:00 65.00 inches Body Temperature 2022-02-11 11:57:00 98.30 degrees Heart Rate 2022-02-11 11:57:00 87.00 /min Respiratory Rate 2022-02-11 11:57:00 18.00 /min BP Systolic 2021-11-20 13:48:00 160 mm[Hg] BP Diastolic 2021-11-20 13:48:00 88 mm[Hg] Weight Measured 2021-11-20 13:48:00 179.80 pounds Height Measured 2021-11-20 13:48:00 65.00 inches Body Temperature 2021-11-20 13:48:00 98.30 degrees Heart Rate 2021-11-20 13:48:00 83.00 /min Respiratory Rate 2021-11-20 13:48:00 18.00 /min BP Systolic 2021-09-19 16:20:00 130 mm[Hg] BP Diastolic 2021-09-19 16:20:00 82 mm[Hg] Weight Measured 2021-09-19 16:20:00 186.60 pounds Height Measured 2021-09-19 16:20:00 65.00 inches Body Temperature 2021-09-19 16:20:00 98.30 degrees Heart Rate 2021-09-19 16:20:00 93.00 /min Respiratory Rate 2021-09-19 16:20:00 BP Systolic 2021-06-19 11:23:00 143 mm[Hg] BP Diastolic 2021-06-19 11:23:00 80 mm[Hg] Weight Measured 2021-06-19 11:23:00 187.80 pounds Height Measured 2021-06-19 11:23:00 65.00 inches Body Temperature 2021-06-19 11:23:00 98.10 degrees Heart Rate 2021-06-19 11:23:00 81.00 /min Respiratory Rate 2021-06-19 11:23:00 BP Systolic 2021-05-21 13:17:00 126 mm[Hg] BP Diastolic 2021-05-21 13:17:00 82 mm[Hg] Weight Measured 2021-05-21 13:17:00 192.20 pounds Height Measured 2021-05-21 13:17:00 65.00 inches Body Temperature 2021-05-21 13:17:00 98.20 degrees Heart Rate 2021-05-21 13:17:00 83.00 /min Respiratory Rate 2021-05-21 13:17:00 BP Systolic 2021-05-12 14:40:00 135 mm[Hg] BP Diastolic 2021-05-12 14:40:00 72 mm[Hg] Weight Measured 2021-05-12 14:40:00 192.00 pounds Height Measured 2021-05-12 14:40:00 65.00 inches Body Temperature 2021-05-12 14:40:00 97.90 degrees Heart Rate 2021-05-12 14:40:00 89.00 /min Respiratory Rate 2021-05-12 14:40:00 21.00 /min BP Systolic 2021-03-27 16:18:00 147 mm[Hg] BP Diastolic 2021-03-27 16:18:00 87 mm[Hg] Weight Measured 2021-03-27 16:18:00 192.60 pounds Height Measured 2021-03-27 16:18:00 65.00 inches Body Temperature 2021-03-27 16:18:00 98.60 degrees Heart Rate 2021-03-27 16:18:00 93.00 /min Respiratory Rate 2021-03-27 16:18:00 16.00 /min BP Systolic 2020-11-16 16:36:00 144 mm[Hg] BP Diastolic 2020-11-16 16:36:00 86 mm[Hg] Weight Measured 2020-11-16 16:36:00 184.00 pounds Height Measured 2020-11-16 16:36:00 65.00 inches Body Temperature 2020-11-16 16:36:00 98.00 degrees Heart Rate 2020-11-16 16:36:00 97.00 /min Respiratory Rate 2020-11-16 16:36:00 BP Systolic 2020-11-16 16:27:00 144 mm[Hg] BP Diastolic 2020-11-16 16:27:00 86 mm[Hg] Weight Measured 2020-11-16 16:27:00 184.00 pounds Height Measured 2020-11-16 16:27:00 65.00 inches Body Temperature 2020-11-16 16:27:00 98.00 degrees Heart Rate 2020-11-16 16:27:00 97.00 /min Respiratory Rate 2020-11-16 16:27:00 BP Systolic 2020-08-02 09:23:00 111 mm[Hg] BP Diastolic 2020-08-02 09:23:00 74 mm[Hg] Weight Measured 2020-08-02 09:23:00 187.20 pounds Height Measured 2020-08-02 09:23:00 65.00 inches Body Temperature 2020-08-02 09:23:00 98.80 degrees Heart Rate 2020-08-02 09:23:00 82.00 /min Respiratory Rate 2020-08-02 09:23:00 17.00 /min Procedures Procedure Date / Time Performed Performing Clinicia n Source URINALYSIS 2023-09-07 03:13:00 Esau Merritt [facility] RAPID INFLUENZA A/B 2023-09-07 01:08:00 Esau Merritt [facility] COVID-19 (ID NOW RAPID TESTING) 2023-09-07 01:08:00 Esau Merritt [facility] XR LUMBAR SPINE 3 VW 2023-05-02 23:03:24 Mary Jane Becker y [facility] XR CERVICAL SPINE 3 VW 2023-05-02 23:03:24 Arslan Becker thy [facility] XR WRIST 3+ VW LEFT 2023-05-02 23:03:24 Jd Becker [facility] CONSENT/REFUSAL FOR DIAGNOSIS AND TREATMENT 2023-05-02 22:27:06 Doctor Unassigned, [place] [facility] Plan of Care Planned Activity Planned Date Details Comments Source Goal Plan of Care Note [code = 32743-3] Goal Plan of Care Note [code = 44770-3] Goal Plan of Care Note [code = 13277-8] Goal Plan of Care Note [code = 26519-5] Goal Plan of Care Note [code = 19611-9] Goal Plan of Care Note [code = 04659-2] Goal Plan of Care Note [code = 26643-9] Goal Plan of Care Note [code = 88554-2] Goal Plan of Care Note [code = 59030-8] Goal Plan of Care Note [code = 95573-7] Goal Plan of Care Note [code = 38628-8] Goal Plan of Care Note [code = 47776-2] Goal Plan of Care Note [code = 26347-7] Goal Plan of Care Note [code = 07991-6] Goal Plan of Care Note [code = 27537-2] Goal Plan of Care Note [code = 71028-0] Goal Plan of Care Note [code = 93080-4] Goal Plan of Care Note [code = 19872-1] Goal Plan of Care Note [code = 20893-7] Goal Plan of Care Note [code = 62132-9] Goal Plan of Care Note [code = 20999-7] Goal Plan of Care Note [code = 79447-9] Goal Plan of Care Note [code = 52060-6] Goal Plan of Care Note [code = 29460-9] Goal Plan of Care Note [code = 22167-3] Goal Plan of Care Note [code = 02330-9] Goal Plan of Care Note [code = 82018-4] Goal Plan of Care Note [code = 91422-5] Goal Plan of Care Note [code = 19964-4] Goal Plan of Care Note [code = 15825-4] Goal Plan of Care Note [code = 46276-7] Goal Plan of Care Note [code = 38291-6] Goal Plan of Care Note [code = 85164-8] Goal Plan of Care Note [code = 61816-6] Goal Plan of Care Note [code = 63143-5] Goal Plan of Care Note [code = 45543-0] Goal Plan of Care Note [code = 55056-0] Goal Plan of Care Note [code = 18624-7] Goal Plan of Care Note [code = 12716-6] Goal Plan of Care Note [code = 01226-9] Goal Plan of Care Note [code = 00686-8] Goal Plan of Care Note [code = 91111-5] Goal Plan of Care Note [code = 01167-6] Goal Plan of Care Note [code = 51749-6] Goal Plan of Care Note [code = 01388-5] Goal Plan of Care Note [code = 91339-1] Goal Plan of Care Note [code = 27560-8] Goal Plan of Care Note [code = 34228-6] Goal Plan of Care Note [code = 82121-1] Goal Plan of Care Note [code = 15799-6] Goal Plan of Care Note [code = 98213-6] Goal Plan of Care Note [code = 03407-3] Goal Plan of Care Note [code = 05720-6] Goal Plan of Care Note [code = 52861-6] Goal Plan of Care Note [code = 87440-5] Goal Plan of Care Note [code = 72235-9] Goal Plan of Care Note [code = 49269-5] Goal Plan of Care Note [code = 78820-5] Goal Plan of Care Note [code = 18599-3] Goal Plan of Care Note [code = 42647-0] Goal Plan of Care Note [code = 33911-9] Encounters Start Date/Time End Date/Time Encounter Type Admission Type Attending Clinicians [facility] Care Department Encounter ID Source 2023-10-04 08:31:23 2023-10-04 08:31:23 Outpatient SFA [facility] [id number] Mikey Napier Giovanni 2023-10-04 00:00:00 2023-10-04 00:00:00 Outpatient Visit [facility] [id number] iMkey Davila 2023-09-23 13:48:40 2023-09-23 13:48:40 Outpatient SFA [facility] [id number] Mikey Davila 2023-09-15 00:00:00 2023-09-15 00:00:00 Letter (Out) Campaigns, Generic Provider [facility] 1.0.114 [id number] [facility] 2023-09-06 20:08:00 2023-09-06 23:20:00 Emergency X ESAU MERRITT [facility] ERT [id number] [facility] 2023-09-06 20:08:00 2023-09-06 23:20:00 Emergency Esau Merritt [facility] ..114 [id number] [id number] [facility] 2023-08-25 16:17:14 2023-08-25 16:17:14 Outpatient SFA SFA 0327 Mikey Davila 2023-08-25 14:20:00 2023-08-25 14:20:00 Outpatient LAB90 NITZA HOWE [id number] Nitza Alvarez 2023-06-11 16:04:31 2023-06-11 16:04:31 Outpatient SFA SFA 0112 Mikey Davila 2023-06-04 16:12:58 2023-06-04 16:12:58 Outpatient SFA SFA 0105 Mikey Davila 2023-05-28 15:24:23 2023-05-28 15:24:23 Outpatient SFA SFA 1229 Mikey Davila 2023-05-02 16:41:00 2023-05-02 18:07:00 Emergency Jd Becker [facility] [id number] [facility] 2023-05-02 16:41:00 2023-05-02 18:07:00 Emergency X JD BECKER TIMOTHY [facility] ERT [id number] [facility] 2022-12-30 14:54:51 2022-12-30 14:54:51 Outpatient SFA SFA 0802 Mikey Davila 2022-11-13 11:31:39 2022-11-13 11:31:39 Outpatient SFA SFA 0616 Mikey Davila 2022-06-22 11:23:50 2022-06-22 11:23:50 Outpatient SFA SFA 0123 Mikey Davila 2022-05-11 14:04:59 2022-05-11 14:04:59 Outpatient SFA SFA 1212 Mikey Davila 2022-05-11 00:00:00 2022-05-11 00:00:00 Outpatient Visit [id number] 2022-03-31 13:29:20 2022-03-31 13:29:20 Outpatient SFA [facility] 1101 Mikey Davila 2022-03-31 00:00:00 2022-03-31 00:00:00 Outpatient Visit [id number] 2022-02-11 00:00:00 2022-02-11 00:00:00 Outpatient Visit [id number] Results Test Description Test Time Test Comments Results Result Co mments Source MUMPS IgG AND [id number] 00:00:00* Test Item Value Reference Range Interpretation Comme nts MUMPS VIRUS IgG (test code = 30398) <5.0 AU/mL MUMPS VIRUS IgM (test code = 4587) 0.38 IV Mikey DavilaRUBEOLA AB, [id number] 15:12:33* Test Item Value Reference Range Interpretation Comme nts RUBEOLA AB, IgG (test code = 79850) 33.1 AU/ML SEE BELOW INTERPRETATION U NITS RANGE ----- ----- NEGATIVE AU/ML <13.5 EQUIVOCAL AU/ML 13.5-16.4 NOTE: CONSIDER RETESTING IN A CLINICALLY SUITABLE PERIOD OF TIME, NO SOONER THAN 1-2 WEEKS. POSITIVE AU/ML >=16.5 VARICELLA ZOSTER [id number] 15:12:33* Test Item Value Reference Range Interpretation Comme nts VARICELLA ZOSTER IgG (test code = 21537) >2000 INDEX SEE BELOW INTERPRETATION V ZV IgG NEGATIVE . . . . . . . . . . . . INDEX <135 EQUIVOCAL. . . . . . . . . . . . INDEX 135-164 NOTE: CONSIDER RETESTING IN A CLINICALLY SUITABLE PERIOD OF TIME, NO SOONER THAN 1-2 WEEKS. POSITIVE . . . . . . . . . . . . INDEX >=165 UNLESS OTHERWISE INDICATED, ALL TESTING PERFORMED AT [facility] [address] [place] [address] NONDESTRUCTIVE TESTER: ANGEL MEDINA M.D. [place] NUMBER [id number] [facility] [place]. [id number] HEPATITIS B SURFACE [id number] 04:02:39* Test Item Value Reference Range Interpretation Comme nts HEPATITIS B SURFACE AB (test code = 2737) NON-REACTIVE NON-REACTIVE RUBELLA ANTIBODY [id number] 04:02:39* Test Item Value Reference Range Interpretation Comme nts RUBELLA ANTIBODY SCREEN (test code = 4600) 244 IU/ML SEE BELOW RUBELLA IgG INTERP (test code = 98137) REACTIVE REACTIVE INTERPRETATI ON UNITS RANGE NON-REACTIVE/NON-IMMUNE IU/ML <10 REACTIVE/IMMUNE IU/ML >=10 RUBEOLA IgG [id number] 00:00:00* Test Item Value Reference Range Interpretation Comme nts RUBEOLA AB, IgG (test code = 10714) 33.1 AU/ML Mikey DavilaRUBELLA ANTIBODY [id number] 00:00:00* Test Item Value Reference Range Interpretation Comme nts RUBELLA ANTIBODY SCREEN (ramon t code = 4600) 244 IU/ML RUBELLA IgG INTERP (test cod e = 54180) REACTIVE Mikey DavilaVARICELLA ZOSTER [id number] 00:00:00* Test Item Value Reference Range Interpretation Comme nts VARICELLA ZOSTER IgG (test c ode = 97651) >2000 INDEX Mikey DavilaHEPATITIS B SURFACE [id number] 00:00:00* Test Item Value Reference Range Interpretation Comme nts HEPATITIS B SURFACE AB (test code = 2737) NON-REACTIVE Mikey Napier AustinLIPID [id number] 06:46:08* Test Item Value Reference Range Interpretation Comme nts CHOLESTEROL (test code = 2210) 143 MG/DL <200 TRIGLYCERIDES (test code = 2232) 101 MG/DL <150 HDL CHOLESTEROL (test code = 2220) 61 MG/DL >39 CALC LDL CHOL (test code = 2237) 64 MG/DL <100 NOTE: CALCULATED LDL IS BASED ON PATRICK-PALMER METHOD WHICHINCLUDES ADJUSTABLE TRIGLYCERIDE:VLDL CHOLESTEROL RATIO.THIS FACTOR VARIES BY MEASURED TRIGLYCERIDE AND NON-HDLCHOLESTEROL CONCENTRATIONS WITH INCREASED CALCULATED LDL SEENIN HIGHER TRIGLYCERIDE OR LOWER NON-HDL SPECIMENS. FOR MOREINFORMATION, SEE CLIENT ANNOUNCEMENT AT [email or web address] RISK RATIO LDL/HDL (test code = 2237) 1.05 RATIO <3.22 COMPREHENSIVE METABOLIC [id number] 06:46:08* Test Item Value Reference Range Interpretation Comme nts GLUCOSE (test code = 2216) 346 MG/DL 70-99 H BUN (test code = 2207) 11 MG/DL 6-20 CREATININE (test code = 2213) 0.67 MG/DL 0.60-1.30 eGFR (2020 CKD-EPI) (test code = ) 105 ML/MIN/1.73 >60 CALC BUN/CREAT (test code = 2234) 16 RATIO 6-28 SODIUM (test code = 2230) 140 MEQ/L 133-146 POTASSIUM (test code = 2227) 4.7 MEQ/L 3.5-5.4 CHLORIDE (test code = 2214) 103 MEQ/L 95-107 CARBON DIOXIDE (test code = 2205) 26 MEQ/L 19-31 CALCIUM (test code = 2208) 9.4 MG/DL 8.5-10.5 PROTEIN, TOTAL (test code = 2228) 6.3 G/DL 6.1-8.3 ALBUMIN (test code = 2200) 3.9 G/DL 3.5-5.2 CALC GLOBULIN (test code = 0) 2.4 G/DL 1.9-3.7 CALC A/G RATIO (test code = 2233) 1.6 RATIO 1.0-2.6 BILIRUBIN, TOTAL (test code = 2206) <0.2 MG/DL <=1.2 ALKALINE PHOSPHATASE (test code = 2203) 57 U/L 40-132 AST (test code = 2217) 11 U/L 9-40 ALT (test code = 2218) 10 U/L 5-40 ALBUMIN/CREATININE RATIO, URINE, [id number] 05:59:16* Test Item Value Reference Range Interpretation Comme nts CREATININE, URINE, CONC. (test code = 2072) 78.4 MG/DL NOT ESTAB ALBUMIN, URINE, RANDOM (test code = 80936) 77.3 MG/DL NOT ESTAB CALC ALBUMIN/CREAT, RND (test code = 55432) 986 MG/G <30 H Note: Albumin/Creatinine ratio reference interval reflects ADA and NKF guidelines. HEMOGLOBIN [id number] 05:10:11* Test Item Value Reference Range Interpretation Comme [facility] HEMOGLOBIN A1c (test code = 27202) 9.4 % 4.2-5.6 H [employer] GUIDELINES FOR HGB A1C: PREDIABETES/INCREASED RISK . . . . . . . 5.7-6.4% DIAGNOSIS OF DIABETES . . . . . . . . . >=6.5% WITH CONFIRMATION OR APPROPRIATE SYMPTOMS NOTE: ASSAY MAY BE AFFECTED BY HEMOGLOBINOPATHIES (SICKLE CELL ANEMIA, S-C DISEASE, OTHERS) OR ARTIFICIALLY LOWERED BY DECREASED RED CELL SURVIVAL (HEMOLYTIC ANEMIAS, BLOOD LOSS, ETC.). CONSIDER ALTERNATE TESTING OR LABORATORY CONSULTATION. UNLESS OTHERWISE INDICATED, ALL TESTING PERFORMED AT [facility] [address] [place] [address] NONDESTRUCTIVE TESTER: ANGEL MEDINA M.D. CLIA NUMBER [id number] [facility] [place]. [id number] ALBUMIN/CREATININE RATIO, RANDOM [id number] 00:00:00* Test Item Value Reference Range Interpretation Comme nts CREATININE, URINE, CONC. (te st code = 2072) 78.4 MG/DL ALBUMIN, URINE, RANDOM (test code = 31870) 77.3 MG/DL CALC ALBUMIN/CREAT, RND (ramon t code = 32080) 986 MG/G Mikey F GiovanniCOMPREHENSIVE METABOLIC [id number] 00:00:00* Test Item Value Reference Range Interpretation Comme nts GLUCOSE (test code = 2217) 346 MG/DL BUN (test code = 2208) 11 MG/DL CREATININE (test code = 2214) 0.67 MG/DL eGFR (2020 CKD-EPI) (test code = 21949) 105 ML/MIN/1.73 CALC BUN/CREAT (test code = 2235) 16 RATIO SODIUM (test code = 2231) 140 MEQ/L POTASSIUM (test code = 2228) 4.7 MEQ/L CHLORIDE (test code = 2215) 103 MEQ/L CARBON DIOXIDE (test code = 2206) 26 MEQ/L CALCIUM (test code = 2209) 9.4 MG/DL PROTEIN, TOTAL (test code = 2229) 6.3 G/DL ALBUMIN (test code = 2201) 3.9 G/DL CALC GLOBULIN (test code = 2240) 2.4 G/DL CALC A/G RATIO (test code = 2234) 1.6 RATIO BILIRUBIN, TOTAL (test code = 2207) <0.2 MG/DL ALKALINE PHOSPHATASE (test code = 2204) 57 U/L AST (test code = 2218) 11 U/L ALT (test code = 2219) 10 U/L Mikey DavilaLIPID [id number] 00:00:00* Test Item Value Reference Range Interpretation Comme nts CHOLESTEROL (test code = 2210) 143 MG/DL TRIGLYCERIDES (test code = 2232) 101 MG/DL HDL CHOLESTEROL (test code = 2220) 61 MG/DL CALC LDL CHOL (test code = 2237) 64 MG/DL RISK RATIO LDL/HDL (test cod e = 2238) 1.05 RATIO Mikey DavilaHEMOGLOBIN [id number] 00:00:00* Test Item Value Reference Range Interpretation Comme jacquie HEMOGLOBIN A1c (test code = 62734) 9.4 % Mikey DavilaHEMOGLOBIN [id number] 03:47:14* Test Item Value Reference Range Interpretation Comme jacquie HEMOGLOBIN A1c (test code = 01831) 8.2 % 4.2-5.6 H [employer] GUIDELINES FOR HGB A1C: PREDIABETES/INCREASED RISK . . . . . . . 5.7-6.4% DIAGNOSIS OF DIABETES . . . . . . . . . >=6.5% WITH CONFIRMATION OR APPROPRIATE SYMPTOMS NOTE: ASSAY MAY BE AFFECTED BY HEMOGLOBINOPATHIES (SICKLE CELL ANEMIA, S-C DISEASE, OTHERS) OR ARTIFICIALLY LOWERED BY DECREASED RED CELL SURVIVAL (HEMOLYTIC ANEMIAS, BLOOD LOSS, ETC.). CONSIDER ALTERNATE TESTING OR LABORATORY CONSULTATION. COMPREHENSIVE METABOLIC [id number] 03:11:24* Test Item Value Reference Range Interpretation Comme nts GLUCOSE (test code = 2217) 254 MG/DL 70-99 H BUN (test code = 2208) 12 MG/DL 6-20 CREATININE (test code = 2214) 0.70 MG/DL 0.60-1.30 eGFR (2020 CKD-EPI) (test code = 21919) 105 ML/MIN/1.73 >60 CALC BUN/CREAT (test code = 2234) 17 RATIO 6-28 SODIUM (test code = 2230) 141 MEQ/L 133-146 POTASSIUM (test code = 2227) 4.9 MEQ/L 3.5-5.4 CHLORIDE (test code = 2214) 106 MEQ/L 95-107 CARBON DIOXIDE (test code = 2205) 27 MEQ/L 19-31 CALCIUM (test code = 2208) 9.4 MG/DL 8.5-10.5 PROTEIN, TOTAL (test code = 2228) 6.8 G/DL 6.1-8.3 ALBUMIN (test code = 2200) 4.1 G/DL 3.5-5.2 CALC GLOBULIN (test code = 2239) 2.7 G/DL 1.9-3.7 CALC A/G RATIO (test code = 2233) 1.5 RATIO 1.0-2.6 BILIRUBIN, TOTAL (test code = 2206) 0.3 MG/DL See_Comment [Automated me ssage] The system which generated this result transmitted reference range: <=1.2. The reference range was not used to interpret this result as normal/abnormal. ALKALINE PHOSPHATASE (test code = 2203) 57 U/L 40-130 AST (test code = 2217) 16 U/L 9-40 ALT (test code = 2218) 13 U/L 5-40 LIPID [id number] 03:11:24* Test Item Value Reference Range Interpretation Comme nts CHOLESTEROL (test code = 2209) 147 MG/DL <200 TRIGLYCERIDES (test code = 2231) 62 MG/DL <150 HDL CHOLESTEROL (test code = 2219) 66 MG/DL >39 CALC LDL CHOL (test code = 2236) 67 MG/DL <100 NOTE: CALCULATED LDL IS BASED ON PATRICK-PALMER METHOD WHICHINCLUDES ADJUSTABLE TRIGLYCERIDE:VLDL CHOLESTEROL RATIO.THIS FACTOR VARIES BY MEASURED TRIGLYCERIDE AND NON-HDLCHOLESTEROL CONCENTRATIONS WITH INCREASED CALCULATED LDL SEENIN HIGHER TRIGLYCERIDE OR LOWER NON-HDL SPECIMENS. FOR MOREINFORMATION, SEE CLIENT ANNOUNCEMENT AT [email or web address] /CalcLDL-C RISK RATIO LDL/HDL (test code = 2237) 1.02 RATIO <3.22 UNLESS OTHERW ISE INDICATED, [facility] [address] [place] [address] NONDESTRUCTIVE TESTER: ARRON CHOWDHURY M.D. CLIA NUMBER [id number] [facility] [place]. [id number] COMPREHENSIVE METABOLIC [id number] 00:00:00* Test Item Value Reference Range Interpretation Comme nts GLUCOSE (test code = 2217) 254 MG/DL BUN (test code = 2208) 12 MG/DL CREATININE (test code = 2214) 0.70 MG/DL eGFR (2020 CKD-EPI) (test code = 21122) 105 ML/MIN/1.73 CALC BUN/CREAT (test code = 2235) 17 RATIO SODIUM (test code = 2231) 141 MEQ/L POTASSIUM (test code = 2228) 4.9 MEQ/L CHLORIDE (test code = 2215) 106 MEQ/L CARBON DIOXIDE (test code = 2206) 27 MEQ/L CALCIUM (test code = 2209) 9.4 MG/DL PROTEIN, TOTAL (test code = 2229) 6.8 G/DL ALBUMIN (test code = 2201) 4.1 G/DL CALC GLOBULIN (test code = 2240) 2.7 G/DL CALC A/G RATIO (test code = 2234) 1.5 RATIO BILIRUBIN, TOTAL (test code = 2207) 0.3 MG/DL ALKALINE PHOSPHATASE (test code = 2204) 57 U/L AST (test code = 2218) 16 U/L ALT (test code = 2219) 13 U/L Mikey Napier AustinLIPID [id number] 00:00:00* Test Item Value Reference Range Interpretation Comme nts CHOLESTEROL (test code = 2210) 147 MG/DL TRIGLYCERIDES (test code = 2232) 62 MG/DL HDL CHOLESTEROL (test code = 2220) 66 MG/DL CALC LDL CHOL (test code = 2237) 67 MG/DL RISK RATIO LDL/HDL (test cod e = 2238) 1.02 RATIO Mikey Napier AustinHEMOGLOBIN [id number] 00:00:00* Test Item Value Reference Range Interpretation Comme nts HEMOGLOBIN A1c (test code = 16350) 8.2 % Mikey Napier AustinHEMOGLOBIN [id number] 00:00:00* Test Item Value Reference Range Interpretation Comme nts HEMOGLOBIN A1c (test code = 48479) 8.2 % HEMOGLOBIN [id number] 00:00:00* Test Item Value Reference Range Interpretation Comme nts HEMOGLOBIN A1c (test code = 33681) 8.2 % HEMOGLOBIN [id number] 00:00:00* Test Item Value Reference Range Interpretation Comme nts HEMOGLOBIN A1c (test code = 01201) 8.2 % COMPREHENSIVE METABOLIC [id number] 00:00:00* Test Item Value Reference Range Interpretation Comme nts GLUCOSE (test code = 2217) 254 MG/DL BUN (test code = 2208) 12 MG/DL CREATININE (test code = 2214) 0.70 MG/DL eGFR (2020 CKD-EPI) (test code = 53410) 105 ML/MIN/1.73 CALC BUN/CREAT (test code = 2235) 17 RATIO SODIUM (test code = 2231) 141 MEQ/L POTASSIUM (test code = 2228) 4.9 MEQ/L CHLORIDE (test code = 2215) 106 MEQ/L CARBON DIOXIDE (test code = 2206) 27 MEQ/L CALCIUM (test code = 2209) 9.4 MG/DL PROTEIN, TOTAL (test code = 2229) 6.8 G/DL ALBUMIN (test code = 2201) 4.1 G/DL CALC GLOBULIN (test code = 2240) 2.7 G/DL CALC A/G RATIO (test code = 2234) 1.5 RATIO BILIRUBIN, TOTAL (test code = 2207) 0.3 MG/DL ALKALINE PHOSPHATASE (test code = 2204) 57 U/L AST (test code = 2218) 16 U/L ALT (test code = 2219) 13 U/L COMPREHENSIVE METABOLIC [id number] 00:00:00* Test Item Value Reference Range Interpretation Comme nts GLUCOSE (test code = 2217) 254 MG/DL BUN (test code = 2208) 12 MG/DL CREATININE (test code = 2214) 0.70 MG/DL eGFR (2020 CKD-EPI) (test code = 43205) 105 ML/MIN/1.73 CALC BUN/CREAT (test code = 2235) 17 RATIO SODIUM (test code = 2231) 141 MEQ/L POTASSIUM (test code = 2228) 4.9 MEQ/L CHLORIDE (test code = 2215) 106 MEQ/L CARBON DIOXIDE (test code = 2206) 27 MEQ/L CALCIUM (test code = 2209) 9.4 MG/DL PROTEIN, TOTAL (test code = 2229) 6.8 G/DL ALBUMIN (test code = 2201) 4.1 G/DL CALC GLOBULIN (test code = 2240) 2.7 G/DL CALC A/G RATIO (test code = 2234) 1.5 RATIO BILIRUBIN, TOTAL (test code = 2207) 0.3 MG/DL ALKALINE PHOSPHATASE (test code = 2204) 57 U/L AST (test code = 2218) 16 U/L ALT (test code = 2219) 13 U/L LIPID [id number] 00:00:00* Test Item Value Reference Range Interpretation Comme nts CHOLESTEROL (test code = 2210) 147 MG/DL TRIGLYCERIDES (test code = 2232) 62 MG/DL HDL CHOLESTEROL (test code = 2220) 66 MG/DL CALC LDL CHOL (test code = 2237) 67 MG/DL RISK RATIO LDL/HDL (test cod e = 2238) 1.02 RATIO LIPID [id number] 00:00:00* Test Item Value Reference Range Interpretation Comme nts CHOLESTEROL (test code = 2210) 147 MG/DL TRIGLYCERIDES (test code = 2232) 62 MG/DL HDL CHOLESTEROL (test code = 2220) 66 MG/DL CALC LDL CHOL (test code = 2237) 67 MG/DL RISK RATIO LDL/HDL (test cod e = 2238) 1.02 RATIO HEMOGLOBIN [id number] 00:00:00* Test Item Value Reference Range Interpretation Comme nts HEMOGLOBIN A1c (test code = 15495) 8.2 % HEMOGLOBIN [id number] 00:00:00* Test Item Value Reference Range Interpretation Comme nts HEMOGLOBIN A1c (test code = 80979) 8.2 % HEMOGLOBIN [id number] 00:00:00* Test Item Value Reference Range Interpretation Comme nts HEMOGLOBIN A1c (test code = 70032) 8.2 % COMPREHENSIVE METABOLIC [id number] 00:00:00* Test Item Value Reference Range Interpretation Comme nts GLUCOSE (test code = 2217) 254 MG/DL BUN (test code = 8) 12 MG/DL CREATININE (test code = 2214) 0.70 MG/DL eGFR (2020 CKD-EPI) (test code = 45975) 105 ML/MIN/1.73 CALC BUN/CREAT (test code = 2235) 17 RATIO SODIUM (test code = 2231) 141 MEQ/L POTASSIUM (test code = 2228) 4.9 MEQ/L CHLORIDE (test code = 2215) 106 MEQ/L CARBON DIOXIDE (test code = 2206) 27 MEQ/L CALCIUM (test code = 2209) 9.4 MG/DL PROTEIN, TOTAL (test code = 2229) 6.8 G/DL ALBUMIN (test code = 2201) 4.1 G/DL CALC GLOBULIN (test code = 2240) 2.7 G/DL CALC A/G RATIO (test code = 2234) 1.5 RATIO BILIRUBIN, TOTAL (test code = 2207) 0.3 MG/DL ALKALINE PHOSPHATASE (test code = 2204) 57 U/L AST (test code = 2218) 16 U/L ALT (test code = 2219) 13 U/L COMPREHENSIVE METABOLIC [id number] 00:00:00* Test Item Value Reference Range Interpretation Comme nts GLUCOSE (test code = 2217) 254 MG/DL BUN (test code = 2208) 12 MG/DL CREATININE (test code = 2214) 0.70 MG/DL eGFR (2020 CKD-EPI) (test code = 28884) 105 ML/MIN/1.73 CALC BUN/CREAT (test code = 2235) 17 RATIO SODIUM (test code = 2231) 141 MEQ/L POTASSIUM (test code = 2228) 4.9 MEQ/L CHLORIDE (test code = 2215) 106 MEQ/L CARBON DIOXIDE (test code = 2206) 27 MEQ/L CALCIUM (test code = 2209) 9.4 MG/DL PROTEIN, TOTAL (test code = 2229) 6.8 G/DL ALBUMIN (test code = 2201) 4.1 G/DL CALC GLOBULIN (test code = 2240) 2.7 G/DL CALC A/G RATIO (test code = 2234) 1.5 RATIO BILIRUBIN, TOTAL (test code = 2207) 0.3 MG/DL ALKALINE PHOSPHATASE (test code = 2204) 57 U/L AST (test code = 2218) 16 U/L ALT (test code = 2219) 13 U/L LIPID [id number] 00:00:00* Test Item Value Reference Range Interpretation Comme nts CHOLESTEROL (test code = 2210) 147 MG/DL TRIGLYCERIDES (test code = 2232) 62 MG/DL HDL CHOLESTEROL (test code = 2220) 66 MG/DL CALC LDL CHOL (test code = 2237) 67 MG/DL RISK RATIO LDL/HDL (test cod e = 2238) 1.02 RATIO LIPID [id number] 00:00:00* Test Item Value Reference Range Interpretation Comme nts CHOLESTEROL (test code = 2210) 147 MG/DL TRIGLYCERIDES (test code = 2232) 62 MG/DL HDL CHOLESTEROL (test code = 2220) 66 MG/DL CALC LDL CHOL (test code = 2237) 67 MG/DL RISK RATIO LDL/HDL (test cod e = 2238) 1.02 RATIO ALBUMIN, URINE, [id number] 05:20:29* Test Item Value Reference Range Interpretation Comme nts ALBUMIN, URINE, RANDOM (test code = 45517) 262.1 MG/DL NOT ESTAB UNLESS OTHERWISE INDICATED, ALL TESTING PERFORMED [facility] [address] [place] [address] NONDESTRUCTIVE TESTER: ARRON CHOWDHURY M.D. CLIA NUMBER [id number] [facility] [place]. [id number] MICROALBUMIN, [id number] 00:00:00* Test Item Value Reference Range Interpretation Comme nts ALBUMIN, URINE, RANDOM (test code = 12590) 262.1 MG/DL Mikey FarleyROALBUMIN, [id number] 00:00:00* Test Item Value Reference Range Interpretation Comme nts ALBUMIN, URINE, RANDOM (test code = 28285) 262.1 MG/DL MICROALBUMIN, [id number] 00:00:00* Test Item Value Reference Range Interpretation Comme nts ALBUMIN, URINE, RANDOM (test code = 15072) 262.1 MG/DL MICROALBUMIN, [id number] 00:00:00* Test Item Value Reference Range Interpretation Comme nts ALBUMIN, URINE, RANDOM (test code = 56456) 262.1 MG/DL MICROALBUMIN, [id number] 00:00:00* Test Item Value Reference Range Interpretation Comme nts ALBUMIN, URINE, RANDOM (test code = 23089) 262.1 MG/DL MICROALBUMIN, [id number] 00:00:00* Test Item Value Reference Range Interpretation Comme nts ALBUMIN, URINE, RANDOM (test code = 02894) 262.1 MG/DL MICROALBUMIN, [id number] 00:00:00* Test Item Value Reference Range Interpretation Comme nts ALBUMIN, URINE, RANDOM (test code = 33313) 262.1 MG/DL LIPID [id number] 00:14:15* Test Item Value Reference Range Interpretation Comme nts CHOLESTEROL (test code = 2210) 216 MG/DL <200 H TRIGLYCERIDES (test code = 2232) 133 MG/DL <150 HDL CHOLESTEROL (test code = 2220) 57 MG/DL >39 CALC LDL CHOL (test code = 2237) 134 MG/DL <100 H NOTE: CALCULATED LDL IS BASED ON PATRICK-PALMER METHOD WHICHINCLUDES ADJUSTABLE TRIGLYCERIDE:VLDL CHOLESTEROL RATIO.THIS FACTOR VARIES BY MEASURED TRIGLYCERIDE AND NON-HDLCHOLESTEROL CONCENTRATIONS WITH INCREASED CALCULATED LDL SEENIN HIGHER TRIGLYCERIDE OR LOWER NON-HDL SPECIMENS. FOR MOREINFORMATION, SEE CLIENT ANNOUNCEMENT AT [email or web address] RISK RATIO LDL/HDL (test code = 2238) 2.35 RATIO <3.22 LIPID [id number] 00:00:00* Test Item Value Reference Range Interpretation Comme nts CHOLESTEROL (test code = 2210) 216 MG/DL TRIGLYCERIDES (test code = 2232) 133 MG/DL HDL CHOLESTEROL (test code = 2220) 57 MG/DL CALC LDL CHOL (test code = 2237) 134 MG/DL RISK RATIO LDL/HDL (test cod e = 2238) 2.35 RATIO Mikey F AustinLIPID [id number] 00:00:00* Test Item Value Reference Range Interpretation Comme nts CHOLESTEROL (test code = 2210) 216 MG/DL TRIGLYCERIDES (test code = 2232) 133 MG/DL HDL CHOLESTEROL (test code = 2220) 57 MG/DL CALC LDL CHOL (test code = 2237) 134 MG/DL RISK RATIO LDL/HDL (test cod e = 2238) 2.35 RATIO LIPID [id number] 00:00:00* Test Item Value Reference Range Interpretation Comme nts CHOLESTEROL (test code = 2210) 216 MG/DL TRIGLYCERIDES (test code = 2232) 133 MG/DL HDL CHOLESTEROL (test code = 2220) 57 MG/DL CALC LDL CHOL (test code = 2237) 134 MG/DL RISK RATIO LDL/HDL (test cod e = 2238) 2.35 RATIO LIPID [id number] 00:00:00* Test Item Value Reference Range Interpretation Comme nts CHOLESTEROL (test code = 2210) 216 MG/DL TRIGLYCERIDES (test code = 2232) 133 MG/DL HDL CHOLESTEROL (test code = 2220) 57 MG/DL CALC LDL CHOL (test code = 2237) 134 MG/DL RISK RATIO LDL/HDL (test cod e = 2238) 2.35 RATIO LIPID [id number] 00:00:00* Test Item Value Reference Range Interpretation Comme nts CHOLESTEROL (test code = 2210) 216 MG/DL TRIGLYCERIDES (test code = 2232) 133 MG/DL HDL CHOLESTEROL (test code = 2220) 57 MG/DL CALC LDL CHOL (test code = 2237) 134 MG/DL RISK RATIO LDL/HDL (test cod e = 2238) 2.35 RATIO LIPID [id number] 00:00:00* Test Item Value Reference Range Interpretation Comme nts CHOLESTEROL (test code = 2210) 216 MG/DL TRIGLYCERIDES (test code = 2232) 133 MG/DL HDL CHOLESTEROL (test code = 2220) 57 MG/DL CALC LDL CHOL (test code = 2237) 134 MG/DL RISK RATIO LDL/HDL (test cod e = 2238) 2.35 RATIO LIPID [id number] 00:00:00* Test Item Value Reference Range Interpretation Comme nts CHOLESTEROL (test code = 2210) 216 MG/DL TRIGLYCERIDES (test code = 2232) 133 MG/DL HDL CHOLESTEROL (test code = 2220) 57 MG/DL CALC LDL CHOL (test code = 2237) 134 MG/DL RISK RATIO LDL/HDL (test cod e = 2238) 2.35 RATIO HEMOGLOBIN [id number] 03:35:00* Test Item Value Reference Range Interpretation Comme nts HEMOGLOBIN A1c (test code = 71983) 8.4 % 4.2-5.6 H [employer] GUIDELINES FOR HGB A1C: PREDIABETES/INCREASED RISK . . . . . . . 5.7-6.4% DIAGNOSIS OF DIABETES . . . . . . . . . >=6.5% WITH CONFIRMATION OR APPROPRIATE SYMPTOMS NOTE: ASSAY MAY BE AFFECTED BY HEMOGLOBINOPATHIES (SICKLE CELL ANEMIA, S-C DISEASE, OTHERS) OR ARTIFICIALLY LOWERED BY DECREASED RED CELL SURVIVAL (HEMOLYTIC ANEMIAS, BLOOD LOSS, ETC.). CONSIDER ALTERNATE TESTING OR LABORATORY CONSULTATION. HEMOGLOBIN [id number] 00:00:00* Test Item Value Reference Range Interpretation Comme [facility] HEMOGLOBIN A1c (test code = 45294) 8.4 % Mikey Napier AustinHEMOGLOBIN [id number] 00:00:00* Test Item Value Reference Range Interpretation Comme [facility] HEMOGLOBIN A1c (test code = 56986) 8.4 % HEMOGLOBIN [id number] 00:00:00* Test Item Value Reference Range Interpretation Comme nts HEMOGLOBIN A1c (test code = 21862) 8.4 % HEMOGLOBIN [id number] 00:00:00* Test Item Value Reference Range Interpretation Comme nts HEMOGLOBIN A1c (test code = 35730) 8.4 % HEMOGLOBIN [id number] 00:00:00* Test Item Value Reference Range Interpretation Comme nts HEMOGLOBIN A1c (test code = 76038) 8.4 % HEMOGLOBIN [id number] 00:00:00* Test Item Value Reference Range Interpretation Comme nts HEMOGLOBIN A1c (test code = 10673) 8.4 % HEMOGLOBIN [id number] 00:00:00* Test Item Value Reference Range Interpretation Comme nts HEMOGLOBIN A1c (test code = 11395) 8.4 % HEMOGLOBIN [id number] 00:00:00* Test Item Value Reference Range Interpretation Comme nts HEMOGLOBIN A1c (test code = 24129) 8.4 % HEMOGLOBIN [id number] 00:00:00* Test Item Value Reference Range Interpretation Comme nts HEMOGLOBIN A1c (test code = 28892) 8.4 % HEMOGLOBIN [id number] 00:00:00* Test Item Value Reference Range Interpretation Comme nts HEMOGLOBIN A1c (test code = 03535) 8.4 % PAP TEST, THINPREP, [id number] 14:00:43* Test Item Value Reference Range Interpretation Comme [facility] SOURCE: (test code = 8001) Cervical/End ocervical SLIDES: (test code = 8011) 1 LMP: (test code = 8021) SEE NOTE POST MENOPAUSAL SPECIMEN ADEQUACY: (test code = 06908) (NOTE) Satisfactory for evaluation. Endocervical cells/transformation zone component present. INTERPRETATION: (test code = 73888) NILM/NO EPITH. ABNORMALITY; SEE BELOW -- ---- NEGATIVE FOR INTRAEPITHELIAL LESION OR MALIGNANCY Reactive cellular changes present (NILM). OTHER COMMENTS: (test code = 8081) (NOTE) Shift in jacob suggestive of bacterial vaginosis. CLINICAL NURSE REVIEWER: (test code = 8101) Cassidy [place] PATHOLOGIST INTERPRETATION BY: (test code = 8122) Joce Scott LOCATION: (test code = 39918) (NOTE) Specimens proces sed at [facility], [address] [place] [address], , CLIA: [id number] interpreted at [facility] [address],Pathology Department Lower Level, [facility] [place] [address], , CLIA: [id number] CPT: (test code = 8140) (NOTE) 22135, 15585 UNL ESS OTHERWISE INDICATED, COMPUTER AIDED AND CLINICAL NURSE REVIEWER SCREENING PERFORMED. The Pap test is a screening test with an inherent, but low probability of error. Your patient should be reminded to consult you immediately if she experiences any suspicious signs or symptoms, regardless of her Pap test result. An alternate report format containing images or consolidated prior Pap history is available as applicable. UNLESS OTHERWISE INDICATED, ALL TESTING PERFORMED [facility] [address] [place] [address] NONDESTRUCTIVE TESTER: ARRON CHOWDHURY M.D. CLIA NUMBER [id number] [facility] [place]. [id number] PAP TEST, THINPREP, [id number] 00:00:00* Test Item Value Reference Range Interpretation Comme nts SOURCE: (test code = 8001) Cervical/Endo cervi mikhail SLIDES: (test code = 8011) 1 LMP: (test code = 8021) SEE NOTE SPECIMEN ADEQUACY: (test code = 71730) (NOTE) INTERPRETATION: (test code = 25173) NILM/NO EPITH. ABNORMALITY;SEE BELOW OTHER COMMENTS: (test code = 8081) (NOTE) CLINICAL NURSE REVIEWER: (test code = 8101) Cassidy Lynch PATHOLOGIST INTERPRETATION BY: (test code = 8122) Min Tyler LOCATION: (test code = 88271) (NOTE) CPT: (test code = 8140) (NOTE) Mikey Napier AustinPAP TEST, THINPREP, [id number] 00:00:00* Test Item Value Reference Range Interpretation Comme nts SOURCE: (test code = 8001) Cervical/Endo cervi mikhail SLIDES: (test code = 8011) 1 LMP: (test code = 8021) SEE NOTE SPECIMEN ADEQUACY: (test code = 87333) (NOTE) INTERPRETATION: (test code = 05849) NILM/NO EPITH. ABNORMALITY;SEE BELOW OTHER COMMENTS: (test code = 8081) (NOTE) CLINICAL NURSE REVIEWER: (test code = 8101) Cassidy Lynch PATHOLOGIST INTERPRETATION BY: (test code = 8122) Joce Scott LOCATION: (test code = 43377) (NOTE) CPT: (test code = 8140) (NOTE) PAP TEST, THINPREP, [id number] 00:00:00* Test Item Value Reference Range Interpretation Comme nts SOURCE: (test code = 8001) Cervical/Endo cervi mikhail SLIDES: (test code = 8011) 1 LMP: (test code = 8021) SEE NOTE SPECIMEN ADEQUACY: (test code = 11471) (NOTE) INTERPRETATION: (test code = 68542) NILM/NO EPITH. ABNORMALITY;SEE BELOW OTHER COMMENTS: (test code = 8081) (NOTE) CLINICAL NURSE REVIEWER: (test code = 8101) Cassidy Lynch PATHOLOGIST INTERPRETATION BY: (test code = 8122) Min Tyler LOCATION: (test code = 63120) (NOTE) CPT: (test code = 8140) (NOTE) PAP TEST, THINPREP, [id number] 00:00:00* Test Item Value Reference Range Interpretation Comme nts SOURCE: (test code = 8001) Cervical/Endo cervi mikhail SLIDES: (test code = 8011) 1 LMP: (test code = 8021) SEE NOTE SPECIMEN ADEQUACY: (test code = 08696) (NOTE) INTERPRETATION: (test code = 95650) NILM/NO EPITH. ABNORMALITY;SEE BELOW OTHER COMMENTS: (test code = 8081) (NOTE) CLINICAL NURSE REVIEWER: (test code = 8101) [facility] INTERPRETATION BY: (test code = 8122) Min [facility] LOCATION: (test code = 51876) (NOTE) CPT: (test code = 8140) (NOTE) PAP TEST, THINPREP, [id number] 00:00:00* Test Item Value Reference Range Interpretation Comme nts SOURCE: (test code = 8001) Cervical/Endo cervi mikhail SLIDES: (test code = 8011) 1 LMP: (test code = 8021) SEE NOTE SPECIMEN ADEQUACY: (test code = 96070) (NOTE) INTERPRETATION: (test code = 46936) NILM/NO EPITH. ABNORMALITY;SEE BELOW OTHER COMMENTS: (test code = 8081) (NOTE) CLINICAL NURSE REVIEWER: (test code = 8101) Cassidy Lynch PATHOLOGIST INTERPRETATION BY: (test code = 8122) Joce [facility] LOCATION: (test code = 31189) (NOTE) CPT: (test code = 8140) (NOTE) PAP TEST, THINPREP, [id number] 00:00:00* Test Item Value Reference Range Interpretation Comme nts SOURCE: (test code = 8001) Cervical/Endo cervi mikhail SLIDES: (test code = 8011) 1 LMP: (test code = 8021) SEE NOTE SPECIMEN ADEQUACY: (test code = 21525) (NOTE) INTERPRETATION: (test code = 09132) NILM/NO EPITH. ABNORMALITY;SEE BELOW OTHER COMMENTS: (test code = 8081) (NOTE) CLINICAL NURSE REVIEWER: (test code = 8101) Cassidy Lynch PATHOLOGIST INTERPRETATION BY: (test code = 8122) Min [facility] LOCATION: (test code = 80161) (NOTE) CPT: (test code = 8140) (NOTE) PAP TEST, THINPREP, [id number] 00:00:00* Test Item Value Reference Range Interpretation Comme nts SOURCE: (test code = 8001) Cervical/Endo cervi mikhail SLIDES: (test code = 8011) 1 LMP: (test code = 8021) SEE NOTE SPECIMEN ADEQUACY: (test code = 91727) (NOTE) INTERPRETATION: (test code = 04603) NILM/NO EPITH. ABNORMALITY;SEE BELOW OTHER COMMENTS: (test code = 8081) (NOTE) CLINICAL NURSE REVIEWER: (test code = 8101) Cassidy [place] PATHOLOGIST INTERPRETATION BY: (test code = 8122) Joce Scott LOCATION: (test code = 09213) (NOTE) CPT: (test code = 8140) (NOTE) VAGINAL PATHOGENS DNA [id number] 16:18:20* Test Item Value Reference Range Interpretation Comme nts ZOHAIB SPECIES (test code = 94677) NEGATIVE NEGATIVE G. VAGINALIS (test code = 76196) POSITIVE NEGATIVE A T. VAGINALIS (test code = 84839) NEGATIVE NEGATIVE UNLESS OTHERWISE INDICATED, ALL TESTING PERFORMED [facility] [address] [place] [address] NONDESTRUCTIVE TESTER: ARRON CHOWDHURY M.D. CLIA NUMBER [id number] [facility] [place]. [id number] VAGINAL PATHOGENS DNA [id number] 00:00:00* Test Item Value Reference Range Interpretation Comme nts ZOHAIB SPECIES (test code = 12618) NEGATIVE G. VAGINALIS (test code = 27709) POSITIVE T. VAGINALIS (test code = 72451) NEGATIVE Mikey Napier AustinVAGINAL PATHOGENS DNA [id number] 00:00:00* Test Item Value Reference Range Interpretation Comme nts ZOHAIB SPECIES (test code = 46311) NEGATIVE G. VAGINALIS (test code = 81753) POSITIVE T. VAGINALIS (test code = 48172) NEGATIVE VAGINAL PATHOGENS DNA [id number] 00:00:00* Test Item Value Reference Range Interpretation Comme nts ZOHAIB SPECIES (test code = 40808) NEGATIVE G. VAGINALIS (test code = 60767) POSITIVE T. VAGINALIS (test code = 53380) NEGATIVE VAGINAL PATHOGENS DNA [id number] 00:00:00* Test Item Value Reference Range Interpretation Comme nts ZOHAIB SPECIES (test code = 88707) NEGATIVE G. VAGINALIS (test code = 82240) POSITIVE T. VAGINALIS (test code = 32620) NEGATIVE VAGINAL PATHOGENS DNA [id number] 00:00:00* Test Item Value Reference Range Interpretation Comme nts ZOHAIB SPECIES (test code = ) NEGATIVE G. VAGINALIS (test code = 81764) POSITIVE T. VAGINALIS (test code = 07239) NEGATIVE VAGINAL PATHOGENS DNA [id number] 00:00:00* Test Item Value Reference Range Interpretation Comme nts ZOHAIB SPECIES (test code = 86751) NEGATIVE G. VAGINALIS (test code = 02443) POSITIVE T. VAGINALIS (test code = 02986) NEGATIVE VAGINAL PATHOGENS DNA [id number] 00:00:00* Test Item Value Reference Range Interpretation Comme nts ZOHAIB SPECIES (test code = ) NEGATIVE G. VAGINALIS (test code = 93658) POSITIVE T. VAGINALIS (test code = 10084) NEGATIVE HEMOGLOBIN [id number] 00:00:00* Test Item Value Reference Range Interpretation Comme nts HEMOGLOBIN A1c (test code = 54658) 9.5 % Mikey F AustinCOMPREHENSIVE METABOLIC [id number] 00:00:00* Test Item Value Reference Range Interpretation Comme nts GLUCOSE (test code = 7) 316 MG/DL BUN (test code = 8) 8 MG/DL CREATININE (test code = 2214) 0.70 MG/DL eGFR (2020 CKD-EPI) (test code = 47294) 105 ML/MIN/1.73 CALC BUN/CREAT (test code = 2235) 11 RATIO SODIUM (test code = 2231) 142 MEQ/L POTASSIUM (test code = 2228) 3.9 MEQ/L CHLORIDE (test code = 2215) 102 MEQ/L CARBON DIOXIDE (test code = 2206) 29 MEQ/L CALCIUM (test code = 2209) 9.7 MG/DL PROTEIN, TOTAL (test code = 2229) 7.3 G/DL ALBUMIN (test code = 2201) 4.3 G/DL CALC GLOBULIN (test code = 2240) 3.0 G/DL CALC A/G RATIO (test code = 2234) 1.4 RATIO BILIRUBIN, TOTAL (test code = 2207) 0.2 MG/DL ALKALINE PHOSPHATASE (test code = 2204) 83 U/L AST (test code = 2218) 14 U/L ALT (test code = 2219) 15 U/L Mikey DavilaMICROALBUMIN/CREATININE, RANDOM AND [id number] 00:00:00* Test Item Value Reference Range Interpretation Comme nts CREATININE, URINE, CONC. (te st code = 2072) 72.0 MG/DL ALBUMIN, URINE, RANDOM (test code = 43934) 68.8 MG/DL CALC ALBUMIN/CREAT, RND (ramon t code = 52475) 956 MG/G Mikey Napier AustinCBC W/AUTO [id number] 00:00:00* Test Item Value Reference Range Interpretation Comme nts WBC (test code = 1001) 6.9 K/UL RBC (test code = 1002) 4.67 M/UL HEMOGLOBIN (test code = 1003) 13.0 G/DL HEMATOCRIT (test code = 1004) 38.0 % MCV (test code = 1005) 81.4 fL MCH (test code = 1006) 27.8 PG MCHC (test code = 1007) 34.2 G/DL RDW (test code = 1038) 14.8 % NEUTROPHILS (test code = 1008) 49.0 % LYMPHOCYTES (test code = 1010) 37.7 % MONOCYTES (test code = 1011) 11.6 % EOSINOPHILS (test code = 1012) 1.2 % BASOPHILS (test code = 1013) 0.4 % IMMATURE GRANYLOCYTES (test code = 1036) 0.1 % NUCLEATED RBCS (test code = 1065) 0.0 /100WBC'S PLATELET COUNT (test code = 1015) 299 K/UL ABSOLUTE NEUTROPHILS (test c ode = 1066) 3.39 K/UL ABSOLUTE LYMPHOCYTES (test c ode = 1067) 2.61 K/UL ABSOLUTE MONOCYTES (test cod e = 1068) 0.80 K/UL ABSOLUTE EOSINOPHILS (test c ode = 1040) 0.08 K/UL ABSOLUTE BASOPHILS (test cod e = 1069) 0.03 K/UL ABS IMMATURE GRANULOCYTES (t est code = 1020) 0.01 K/UL ABS NUCLEATED RBCS (test cod e = 35020) 0.00 K/UL Mikey Napier AustinCBC W/AUTO [id number] 00:00:00* Test Item Value Reference Range Interpretation Comme nts WBC (test code = 1001) 6.9 K/UL RBC (test code = 1002) 4.67 M/UL HEMOGLOBIN (test code = 1003) 13.0 G/DL HEMATOCRIT (test code = 1004) 38.0 % MCV (test code = 1005) 81.4 fL MCH (test code = 1006) 27.8 PG MCHC (test code = 1007) 34.2 G/DL RDW (test code = 1038) 14.8 % NEUTROPHILS (test code = 1008) 49.0 % LYMPHOCYTES (test code = 1010) 37.7 % MONOCYTES (test code = 1011) 11.6 % EOSINOPHILS (test code = 1012) 1.2 % BASOPHILS (test code = 1013) 0.4 % IMMATURE GRANYLOCYTES (test code = 1036) 0.1 % NUCLEATED RBCS (test code = 1065) 0.0 /100WBC'S PLATELET COUNT (test code = 1015) 299 K/UL ABSOLUTE NEUTROPHILS (test c ode = 1066) 3.39 K/UL ABSOLUTE LYMPHOCYTES (test c ode = 1067) 2.61 K/UL ABSOLUTE MONOCYTES (test cod e = 1068) 0.80 K/UL ABSOLUTE EOSINOPHILS (test c ode = 1040) 0.08 K/UL ABSOLUTE BASOPHILS (test cod e = 1069) 0.03 K/UL ABS IMMATURE GRANULOCYTES (t est code = 1020) 0.01 K/UL ABS NUCLEATED RBCS (test cod e = 65361) 0.00 K/UL CBC W/AUTO [id number] 00:00:00* Test Item Value Reference Range Interpretation Comme nts WBC (test code = 1001) 6.9 K/UL RBC (test code = 1002) 4.67 M/UL HEMOGLOBIN (test code = 1003) 13.0 G/DL HEMATOCRIT (test code = 1004) 38.0 % MCV (test code = 1005) 81.4 fL MCH (test code = 1006) 27.8 PG MCHC (test code = 1007) 34.2 G/DL RDW (test code = 1038) 14.8 % NEUTROPHILS (test code = 1008) 49.0 % LYMPHOCYTES (test code = 1010) 37.7 % MONOCYTES (test code = 1011) 11.6 % EOSINOPHILS (test code = 1012) 1.2 % BASOPHILS (test code = 1013) 0.4 % IMMATURE GRANYLOCYTES (test code = 1036) 0.1 % NUCLEATED RBCS (test code = 1065) 0.0 /100WBC'S PLATELET COUNT (test code = 1015) 299 K/UL ABSOLUTE NEUTROPHILS (test c ode = 1066) 3.39 K/UL ABSOLUTE LYMPHOCYTES (test c ode = 1067) 2.61 K/UL ABSOLUTE MONOCYTES (test cod e = 1068) 0.80 K/UL ABSOLUTE EOSINOPHILS (test c ode = 1040) 0.08 K/UL ABSOLUTE BASOPHILS (test cod e = 1069) 0.03 K/UL ABS IMMATURE GRANULOCYTES (t est code = 1020) 0.01 K/UL ABS NUCLEATED RBCS (test cod e = 13264) 0.00 K/UL CBC W/AUTO [id number] 00:00:00* Test Item Value Reference Range Interpretation Comme nts WBC (test code = 1001) 6.9 K/UL RBC (test code = 1002) 4.67 M/UL HEMOGLOBIN (test code = 1003) 13.0 G/DL HEMATOCRIT (test code = 1004) 38.0 % MCV (test code = 1005) 81.4 fL MCH (test code = 1006) 27.8 PG MCHC (test code = 1007) 34.2 G/DL RDW (test code = 1038) 14.8 % NEUTROPHILS (test code = 1008) 49.0 % LYMPHOCYTES (test code = 1010) 37.7 % MONOCYTES (test code = 1011) 11.6 % EOSINOPHILS (test code = 1012) 1.2 % BASOPHILS (test code = 1013) 0.4 % IMMATURE GRANYLOCYTES (test code = 1036) 0.1 % NUCLEATED RBCS (test code = 1065) 0.0 /100WBC'S PLATELET COUNT (test code = 1015) 299 K/UL ABSOLUTE NEUTROPHILS (test c ode = 1066) 3.39 K/UL ABSOLUTE LYMPHOCYTES (test c ode = 1067) 2.61 K/UL ABSOLUTE MONOCYTES (test cod e = 1068) 0.80 K/UL ABSOLUTE EOSINOPHILS (test c ode = 1040) 0.08 K/UL ABSOLUTE BASOPHILS (test cod e = 1069) 0.03 K/UL ABS IMMATURE GRANULOCYTES (t est code = 1020) 0.01 K/UL ABS NUCLEATED RBCS (test cod e = 00356) 0.00 K/UL HEMOGLOBIN [id number] 00:00:00* Test Item Value Reference Range Interpretation Comme nts HEMOGLOBIN A1c (test code = 21776) 9.5 % HEMOGLOBIN [id number] 00:00:00* Test Item Value Reference Range Interpretation Comme nts HEMOGLOBIN A1c (test code = 06551) 9.5 % HEMOGLOBIN [id number] 00:00:00* Test Item Value Reference Range Interpretation Comme nts HEMOGLOBIN A1c (test code = 63154) 9.5 % COMPREHENSIVE METABOLIC [id number] 00:00:00* Test Item Value Reference Range Interpretation Comme nts GLUCOSE (test code = 2217) 316 MG/DL BUN (test code = 2208) 8 MG/DL CREATININE (test code = 2214) 0.70 MG/DL eGFR (2020 CKD-EPI) (test code = 73409) 105 ML/MIN/1.73 CALC BUN/CREAT (test code = 2235) 11 RATIO SODIUM (test code = 2231) 142 MEQ/L POTASSIUM (test code = 2228) 3.9 MEQ/L CHLORIDE (test code = 2215) 102 MEQ/L CARBON DIOXIDE (test code = 2206) 29 MEQ/L CALCIUM (test code = 2209) 9.7 MG/DL PROTEIN, TOTAL (test code = 2229) 7.3 G/DL ALBUMIN (test code = 2201) 4.3 G/DL CALC GLOBULIN (test code = 2240) 3.0 G/DL CALC A/G RATIO (test code = 2234) 1.4 RATIO BILIRUBIN, TOTAL (test code = 2207) 0.2 MG/DL ALKALINE PHOSPHATASE (test code = 2204) 83 U/L AST (test code = 2218) 14 U/L ALT (test code = 2219) 15 U/L COMPREHENSIVE METABOLIC [id number] 00:00:00* Test Item Value Reference Range Interpretation Comme nts GLUCOSE (test code = 2217) 316 MG/DL BUN (test code = 2208) 8 MG/DL CREATININE (test code = 2214) 0.70 MG/DL eGFR (2020 CKD-EPI) (test code = 01697) 105 ML/MIN/1.73 CALC BUN/CREAT (test code = 2235) 11 RATIO SODIUM (test code = 2231) 142 MEQ/L POTASSIUM (test code = 2228) 3.9 MEQ/L CHLORIDE (test code = 2215) 102 MEQ/L CARBON DIOXIDE (test code = 2206) 29 MEQ/L CALCIUM (test code = 2209) 9.7 MG/DL PROTEIN, TOTAL (test code = 2229) 7.3 G/DL ALBUMIN (test code = 2201) 4.3 G/DL CALC GLOBULIN (test code = 2240) 3.0 G/DL CALC A/G RATIO (test code = 2234) 1.4 RATIO BILIRUBIN, TOTAL (test code = 2207) 0.2 MG/DL ALKALINE PHOSPHATASE (test code = 220) 83 U/L AST (test code = 221) 14 U/L ALT (test code = 2219) 15 U/L MICROALBUMIN/CREATININE, RANDOM AND [id number] 00:00:00* Test Item Value Reference Range Interpretation Comme nts CREATININE, URINE, CONC. (te st code = 207) 72.0 MG/DL ALBUMIN, URINE, RANDOM (test code = 72827) 68.8 MG/DL CALC ALBUMIN/CREAT, RND (ramon t code = 92814) 956 MG/G MICROALBUMIN/CREATININE, RANDOM AND [id number] 00:00:00* Test Item Value Reference Range Interpretation Comme nts CREATININE, URINE, CONC. (te st code = 207) 72.0 MG/DL ALBUMIN, URINE, RANDOM (test code = 53133) 68.8 MG/DL CALC ALBUMIN/CREAT, RND (ramon t code = 44885) 956 MG/G CBC W/AUTO [id number] 00:00:00* Test Item Value Reference Range Interpretation Comme nts WBC (test code = 1001) 6.9 K/UL RBC (test code = 1002) 4.67 M/UL HEMOGLOBIN (test code = 1003) 13.0 G/DL HEMATOCRIT (test code = 1004) 38.0 % MCV (test code = 1005) 81.4 fL MCH (test code = 1006) 27.8 PG MCHC (test code = 1007) 34.2 G/DL RDW (test code = 1038) 14.8 % NEUTROPHILS (test code = 1008) 49.0 % LYMPHOCYTES (test code = 1010) 37.7 % MONOCYTES (test code = 1011) 11.6 % EOSINOPHILS (test code = 1012) 1.2 % BASOPHILS (test code = 1013) 0.4 % IMMATURE GRANYLOCYTES (test code = 1036) 0.1 % NUCLEATED RBCS (test code = 1065) 0.0 /100WBC'S PLATELET COUNT (test code = 1015) 299 K/UL ABSOLUTE NEUTROPHILS (test c ode = 1066) 3.39 K/UL ABSOLUTE LYMPHOCYTES (test c ode = 1067) 2.61 K/UL ABSOLUTE MONOCYTES (test cod e = 1068) 0.80 K/UL ABSOLUTE EOSINOPHILS (test c ode = 1040) 0.08 K/UL ABSOLUTE BASOPHILS (test cod e = 1069) 0.03 K/UL ABS IMMATURE GRANULOCYTES (t est code = 1020) 0.01 K/UL ABS NUCLEATED RBCS (test cod e = 30059) 0.00 K/UL CBC W/AUTO [id number] 00:00:00* Test Item Value Reference Range Interpretation Comme nts WBC (test code = 1001) 6.9 K/UL RBC (test code = 1002) 4.67 M/UL HEMOGLOBIN (test code = 1003) 13.0 G/DL HEMATOCRIT (test code = 1004) 38.0 % MCV (test code = 1005) 81.4 fL MCH (test code = 1006) 27.8 PG MCHC (test code = 1007) 34.2 G/DL RDW (test code = 1038) 14.8 % NEUTROPHILS (test code = 1008) 49.0 % LYMPHOCYTES (test code = 1010) 37.7 % MONOCYTES (test code = 1011) 11.6 % EOSINOPHILS (test code = 1012) 1.2 % BASOPHILS (test code = 1013) 0.4 % IMMATURE GRANYLOCYTES (test code = 1036) 0.1 % NUCLEATED RBCS (test code = 1065) 0.0 /100WBC'S PLATELET COUNT (test code = 1015) 299 K/UL ABSOLUTE NEUTROPHILS (test c ode = 1066) 3.39 K/UL ABSOLUTE LYMPHOCYTES (test c ode = 1067) 2.61 K/UL ABSOLUTE MONOCYTES (test cod e = 1068) 0.80 K/UL ABSOLUTE EOSINOPHILS (test c ode = 1040) 0.08 K/UL ABSOLUTE BASOPHILS (test cod e = 1069) 0.03 K/UL ABS IMMATURE GRANULOCYTES (t est code = 1020) 0.01 K/UL ABS NUCLEATED RBCS (test cod e = 74787) 0.00 K/UL CBC W/AUTO [id number] 00:00:00* Test Item Value Reference Range Interpretation Comme nts WBC (test code = 1001) 6.9 K/UL RBC (test code = 1002) 4.67 M/UL HEMOGLOBIN (test code = 1003) 13.0 G/DL HEMATOCRIT (test code = 1004) 38.0 % MCV (test code = 1005) 81.4 fL MCH (test code = 1006) 27.8 PG MCHC (test code = 1007) 34.2 G/DL RDW (test code = 1038) 14.8 % NEUTROPHILS (test code = 1008) 49.0 % LYMPHOCYTES (test code = 1010) 37.7 % MONOCYTES (test code = 1011) 11.6 % EOSINOPHILS (test code = 1012) 1.2 % BASOPHILS (test code = 1013) 0.4 % IMMATURE GRANYLOCYTES (test code = 1036) 0.1 % NUCLEATED RBCS (test code = 1065) 0.0 /100WBC'S PLATELET COUNT (test code = 1015) 299 K/UL ABSOLUTE NEUTROPHILS (test c ode = 1066) 3.39 K/UL ABSOLUTE LYMPHOCYTES (test c ode = 1067) 2.61 K/UL ABSOLUTE MONOCYTES (test cod e = 1068) 0.80 K/UL ABSOLUTE EOSINOPHILS (test c ode = 1040) 0.08 K/UL ABSOLUTE BASOPHILS (test cod e = 1069) 0.03 K/UL ABS IMMATURE GRANULOCYTES (t est code = 1020) 0.01 K/UL ABS NUCLEATED RBCS (test cod e = 98830) 0.00 K/UL HEMOGLOBIN [id number] 00:00:00* Test Item Value Reference Range Interpretation Comme nts HEMOGLOBIN A1c (test code = 48079) 9.5 % HEMOGLOBIN [id number] 00:00:00* Test Item Value Reference Range Interpretation Comme nts HEMOGLOBIN A1c (test code = 84293) 9.5 % HEMOGLOBIN [id number] 00:00:00* Test Item Value Reference Range Interpretation Comme nts HEMOGLOBIN A1c (test code = 33286) 9.5 % COMPREHENSIVE METABOLIC [id number] 00:00:00* Test Item Value Reference Range Interpretation Comme nts GLUCOSE (test code = 2217) 316 MG/DL BUN (test code = 2208) 8 MG/DL CREATININE (test code = 2214) 0.70 MG/DL eGFR (2020 CKD-EPI) (test code = 14454) 105 ML/MIN/1.73 CALC BUN/CREAT (test code = 2235) 11 RATIO SODIUM (test code = 2231) 142 MEQ/L POTASSIUM (test code = 2228) 3.9 MEQ/L CHLORIDE (test code = 2215) 102 MEQ/L CARBON DIOXIDE (test code = 2206) 29 MEQ/L CALCIUM (test code = 2209) 9.7 MG/DL PROTEIN, TOTAL (test code = 2229) 7.3 G/DL ALBUMIN (test code = 2201) 4.3 G/DL CALC GLOBULIN (test code = 2240) 3.0 G/DL CALC A/G RATIO (test code = 2234) 1.4 RATIO BILIRUBIN, TOTAL (test code = 2207) 0.2 MG/DL ALKALINE PHOSPHATASE (test code = 2204) 83 U/L AST (test code = 2218) 14 U/L ALT (test code = 2219) 15 U/L COMPREHENSIVE METABOLIC [id number] 00:00:00* Test Item Value Reference Range Interpretation Comme nts GLUCOSE (test code = 2217) 316 MG/DL BUN (test code = 2208) 8 MG/DL CREATININE (test code = 2214) 0.70 MG/DL eGFR (2020 CKD-EPI) (test code = 83321) 105 ML/MIN/1.73 CALC BUN/CREAT (test code = 2235) 11 RATIO SODIUM (test code = 2231) 142 MEQ/L POTASSIUM (test code = 2228) 3.9 MEQ/L CHLORIDE (test code = 2215) 102 MEQ/L CARBON DIOXIDE (test code = 2206) 29 MEQ/L CALCIUM (test code = 2209) 9.7 MG/DL PROTEIN, TOTAL (test code = 2229) 7.3 G/DL ALBUMIN (test code = 2201) 4.3 G/DL CALC GLOBULIN (test code = 2240) 3.0 G/DL CALC A/G RATIO (test code = 2234) 1.4 RATIO BILIRUBIN, TOTAL (test code = 2207) 0.2 MG/DL ALKALINE PHOSPHATASE (test code = 2204) 83 U/L AST (test code = 2218) 14 U/L ALT (test code = 2219) 15 U/L MICROALBUMIN/CREATININE, RANDOM AND [id number] 00:00:00* Test Item Value Reference Range Interpretation Comme nts CREATININE, URINE, CONC. (te st code = 207) 72.0 MG/DL ALBUMIN, URINE, RANDOM (test code = 74936) 68.8 MG/DL CALC ALBUMIN/CREAT, RND (ramon t code = 25781) 956 MG/G MICROALBUMIN/CREATININE, RANDOM AND [id number] 00:00:00* Test Item Value Reference Range Interpretation Comme nts CREATININE, URINE, CONC. (te st code = 207) 72.0 MG/DL ALBUMIN, URINE, RANDOM (test code = 25944) 68.8 MG/DL CALC ALBUMIN/CREAT, RND (ramon t code = 47140) 956 MG/G CBC W/AUTO [id number] 00:00:00* Test Item Value Reference Range Interpretation Comme nts WBC (test code = 1001) 6.9 K/UL RBC (test code = 1002) 4.67 M/UL HEMOGLOBIN (test code = 1003) 13.0 G/DL HEMATOCRIT (test code = 1004) 38.0 % MCV (test code = 1005) 81.4 fL MCH (test code = 1006) 27.8 PG MCHC (test code = 1007) 34.2 G/DL RDW (test code = 1038) 14.8 % NEUTROPHILS (test code = 1008) 49.0 % LYMPHOCYTES (test code = 1010) 37.7 % MONOCYTES (test code = 1011) 11.6 % EOSINOPHILS (test code = 1012) 1.2 % BASOPHILS (test code = 1013) 0.4 % IMMATURE GRANYLOCYTES (test code = 1036) 0.1 % NUCLEATED RBCS (test code = 1065) 0.0 /100WBC'S PLATELET COUNT (test code = 1015) 299 K/UL ABSOLUTE NEUTROPHILS (test c ode = 1066) 3.39 K/UL ABSOLUTE LYMPHOCYTES (test c ode = 1067) 2.61 K/UL ABSOLUTE MONOCYTES (test cod e = 1068) 0.80 K/UL ABSOLUTE EOSINOPHILS (test c ode = 1040) 0.08 K/UL ABSOLUTE BASOPHILS (test cod e = 1069) 0.03 K/UL ABS IMMATURE GRANULOCYTES (t est code = 1020) 0.01 K/UL ABS NUCLEATED RBCS (test cod e = 90856) 0.00 K/UL CBC W/AUTO [id number] 00:00:00* Test Item Value Reference Range Interpretation Comme nts WBC (test code = 1001) 6.9 K/UL RBC (test code = 1002) 4.67 M/UL HEMOGLOBIN (test code = 1003) 13.0 G/DL HEMATOCRIT (test code = 1004) 38.0 % MCV (test code = 1005) 81.4 fL MCH (test code = 1006) 27.8 PG MCHC (test code = 1007) 34.2 G/DL RDW (test code = 1038) 14.8 % NEUTROPHILS (test code = 1008) 49.0 % LYMPHOCYTES (test code = 1010) 37.7 % MONOCYTES (test code = 1011) 11.6 % EOSINOPHILS (test code = 1012) 1.2 % BASOPHILS (test code = 1013) 0.4 % IMMATURE GRANYLOCYTES (test code = 1036) 0.1 % NUCLEATED RBCS (test code = 1065) 0.0 /100WBC'S PLATELET COUNT (test code = 1015) 299 K/UL ABSOLUTE NEUTROPHILS (test c ode = 1066) 3.39 K/UL ABSOLUTE LYMPHOCYTES (test c ode = 1067) 2.61 K/UL ABSOLUTE MONOCYTES (test cod e = 1068) 0.80 K/UL ABSOLUTE EOSINOPHILS (test c ode = 1040) 0.08 K/UL ABSOLUTE BASOPHILS (test cod e = 1069) 0.03 K/UL ABS IMMATURE GRANULOCYTES (t est code = 1020) 0.01 K/UL ABS NUCLEATED RBCS (test cod e = 00682) 0.00 K/UL CBC W/AUTO [id number] 00:00:00* Test Item Value Reference Range Interpretation Comme nts WBC (test code = 1001) 6.9 K/UL RBC (test code = 1002) 4.67 M/UL HEMOGLOBIN (test code = 1003) 13.0 G/DL HEMATOCRIT (test code = 1004) 38.0 % MCV (test code = 1005) 81.4 fL MCH (test code = 1006) 27.8 PG MCHC (test code = 1007) 34.2 G/DL RDW (test code = 1038) 14.8 % NEUTROPHILS (test code = 1008) 49.0 % LYMPHOCYTES (test code = 1010) 37.7 % MONOCYTES (test code = 1011) 11.6 % EOSINOPHILS (test code = 1012) 1.2 % BASOPHILS (test code = 1013) 0.4 % IMMATURE GRANYLOCYTES (test code = 1036) 0.1 % NUCLEATED RBCS (test code = 1065) 0.0 /100WBC'S PLATELET COUNT (test code = 1015) 299 K/UL ABSOLUTE NEUTROPHILS (test c ode = 1066) 3.39 K/UL ABSOLUTE LYMPHOCYTES (test c ode = 1067) 2.61 K/UL ABSOLUTE MONOCYTES (test cod e = 1068) 0.80 K/UL ABSOLUTE EOSINOPHILS (test c ode = 1040) 0.08 K/UL ABSOLUTE BASOPHILS (test cod e = 1069) 0.03 K/UL ABS IMMATURE GRANULOCYTES (t est code = 1020) 0.01 K/UL ABS NUCLEATED RBCS (test cod e = 44656) 0.00 K/UL HEMOGLOBIN [id number] 00:00:00* Test Item Value Reference Range Interpretation Comme nts HEMOGLOBIN A1c (test code = 33476) 9.5 % HEMOGLOBIN [id number] 00:00:00* Test Item Value Reference Range Interpretation Comme nts HEMOGLOBIN A1c (test code = 26015) 9.5 % HEMOGLOBIN [id number] 00:00:00* Test Item Value Reference Range Interpretation Comme nts HEMOGLOBIN A1c (test code = 69569) 9.5 % COMPREHENSIVE METABOLIC [id number] 00:00:00* Test Item Value Reference Range Interpretation Comme nts GLUCOSE (test code = 2217) 316 MG/DL BUN (test code = 2208) 8 MG/DL CREATININE (test code = 2214) 0.70 MG/DL eGFR (2020 CKD-EPI) (test code = 14648) 105 ML/MIN/1.73 CALC BUN/CREAT (test code = 2235) 11 RATIO SODIUM (test code = 2231) 142 MEQ/L POTASSIUM (test code = 2228) 3.9 MEQ/L CHLORIDE (test code = 2215) 102 MEQ/L CARBON DIOXIDE (test code = 2206) 29 MEQ/L CALCIUM (test code = 2209) 9.7 MG/DL PROTEIN, TOTAL (test code = 2229) 7.3 G/DL ALBUMIN (test code = 2201) 4.3 G/DL CALC GLOBULIN (test code = 2240) 3.0 G/DL CALC A/G RATIO (test code = 2234) 1.4 RATIO BILIRUBIN, TOTAL (test code = 2207) 0.2 MG/DL ALKALINE PHOSPHATASE (test code = 2204) 83 U/L AST (test code = 2218) 14 U/L ALT (test code = 2219) 15 U/L COMPREHENSIVE METABOLIC [id number] 00:00:00* Test Item Value Reference Range Interpretation Comme nts GLUCOSE (test code = 2217) 316 MG/DL BUN (test code = 2208) 8 MG/DL CREATININE (test code = 2214) 0.70 MG/DL eGFR (2020 CKD-EPI) (test code = 43868) 105 ML/MIN/1.73 CALC BUN/CREAT (test code = 2235) 11 RATIO SODIUM (test code = 2231) 142 MEQ/L POTASSIUM (test code = 2228) 3.9 MEQ/L CHLORIDE (test code = 2215) 102 MEQ/L CARBON DIOXIDE (test code = 2206) 29 MEQ/L CALCIUM (test code = 2209) 9.7 MG/DL PROTEIN, TOTAL (test code = 2229) 7.3 G/DL ALBUMIN (test code = 2201) 4.3 G/DL CALC GLOBULIN (test code = 2240) 3.0 G/DL CALC A/G RATIO (test code = 2234) 1.4 RATIO BILIRUBIN, TOTAL (test code = 2207) 0.2 MG/DL ALKALINE PHOSPHATASE (test code = 2204) 83 U/L AST (test code = 2218) 14 U/L ALT (test code = 2219) 15 U/L MICROALBUMIN/CREATININE, RANDOM AND [id number] 00:00:00* Test Item Value Reference Range Interpretation Comme nts CREATININE, URINE, CONC. (te st code = 207) 72.0 MG/DL ALBUMIN, URINE, RANDOM (test code = 49907) 68.8 MG/DL CALC ALBUMIN/CREAT, RND (ramon t code = 13825) 956 MG/G MICROALBUMIN/CREATININE, RANDOM AND [id number] 00:00:00* Test Item Value Reference Range Interpretation Comme nts CREATININE, URINE, CONC. (te st code = 207) 72.0 MG/DL ALBUMIN, URINE, RANDOM (test code = 46482) 68.8 MG/DL CALC ALBUMIN/CREAT, RND (ramon t code = 52104) 956 MG/G HEMOGLOBIN [id number] 00:00:00* Test Item Value Reference Range Interpretation Comme nts HEMOGLOBIN A1c (test code = 43985) 10.4 % Mikey F AustinHEMOGLOBIN [id number] 00:00:00* Test Item Value Reference Range Interpretation Comme nts HEMOGLOBIN A1c (test code = 05549) 10.4 % HEMOGLOBIN [id number] 00:00:00* Test Item Value Reference Range Interpretation Comme nts HEMOGLOBIN A1c (test code = 22909) 10.4 % HEMOGLOBIN [id number] 00:00:00* Test Item Value Reference Range Interpretation Comme nts HEMOGLOBIN A1c (test code = 53301) 10.4 % HEMOGLOBIN [id number] 00:00:00* Test Item Value Reference Range Interpretation Comme nts HEMOGLOBIN A1c (test code = 23740) 10.4 % HEMOGLOBIN [id number] 00:00:00* Test Item Value Reference Range Interpretation Comme nts HEMOGLOBIN A1c (test code = 51871) 10.4 % HEMOGLOBIN [id number] 00:00:00* Test Item Value Reference Range Interpretation Comme nts HEMOGLOBIN A1c (test code = 01322) 10.4 % HEMOGLOBIN [id number] 00:00:00* Test Item Value Reference Range Interpretation Comme nts HEMOGLOBIN A1c (test code = 81711) 10.4 % HEMOGLOBIN [id number] 00:00:00* Test Item Value Reference Range Interpretation Comme nts HEMOGLOBIN A1c (test code = 46322) 10.4 % HEMOGLOBIN [id number] 00:00:00* Test Item Value Reference Range Interpretation Comme nts HEMOGLOBIN A1c (test code = 30344) 10.4 % [id number] 00:00:00* Test Item Value Reference Range Interpretation Comme nts TSH, THIRD GENERATION (test code = 2821) 1.670 UIU/ML Mikey [id number] 00:00:00* Test Item Value Reference Range Interpretation Comme nts TSH, THIRD GENERATION (test code = 2821) 1.670 UIU/ML [id number] 00:00:00* Test Item Value Reference Range Interpretation Comme nts TSH, THIRD GENERATION (test code = 2821) 1.670 UIU/ML [id number] 00:00:00* Test Item Value Reference Range Interpretation Comme nts TSH, THIRD GENERATION (test code = 2821) 1.670 UIU/ML [id number] 00:00:00* Test Item Value Reference Range Interpretation Comme nts TSH, THIRD GENERATION (test code = 2821) 1.670 UIU/ML [id number] 00:00:00* Test Item Value Reference Range Interpretation Comme nts TSH, THIRD GENERATION (test code = 2821) 1.670 UIU/ML [id number] 00:00:00* Test Item Value Reference Range Interpretation Comme nts TSH, THIRD GENERATION (test code = 2821) 1.670 UIU/ML [id number] 00:00:00* Test Item Value Reference Range Interpretation Comme nts TSH, THIRD GENERATION (test code = 2821) 1.670 UIU/ML [id number] 00:00:00* Test Item Value Reference Range Interpretation Comme nts TSH, THIRD GENERATION (test code = 2821) 1.670 UIU/ML [id number] 00:00:00* Test Item Value Reference Range Interpretation Comme nts TSH, THIRD GENERATION (test code = 2821) 1.670 UIU/ML LEVI NON-REFLEX TO [id number] 00:00:00* Test Item Value Reference Range Interpretation Comme nts ANTI-NUCLEAR ANTIBODIES (ramon t code = 3506) NEGATIVE Mikey Napier GiovanniCCP [id number] 00:00:00* Test Item Value Reference Range Interpretation Comme nts CCP IgG (test code = 69472) 0.7 U/ML Mikey Napier AustinANA NON-REFLEX TO [id number] 00:00:00* Test Item Value Reference Range Interpretation Comme nts ANTI-NUCLEAR ANTIBODIES (ramon t code = 3506) NEGATIVE LEVI NON-REFLEX TO [id number] 00:00:00* Test Item Value Reference Range Interpretation Comme nts ANTI-NUCLEAR ANTIBODIES (armon t code = 3506) NEGATIVE CCP [id number] 00:00:00* Test Item Value Reference Range Interpretation Comme nts CCP IgG (test code = 22311) 0.7 U/ML CCP [id number] 00:00:00* Test Item Value Reference Range Interpretation Comme nts CCP IgG (test code = 06290) 0.7 U/ML CCP [id number] 00:00:00* Test Item Value Reference Range Interpretation Comme nts CCP IgG (test code = 48644) 0.7 U/ML LEVI NON-REFLEX TO [id number] 00:00:00* Test Item Value Reference Range Interpretation Comme nts ANTI-NUCLEAR ANTIBODIES (ramon t code = 3506) NEGATIVE LEVI NON-REFLEX TO [id number] 00:00:00* Test Item Value Reference Range Interpretation Comme nts ANTI-NUCLEAR ANTIBODIES (ramon t code = 3506) NEGATIVE CCP [id number] 00:00:00* Test Item Value Reference Range Interpretation Comme nts CCP IgG (test code = 50798) 0.7 U/ML CCP [id number] 00:00:00* Test Item Value Reference Range Interpretation Comme nts CCP IgG (test code = 48661) 0.7 U/ML CCP [id number] 00:00:00* Test Item Value Reference Range Interpretation Comme nts CCP IgG (test code = 66994) 0.7 U/ML LEVI NON-REFLEX TO [id number] 00:00:00* Test Item Value Reference Range Interpretation Comme nts ANTI-NUCLEAR ANTIBODIES (ramon t code = 3506) NEGATIVE LEVI NON-REFLEX TO [id number] 00:00:00* Test Item Value Reference Range Interpretation Comme nts ANTI-NUCLEAR ANTIBODIES (ramon t code = 3506) NEGATIVE CCP [id number] 00:00:00* Test Item Value Reference Range Interpretation Comme nts CCP IgG (test code = 03273) 0.7 U/ML CCP [id number] 00:00:00* Test Item Value Reference Range Interpretation Comme nts CCP IgG (test code = 24530) 0.7 U/ML CCP [id number] 00:00:00* Test Item Value Reference Range Interpretation Comme nts CCP IgG (test code = 18995) 0.7 U/ML RHEUMATOID FACTOR, [id number] 00:00:00* Test Item Value Reference Range Interpretation Comme nts RHEUMATOID FACTOR, QUANT (te st code = 3502) <10 IU/ML Mikey F AustinRHEUMATOID FACTOR, [id number] 00:00:00* Test Item Value Reference Range Interpretation Comme nts RHEUMATOID FACTOR, QUANT (te st code = 3502) <10 IU/ML RHEUMATOID FACTOR, [id number] 00:00:00* Test Item Value Reference Range Interpretation Comme nts RHEUMATOID FACTOR, QUANT (te st code = 3502) <10 IU/ML RHEUMATOID FACTOR, [id number] 00:00:00* Test Item Value Reference Range Interpretation Comme nts RHEUMATOID FACTOR, QUANT (te st code = 3502) <10 IU/ML RHEUMATOID FACTOR, [id number] 00:00:00* Test Item Value Reference Range Interpretation Comme nts RHEUMATOID FACTOR, QUANT (te st code = 3502) <10 IU/ML RHEUMATOID FACTOR, [id number] 00:00:00* Test Item Value Reference Range Interpretation Comme nts RHEUMATOID FACTOR, QUANT (te st code = 3502) <10 IU/ML RHEUMATOID FACTOR, [id number] 00:00:00* Test Item Value Reference Range Interpretation Comme nts RHEUMATOID FACTOR, QUANT (te st code = 3502) <10 IU/ML RHEUMATOID FACTOR, [id number] 00:00:00* Test Item Value Reference Range Interpretation Comme nts RHEUMATOID FACTOR, QUANT (te st code = 3502) <10 IU/ML RHEUMATOID FACTOR, [id number] 00:00:00* Test Item Value Reference Range Interpretation Comme nts RHEUMATOID FACTOR, QUANT (te st code = 3502) <10 IU/ML RHEUMATOID FACTOR, [id number] 00:00:00* Test Item Value Reference Range Interpretation Comme nts RHEUMATOID FACTOR, QUANT (te st code = 3502) <10 IU/ML HEMOGLOBIN [id number] 00:00:00* Test Item Value Reference Range Interpretation Comme nts HEMOGLOBIN A1c (test code = 99855) 8.7 % Mikey Napier AustinHEMOGLOBIN [id number] 00:00:00* Test Item Value Reference Range Interpretation Comme nts HEMOGLOBIN A1c (test code = 12306) 8.7 % HEMOGLOBIN [id number] 00:00:00* Test Item Value Reference Range Interpretation Comme nts HEMOGLOBIN A1c (test code = 90462) 8.7 % HEMOGLOBIN [id number] 00:00:00* Test Item Value Reference Range Interpretation Comme nts HEMOGLOBIN A1c (test code = 14332) 8.7 % HEMOGLOBIN [id number] 00:00:00* Test Item Value Reference Range Interpretation Comme nts HEMOGLOBIN A1c (test code = 92776) 8.7 % HEMOGLOBIN [id number] 00:00:00* Test Item Value Reference Range Interpretation Comme nts HEMOGLOBIN A1c (test code = 44369) 8.7 % HEMOGLOBIN [id number] 00:00:00* Test Item Value Reference Range Interpretation Comme nts HEMOGLOBIN A1c (test code = 57158) 8.7 % HEMOGLOBIN [id number] 00:00:00* Test Item Value Reference Range Interpretation Comme nts HEMOGLOBIN A1c (test code = 89575) 8.7 % HEMOGLOBIN [id number] 00:00:00* Test Item Value Reference Range Interpretation Comme nts HEMOGLOBIN A1c (test code = 19613) 8.7 % HEMOGLOBIN [id number] 00:00:00* Test Item Value Reference Range Interpretation Comme nts HEMOGLOBIN A1c (test code = 69198) 8.7 % HEMOGLOBIN [id number] 00:00:00* Test Item Value Reference Range Interpretation Comme nts HEMOGLOBIN A1c (test code = 79533) 9.8 % Mikey Napier AustinLIPID [id number] 00:00:00* Test Item Value Reference Range Interpretation Comme nts CHOLESTEROL (test code = 2210) 108 MG/DL TRIGLYCERIDES (test code = 2232) 205 MG/DL HDL CHOLESTEROL (test code = 2220) 36 MG/DL CALC LDL CHOL (test code = 2237) 45 MG/DL RISK RATIO LDL/HDL (test cod e = 2238) 1.25 RATIO Mikey DavilaMICROALBUMIN/CREATININE, RANDOM AND [id number] 00:00:00* Test Item Value Reference Range Interpretation Comme nts CREATININE, URINE, CONC. (te st code = 2072) 60.6 MG/DL ALBUMIN, URINE, RANDOM (test code = 85862) 15.5 MG/DL CALC ALBUMIN/CREAT, RND (ramon t code = 03185) 256 MG/G Mikey Napier AustinHEMOGLOBIN [id number] 00:00:00* Test Item Value Reference Range Interpretation Comme nts HEMOGLOBIN A1c (test code = 79795) 9.8 % HEMOGLOBIN [id number] 00:00:00* Test Item Value Reference Range Interpretation Comme nts HEMOGLOBIN A1c (test code = 85345) 9.8 % HEMOGLOBIN [id number] 00:00:00* Test Item Value Reference Range Interpretation Comme nts HEMOGLOBIN A1c (test code = 05432) 9.8 % LIPID [id number] 00:00:00* Test Item Value Reference Range Interpretation Comme nts CHOLESTEROL (test code = 2210) 108 MG/DL TRIGLYCERIDES (test code = 2232) 205 MG/DL HDL CHOLESTEROL (test code = 2220) 36 MG/DL CALC LDL CHOL (test code = 2237) 45 MG/DL RISK RATIO LDL/HDL (test cod e = 2238) 1.25 RATIO LIPID [id number] 00:00:00* Test Item Value Reference Range Interpretation Comme nts CHOLESTEROL (test code = 2210) 108 MG/DL TRIGLYCERIDES (test code = 2232) 205 MG/DL HDL CHOLESTEROL (test code = 2220) 36 MG/DL CALC LDL CHOL (test code = 2237) 45 MG/DL RISK RATIO LDL/HDL (test cod e = 2238) 1.25 RATIO MICROALBUMIN/CREATININE, RANDOM AND [id number] 00:00:00* Test Item Value Reference Range Interpretation Comme nts CREATININE, URINE, CONC. (te st code = 2072) 60.6 MG/DL ALBUMIN, URINE, RANDOM (test code = 70204) 15.5 MG/DL CALC ALBUMIN/CREAT, RND (ramon t code = 61790) 256 MG/G MICROALBUMIN/CREATININE, RANDOM AND [id number] 00:00:00* Test Item Value Reference Range Interpretation Comme nts CREATININE, URINE, CONC. (te st code = 207) 60.6 MG/DL ALBUMIN, URINE, RANDOM (test code = 95101) 15.5 MG/DL CALC ALBUMIN/CREAT, RND (ramon t code = 74323) 256 MG/G HEMOGLOBIN [id number] 00:00:00* Test Item Value Reference Range Interpretation Comme nts HEMOGLOBIN A1c (test code = 28193) 9.8 % HEMOGLOBIN [id number] 00:00:00* Test Item Value Reference Range Interpretation Comme nts HEMOGLOBIN A1c (test code = 79228) 9.8 % HEMOGLOBIN [id number] 00:00:00* Test Item Value Reference Range Interpretation Comme nts HEMOGLOBIN A1c (test code = 04552) 9.8 % LIPID [id number] 00:00:00* Test Item Value Reference Range Interpretation Comme nts CHOLESTEROL (test code = 2210) 108 MG/DL TRIGLYCERIDES (test code = 2232) 205 MG/DL HDL CHOLESTEROL (test code = 2220) 36 MG/DL CALC LDL CHOL (test code = 2237) 45 MG/DL RISK RATIO LDL/HDL (test cod e = 2238) 1.25 RATIO LIPID [id number] 00:00:00* Test Item Value Reference Range Interpretation Comme nts CHOLESTEROL (test code = 2210) 108 MG/DL TRIGLYCERIDES (test code = 2232) 205 MG/DL HDL CHOLESTEROL (test code = 2220) 36 MG/DL CALC LDL CHOL (test code = 2237) 45 MG/DL RISK RATIO LDL/HDL (test cod e = 2238) 1.25 RATIO MICROALBUMIN/CREATININE, RANDOM AND [id number] 00:00:00* Test Item Value Reference Range Interpretation Comme nts CREATININE, URINE, CONC. (te st code = 2071) 60.6 MG/DL ALBUMIN, URINE, RANDOM (test code = 73511) 15.5 MG/DL CALC ALBUMIN/CREAT, RND (ramon t code = 39139) 256 MG/G MICROALBUMIN/CREATININE, RANDOM AND [id number] 00:00:00* Test Item Value Reference Range Interpretation Comme nts CREATININE, URINE, CONC. (te st code = 207) 60.6 MG/DL ALBUMIN, URINE, RANDOM (test code = 83127) 15.5 MG/DL CALC ALBUMIN/CREAT, RND (ramon t code = 76043) 256 MG/G HEMOGLOBIN [id number] 00:00:00* Test Item Value Reference Range Interpretation Comme nts HEMOGLOBIN A1c (test code = 58988) 9.8 % HEMOGLOBIN [id number] 00:00:00* Test Item Value Reference Range Interpretation Comme nts HEMOGLOBIN A1c (test code = 17770) 9.8 % HEMOGLOBIN [id number] 00:00:00* Test Item Value Reference Range Interpretation Comme nts HEMOGLOBIN A1c (test code = 08072) 9.8 % LIPID [id number] 00:00:00* Test Item Value Reference Range Interpretation Comme nts CHOLESTEROL (test code = 2210) 108 MG/DL TRIGLYCERIDES (test code = 2232) 205 MG/DL HDL CHOLESTEROL (test code = 2220) 36 MG/DL CALC LDL CHOL (test code = 2237) 45 MG/DL RISK RATIO LDL/HDL (test cod e = 2238) 1.25 RATIO LIPID [id number] 00:00:00* Test Item Value Reference Range Interpretation Comme nts CHOLESTEROL (test code = 2210) 108 MG/DL TRIGLYCERIDES (test code = 2232) 205 MG/DL HDL CHOLESTEROL (test code = 2220) 36 MG/DL CALC LDL CHOL (test code = 2237) 45 MG/DL RISK RATIO LDL/HDL (test cod e = 2238) 1.25 RATIO MICROALBUMIN/CREATININE, RANDOM AND [id number] 00:00:00* Test Item Value Reference Range Interpretation Comme nts CREATININE, URINE, CONC. (te st code = 207) 60.6 MG/DL ALBUMIN, URINE, RANDOM (test code = 20463) 15.5 MG/DL CALC ALBUMIN/CREAT, RND (ramon t code = 34120) 256 MG/G MICROALBUMIN/CREATININE, RANDOM AND [id number] 00:00:00* Test Item Value Reference Range Interpretation Comme nts CREATININE, URINE, CONC. (te st code = 207) 60.6 MG/DL ALBUMIN, URINE, RANDOM (test code = 87668) 15.5 MG/DL CALC ALBUMIN/CREAT, RND (ramon t code = 58398) 256 MG/G SARS-CoV-2 (COVID-19) by RT-PCR (HIGH RISK)2019-12-19 00:00:00* Test Item Value Reference Range Interpretation Comme nts SARS-CoV-2 INTERPRETATION (t est code = 40224) NEGATIVE SOURCE (test code = 36917) NOT SPECIFIED Mikey DavilaSARS-CoV-2 (COVID-19) by RT-PCR (HIGH RISK)2019-12-19 00:00:00* Test Item Value Reference Range Interpretation Comme nts SARS-CoV-2 INTERPRETATION (t est code = 82707) NEGATIVE SOURCE (test code = 28289) NOT SPECIFIED SARS-CoV-2 (COVID-19) by RT-PCR (HIGH RISK)2019-12-19 00:00:00* Test Item Value Reference Range Interpretation Comme nts SARS-CoV-2 INTERPRETATION (t est code = 66730) NEGATIVE SOURCE (test code = 48114) NOT SPECIFIED SARS-CoV-2 (COVID-19) by RT-PCR (HIGH RISK)2019-12-19 00:00:00* Test Item Value Reference Range Interpretation Comme nts SARS-CoV-2 INTERPRETATION (t est code = 10101) NEGATIVE SOURCE (test code = 19714) NOT SPECIFIED SARS-CoV-2 (COVID-19) by RT-PCR (HIGH RISK)2019-12-19 00:00:00* Test Item Value Reference Range Interpretation Comme nts SARS-CoV-2 INTERPRETATION (t est code = 72309) NEGATIVE SOURCE (test code = 40825) NOT SPECIFIED SARS-CoV-2 (COVID-19) by RT-PCR (HIGH RISK)2019-12-19 00:00:00* Test Item Value Reference Range Interpretation Comme nts SARS-CoV-2 INTERPRETATION (t est code = 22450) NEGATIVE SOURCE (test code = 78714) NOT SPECIFIED SARS-CoV-2 (COVID-19) by RT-PCR (HIGH RISK)2019-12-19 00:00:00* Test Item Value Reference Range Interpretation Comme nts SARS-CoV-2 INTERPRETATION (t est code = 69475) NEGATIVE SOURCE (test code = 26683) NOT SPECIFIED LIPID [id number] 00:00:00* Test Item Value Reference Range Interpretation Comme nts CHOLESTEROL (test code = 2210) 287 MG/DL TRIGLYCERIDES (test code = 2232) 269 MG/DL HDL CHOLESTEROL (test code = 2220) 52 MG/DL CALC LDL CHOL (test code = 2237) 187 MG/DL RISK RATIO LDL/HDL (test cod e = 2238) 3.60 RATIO Mikey DavilaCOMPREHENSIVE METABOLIC [id number] 00:00:00* Test Item Value Reference Range Interpretation Comme nts GLUCOSE (test code = 2217) 342 MG/DL BUN (test code = 2208) 11 MG/DL CREATININE (test code = 2214) 0.62 MG/DL eGFR AMER. (test cod e = 28782) 124 ML/MIN/1.73 eGFR NON- AMER. (test code = 33295) 107 ML/MIN/1.73 CALC BUN/CREAT (test code = 2235) 18 RATIO SODIUM (test code = 2231) 139 MEQ/L POTASSIUM (test code = 2228) 4.3 MEQ/L CHLORIDE (test code = 2215) 98 MEQ/L CARBON DIOXIDE (test code = 2206) 26 MEQ/L CALCIUM (test code = 2209) 9.4 MG/DL PROTEIN, TOTAL (test code = 2229) 7.3 G/DL ALBUMIN (test code = 2201) 4.2 G/DL CALC GLOBULIN (test code = 2240) 3.1 G/DL CALC A/G RATIO (test code = 2234) 1.4 RATIO BILIRUBIN, TOTAL (test code = 2207) 0.2 MG/DL ALKALINE PHOSPHATASE (test code = 2204) 74 U/L AST (test code = 2218) 9 U/L ALT (test code = 2219) 10 U/L Mikey DavilaHEMOGLOBIN [id number] 00:00:00* Test Item Value Reference Range Interpretation Comme jacquie HEMOGLOBIN A1c (test code = 32839) 11.0 % Mikey DavilaHEMOGLOBIN [id number] 00:00:00* Test Item Value Reference Range Interpretation Comme jacquie HEMOGLOBIN A1c (test code = 94336) 11.0 % HEMOGLOBIN [id number] 00:00:00* Test Item Value Reference Range Interpretation Comme nts HEMOGLOBIN A1c (test code = 85106) 11.0 % HEMOGLOBIN [id number] 00:00:00* Test Item Value Reference Range Interpretation Comme nts HEMOGLOBIN A1c (test code = 98364) 11.0 % LIPID [id number] 00:00:00* Test Item Value Reference Range Interpretation Comme nts CHOLESTEROL (test code = 2210) 287 MG/DL TRIGLYCERIDES (test code = 2232) 269 MG/DL HDL CHOLESTEROL (test code = 2220) 52 MG/DL CALC LDL CHOL (test code = 2237) 187 MG/DL RISK RATIO LDL/HDL (test cod e = 2238) 3.60 RATIO LIPID [id number] 00:00:00* Test Item Value Reference Range Interpretation Comme nts CHOLESTEROL (test code = 2210) 287 MG/DL TRIGLYCERIDES (test code = 2232) 269 MG/DL HDL CHOLESTEROL (test code = 2220) 52 MG/DL CALC LDL CHOL (test code = 2237) 187 MG/DL RISK RATIO LDL/HDL (test cod e = 2238) 3.60 RATIO COMPREHENSIVE METABOLIC [id number] 00:00:00* Test Item Value Reference Range Interpretation Comme nts GLUCOSE (test code = 2217) 342 MG/DL BUN (test code = 2208) 11 MG/DL CREATININE (test code = 2214) 0.62 MG/DL eGFR AMER. (test cod e = 88733) 124 ML/MIN/1.73 eGFR NON- AMER. (test code = 11774) 107 ML/MIN/1.73 CALC BUN/CREAT (test code = 2235) 18 RATIO SODIUM (test code = 2231) 139 MEQ/L POTASSIUM (test code = 2228) 4.3 MEQ/L CHLORIDE (test code = 2215) 98 MEQ/L CARBON DIOXIDE (test code = 2206) 26 MEQ/L CALCIUM (test code = 2209) 9.4 MG/DL PROTEIN, TOTAL (test code = 2229) 7.3 G/DL ALBUMIN (test code = 2201) 4.2 G/DL CALC GLOBULIN (test code = 2240) 3.1 G/DL CALC A/G RATIO (test code = 2234) 1.4 RATIO BILIRUBIN, TOTAL (test code = 2207) 0.2 MG/DL ALKALINE PHOSPHATASE (test code = 2204) 74 U/L AST (test code = 2218) 9 U/L ALT (test code = 2219) 10 U/L COMPREHENSIVE METABOLIC [id number] 00:00:00* Test Item Value Reference Range Interpretation Comme nts GLUCOSE (test code = 2217) 342 MG/DL BUN (test code = 2208) 11 MG/DL CREATININE (test code = 2214) 0.62 MG/DL eGFR AMER. (test cod e = 86593) 124 ML/MIN/1.73 eGFR NON- AMER. (test code = 58750) 107 ML/MIN/1.73 CALC BUN/CREAT (test code = 2235) 18 RATIO SODIUM (test code = 2231) 139 MEQ/L POTASSIUM (test code = 2228) 4.3 MEQ/L CHLORIDE (test code = 2215) 98 MEQ/L CARBON DIOXIDE (test code = 2206) 26 MEQ/L CALCIUM (test code = 2209) 9.4 MG/DL PROTEIN, TOTAL (test code = 2229) 7.3 G/DL ALBUMIN (test code = 2201) 4.2 G/DL CALC GLOBULIN (test code = 2240) 3.1 G/DL CALC A/G RATIO (test code = 2234) 1.4 RATIO BILIRUBIN, TOTAL (test code = 2207) 0.2 MG/DL ALKALINE PHOSPHATASE (test code = 2204) 74 U/L AST (test code = 2218) 9 U/L ALT (test code = 2219) 10 U/L HEMOGLOBIN [id number] 00:00:00* Test Item Value Reference Range Interpretation Comme nts HEMOGLOBIN A1c (test code = 36400) 11.0 % HEMOGLOBIN [id number] 00:00:00* Test Item Value Reference Range Interpretation Comme nts HEMOGLOBIN A1c (test code = 51302) 11.0 % HEMOGLOBIN [id number] 00:00:00* Test Item Value Reference Range Interpretation Comme nts HEMOGLOBIN A1c (test code = 47431) 11.0 % LIPID [id number] 00:00:00* Test Item Value Reference Range Interpretation Comme nts CHOLESTEROL (test code = 2210) 287 MG/DL TRIGLYCERIDES (test code = 2232) 269 MG/DL HDL CHOLESTEROL (test code = 2220) 52 MG/DL CALC LDL CHOL (test code = 2237) 187 MG/DL RISK RATIO LDL/HDL (test cod e = 2238) 3.60 RATIO LIPID [id number] 00:00:00* Test Item Value Reference Range Interpretation Comme nts CHOLESTEROL (test code = 2210) 287 MG/DL TRIGLYCERIDES (test code = 2232) 269 MG/DL HDL CHOLESTEROL (test code = 2220) 52 MG/DL CALC LDL CHOL (test code = 2237) 187 MG/DL RISK RATIO LDL/HDL (test cod e = 2238) 3.60 RATIO COMPREHENSIVE METABOLIC [id number] 00:00:00* Test Item Value Reference Range Interpretation Comme nts GLUCOSE (test code = 2217) 342 MG/DL BUN (test code = 2208) 11 MG/DL CREATININE (test code = 2214) 0.62 MG/DL eGFR AMER. (test cod e = 85533) 124 ML/MIN/1.73 eGFR NON- AMER. (test code = 92522) 107 ML/MIN/1.73 CALC BUN/CREAT (test code = 2235) 18 RATIO SODIUM (test code = 2231) 139 MEQ/L POTASSIUM (test code = 2228) 4.3 MEQ/L CHLORIDE (test code = 2215) 98 MEQ/L CARBON DIOXIDE (test code = 2206) 26 MEQ/L CALCIUM (test code = 2209) 9.4 MG/DL PROTEIN, TOTAL (test code = 2229) 7.3 G/DL ALBUMIN (test code = 2201) 4.2 G/DL CALC GLOBULIN (test code = 2240) 3.1 G/DL CALC A/G RATIO (test code = 2234) 1.4 RATIO BILIRUBIN, TOTAL (test code = 2207) 0.2 MG/DL ALKALINE PHOSPHATASE (test code = 2204) 74 U/L AST (test code = 2218) 9 U/L ALT (test code = 2219) 10 U/L COMPREHENSIVE METABOLIC [id number] 00:00:00* Test Item Value Reference Range Interpretation Comme nts GLUCOSE (test code = 2217) 342 MG/DL BUN (test code = 2208) 11 MG/DL CREATININE (test code = 2214) 0.62 MG/DL eGFR AMER. (test cod e = 27190) 124 ML/MIN/1.73 eGFR NON- AMER. (test code = 17956) 107 ML/MIN/1.73 CALC BUN/CREAT (test code = 2235) 18 RATIO SODIUM (test code = 2231) 139 MEQ/L POTASSIUM (test code = 2228) 4.3 MEQ/L CHLORIDE (test code = 2215) 98 MEQ/L CARBON DIOXIDE (test code = 2206) 26 MEQ/L CALCIUM (test code = 2209) 9.4 MG/DL PROTEIN, TOTAL (test code = 2229) 7.3 G/DL ALBUMIN (test code = 2201) 4.2 G/DL CALC GLOBULIN (test code = 2240) 3.1 G/DL CALC A/G RATIO (test code = 2234) 1.4 RATIO BILIRUBIN, TOTAL (test code = 7) 0.2 MG/DL ALKALINE PHOSPHATASE (test code = 2204) 74 U/L AST (test code = 2218) 9 U/L ALT (test code = 2219) 10 U/L HEMOGLOBIN [id number] 00:00:00* Test Item Value Reference Range Interpretation Comme nts HEMOGLOBIN A1c (test code = 14149) 11.0 % HEMOGLOBIN [id number] 00:00:00* Test Item Value Reference Range Interpretation Comme nts HEMOGLOBIN A1c (test code = 69466) 11.0 % HEMOGLOBIN [id number] 00:00:00* Test Item Value Reference Range Interpretation Comme nts HEMOGLOBIN A1c (test code = 17113) 11.0 % LIPID [id number] 00:00:00* Test Item Value Reference Range Interpretation Comme nts CHOLESTEROL (test code = 2210) 287 MG/DL TRIGLYCERIDES (test code = 2232) 269 MG/DL HDL CHOLESTEROL (test code = 2220) 52 MG/DL CALC LDL CHOL (test code = 2237) 187 MG/DL RISK RATIO LDL/HDL (test cod e = 2238) 3.60 RATIO LIPID [id number] 00:00:00* Test Item Value Reference Range Interpretation Comme nts CHOLESTEROL (test code = 2210) 287 MG/DL TRIGLYCERIDES (test code = 2232) 269 MG/DL HDL CHOLESTEROL (test code = 2220) 52 MG/DL CALC LDL CHOL (test code = 2237) 187 MG/DL RISK RATIO LDL/HDL (test cod e = 2238) 3.60 RATIO COMPREHENSIVE METABOLIC [id number] 00:00:00* Test Item Value Reference Range Interpretation Comme nts GLUCOSE (test code = 2217) 342 MG/DL BUN (test code = 2208) 11 MG/DL CREATININE (test code = 2214) 0.62 MG/DL eGFR AMER. (test cod e = 31089) 124 ML/MIN/1.73 eGFR NON- AMER. (test code = 89508) 107 ML/MIN/1.73 CALC BUN/CREAT (test code = 2235) 18 RATIO SODIUM (test code = 2231) 139 MEQ/L POTASSIUM (test code = 2228) 4.3 MEQ/L CHLORIDE (test code = 2215) 98 MEQ/L CARBON DIOXIDE (test code = 2206) 26 MEQ/L CALCIUM (test code = 2209) 9.4 MG/DL PROTEIN, TOTAL (test code = 2229) 7.3 G/DL ALBUMIN (test code = 2201) 4.2 G/DL CALC GLOBULIN (test code = 2240) 3.1 G/DL CALC A/G RATIO (test code = 2234) 1.4 RATIO BILIRUBIN, TOTAL (test code = 2207) 0.2 MG/DL ALKALINE PHOSPHATASE (test code = 2204) 74 U/L AST (test code = 2218) 9 U/L ALT (test code = 2219) 10 U/L COMPREHENSIVE METABOLIC [id number] 00:00:00* Test Item Value Reference Range Interpretation Comme nts GLUCOSE (test code = 2217) 342 MG/DL BUN (test code = 2208) 11 MG/DL CREATININE (test code = 2214) 0.62 MG/DL eGFR AMER. (test cod e = 86002) 124 ML/MIN/1.73 eGFR NON- AMER. (test code = 20848) 107 ML/MIN/1.73 CALC BUN/CREAT (test code = 2235) 18 RATIO SODIUM (test code = 2231) 139 MEQ/L POTASSIUM (test code = 2228) 4.3 MEQ/L CHLORIDE (test code = 2215) 98 MEQ/L CARBON DIOXIDE (test code = 2206) 26 MEQ/L CALCIUM (test code = 2209) 9.4 MG/DL PROTEIN, TOTAL (test code = 2229) 7.3 G/DL ALBUMIN (test code = 2201) 4.2 G/DL CALC GLOBULIN (test code = 2240) 3.1 G/DL CALC A/G RATIO (test code = 2234) 1.4 RATIO BILIRUBIN, TOTAL (test code = 2207) 0.2 MG/DL ALKALINE PHOSPHATASE (test code = 2204) 74 U/L AST (test code = 2218) 9 U/L ALT (test code = 2219) 10 U/L HEMOGLOBIN [id number] 00:00:00* Test Item Value Reference Range Interpretation Comme nts HEMOGLOBIN A1c (test code = 18259) 10.1 % Mikey DavilaHEMOGLOBIN [id number] 00:00:00* Test Item Value Reference Range Interpretation Comme nts HEMOGLOBIN A1c (test code = 64142) 10.1 % HEMOGLOBIN [id number] 00:00:00* Test Item Value Reference Range Interpretation Comme nts HEMOGLOBIN A1c (test code = 90753) 10.1 % HEMOGLOBIN [id number] 00:00:00* Test Item Value Reference Range Interpretation Comme nts HEMOGLOBIN A1c (test code = 29933) 10.1 % HEMOGLOBIN [id number] 00:00:00* Test Item Value Reference Range Interpretation Comme nts HEMOGLOBIN A1c (test code = 49010) 10.1 % HEMOGLOBIN [id number] 00:00:00* Test Item Value Reference Range Interpretation Comme nts HEMOGLOBIN A1c (test code = 11126) 10.1 % HEMOGLOBIN [id number] 00:00:00* Test Item Value Reference Range Interpretation Comme nts HEMOGLOBIN A1c (test code = 83487) 10.1 % HEMOGLOBIN [id number] 00:00:00* Test Item Value Reference Range Interpretation Comme nts HEMOGLOBIN A1c (test code = 38386) 10.1 % HEMOGLOBIN [id number] 00:00:00* Test Item Value Reference Range Interpretation Comme nts HEMOGLOBIN A1c (test code = 00267) 10.1 % HEMOGLOBIN [id number] 00:00:00* Test Item Value Reference Range Interpretation Comme nts HEMOGLOBIN A1c (test code = 19374) 10.1 % HEMOGLOBIN [id number] 00:00:00* Test Item Value Reference Range Interpretation Comme nts HEMOGLOBIN A1c (test code = 71215) 11.3 % Mikey F AustinLIPID [id number] 00:00:00* Test Item Value Reference Range Interpretation Comme nts CHOLESTEROL (test code = 2210) 292 MG/DL TRIGLYCERIDES (test code = 2232) 181 MG/DL HDL CHOLESTEROL (test code = 2220) 55 MG/DL CALC LDL CHOL (test code = 2237) 201 MG/DL RISK RATIO LDL/HDL (test cod e = 2238) 3.65 RATIO Mikey DavilaLIPID [id number] 00:00:00* Test Item Value Reference Range Interpretation Comme nts CHOLESTEROL (test code = 2210) 292 MG/DL TRIGLYCERIDES (test code = 2232) 181 MG/DL HDL CHOLESTEROL (test code = 2220) 55 MG/DL CALC LDL CHOL (test code = 2237) 201 MG/DL RISK RATIO LDL/HDL (test cod e = 2238) 3.65 RATIO LIPID [id number] 00:00:00* Test Item Value Reference Range Interpretation Comme nts CHOLESTEROL (test code = 2210) 292 MG/DL TRIGLYCERIDES (test code = 2232) 181 MG/DL HDL CHOLESTEROL (test code = 2220) 55 MG/DL CALC LDL CHOL (test code = 2237) 201 MG/DL RISK RATIO LDL/HDL (test cod e = 2238) 3.65 RATIO HEMOGLOBIN [id number] 00:00:00* Test Item Value Reference Range Interpretation Comme nts HEMOGLOBIN A1c (test code = 90269) 11.3 % HEMOGLOBIN [id number] 00:00:00* Test Item Value Reference Range Interpretation Comme nts HEMOGLOBIN A1c (test code = 01708) 11.3 % HEMOGLOBIN [id number] 00:00:00* Test Item Value Reference Range Interpretation Comme nts HEMOGLOBIN A1c (test code = 95752) 11.3 % LIPID [id number] 00:00:00* Test Item Value Reference Range Interpretation Comme nts CHOLESTEROL (test code = 2210) 292 MG/DL TRIGLYCERIDES (test code = 2232) 181 MG/DL HDL CHOLESTEROL (test code = 2220) 55 MG/DL CALC LDL CHOL (test code = 2237) 201 MG/DL RISK RATIO LDL/HDL (test cod e = 2238) 3.65 RATIO LIPID [id number] 00:00:00* Test Item Value Reference Range Interpretation Comme nts CHOLESTEROL (test code = 2210) 292 MG/DL TRIGLYCERIDES (test code = 2232) 181 MG/DL HDL CHOLESTEROL (test code = 2220) 55 MG/DL CALC LDL CHOL (test code = 2237) 201 MG/DL RISK RATIO LDL/HDL (test cod e = 2238) 3.65 RATIO HEMOGLOBIN [id number] 00:00:00* Test Item Value Reference Range Interpretation Comme nts HEMOGLOBIN A1c (test code = 34880) 11.3 % HEMOGLOBIN [id number] 00:00:00* Test Item Value Reference Range Interpretation Comme nts HEMOGLOBIN A1c (test code = 01816) 11.3 % HEMOGLOBIN [id number] 00:00:00* Test Item Value Reference Range Interpretation Comme nts HEMOGLOBIN A1c (test code = 52395) 11.3 % LIPID [id number] 00:00:00* Test Item Value Reference Range Interpretation Comme nts CHOLESTEROL (test code = 2210) 292 MG/DL TRIGLYCERIDES (test code = 2232) 181 MG/DL HDL CHOLESTEROL (test code = 2220) 55 MG/DL CALC LDL CHOL (test code = 2237) 201 MG/DL RISK RATIO LDL/HDL (test cod e = 2238) 3.65 RATIO LIPID [id number] 00:00:00* Test Item Value Reference Range Interpretation Comme nts CHOLESTEROL (test code = 2210) 292 MG/DL TRIGLYCERIDES (test code = 2232) 181 MG/DL HDL CHOLESTEROL (test code = 2220) 55 MG/DL CALC LDL CHOL (test code = 2237) 201 MG/DL RISK RATIO LDL/HDL (test cod e = 2238) 3.65 RATIO HEMOGLOBIN [id number] 00:00:00* Test Item Value Reference Range Interpretation Comme nts HEMOGLOBIN A1c (test code = 40666) 11.3 % HEMOGLOBIN [id number] 00:00:00* Test Item Value Reference Range Interpretation Comme nts HEMOGLOBIN A1c (test code = 55641) 11.3 % HEMOGLOBIN [id number] 00:00:00* Test Item Value Reference Range Interpretation Comme nts HEMOGLOBIN A1c (test code = 94082) 11.3 % CBC W/AUTO [id number] 00:00:00* Test Item Value Reference Range Interpretation Comme nts WBC (test code = 1001) 6.3 K/UL RBC (test code = 1002) 4.50 M/UL HEMOGLOBIN (test code = 1003) 13.3 G/DL HEMATOCRIT (test code = 1004) 38.2 % MCV (test code = 1005) 84.9 fL MCH (test code = 1006) 29.6 PG MCHC (test code = 1007) 34.8 G/DL RDW (test code = 1038) 15.1 % NEUTROPHILS (test code = 1008) 49.7 % LYMPHOCYTES (test code = 1010) 37.4 % MONOCYTES (test code = 1011) 11.3 % EOSINOPHILS (test code = 1012) 1.1 % BASOPHILS (test code = 1013) 0.5 % PLATELET COUNT (test code = 1015) 357 K/UL Mikey Napier AustinMICROALBUMIN/CREATININE, RANDOM AND [id number] 00:00:00* Test Item Value Reference Range Interpretation Comme nts CREATININE, URINE, CONC. (te st code = 2072) 62.6 MG/DL ALBUMIN, URINE, RANDOM (test code = 00046) 23.4 MG/DL CALC ALBUMIN/CREAT, RND (ramon t code = 22969) 374 MG/G Mikey Napier AustinHEMOGLOBIN [id number] 00:00:00* Test Item Value Reference Range Interpretation Comme nts HEMOGLOBIN A1c (test code = 68978) 8.1 % Mikey Napier AustinHEMOGLOBIN [id number] 00:00:00* Test Item Value Reference Range Interpretation Comme nts HEMOGLOBIN A1c (test code = 54147) 8.1 % HEMOGLOBIN [id number] 00:00:00* Test Item Value Reference Range Interpretation Comme nts HEMOGLOBIN A1c (test code = 68349) 8.1 % HEMOGLOBIN [id number] 00:00:00* Test Item Value Reference Range Interpretation Comme nts HEMOGLOBIN A1c (test code = 84682) 8.1 % CBC W/AUTO [id number] 00:00:00* Test Item Value Reference Range Interpretation Comme nts WBC (test code = 1001) 6.3 K/UL RBC (test code = 1002) 4.50 M/UL HEMOGLOBIN (test code = 1003) 13.3 G/DL HEMATOCRIT (test code = 1004) 38.2 % MCV (test code = 1005) 84.9 fL MCH (test code = 1006) 29.6 PG MCHC (test code = 1007) 34.8 G/DL RDW (test code = 1038) 15.1 % NEUTROPHILS (test code = 1008) 49.7 % LYMPHOCYTES (test code = 1010) 37.4 % MONOCYTES (test code = 1011) 11.3 % EOSINOPHILS (test code = 1012) 1.1 % BASOPHILS (test code = 1013) 0.5 % PLATELET COUNT (test code = 1015) 357 K/UL CBC W/AUTO [id number] 00:00:00* Test Item Value Reference Range Interpretation Comme nts WBC (test code = 1001) 6.3 K/UL RBC (test code = 1002) 4.50 M/UL HEMOGLOBIN (test code = 1003) 13.3 G/DL HEMATOCRIT (test code = 1004) 38.2 % MCV (test code = 1005) 84.9 fL MCH (test code = 1006) 29.6 PG MCHC (test code = 1007) 34.8 G/DL RDW (test code = 1038) 15.1 % NEUTROPHILS (test code = 1008) 49.7 % LYMPHOCYTES (test code = 1010) 37.4 % MONOCYTES (test code = 1011) 11.3 % EOSINOPHILS (test code = 1012) 1.1 % BASOPHILS (test code = 1013) 0.5 % PLATELET COUNT (test code = 1015) 357 K/UL CBC W/AUTO [id number] 00:00:00* Test Item Value Reference Range Interpretation Comme nts WBC (test code = 1001) 6.3 K/UL RBC (test code = 1002) 4.50 M/UL HEMOGLOBIN (test code = 1003) 13.3 G/DL HEMATOCRIT (test code = 1004) 38.2 % MCV (test code = 1005) 84.9 fL MCH (test code = 1006) 29.6 PG MCHC (test code = 1007) 34.8 G/DL RDW (test code = 1038) 15.1 % NEUTROPHILS (test code = 1008) 49.7 % LYMPHOCYTES (test code = 1010) 37.4 % MONOCYTES (test code = 1011) 11.3 % EOSINOPHILS (test code = 1012) 1.1 % BASOPHILS (test code = 1013) 0.5 % PLATELET COUNT (test code = 1015) 357 K/UL MICROALBUMIN/CREATININE, RANDOM AND [id number] 00:00:00* Test Item Value Reference Range Interpretation Comme nts CREATININE, URINE, CONC. (te st code = 207) 62.6 MG/DL ALBUMIN, URINE, RANDOM (test code = 12922) 23.4 MG/DL CALC ALBUMIN/CREAT, RND (ramon t code = 80045) 374 MG/G MICROALBUMIN/CREATININE, RANDOM AND [id number] 00:00:00* Test Item Value Reference Range Interpretation Comme nts CREATININE, URINE, CONC. (te st code = 2071) 62.6 MG/DL ALBUMIN, URINE, RANDOM (test code = 56665) 23.4 MG/DL CALC ALBUMIN/CREAT, RND (ramon t code = 30393) 374 MG/G HEMOGLOBIN [id number] 00:00:00* Test Item Value Reference Range Interpretation Comme nts HEMOGLOBIN A1c (test code = 14212) 8.1 % HEMOGLOBIN [id number] 00:00:00* Test Item Value Reference Range Interpretation Comme nts HEMOGLOBIN A1c (test code = 78390) 8.1 % HEMOGLOBIN [id number] 00:00:00* Test Item Value Reference Range Interpretation Comme nts HEMOGLOBIN A1c (test code = 45332) 8.1 % CBC W/AUTO [id number] 00:00:00* Test Item Value Reference Range Interpretation Comme nts WBC (test code = 1001) 6.3 K/UL RBC (test code = 1002) 4.50 M/UL HEMOGLOBIN (test code = 1003) 13.3 G/DL HEMATOCRIT (test code = 1004) 38.2 % MCV (test code = 1005) 84.9 fL MCH (test code = 1006) 29.6 PG MCHC (test code = 1007) 34.8 G/DL RDW (test code = 1038) 15.1 % NEUTROPHILS (test code = 1008) 49.7 % LYMPHOCYTES (test code = 1010) 37.4 % MONOCYTES (test code = 1011) 11.3 % EOSINOPHILS (test code = 1012) 1.1 % BASOPHILS (test code = 1013) 0.5 % PLATELET COUNT (test code = 1015) 357 K/UL CBC W/AUTO [id number] 00:00:00* Test Item Value Reference Range Interpretation Comme nts WBC (test code = 1001) 6.3 K/UL RBC (test code = 1002) 4.50 M/UL HEMOGLOBIN (test code = 1003) 13.3 G/DL HEMATOCRIT (test code = 1004) 38.2 % MCV (test code = 1005) 84.9 fL MCH (test code = 1006) 29.6 PG MCHC (test code = 1007) 34.8 G/DL RDW (test code = 1038) 15.1 % NEUTROPHILS (test code = 1008) 49.7 % LYMPHOCYTES (test code = 1010) 37.4 % MONOCYTES (test code = 1011) 11.3 % EOSINOPHILS (test code = 1012) 1.1 % BASOPHILS (test code = 1013) 0.5 % PLATELET COUNT (test code = 1015) 357 K/UL CBC W/AUTO [id number] 00:00:00* Test Item Value Reference Range Interpretation Comme nts WBC (test code = 1001) 6.3 K/UL RBC (test code = 1002) 4.50 M/UL HEMOGLOBIN (test code = 1003) 13.3 G/DL HEMATOCRIT (test code = 1004) 38.2 % MCV (test code = 1005) 84.9 fL MCH (test code = 1006) 29.6 PG MCHC (test code = 1007) 34.8 G/DL RDW (test code = 1038) 15.1 % NEUTROPHILS (test code = 1008) 49.7 % LYMPHOCYTES (test code = 1010) 37.4 % MONOCYTES (test code = 1011) 11.3 % EOSINOPHILS (test code = 1012) 1.1 % BASOPHILS (test code = 1013) 0.5 % PLATELET COUNT (test code = 1015) 357 K/UL MICROALBUMIN/CREATININE, RANDOM AND [id number] 00:00:00* Test Item Value Reference Range Interpretation Comme nts CREATININE, URINE, CONC. (te st code = 2072) 62.6 MG/DL ALBUMIN, URINE, RANDOM (test code = 01726) 23.4 MG/DL CALC ALBUMIN/CREAT, RND (ramon t code = 62791) 374 MG/G MICROALBUMIN/CREATININE, RANDOM AND [id number] 00:00:00* Test Item Value Reference Range Interpretation Comme nts CREATININE, URINE, CONC. (te st code = 2072) 62.6 MG/DL ALBUMIN, URINE, RANDOM (test code = 49542) 23.4 MG/DL CALC ALBUMIN/CREAT, RND (ramon t code = 56114) 374 MG/G HEMOGLOBIN [id number] 00:00:00* Test Item Value Reference Range Interpretation Comme nts HEMOGLOBIN A1c (test code = 76051) 8.1 % HEMOGLOBIN [id number] 00:00:00* Test Item Value Reference Range Interpretation Comme nts HEMOGLOBIN A1c (test code = 73007) 8.1 % HEMOGLOBIN [id number] 00:00:00* Test Item Value Reference Range Interpretation Comme nts HEMOGLOBIN A1c (test code = 48038) 8.1 % CBC W/AUTO [id number] 00:00:00* Test Item Value Reference Range Interpretation Comme nts WBC (test code = 1001) 6.3 K/UL RBC (test code = 1002) 4.50 M/UL HEMOGLOBIN (test code = 1003) 13.3 G/DL HEMATOCRIT (test code = 1004) 38.2 % MCV (test code = 1005) 84.9 fL MCH (test code = 1006) 29.6 PG MCHC (test code = 1007) 34.8 G/DL RDW (test code = 1038) 15.1 % NEUTROPHILS (test code = 1008) 49.7 % LYMPHOCYTES (test code = 1010) 37.4 % MONOCYTES (test code = 1011) 11.3 % EOSINOPHILS (test code = 1012) 1.1 % BASOPHILS (test code = 1013) 0.5 % PLATELET COUNT (test code = 1015) 357 K/UL CBC W/AUTO [id number] 00:00:00* Test Item Value Reference Range Interpretation Comme nts WBC (test code = 1001) 6.3 K/UL RBC (test code = 1002) 4.50 M/UL HEMOGLOBIN (test code = 1003) 13.3 G/DL HEMATOCRIT (test code = 1004) 38.2 % MCV (test code = 1005) 84.9 fL MCH (test code = 1006) 29.6 PG MCHC (test code = 1007) 34.8 G/DL RDW (test code = 1038) 15.1 % NEUTROPHILS (test code = 1008) 49.7 % LYMPHOCYTES (test code = 1010) 37.4 % MONOCYTES (test code = 1011) 11.3 % EOSINOPHILS (test code = 1012) 1.1 % BASOPHILS (test code = 1013) 0.5 % PLATELET COUNT (test code = 1015) 357 K/UL CBC W/AUTO [id number] 00:00:00* Test Item Value Reference Range Interpretation Comme nts WBC (test code = 1001) 6.3 K/UL RBC (test code = 1002) 4.50 M/UL HEMOGLOBIN (test code = 1003) 13.3 G/DL HEMATOCRIT (test code = 1004) 38.2 % MCV (test code = 1005) 84.9 fL MCH (test code = 1006) 29.6 PG MCHC (test code = 1007) 34.8 G/DL RDW (test code = 1038) 15.1 % NEUTROPHILS (test code = 1008) 49.7 % LYMPHOCYTES (test code = 1010) 37.4 % MONOCYTES (test code = 1011) 11.3 % EOSINOPHILS (test code = 1012) 1.1 % BASOPHILS (test code = 1013) 0.5 % PLATELET COUNT (test code = 1015) 357 K/UL MICROALBUMIN/CREATININE, RANDOM AND [id number] 00:00:00* Test Item Value Reference Range Interpretation Comme nts CREATININE, URINE, CONC. (te st code = 207) 62.6 MG/DL ALBUMIN, URINE, RANDOM (test code = 71102) 23.4 MG/DL CALC ALBUMIN/CREAT, RND (ramon t code = 17443) 374 MG/G MICROALBUMIN/CREATININE, RANDOM AND [id number] 00:00:00* Test Item Value Reference Range Interpretation Comme nts CREATININE, URINE, CONC. (te st code = 207) 62.6 MG/DL ALBUMIN, URINE, RANDOM (test code = 27259) 23.4 MG/DL CALC ALBUMIN/CREAT, RND (ramon t code = 10526) 374 MG/G HEMOGLOBIN [id number] 00:00:00* Test Item Value Reference Range Interpretation Comme nts HEMOGLOBIN A1c (test code = 97279) 9.3 % Mikey Napier [place] [id number] 00:00:00* Test Item Value Reference Range Interpretation Comme nts HEMOGLOBIN A1c (test code = 98432) 9.3 % HEMOGLOBIN [id number] 00:00:00* Test Item Value Reference Range Interpretation Comme nts HEMOGLOBIN A1c (test code = 55413) 9.3 % HEMOGLOBIN [id number] 00:00:00* Test Item Value Reference Range Interpretation Comme nts HEMOGLOBIN A1c (test code = 38424) 9.3 % HEMOGLOBIN [id number] 00:00:00* Test Item Value Reference Range Interpretation Comme nts HEMOGLOBIN A1c (test code = 82128) 9.3 % HEMOGLOBIN [id number] 00:00:00* Test Item Value Reference Range Interpretation Comme nts HEMOGLOBIN A1c (test code = 28201) 9.3 % HEMOGLOBIN [id number] 00:00:00* Test Item Value Reference Range Interpretation Comme nts HEMOGLOBIN A1c (test code = 32060) 9.3 % HEMOGLOBIN [id number] 00:00:00* Test Item Value Reference Range Interpretation Comme nts HEMOGLOBIN A1c (test code = 03020) 9.3 % HEMOGLOBIN [id number] 00:00:00* Test Item Value Reference Range Interpretation Comme nts HEMOGLOBIN A1c (test code = 43329) 9.3 % HEMOGLOBIN [id number] 00:00:00* Test Item Value Reference Range Interpretation Comme nts HEMOGLOBIN A1c (test code = 23717) 9.3 % HEMOGLOBIN [id number] 00:00:00* Test Item Value Reference Range Interpretation Comme nts HEMOGLOBIN A1c (test code = 21004) 11.7 % Mikey Napier [place] [id number] 00:00:00* Test Item Value Reference Range Interpretation Comme nts CHOLESTEROL (test code = 2210) 311 MG/DL TRIGLYCERIDES (test code = 2232) 322 MG/DL HDL CHOLESTEROL (test code = 2220) 61 MG/DL CALC LDL CHOL (test code = 2237) 186 MG/DL RISK RATIO LDL/HDL (test cod e = 2238) 3.04 RATIO Mikey Napier [place] [id number] 00:00:00* Test Item Value Reference Range Interpretation Comme nts CHOLESTEROL (test code = 2210) 311 MG/DL TRIGLYCERIDES (test code = 2232) 322 MG/DL HDL CHOLESTEROL (test code = 2220) 61 MG/DL CALC LDL CHOL (test code = 2237) 186 MG/DL RISK RATIO LDL/HDL (test cod e = 2238) 3.04 RATIO LIPID [id number] 00:00:00* Test Item Value Reference Range Interpretation Comme nts CHOLESTEROL (test code = 2210) 311 MG/DL TRIGLYCERIDES (test code = 2232) 322 MG/DL HDL CHOLESTEROL (test code = 2220) 61 MG/DL CALC LDL CHOL (test code = 2237) 186 MG/DL RISK RATIO LDL/HDL (test cod e = 2238) 3.04 RATIO HEMOGLOBIN [id number] 00:00:00* Test Item Value Reference Range Interpretation Comme nts HEMOGLOBIN A1c (test code = 82088) 11.7 % HEMOGLOBIN [id number] 00:00:00* Test Item Value Reference Range Interpretation Comme nts HEMOGLOBIN A1c (test code = 70422) 11.7 % HEMOGLOBIN [id number] 00:00:00* Test Item Value Reference Range Interpretation Comme nts HEMOGLOBIN A1c (test code = 50088) 11.7 % LIPID [id number] 00:00:00* Test Item Value Reference Range Interpretation Comme nts CHOLESTEROL (test code = 2210) 311 MG/DL TRIGLYCERIDES (test code = 2232) 322 MG/DL HDL CHOLESTEROL (test code = 2220) 61 MG/DL CALC LDL CHOL (test code = 2237) 186 MG/DL RISK RATIO LDL/HDL (test cod e = 2238) 3.04 RATIO LIPID [id number] 00:00:00* Test Item Value Reference Range Interpretation Comme nts CHOLESTEROL (test code = 2210) 311 MG/DL TRIGLYCERIDES (test code = 2232) 322 MG/DL HDL CHOLESTEROL (test code = 2220) 61 MG/DL CALC LDL CHOL (test code = 2237) 186 MG/DL RISK RATIO LDL/HDL (test cod e = 2238) 3.04 RATIO HEMOGLOBIN [id number] 00:00:00* Test Item Value Reference Range Interpretation Comme nts HEMOGLOBIN A1c (test code = 17062) 11.7 % HEMOGLOBIN [id number] 00:00:00* Test Item Value Reference Range Interpretation Comme nts HEMOGLOBIN A1c (test code = 65835) 11.7 % HEMOGLOBIN [id number] 00:00:00* Test Item Value Reference Range Interpretation Comme nts HEMOGLOBIN A1c (test code = 44351) 11.7 % LIPID [id number] 00:00:00* Test Item Value Reference Range Interpretation Comme nts CHOLESTEROL (test code = 2210) 311 MG/DL TRIGLYCERIDES (test code = 2232) 322 MG/DL HDL CHOLESTEROL (test code = 2220) 61 MG/DL CALC LDL CHOL (test code = 2237) 186 MG/DL RISK RATIO LDL/HDL (test cod e = 2238) 3.04 RATIO LIPID [id number] 00:00:00* Test Item Value Reference Range Interpretation Comme nts CHOLESTEROL (test code = 2210) 311 MG/DL TRIGLYCERIDES (test code = 2232) 322 MG/DL HDL CHOLESTEROL (test code = 2220) 61 MG/DL CALC LDL CHOL (test code = 2237) 186 MG/DL RISK RATIO LDL/HDL (test cod e = 2238) 3.04 RATIO HEMOGLOBIN [id number] 00:00:00* Test Item Value Reference Range Interpretation Comme nts HEMOGLOBIN A1c (test code = 76726) 11.7 % HEMOGLOBIN [id number] 00:00:00* Test Item Value Reference Range Interpretation Comme nts HEMOGLOBIN A1c (test code = 35171) 11.7 % HEMOGLOBIN [id number] 00:00:00* Test Item Value Reference Range Interpretation Comme nts HEMOGLOBIN A1c (test code = 60444) 11.7 % LIPID [id number] 00:00:00* Test Item Value Reference Range Interpretation Comme nts CHOLESTEROL (test code = 2210) 277 MG/DL TRIGLYCERIDES (test code = 2232) 303 MG/DL HDL CHOLESTEROL (test code = 2220) 56 MG/DL CALC LDL CHOL (test code = 2237) 160 MG/DL RISK RATIO LDL/HDL (test cod e = 2238) 2.86 RATIO Mikey F AustinHEMOGLOBIN [id number] 00:00:00* Test Item Value Reference Range Interpretation Comme nts HEMOGLOBIN A1c (test code = 20398) 10.5 % Mikey F AustinCOMPREHENSIVE METABOLIC [id number] 00:00:00* Test Item Value Reference Range Interpretation Comme nts GLUCOSE (test code = 2217) 324 MG/DL BUN (test code = 2208) 6 MG/DL CREATININE (test code = 2214) 0.58 MG/DL eGFR AMER. (test cod e = 68423) 128 ML/MIN/1.73 eGFR NON- AMER. (test code = 54896) 111 ML/MIN/1.73 CALC BUN/CREAT (test code = 2235) 10 RATIO SODIUM (test code = 2231) 137 MEQ/L POTASSIUM (test code = 2228) 4.3 MEQ/L CHLORIDE (test code = 2215) 97 MEQ/L CARBON DIOXIDE (test code = 2206) 25 MEQ/L CALCIUM (test code = 2209) 9.3 MG/DL PROTEIN, TOTAL (test code = 2229) 7.1 G/DL ALBUMIN (test code = 2201) 4.2 G/DL CALC GLOBULIN (test code = 2240) 2.9 G/DL CALC A/G RATIO (test code = 2234) 1.4 RATIO BILIRUBIN, TOTAL (test code = 2207) 0.2 MG/DL ALKALINE PHOSPHATASE (test code = 2204) 60 U/L AST (test code = 2218) 13 U/L ALT (test code = 2219) 17 U/L [facility] [id number] 00:00:00* Test Item Value Reference Range Interpretation Comme nts GLUCOSE (test code = 2217) 324 MG/DL BUN (test code = 2208) 6 MG/DL CREATININE (test code = 2214) 0.58 MG/DL eGFR AMER. (test cod e = 76372) 128 ML/MIN/1.73 eGFR NON- AMER. (test code = 20883) 111 ML/MIN/1.73 CALC BUN/CREAT (test code = 2235) 10 RATIO SODIUM (test code = 2231) 137 MEQ/L POTASSIUM (test code = 2228) 4.3 MEQ/L CHLORIDE (test code = 2215) 97 MEQ/L CARBON DIOXIDE (test code = 2206) 25 MEQ/L CALCIUM (test code = 2209) 9.3 MG/DL PROTEIN, TOTAL (test code = 2229) 7.1 G/DL ALBUMIN (test code = 2201) 4.2 G/DL CALC GLOBULIN (test code = 2240) 2.9 G/DL CALC A/G RATIO (test code = 2234) 1.4 RATIO BILIRUBIN, TOTAL (test code = 2207) 0.2 MG/DL ALKALINE PHOSPHATASE (test code = 2204) 60 U/L AST (test code = 2218) 13 U/L ALT (test code = 2219) 17 U/L COMPREHENSIVE METABOLIC [id number] 00:00:00* Test Item Value Reference Range Interpretation Comme nts GLUCOSE (test code = 2217) 324 MG/DL BUN (test code = 2208) 6 MG/DL CREATININE (test code = 2214) 0.58 MG/DL eGFR AMER. (test cod e = 17974) 128 ML/MIN/1.73 eGFR NON- AMER. (test code = 21680) 111 ML/MIN/1.73 CALC BUN/CREAT (test code = 2235) 10 RATIO SODIUM (test code = 2231) 137 MEQ/L POTASSIUM (test code = 2228) 4.3 MEQ/L CHLORIDE (test code = 2215) 97 MEQ/L CARBON DIOXIDE (test code = 2206) 25 MEQ/L CALCIUM (test code = 2209) 9.3 MG/DL PROTEIN, TOTAL (test code = 2229) 7.1 G/DL ALBUMIN (test code = 2201) 4.2 G/DL CALC GLOBULIN (test code = 2240) 2.9 G/DL CALC A/G RATIO (test code = 2234) 1.4 RATIO BILIRUBIN, TOTAL (test code = 2207) 0.2 MG/DL ALKALINE PHOSPHATASE (test code = 2204) 60 U/L AST (test code = 2218) 13 U/L ALT (test code = 2219) 17 U/L LIPID [id number] 00:00:00* Test Item Value Reference Range Interpretation Comme nts CHOLESTEROL (test code = 2210) 277 MG/DL TRIGLYCERIDES (test code = 2232) 303 MG/DL HDL CHOLESTEROL (test code = 2220) 56 MG/DL CALC LDL CHOL (test code = 2237) 160 MG/DL RISK RATIO LDL/HDL (test cod e = 2238) 2.86 RATIO LIPID [id number] 00:00:00* Test Item Value Reference Range Interpretation Comme nts CHOLESTEROL (test code = 2210) 277 MG/DL TRIGLYCERIDES (test code = 2232) 303 MG/DL HDL CHOLESTEROL (test code = 2220) 56 MG/DL CALC LDL CHOL (test code = 2237) 160 MG/DL RISK RATIO LDL/HDL (test cod e = 2238) 2.86 RATIO HEMOGLOBIN [id number] 00:00:00* Test Item Value Reference Range Interpretation Comme nts HEMOGLOBIN A1c (test code = 90078) 10.5 % HEMOGLOBIN [id number] 00:00:00* Test Item Value Reference Range Interpretation Comme nts HEMOGLOBIN A1c (test code = 96777) 10.5 % HEMOGLOBIN [id number] 00:00:00* Test Item Value Reference Range Interpretation Comme nts HEMOGLOBIN A1c (test code = 37698) 10.5 % COMPREHENSIVE METABOLIC [id number] 00:00:00* Test Item Value Reference Range Interpretation Comme nts GLUCOSE (test code = 2217) 324 MG/DL BUN (test code = 2208) 6 MG/DL CREATININE (test code = 2214) 0.58 MG/DL eGFR AMER. (test cod e = 40856) 128 ML/MIN/1.73 eGFR NON- AMER. (test code = 00053) 111 ML/MIN/1.73 CALC BUN/CREAT (test code = 2235) 10 RATIO SODIUM (test code = 2231) 137 MEQ/L POTASSIUM (test code = 2228) 4.3 MEQ/L CHLORIDE (test code = 2215) 97 MEQ/L CARBON DIOXIDE (test code = 2206) 25 MEQ/L CALCIUM (test code = 2209) 9.3 MG/DL PROTEIN, TOTAL (test code = 2229) 7.1 G/DL ALBUMIN (test code = 2201) 4.2 G/DL CALC GLOBULIN (test code = 2240) 2.9 G/DL CALC A/G RATIO (test code = 2234) 1.4 RATIO BILIRUBIN, TOTAL (test code = 2207) 0.2 MG/DL ALKALINE PHOSPHATASE (test code = 2204) 60 U/L AST (test code = 2218) 13 U/L ALT (test code = 2219) 17 U/L COMPREHENSIVE METABOLIC [id number] 00:00:00* Test Item Value Reference Range Interpretation Comme nts GLUCOSE (test code = 2217) 324 MG/DL BUN (test code = 2208) 6 MG/DL CREATININE (test code = 2214) 0.58 MG/DL eGFR AMER. (test cod e = 26909) 128 ML/MIN/1.73 eGFR NON- AMER. (test code = 45552) 111 ML/MIN/1.73 CALC BUN/CREAT (test code = 2235) 10 RATIO SODIUM (test code = 2231) 137 MEQ/L POTASSIUM (test code = 2228) 4.3 MEQ/L CHLORIDE (test code = 2215) 97 MEQ/L CARBON DIOXIDE (test code = 2206) 25 MEQ/L CALCIUM (test code = 2209) 9.3 MG/DL PROTEIN, TOTAL (test code = 2229) 7.1 G/DL ALBUMIN (test code = 2201) 4.2 G/DL CALC GLOBULIN (test code = 2240) 2.9 G/DL CALC A/G RATIO (test code = 2234) 1.4 RATIO BILIRUBIN, TOTAL (test code = 2207) 0.2 MG/DL ALKALINE PHOSPHATASE (test code = 2204) 60 U/L AST (test code = 2218) 13 U/L ALT (test code = 2219) 17 U/L LIPID [id number] 00:00:00* Test Item Value Reference Range Interpretation Comme nts CHOLESTEROL (test code = 2210) 277 MG/DL TRIGLYCERIDES (test code = 2232) 303 MG/DL HDL CHOLESTEROL (test code = 2220) 56 MG/DL CALC LDL CHOL (test code = 2237) 160 MG/DL RISK RATIO LDL/HDL (test cod e = 2238) 2.86 RATIO LIPID [id number] 00:00:00* Test Item Value Reference Range Interpretation Comme nts CHOLESTEROL (test code = 2210) 277 MG/DL TRIGLYCERIDES (test code = 2232) 303 MG/DL HDL CHOLESTEROL (test code = 2220) 56 MG/DL CALC LDL CHOL (test code = 2237) 160 MG/DL RISK RATIO LDL/HDL (test cod e = 2238) 2.86 RATIO HEMOGLOBIN [id number] 00:00:00* Test Item Value Reference Range Interpretation Comme nts HEMOGLOBIN A1c (test code = 93862) 10.5 % HEMOGLOBIN [id number] 00:00:00* Test Item Value Reference Range Interpretation Comme nts HEMOGLOBIN A1c (test code = 33661) 10.5 % HEMOGLOBIN [id number] 00:00:00* Test Item Value Reference Range Interpretation Comme nts HEMOGLOBIN A1c (test code = 63749) 10.5 % COMPREHENSIVE METABOLIC [id number] 00:00:00* Test Item Value Reference Range Interpretation Comme nts GLUCOSE (test code = 2217) 324 MG/DL BUN (test code = 2208) 6 MG/DL CREATININE (test code = 2214) 0.58 MG/DL eGFR AMER. (test cod e = 19841) 128 ML/MIN/1.73 eGFR NON- AMER. (test code = 14875) 111 ML/MIN/1.73 CALC BUN/CREAT (test code = 2235) 10 RATIO SODIUM (test code = 2231) 137 MEQ/L POTASSIUM (test code = 2228) 4.3 MEQ/L CHLORIDE (test code = 2215) 97 MEQ/L CARBON DIOXIDE (test code = 2206) 25 MEQ/L CALCIUM (test code = 2209) 9.3 MG/DL PROTEIN, TOTAL (test code = 2229) 7.1 G/DL ALBUMIN (test code = 2201) 4.2 G/DL CALC GLOBULIN (test code = 2240) 2.9 G/DL CALC A/G RATIO (test code = 2234) 1.4 RATIO BILIRUBIN, TOTAL (test code = 2207) 0.2 MG/DL ALKALINE PHOSPHATASE (test code = 2204) 60 U/L AST (test code = 2218) 13 U/L ALT (test code = 2219) 17 U/L COMPREHENSIVE METABOLIC [id number] 00:00:00* Test Item Value Reference Range Interpretation Comme nts GLUCOSE (test code = 2217) 324 MG/DL BUN (test code = 2208) 6 MG/DL CREATININE (test code = 2214) 0.58 MG/DL eGFR AMER. (test cod e = 95730) 128 ML/MIN/1.73 eGFR NON- AMER. (test code = 10831) 111 ML/MIN/1.73 CALC BUN/CREAT (test code = 2235) 10 RATIO SODIUM (test code = 2231) 137 MEQ/L POTASSIUM (test code = 2228) 4.3 MEQ/L CHLORIDE (test code = 2215) 97 MEQ/L CARBON DIOXIDE (test code = 2206) 25 MEQ/L CALCIUM (test code = 2209) 9.3 MG/DL PROTEIN, TOTAL (test code = 2229) 7.1 G/DL ALBUMIN (test code = 2201) 4.2 G/DL CALC GLOBULIN (test code = 2240) 2.9 G/DL CALC A/G RATIO (test code = 2234) 1.4 RATIO BILIRUBIN, TOTAL (test code = 2207) 0.2 MG/DL ALKALINE PHOSPHATASE (test code = 2204) 60 U/L AST (test code = 2218) 13 U/L ALT (test code = 2219) 17 U/L LIPID [id number] 00:00:00* Test Item Value Reference Range Interpretation Comme nts CHOLESTEROL (test code = 2210) 277 MG/DL TRIGLYCERIDES (test code = 2232) 303 MG/DL HDL CHOLESTEROL (test code = 2220) 56 MG/DL CALC LDL CHOL (test code = 2237) 160 MG/DL RISK RATIO LDL/HDL (test cod e = 2238) 2.86 RATIO LIPID [id number] 00:00:00* Test Item Value Reference Range Interpretation Comme nts CHOLESTEROL (test code = 2210) 277 MG/DL TRIGLYCERIDES (test code = 2232) 303 MG/DL HDL CHOLESTEROL (test code = 2220) 56 MG/DL CALC LDL CHOL (test code = 2237) 160 MG/DL RISK RATIO LDL/HDL (test cod e = 2238) 2.86 RATIO HEMOGLOBIN [id number] 00:00:00* Test Item Value Reference Range Interpretation Comme nts HEMOGLOBIN A1c (test code = 39042) 10.5 % HEMOGLOBIN [id number] 00:00:00* Test Item Value Reference Range Interpretation Comme nts HEMOGLOBIN A1c (test code = 35024) 10.5 % HEMOGLOBIN [id number] 00:00:00* Test Item Value Reference Range Interpretation Comme nts HEMOGLOBIN A1c (test code = 93293) 10.5 % LIPID [id number] 00:00:00* Test Item Value Reference Range Interpretation Comme nts CHOLESTEROL (test code = 2210) 270 MG/DL TRIGLYCERIDES (test code = 2232) 175 MG/DL HDL CHOLESTEROL (test code = 2220) 55 MG/DL CALC LDL CHOL (test code = 2237) 180 MG/DL RISK RATIO LDL/HDL (test cod e = 2238) 3.27 RATIO Mikey DavilaCBC W/AUTO [id number] 00:00:00* Test Item Value Reference Range Interpretation Comme nts WBC (test code = 1001) 5.6 K/UL RBC (test code = 1002) 4.78 M/UL HEMOGLOBIN (test code = 1003) 13.7 G/DL HEMATOCRIT (test code = 1004) 40.9 % MCV (test code = 1005) 85.6 fL MCH (test code = 1006) 28.7 PG MCHC (test code = 1007) 33.5 G/DL RDW (test code = 1038) 15.0 % NEUTROPHILS (test code = 1008) 49.5 % LYMPHOCYTES (test code = 1010) 37.2 % MONOCYTES (test code = 1011) 11.9 % EOSINOPHILS (test code = 1012) 0.9 % BASOPHILS (test code = 1013) 0.5 % PLATELET COUNT (test code = 1015) 273 K/UL Mikey DavilaHEMOGLOBIN [id number] 00:00:00* Test Item Value Reference Range Interpretation Comme nts HEMOGLOBIN A1c (test code = 47823) 9.5 % Mikey DavilaTHYROID II PROFILE (T3U, T4, T7, TSH)[id number] 00:00:00* Test Item Value Reference Range Interpretation Comme nts T3 UPTAKE (test code = 2817) 29.2 % T4 (THYROXINE) (test code = 2819) 7.3 UG/DL CALCULATED T7 (FTI) (test co de = 2820) 2.13 TSH (test code = 2821) 1.4 UIU/ML Mikey DavilaCOMPREHENSIVE METABOLIC [id number] 00:00:00* Test Item Value Reference Range Interpretation Comme nts GLUCOSE (test code = 2217) 266 MG/DL BUN (test code = 2208) 7 MG/DL CREATININE (test code = 2214) 0.46 MG/DL eGFR AMER. (test cod e = 54587) 139 ML/MIN/1.73 eGFR NON- AMER. (test code = 25684) 120 ML/MIN/1.73 CALC BUN/CREAT (test code = 2235) 15 RATIO SODIUM (test code = 2231) 138 MEQ/L POTASSIUM (test code = 2228) 4.6 MEQ/L CHLORIDE (test code = 2215) 100 MEQ/L CARBON DIOXIDE (test code = 2206) 25 MEQ/L CALCIUM (test code = 2209) 9.1 MG/DL PROTEIN, TOTAL (test code = 2229) 6.9 G/DL ALBUMIN (test code = 2201) 3.8 G/DL CALC GLOBULIN (test code = 2240) 3.1 G/DL CALC A/G RATIO (test code = 2234) 1.2 RATIO BILIRUBIN, TOTAL (test code = 2207) 0.4 MG/DL ALKALINE PHOSPHATASE (test code = 2204) 56 U/L AST (test code = 2218) 12 U/L ALT (test code = 2219) 9 U/L Mikey DavilaCOMPREHENSIVE METABOLIC [id number] 00:00:00* Test Item Value Reference Range Interpretation Comme nts GLUCOSE (test code = 2217) 266 MG/DL BUN (test code = 2208) 7 MG/DL CREATININE (test code = 2214) 0.46 MG/DL eGFR AMER. (test cod e = 72067) 139 ML/MIN/1.73 eGFR NON- AMER. (test code = 52189) 120 ML/MIN/1.73 CALC BUN/CREAT (test code = 2235) 15 RATIO SODIUM (test code = 2231) 138 MEQ/L POTASSIUM (test code = 2228) 4.6 MEQ/L CHLORIDE (test code = 2215) 100 MEQ/L CARBON DIOXIDE (test code = 2206) 25 MEQ/L CALCIUM (test code = 2209) 9.1 MG/DL PROTEIN, TOTAL (test code = 2229) 6.9 G/DL ALBUMIN (test code = 2201) 3.8 G/DL CALC GLOBULIN (test code = 2240) 3.1 G/DL CALC A/G RATIO (test code = 2234) 1.2 RATIO BILIRUBIN, TOTAL (test code = 2207) 0.4 MG/DL ALKALINE PHOSPHATASE (test code = 2204) 56 U/L AST (test code = 2218) 12 U/L ALT (test code = 2219) 9 U/L COMPREHENSIVE METABOLIC [id number] 00:00:00* Test Item Value Reference Range Interpretation Comme nts GLUCOSE (test code = 2217) 266 MG/DL BUN (test code = 2208) 7 MG/DL CREATININE (test code = 2214) 0.46 MG/DL eGFR AMER. (test cod e = 96704) 139 ML/MIN/1.73 eGFR NON- AMER. (test code = 79822) 120 ML/MIN/1.73 CALC BUN/CREAT (test code = 2235) 15 RATIO SODIUM (test code = 2231) 138 MEQ/L POTASSIUM (test code = 2228) 4.6 MEQ/L CHLORIDE (test code = 2215) 100 MEQ/L CARBON DIOXIDE (test code = 2206) 25 MEQ/L CALCIUM (test code = 2209) 9.1 MG/DL PROTEIN, TOTAL (test code = 2229) 6.9 G/DL ALBUMIN (test code = 2201) 3.8 G/DL CALC GLOBULIN (test code = 2240) 3.1 G/DL CALC A/G RATIO (test code = 2234) 1.2 RATIO BILIRUBIN, TOTAL (test code = 2207) 0.4 MG/DL ALKALINE PHOSPHATASE (test code = 2204) 56 U/L AST (test code = 2218) 12 U/L ALT (test code = 2219) 9 U/L LIPID [id number] 00:00:00* Test Item Value Reference Range Interpretation Comme nts CHOLESTEROL (test code = 2210) 270 MG/DL TRIGLYCERIDES (test code = 2232) 175 MG/DL HDL CHOLESTEROL (test code = 2220) 55 MG/DL CALC LDL CHOL (test code = 2237) 180 MG/DL RISK RATIO LDL/HDL (test cod e = 2238) 3.27 RATIO LIPID [id number] 00:00:00* Test Item Value Reference Range Interpretation Comme nts CHOLESTEROL (test code = 2210) 270 MG/DL TRIGLYCERIDES (test code = 2232) 175 MG/DL HDL CHOLESTEROL (test code = 2220) 55 MG/DL CALC LDL CHOL (test code = 2237) 180 MG/DL RISK RATIO LDL/HDL (test cod e = 2238) 3.27 RATIO CBC W/AUTO [id number] 00:00:00* Test Item Value Reference Range Interpretation Comme nts WBC (test code = 1001) 5.6 K/UL RBC (test code = 1002) 4.78 M/UL HEMOGLOBIN (test code = 1003) 13.7 G/DL HEMATOCRIT (test code = 1004) 40.9 % MCV (test code = 1005) 85.6 fL MCH (test code = 1006) 28.7 PG MCHC (test code = 1007) 33.5 G/DL RDW (test code = 1038) 15.0 % NEUTROPHILS (test code = 1008) 49.5 % LYMPHOCYTES (test code = 1010) 37.2 % MONOCYTES (test code = 1011) 11.9 % EOSINOPHILS (test code = 1012) 0.9 % BASOPHILS (test code = 1013) 0.5 % PLATELET COUNT (test code = 1015) 273 K/UL CBC W/AUTO [id number] 00:00:00* Test Item Value Reference Range Interpretation Comme nts WBC (test code = 1001) 5.6 K/UL RBC (test code = 1002) 4.78 M/UL HEMOGLOBIN (test code = 1003) 13.7 G/DL HEMATOCRIT (test code = 1004) 40.9 % MCV (test code = 1005) 85.6 fL MCH (test code = 1006) 28.7 PG MCHC (test code = 1007) 33.5 G/DL RDW (test code = 1038) 15.0 % NEUTROPHILS (test code = 1008) 49.5 % LYMPHOCYTES (test code = 1010) 37.2 % MONOCYTES (test code = 1011) 11.9 % EOSINOPHILS (test code = 1012) 0.9 % BASOPHILS (test code = 1013) 0.5 % PLATELET COUNT (test code = 1015) 273 K/UL CBC W/AUTO [id number] 00:00:00* Test Item Value Reference Range Interpretation Comme nts WBC (test code = 1001) 5.6 K/UL RBC (test code = 1002) 4.78 M/UL HEMOGLOBIN (test code = 1003) 13.7 G/DL HEMATOCRIT (test code = 1004) 40.9 % MCV (test code = 1005) 85.6 fL MCH (test code = 1006) 28.7 PG MCHC (test code = 1007) 33.5 G/DL RDW (test code = 1038) 15.0 % NEUTROPHILS (test code = 1008) 49.5 % LYMPHOCYTES (test code = 1010) 37.2 % MONOCYTES (test code = 1011) 11.9 % EOSINOPHILS (test code = 1012) 0.9 % BASOPHILS (test code = 1013) 0.5 % PLATELET COUNT (test code = 1015) 273 K/UL HEMOGLOBIN [id number] 00:00:00* Test Item Value Reference Range Interpretation Comme nts HEMOGLOBIN A1c (test code = 83196) 9.5 % HEMOGLOBIN [id number] 00:00:00* Test Item Value Reference Range Interpretation Comme nts HEMOGLOBIN A1c (test code = 59494) 9.5 % HEMOGLOBIN [id number] 00:00:00* Test Item Value Reference Range Interpretation Comme nts HEMOGLOBIN A1c (test code = 35181) 9.5 % THYROID II PROFILE (T3U, T4, T7, TSH)[id number] 00:00:00* Test Item Value Reference Range Interpretation Comme nts T3 UPTAKE (test code = 2817) 29.2 % T4 (THYROXINE) (test code = 2819) 7.3 UG/DL CALCULATED T7 (FTI) (test co de = 2820) 2.13 TSH (test code = 2821) 1.4 UIU/ML THYROID II PROFILE (T3U, T4, T7, TSH)2016-06-04 00:00:00* Test Item Value Reference Range Interpretation Comme nts T3 UPTAKE (test code = 2817) 29.2 % T4 (THYROXINE) (test code = 2819) 7.3 UG/DL CALCULATED T7 (FTI) (test co de = 2820) 2.13 TSH (test code = 2821) 1.4 UIU/ML COMPREHENSIVE METABOLIC [id number] 00:00:00* Test Item Value Reference Range Interpretation Comme nts GLUCOSE (test code = 2217) 266 MG/DL BUN (test code = 2208) 7 MG/DL CREATININE (test code = 2214) 0.46 MG/DL eGFR AMER. (test cod e = 78265) 139 ML/MIN/1.73 eGFR NON- AMER. (test code = 44510) 120 ML/MIN/1.73 CALC BUN/CREAT (test code = 2235) 15 RATIO SODIUM (test code = 2231) 138 MEQ/L POTASSIUM (test code = 2228) 4.6 MEQ/L CHLORIDE (test code = 2215) 100 MEQ/L CARBON DIOXIDE (test code = 2206) 25 MEQ/L CALCIUM (test code = 2209) 9.1 MG/DL PROTEIN, TOTAL (test code = 2229) 6.9 G/DL ALBUMIN (test code = 2201) 3.8 G/DL CALC GLOBULIN (test code = 2240) 3.1 G/DL CALC A/G RATIO (test code = 2234) 1.2 RATIO BILIRUBIN, TOTAL (test code = 2207) 0.4 MG/DL ALKALINE PHOSPHATASE (test code = 2204) 56 U/L AST (test code = 2218) 12 U/L ALT (test code = 2219) 9 U/L COMPREHENSIVE METABOLIC [id number] 00:00:00* Test Item Value Reference Range Interpretation Comme nts GLUCOSE (test code = 2217) 266 MG/DL BUN (test code = 2208) 7 MG/DL CREATININE (test code = 2214) 0.46 MG/DL eGFR AMER. (test cod e = 90906) 139 ML/MIN/1.73 eGFR NON- AMER. (test code = 08277) 120 ML/MIN/1.73 CALC BUN/CREAT (test code = 2235) 15 RATIO SODIUM (test code = 2231) 138 MEQ/L POTASSIUM (test code = 2228) 4.6 MEQ/L CHLORIDE (test code = 2215) 100 MEQ/L CARBON DIOXIDE (test code = 2206) 25 MEQ/L CALCIUM (test code = 2209) 9.1 MG/DL PROTEIN, TOTAL (test code = 2229) 6.9 G/DL ALBUMIN (test code = 2201) 3.8 G/DL CALC GLOBULIN (test code = 2240) 3.1 G/DL CALC A/G RATIO (test code = 2234) 1.2 RATIO BILIRUBIN, TOTAL (test code = 2207) 0.4 MG/DL ALKALINE PHOSPHATASE (test code = 2204) 56 U/L AST (test code = 2218) 12 U/L ALT (test code = 2219) 9 U/L LIPID [id number] 00:00:00* Test Item Value Reference Range Interpretation Comme nts CHOLESTEROL (test code = 2210) 270 MG/DL TRIGLYCERIDES (test code = 2232) 175 MG/DL HDL CHOLESTEROL (test code = 2220) 55 MG/DL CALC LDL CHOL (test code = 2237) 180 MG/DL RISK RATIO LDL/HDL (test cod e = 2238) 3.27 RATIO LIPID [id number] 00:00:00* Test Item Value Reference Range Interpretation Comme nts CHOLESTEROL (test code = 2210) 270 MG/DL TRIGLYCERIDES (test code = 2232) 175 MG/DL HDL CHOLESTEROL (test code = 2220) 55 MG/DL CALC LDL CHOL (test code = 2237) 180 MG/DL RISK RATIO LDL/HDL (test cod e = 2238) 3.27 RATIO CBC W/AUTO [id number] 00:00:00* Test Item Value Reference Range Interpretation Comme nts WBC (test code = 1001) 5.6 K/UL RBC (test code = 1002) 4.78 M/UL HEMOGLOBIN (test code = 1003) 13.7 G/DL HEMATOCRIT (test code = 1004) 40.9 % MCV (test code = 1005) 85.6 fL MCH (test code = 1006) 28.7 PG MCHC (test code = 1007) 33.5 G/DL RDW (test code = 1038) 15.0 % NEUTROPHILS (test code = 1008) 49.5 % LYMPHOCYTES (test code = 1010) 37.2 % MONOCYTES (test code = 1011) 11.9 % EOSINOPHILS (test code = 1012) 0.9 % BASOPHILS (test code = 1013) 0.5 % PLATELET COUNT (test code = 1015) 273 K/UL CBC W/AUTO [id number] 00:00:00* Test Item Value Reference Range Interpretation Comme nts WBC (test code = 1001) 5.6 K/UL RBC (test code = 1002) 4.78 M/UL HEMOGLOBIN (test code = 1003) 13.7 G/DL HEMATOCRIT (test code = 1004) 40.9 % MCV (test code = 1005) 85.6 fL MCH (test code = 1006) 28.7 PG MCHC (test code = 1007) 33.5 G/DL RDW (test code = 1038) 15.0 % NEUTROPHILS (test code = 1008) 49.5 % LYMPHOCYTES (test code = 1010) 37.2 % MONOCYTES (test code = 1011) 11.9 % EOSINOPHILS (test code = 1012) 0.9 % BASOPHILS (test code = 1013) 0.5 % PLATELET COUNT (test code = 1015) 273 K/UL CBC W/AUTO [id number] 00:00:00* Test Item Value Reference Range Interpretation Comme nts WBC (test code = 1001) 5.6 K/UL RBC (test code = 1002) 4.78 M/UL HEMOGLOBIN (test code = 1003) 13.7 G/DL HEMATOCRIT (test code = 1004) 40.9 % MCV (test code = 1005) 85.6 fL MCH (test code = 1006) 28.7 PG MCHC (test code = 1007) 33.5 G/DL RDW (test code = 1038) 15.0 % NEUTROPHILS (test code = 1008) 49.5 % LYMPHOCYTES (test code = 1010) 37.2 % MONOCYTES (test code = 1011) 11.9 % EOSINOPHILS (test code = 1012) 0.9 % BASOPHILS (test code = 1013) 0.5 % PLATELET COUNT (test code = 1015) 273 K/UL HEMOGLOBIN [id number] 00:00:00* Test Item Value Reference Range Interpretation Comme nts HEMOGLOBIN A1c (test code = 00362) 9.5 % HEMOGLOBIN [id number] 00:00:00* Test Item Value Reference Range Interpretation Comme nts HEMOGLOBIN A1c (test code = 89585) 9.5 % HEMOGLOBIN [id number] 00:00:00* Test Item Value Reference Range Interpretation Comme nts HEMOGLOBIN A1c (test code = 80988) 9.5 % THYROID II PROFILE (T3U, T4, T7, TSH)[id number] 00:00:00* Test Item Value Reference Range Interpretation Comme nts T3 UPTAKE (test code = 2817) 29.2 % T4 (THYROXINE) (test code = 2819) 7.3 UG/DL CALCULATED T7 (FTI) (test co de = 2820) 2.13 TSH (test code = 2821) 1.4 UIU/ML THYROID II PROFILE (T3U, T4, T7, TSH)2016-06-04 00:00:00* Test Item Value Reference Range Interpretation Comme nts T3 UPTAKE (test code = 2817) 29.2 % T4 (THYROXINE) (test code = 2819) 7.3 UG/DL CALCULATED T7 (FTI) (test co de = 2820) 2.13 TSH (test code = 2821) 1.4 UIU/ML COMPREHENSIVE METABOLIC [id number] 00:00:00* Test Item Value Reference Range Interpretation Comme nts GLUCOSE (test code = 2217) 266 MG/DL BUN (test code = 2208) 7 MG/DL CREATININE (test code = 2214) 0.46 MG/DL eGFR AMER. (test cod e = 35137) 139 ML/MIN/1.73 eGFR NON- AMER. (test code = 43972) 120 ML/MIN/1.73 CALC BUN/CREAT (test code = 2235) 15 RATIO SODIUM (test code = 2231) 138 MEQ/L POTASSIUM (test code = 2228) 4.6 MEQ/L CHLORIDE (test code = 2215) 100 MEQ/L CARBON DIOXIDE (test code = 2206) 25 MEQ/L CALCIUM (test code = 2209) 9.1 MG/DL PROTEIN, TOTAL (test code = 2229) 6.9 G/DL ALBUMIN (test code = 2201) 3.8 G/DL CALC GLOBULIN (test code = 2240) 3.1 G/DL CALC A/G RATIO (test code = 2234) 1.2 RATIO BILIRUBIN, TOTAL (test code = 2207) 0.4 MG/DL ALKALINE PHOSPHATASE (test code = 2204) 56 U/L AST (test code = 2218) 12 U/L ALT (test code = 2219) 9 U/L COMPREHENSIVE METABOLIC [id number] 00:00:00* Test Item Value Reference Range Interpretation Comme nts GLUCOSE (test code = 2217) 266 MG/DL BUN (test code = 2208) 7 MG/DL CREATININE (test code = 2214) 0.46 MG/DL eGFR AMER. (test cod e = 97238) 139 ML/MIN/1.73 eGFR NON- AMER. (test code = 60000) 120 ML/MIN/1.73 CALC BUN/CREAT (test code = 2235) 15 RATIO SODIUM (test code = 2231) 138 MEQ/L POTASSIUM (test code = 2228) 4.6 MEQ/L CHLORIDE (test code = 2215) 100 MEQ/L CARBON DIOXIDE (test code = 2206) 25 MEQ/L CALCIUM (test code = 2209) 9.1 MG/DL PROTEIN, TOTAL (test code = 2229) 6.9 G/DL ALBUMIN (test code = 2201) 3.8 G/DL CALC GLOBULIN (test code = 2240) 3.1 G/DL CALC A/G RATIO (test code = 2234) 1.2 RATIO BILIRUBIN, TOTAL (test code = 2207) 0.4 MG/DL ALKALINE PHOSPHATASE (test code = 2204) 56 U/L AST (test code = 2218) 12 U/L ALT (test code = 2219) 9 U/L LIPID [id number] 00:00:00* Test Item Value Reference Range Interpretation Comme nts CHOLESTEROL (test code = 2210) 270 MG/DL TRIGLYCERIDES (test code = 2232) 175 MG/DL HDL CHOLESTEROL (test code = 2220) 55 MG/DL CALC LDL CHOL (test code = 2237) 180 MG/DL RISK RATIO LDL/HDL (test cod e = 2238) 3.27 RATIO LIPID [id number] 00:00:00* Test Item Value Reference Range Interpretation Comme nts CHOLESTEROL (test code = 2210) 270 MG/DL TRIGLYCERIDES (test code = 2232) 175 MG/DL HDL CHOLESTEROL (test code = 2220) 55 MG/DL CALC LDL CHOL (test code = 2237) 180 MG/DL RISK RATIO LDL/HDL (test cod e = 2238) 3.27 RATIO CBC W/AUTO [id number] 00:00:00* Test Item Value Reference Range Interpretation Comme nts WBC (test code = 1001) 5.6 K/UL RBC (test code = 1002) 4.78 M/UL HEMOGLOBIN (test code = 1003) 13.7 G/DL HEMATOCRIT (test code = 1004) 40.9 % MCV (test code = 1005) 85.6 fL MCH (test code = 1006) 28.7 PG MCHC (test code = 1007) 33.5 G/DL RDW (test code = 1038) 15.0 % NEUTROPHILS (test code = 1008) 49.5 % LYMPHOCYTES (test code = 1010) 37.2 % MONOCYTES (test code = 1011) 11.9 % EOSINOPHILS (test code = 1012) 0.9 % BASOPHILS (test code = 1013) 0.5 % PLATELET COUNT (test code = 1015) 273 K/UL CBC W/AUTO [id number] 00:00:00* Test Item Value Reference Range Interpretation Comme nts WBC (test code = 1001) 5.6 K/UL RBC (test code = 1002) 4.78 M/UL HEMOGLOBIN (test code = 1003) 13.7 G/DL HEMATOCRIT (test code = 1004) 40.9 % MCV (test code = 1005) 85.6 fL MCH (test code = 1006) 28.7 PG MCHC (test code = 1007) 33.5 G/DL RDW (test code = 1038) 15.0 % NEUTROPHILS (test code = 1008) 49.5 % LYMPHOCYTES (test code = 1010) 37.2 % MONOCYTES (test code = 1011) 11.9 % EOSINOPHILS (test code = 1012) 0.9 % BASOPHILS (test code = 1013) 0.5 % PLATELET COUNT (test code = 1015) 273 K/UL CBC W/AUTO [id number] 00:00:00* Test Item Value Reference Range Interpretation Comme nts WBC (test code = 1001) 5.6 K/UL RBC (test code = 1002) 4.78 M/UL HEMOGLOBIN (test code = 1003) 13.7 G/DL HEMATOCRIT (test code = 1004) 40.9 % MCV (test code = 1005) 85.6 fL MCH (test code = 1006) 28.7 PG MCHC (test code = 1007) 33.5 G/DL RDW (test code = 1038) 15.0 % NEUTROPHILS (test code = 1008) 49.5 % LYMPHOCYTES (test code = 1010) 37.2 % MONOCYTES (test code = 1011) 11.9 % EOSINOPHILS (test code = 1012) 0.9 % BASOPHILS (test code = 1013) 0.5 % PLATELET COUNT (test code = 1015) 273 K/UL HEMOGLOBIN [id number] 00:00:00* Test Item Value Reference Range Interpretation Comme nts HEMOGLOBIN A1c (test code = 44106) 9.5 % HEMOGLOBIN [id number] 00:00:00* Test Item Value Reference Range Interpretation Comme nts HEMOGLOBIN A1c (test code = 85766) 9.5 % HEMOGLOBIN [id number] 00:00:00* Test Item Value Reference Range Interpretation Comme nts HEMOGLOBIN A1c (test code = 95548) 9.5 % THYROID II PROFILE (T3U, T4, T7, TSH)[id number] 00:00:00* Test Item Value Reference Range Interpretation Comme nts T3 UPTAKE (test code = 2817) 29.2 % T4 (THYROXINE) (test code = 2819) 7.3 UG/DL CALCULATED T7 (FTI) (test co de = 2820) 2.13 TSH (test code = 2821) 1.4 UIU/ML THYROID II PROFILE (T3U, T4, T7, TSH)[id number] 00:00:00* Test Item Value Reference Range Interpretation Comme nts T3 UPTAKE (test code = 2817) 29.2 % T4 (THYROXINE) (test code = 2819) 7.3 UG/DL CALCULATED T7 (FTI) (test co de = 2820) 2.13 TSH (test code = 2821) 1.4 UIU/ML LIPID [id number] 00:00:00* Test Item Value Reference Range Interpretation Comme nts CHOLESTEROL (test code = 2210) 276 MG/DL TRIGLYCERIDES (test code = 2232) 199 MG/DL HDL CHOLESTEROL (test code = 2220) 55 MG/DL CALCULATED LDL CHOL (test co de = 2237) 181 MG/DL RISK RATIO LDL/HDL (test cod e = 2238) 3.29 RATIO Mikeyhola DavilaCBC W/AUTO [id number] 00:00:00* Test Item Value Reference Range Interpretation Comme nts WBC (test code = 1001) 7.8 K/UL RBC (test code = 1002) 5.03 M/UL HEMOGLOBIN (test code = 1003) 14.7 G/DL HEMATOCRIT (test code = 1004) 42.6 % MCV (test code = 1005) 84.7 fL MCH (test code = 1006) 29.2 PG MCHC (test code = 1007) 34.5 G/DL RDW (test code = 1038) 15.4 % NEUTROPHILS (test code = 1008) 57 % LYMPHOCYTES (test code = 1010) 30 % MONOCYTES (test code = 1011) 12 % EOSINOPHILS (test code = 1012) 1 % PLATELET COUNT (test code = 1015) 316 K/UL Mikey DavilaHEMOGLOBIN [id number] 00:00:00* Test Item Value Reference Range Interpretation Comme jacquie HEMOGLOBIN A1c (test code = 39634) 11.3 % Mikey [id number] 00:00:00* Test Item Value Reference Range Interpretation Comme jacquie TSH (test code = 2821) 1.2 UIU/ML Mikey DavilaCOMPREHENSIVE METABOLIC [id number] 00:00:00* Test Item Value Reference Range Interpretation Comme nts GLUCOSE (test code = 2217) 305 MG/DL BUN (test code = 2208) 8 MG/DL CREATININE (test code = 2214) 0.57 MG/DL eGFR AMER. (test cod e = 99978) 131 ML/MIN/1.73 eGFR NON- AMER. (test code = 24558) 113 ML/MIN/1.73 CALCULATED BUN/CREAT (test code = 2235) 14 RATIO SODIUM (test code = 2231) 136 MEQ/L POTASSIUM (test code = 2228) 4.4 MEQ/L CHLORIDE (test code = 2215) 98 MEQ/L CARBON DIOXIDE (test code = 2206) 27 MEQ/L CALCIUM (test code = 2209) 9.9 MG/DL PROTEIN, TOTAL (test code = 2229) 7.8 G/DL ALBUMIN (test code = 2201) 4.2 G/DL CALCULATED GLOBULIN (test code = 2240) 3.6 G/DL CALCULATED A/G RATIO (test code = 2234) 1.2 RATIO BILIRUBIN, TOTAL (test code = 2207) 0.4 MG/DL ALKALINE PHOSPHATASE (test code = 2204) 69 U/L SGOT (AST) (test code = 2218) 12 U/L SGPT (ALT) (test code = 2219) 10 U/L Mikey DavilaCOMPREHENSIVE METABOLIC [id number] 00:00:00* Test Item Value Reference Range Interpretation Comme nts GLUCOSE (test code = 2217) 305 MG/DL BUN (test code = 2208) 8 MG/DL CREATININE (test code = 2214) 0.57 MG/DL eGFR AMER. (test cod e = 08855) 131 ML/MIN/1.73 eGFR NON- AMER. (test code = 07288) 113 ML/MIN/1.73 CALCULATED BUN/CREAT (test code = 2235) 14 RATIO SODIUM (test code = 2231) 136 MEQ/L POTASSIUM (test code = 2228) 4.4 MEQ/L CHLORIDE (test code = 2215) 98 MEQ/L CARBON DIOXIDE (test code = 2206) 27 MEQ/L CALCIUM (test code = 2209) 9.9 MG/DL PROTEIN, TOTAL (test code = 2229) 7.8 G/DL ALBUMIN (test code = 2201) 4.2 G/DL CALCULATED GLOBULIN (test code = 2240) 3.6 G/DL CALCULATED A/G RATIO (test code = 2234) 1.2 RATIO BILIRUBIN, TOTAL (test code = 2207) 0.4 MG/DL ALKALINE PHOSPHATASE (test code = 2204) 69 U/L SGOT (AST) (test code = 2218) 12 U/L SGPT (ALT) (test code = 2219) 10 U/L COMPREHENSIVE METABOLIC [id number] 00:00:00* Test Item Value Reference Range Interpretation Comme nts GLUCOSE (test code = 2217) 305 MG/DL BUN (test code = 2208) 8 MG/DL CREATININE (test code = 2214) 0.57 MG/DL eGFR AMER. (test cod e = 22723) 131 ML/MIN/1.73 eGFR NON- AMER. (test code = 81858) 113 ML/MIN/1.73 CALCULATED BUN/CREAT (test code = 2235) 14 RATIO SODIUM (test code = 2231) 136 MEQ/L POTASSIUM (test code = 2228) 4.4 MEQ/L CHLORIDE (test code = 2215) 98 MEQ/L CARBON DIOXIDE (test code = 2206) 27 MEQ/L CALCIUM (test code = 2209) 9.9 MG/DL PROTEIN, TOTAL (test code = 2229) 7.8 G/DL ALBUMIN (test code = 2201) 4.2 G/DL CALCULATED GLOBULIN (test code = 2240) 3.6 G/DL CALCULATED A/G RATIO (test code = 2234) 1.2 RATIO BILIRUBIN, TOTAL (test code = 2207) 0.4 MG/DL ALKALINE PHOSPHATASE (test code = 2204) 69 U/L SGOT (AST) (test code = 2218) 12 U/L SGPT (ALT) (test code = 2219) 10 U/L LIPID [id number] 00:00:00* Test Item Value Reference Range Interpretation Comme nts CHOLESTEROL (test code = 2210) 276 MG/DL TRIGLYCERIDES (test code = 2232) 199 MG/DL HDL CHOLESTEROL (test code = 2220) 55 MG/DL CALCULATED LDL CHOL (test co de = 2237) 181 MG/DL RISK RATIO LDL/HDL (test cod e = 2238) 3.29 RATIO LIPID [id number] 00:00:00* Test Item Value Reference Range Interpretation Comme nts CHOLESTEROL (test code = 2210) 276 MG/DL TRIGLYCERIDES (test code = 2232) 199 MG/DL HDL CHOLESTEROL (test code = 2220) 55 MG/DL CALCULATED LDL CHOL (test co de = 2237) 181 MG/DL RISK RATIO LDL/HDL (test cod e = 2238) 3.29 RATIO CBC W/AUTO [id number] 00:00:00* Test Item Value Reference Range Interpretation Comme nts WBC (test code = 1001) 7.8 K/UL RBC (test code = 1002) 5.03 M/UL HEMOGLOBIN (test code = 1003) 14.7 G/DL HEMATOCRIT (test code = 1004) 42.6 % MCV (test code = 1005) 84.7 fL MCH (test code = 1006) 29.2 PG MCHC (test code = 1007) 34.5 G/DL RDW (test code = 1038) 15.4 % NEUTROPHILS (test code = 1008) 57 % LYMPHOCYTES (test code = 1010) 30 % MONOCYTES (test code = 1011) 12 % EOSINOPHILS (test code = 1012) 1 % BASOPHILS (test code = 1013) % PLATELET COUNT (test code = 1015) 316 K/UL CBC W/AUTO [id number] 00:00:00* Test Item Value Reference Range Interpretation Comme nts WBC (test code = 1001) 7.8 K/UL RBC (test code = 1002) 5.03 M/UL HEMOGLOBIN (test code = 1003) 14.7 G/DL HEMATOCRIT (test code = 1004) 42.6 % MCV (test code = 1005) 84.7 fL MCH (test code = 1006) 29.2 PG MCHC (test code = 1007) 34.5 G/DL RDW (test code = 1038) 15.4 % NEUTROPHILS (test code = 1008) 57 % LYMPHOCYTES (test code = 1010) 30 % MONOCYTES (test code = 1011) 12 % EOSINOPHILS (test code = 1012) 1 % BASOPHILS (test code = 1013) % PLATELET COUNT (test code = 1015) 316 K/UL CBC W/AUTO [id number] 00:00:00* Test Item Value Reference Range Interpretation Comme nts WBC (test code = 1001) 7.8 K/UL RBC (test code = 1002) 5.03 M/UL HEMOGLOBIN (test code = 1003) 14.7 G/DL HEMATOCRIT (test code = 1004) 42.6 % MCV (test code = 1005) 84.7 fL MCH (test code = 1006) 29.2 PG MCHC (test code = 1007) 34.5 G/DL RDW (test code = 1038) 15.4 % NEUTROPHILS (test code = 1008) 57 % LYMPHOCYTES (test code = 1010) 30 % MONOCYTES (test code = 1011) 12 % EOSINOPHILS (test code = 1012) 1 % BASOPHILS (test code = 1013) % PLATELET COUNT (test code = 1015) 316 K/UL HEMOGLOBIN [id number] 00:00:00* Test Item Value Reference Range Interpretation Comme nts HEMOGLOBIN A1c (test code = 72178) 11.3 % HEMOGLOBIN [id number] 00:00:00* Test Item Value Reference Range Interpretation Comme nts HEMOGLOBIN A1c (test code = 81036) 11.3 % HEMOGLOBIN [id number] 00:00:00* Test Item Value Reference Range Interpretation Comme nts HEMOGLOBIN A1c (test code = 13902) 11.3 % [id number] 00:00:00* Test Item Value Reference Range Interpretation Comme nts TSH (test code = 2821) 1.2 UIU/ML [id number] 00:00:00* Test Item Value Reference Range Interpretation Comme nts TSH (test code = 2821) 1.2 UIU/ML [id number] 00:00:00* Test Item Value Reference Range Interpretation Comme nts TSH (test code = 2821) 1.2 UIU/ML COMPREHENSIVE METABOLIC [id number] 00:00:00* Test Item Value Reference Range Interpretation Comme nts GLUCOSE (test code = 2217) 305 MG/DL BUN (test code = 2208) 8 MG/DL CREATININE (test code = 2214) 0.57 MG/DL eGFR AMER. (test cod e = 98500) 131 ML/MIN/1.73 eGFR NON- AMER. (test code = 91412) 113 ML/MIN/1.73 CALCULATED BUN/CREAT (test code = 2235) 14 RATIO SODIUM (test code = 2231) 136 MEQ/L POTASSIUM (test code = 2228) 4.4 MEQ/L CHLORIDE (test code = 2215) 98 MEQ/L CARBON DIOXIDE (test code = 2206) 27 MEQ/L CALCIUM (test code = 2209) 9.9 MG/DL PROTEIN, TOTAL (test code = 2229) 7.8 G/DL ALBUMIN (test code = 2201) 4.2 G/DL CALCULATED GLOBULIN (test code = 2240) 3.6 G/DL CALCULATED A/G RATIO (test code = 2234) 1.2 RATIO BILIRUBIN, TOTAL (test code = 2207) 0.4 MG/DL ALKALINE PHOSPHATASE (test code = 2204) 69 U/L SGOT (AST) (test code = 2218) 12 U/L SGPT (ALT) (test code = 2219) 10 U/L COMPREHENSIVE METABOLIC [id number] 00:00:00* Test Item Value Reference Range Interpretation Comme nts GLUCOSE (test code = 2217) 305 MG/DL BUN (test code = 2208) 8 MG/DL CREATININE (test code = 2214) 0.57 MG/DL eGFR AMER. (test cod e = 67957) 131 ML/MIN/1.73 eGFR NON- AMER. (test code = 62743) 113 ML/MIN/1.73 CALCULATED BUN/CREAT (test code = 2235) 14 RATIO SODIUM (test code = 2231) 136 MEQ/L POTASSIUM (test code = 2228) 4.4 MEQ/L CHLORIDE (test code = 2215) 98 MEQ/L CARBON DIOXIDE (test code = 2206) 27 MEQ/L CALCIUM (test code = 2209) 9.9 MG/DL PROTEIN, TOTAL (test code = 2229) 7.8 G/DL ALBUMIN (test code = 2201) 4.2 G/DL CALCULATED GLOBULIN (test code = 2240) 3.6 G/DL CALCULATED A/G RATIO (test code = 2234) 1.2 RATIO BILIRUBIN, TOTAL (test code = 2207) 0.4 MG/DL ALKALINE PHOSPHATASE (test code = 2204) 69 U/L SGOT (AST) (test code = 2218) 12 U/L SGPT (ALT) (test code = 2219) 10 U/L LIPID [id number] 00:00:00* Test Item Value Reference Range Interpretation Comme nts CHOLESTEROL (test code = 2210) 276 MG/DL TRIGLYCERIDES (test code = 2232) 199 MG/DL HDL CHOLESTEROL (test code = 2220) 55 MG/DL CALCULATED LDL CHOL (test co de = 2237) 181 MG/DL RISK RATIO LDL/HDL (test cod e = 2238) 3.29 RATIO LIPID [id number] 00:00:00* Test Item Value Reference Range Interpretation Comme nts CHOLESTEROL (test code = 2210) 276 MG/DL TRIGLYCERIDES (test code = 2232) 199 MG/DL HDL CHOLESTEROL (test code = 2220) 55 MG/DL CALCULATED LDL CHOL (test co de = 2237) 181 MG/DL RISK RATIO LDL/HDL (test cod e = 2238) 3.29 RATIO CBC W/AUTO [id number] 00:00:00* Test Item Value Reference Range Interpretation Comme nts WBC (test code = 1001) 7.8 K/UL RBC (test code = 1002) 5.03 M/UL HEMOGLOBIN (test code = 1003) 14.7 G/DL HEMATOCRIT (test code = 1004) 42.6 % MCV (test code = 1005) 84.7 fL MCH (test code = 1006) 29.2 PG MCHC (test code = 1007) 34.5 G/DL RDW (test code = 1038) 15.4 % NEUTROPHILS (test code = 1008) 57 % LYMPHOCYTES (test code = 1010) 30 % MONOCYTES (test code = 1011) 12 % EOSINOPHILS (test code = 1012) 1 % BASOPHILS (test code = 1013) % PLATELET COUNT (test code = 1015) 316 K/UL CBC W/AUTO [id number] 00:00:00* Test Item Value Reference Range Interpretation Comme nts WBC (test code = 1001) 7.8 K/UL RBC (test code = 1002) 5.03 M/UL HEMOGLOBIN (test code = 1003) 14.7 G/DL HEMATOCRIT (test code = 1004) 42.6 % MCV (test code = 1005) 84.7 fL MCH (test code = 1006) 29.2 PG MCHC (test code = 1007) 34.5 G/DL RDW (test code = 1038) 15.4 % NEUTROPHILS (test code = 1008) 57 % LYMPHOCYTES (test code = 1010) 30 % MONOCYTES (test code = 1011) 12 % EOSINOPHILS (test code = 1012) 1 % BASOPHILS (test code = 1013) % PLATELET COUNT (test code = 1015) 316 K/UL CBC W/AUTO [id number] 00:00:00* Test Item Value Reference Range Interpretation Comme nts WBC (test code = 1001) 7.8 K/UL RBC (test code = 1002) 5.03 M/UL HEMOGLOBIN (test code = 1003) 14.7 G/DL HEMATOCRIT (test code = 1004) 42.6 % MCV (test code = 1005) 84.7 fL MCH (test code = 1006) 29.2 PG MCHC (test code = 1007) 34.5 G/DL RDW (test code = 1038) 15.4 % NEUTROPHILS (test code = 1008) 57 % LYMPHOCYTES (test code = 1010) 30 % MONOCYTES (test code = 1011) 12 % EOSINOPHILS (test code = 1012) 1 % BASOPHILS (test code = 1013) % PLATELET COUNT (test code = 1015) 316 K/UL HEMOGLOBIN [id number] 00:00:00* Test Item Value Reference Range Interpretation Comme nts HEMOGLOBIN A1c (test code = 19170) 11.3 % HEMOGLOBIN [id number] 00:00:00* Test Item Value Reference Range Interpretation Comme nts HEMOGLOBIN A1c (test code = 11839) 11.3 % HEMOGLOBIN [id number] 00:00:00* Test Item Value Reference Range Interpretation Comme nts HEMOGLOBIN A1c (test code = 40087) 11.3 % [id number] 00:00:00* Test Item Value Reference Range Interpretation Comme nts TSH (test code = 2821) 1.2 UIU/ML [id number] 00:00:00* Test Item Value Reference Range Interpretation Comme nts TSH (test code = 2821) 1.2 UIU/ML [id number] 00:00:00* Test Item Value Reference Range Interpretation Comme nts TSH (test code = 2821) 1.2 UIU/ML COMPREHENSIVE METABOLIC [id number] 00:00:00* Test Item Value Reference Range Interpretation Comme nts GLUCOSE (test code = 2217) 305 MG/DL BUN (test code = 2208) 8 MG/DL CREATININE (test code = 2214) 0.57 MG/DL eGFR AMER. (test cod e = 76619) 131 ML/MIN/1.73 eGFR NON- AMER. (test code = 82109) 113 ML/MIN/1.73 CALCULATED BUN/CREAT (test code = 2235) 14 RATIO SODIUM (test code = 2231) 136 MEQ/L POTASSIUM (test code = 2228) 4.4 MEQ/L CHLORIDE (test code = 2215) 98 MEQ/L CARBON DIOXIDE (test code = 2206) 27 MEQ/L CALCIUM (test code = 2209) 9.9 MG/DL PROTEIN, TOTAL (test code = 2229) 7.8 G/DL ALBUMIN (test code = 2201) 4.2 G/DL CALCULATED GLOBULIN (test code = 2240) 3.6 G/DL CALCULATED A/G RATIO (test code = 2234) 1.2 RATIO BILIRUBIN, TOTAL (test code = 2207) 0.4 MG/DL ALKALINE PHOSPHATASE (test code = 2204) 69 U/L SGOT (AST) (test code = 2218) 12 U/L SGPT (ALT) (test code = 2219) 10 U/L COMPREHENSIVE METABOLIC [id number] 00:00:00* Test Item Value Reference Range Interpretation Comme nts GLUCOSE (test code = 2217) 305 MG/DL BUN (test code = 2208) 8 MG/DL CREATININE (test code = 2214) 0.57 MG/DL eGFR AMER. (test cod e = 26175) 131 ML/MIN/1.73 eGFR NON- AMER. (test code = 61485) 113 ML/MIN/1.73 CALCULATED BUN/CREAT (test code = 2235) 14 RATIO SODIUM (test code = 2231) 136 MEQ/L POTASSIUM (test code = 2228) 4.4 MEQ/L CHLORIDE (test code = 2215) 98 MEQ/L CARBON DIOXIDE (test code = 2206) 27 MEQ/L CALCIUM (test code = 2209) 9.9 MG/DL PROTEIN, TOTAL (test code = 2229) 7.8 G/DL ALBUMIN (test code = 2201) 4.2 G/DL CALCULATED GLOBULIN (test code = 2240) 3.6 G/DL CALCULATED A/G RATIO (test code = 2234) 1.2 RATIO BILIRUBIN, TOTAL (test code = 220) 0.4 MG/DL ALKALINE PHOSPHATASE (test code = 2204) 69 U/L SGOT (AST) (test code = 2218) 12 U/L SGPT (ALT) (test code = 2219) 10 U/L LIPID [id number] 00:00:00* Test Item Value Reference Range Interpretation Comme nts CHOLESTEROL (test code = 2210) 276 MG/DL TRIGLYCERIDES (test code = 2232) 199 MG/DL HDL CHOLESTEROL (test code = 2220) 55 MG/DL CALCULATED LDL CHOL (test co de = 2237) 181 MG/DL RISK RATIO LDL/HDL (test cod e = 2238) 3.29 RATIO LIPID [id number] 00:00:00* Test Item Value Reference Range Interpretation Comme nts CHOLESTEROL (test code = 2210) 276 MG/DL TRIGLYCERIDES (test code = 2232) 199 MG/DL HDL CHOLESTEROL (test code = 2220) 55 MG/DL CALCULATED LDL CHOL (test co de = 2237) 181 MG/DL RISK RATIO LDL/HDL (test cod e = 2238) 3.29 RATIO CBC W/AUTO [id number] 00:00:00* Test Item Value Reference Range Interpretation Comme nts WBC (test code = 1001) 7.8 K/UL RBC (test code = 1002) 5.03 M/UL HEMOGLOBIN (test code = 1003) 14.7 G/DL HEMATOCRIT (test code = 1004) 42.6 % MCV (test code = 1005) 84.7 fL MCH (test code = 1006) 29.2 PG MCHC (test code = 1007) 34.5 G/DL RDW (test code = 1038) 15.4 % NEUTROPHILS (test code = 1008) 57 % LYMPHOCYTES (test code = 1010) 30 % MONOCYTES (test code = 1011) 12 % EOSINOPHILS (test code = 1012) 1 % BASOPHILS (test code = 1013) % PLATELET COUNT (test code = 1015) 316 K/UL CBC W/AUTO [id number] 00:00:00* Test Item Value Reference Range Interpretation Comme nts WBC (test code = 1001) 7.8 K/UL RBC (test code = 1002) 5.03 M/UL HEMOGLOBIN (test code = 1003) 14.7 G/DL HEMATOCRIT (test code = 1004) 42.6 % MCV (test code = 1005) 84.7 fL MCH (test code = 1006) 29.2 PG MCHC (test code = 1007) 34.5 G/DL RDW (test code = 1038) 15.4 % NEUTROPHILS (test code = 1008) 57 % LYMPHOCYTES (test code = 1010) 30 % MONOCYTES (test code = 1011) 12 % EOSINOPHILS (test code = 1012) 1 % BASOPHILS (test code = 1013) % PLATELET COUNT (test code = 1015) 316 K/UL CBC W/AUTO [id number] 00:00:00* Test Item Value Reference Range Interpretation Comme nts WBC (test code = 1001) 7.8 K/UL RBC (test code = 1002) 5.03 M/UL HEMOGLOBIN (test code = 1003) 14.7 G/DL HEMATOCRIT (test code = 1004) 42.6 % MCV (test code = 1005) 84.7 fL MCH (test code = 1006) 29.2 PG MCHC (test code = 1007) 34.5 G/DL RDW (test code = 1038) 15.4 % NEUTROPHILS (test code = 1008) 57 % LYMPHOCYTES (test code = 1010) 30 % MONOCYTES (test code = 1011) 12 % EOSINOPHILS (test code = 1012) 1 % BASOPHILS (test code = 1013) % PLATELET COUNT (test code = 1015) 316 K/UL HEMOGLOBIN [id number] 00:00:00* Test Item Value Reference Range Interpretation Comme nts HEMOGLOBIN A1c (test code = 91872) 11.3 % HEMOGLOBIN [id number] 00:00:00* Test Item Value Reference Range Interpretation Comme nts HEMOGLOBIN A1c (test code = 71649) 11.3 % HEMOGLOBIN [id number] 00:00:00* Test Item Value Reference Range Interpretation Comme nts HEMOGLOBIN A1c (test code = 46294) 11.3 % [id number] 00:00:00* Test Item Value Reference Range Interpretation Comme nts TSH (test code = 2821) 1.2 UIU/ML [id number] 00:00:00* Test Item Value Reference Range Interpretation Comme nts TSH (test code = 2821) 1.2 UIU/ML [id number] 00:00:00* Test Item Value Reference Range Interpretation Comme nts TSH (test code = 2821) 1.2 UIU/ML HEMOGLOBIN [id number] 00:00:00* Test Item Value Reference Range Interpretation Comme nts HEMOGLOBIN A1c (test code = 78393) 10.6 % Mikey F AustinHEMOGLOBIN [id number] 00:00:00* Test Item Value Reference Range Interpretation Comme nts HEMOGLOBIN A1c (test code = 69472) 10.6 % HEMOGLOBIN [id number] 00:00:00* Test Item Value Reference Range Interpretation Comme nts HEMOGLOBIN A1c (test code = 01623) 10.6 % HEMOGLOBIN [id number] 00:00:00* Test Item Value Reference Range Interpretation Comme nts HEMOGLOBIN A1c (test code = 54794) 10.6 % HEMOGLOBIN [id number] 00:00:00* Test Item Value Reference Range Interpretation Comme nts HEMOGLOBIN A1c (test code = 04034) 10.6 % HEMOGLOBIN [id number] 00:00:00* Test Item Value Reference Range Interpretation Comme nts HEMOGLOBIN A1c (test code = 00229) 10.6 % HEMOGLOBIN [id number] 00:00:00* Test Item Value Reference Range Interpretation Comme nts HEMOGLOBIN A1c (test code = 62356) 10.6 % HEMOGLOBIN [id number] 00:00:00* Test Item Value Reference Range Interpretation Comme nts HEMOGLOBIN A1c (test code = 00616) 10.6 % HEMOGLOBIN [id number] 00:00:00* Test Item Value Reference Range Interpretation Comme nts HEMOGLOBIN A1c (test code = 73110) 10.6 % HEMOGLOBIN [id number] 00:00:00* Test Item Value Reference Range Interpretation Comme nts HEMOGLOBIN A1c (test code = 57676) 10.6 % Notes Date/Time Note Provider Source 2023-10-04 00:00:00 [id number] 5-06T00:00:00+ +-------- ----+| Plan Activity | Plan Date |+ + +| pap today, wet mount sent | 2016-06-02 || pt declined STD testing | || mammo referral sent | |+ + +| You can take charge of your health by staying current on well-care visits, | 2016-06-22 || screenings, and immunizations. Our goal is to help you live a healthier and | || happier life through preventive care. | || Recommend annual blood work: Complete Blood Count, Comprehensive metabolic | || panel, fasting lipid panel and TSH. | || Recommend a Tetanus-diphtheria every 10 years and a Flu vaccine every year | || unless it is contraindicated. | || HIV test one time during adulthood (through age 64) | || Take a daily multivitamin | || Occasionally check your blood pressure and notify the clinic if your blood | || pressure is over 140/80 or lower than 80/60. | || Schedule annual examination | |+ + +| CMP, A1c, lipid panel, UA, urine micro | 2022-02-11 || Patient without medications at this time for 3 weeks | || Patient with desire to switch to Ozempic. She has applied to PAP. She will have | || the application sent to the | || We will refill current medications until finalization of Ozempic | || RX glipiZIDE 10 MG Tablet TAKE 1 TABLET TWICE DAILY 30 MINUTES BEFORE MEALS. 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 dx with CHF, request last hospital visit and cardiology notes | 2019-12-20 || furosemide 40mg daily | || potassium chloride 10mEq | || Advised to make apt with senior software project manager as it has been 2 years since last visit | || and he wanted to see her yearly | |+ + +| Will do labs for RA with RTO | 2020-05-06 |+ + +| TSH ordered | 2020-08-02 |+ + +| diet and excercise | 2023-08-25 |+ + +| continue Flonase she ran out loratadine will call loratadine. | 2020-12-04 || Watch the temperature and breathing problems | || .Follow-up with primary care physician in one week | || feeds fluids advised close monitoring of fresheners and contact the primary | || care provider | |+ + +| Control portions , manage weight | 2021-03-27 || Discussed the risks involved in increasing weight and insulin resistance | |+ + +| Diet and exercise advised. | 2022-05-11 |+ + +| will make cardio referral | 2021-05-12 |+ + +| Patient without medications with noted LE edema | 2022-02-11 || RX furosemide 40mg daily | || RX potassium chloride 10 mEq | || Continue annual appointments with cardiology | || RTC if symptoms worsen or persist | |+ + +| Wet adalgisa sent | 2021-05-21 || will follow up with results | |+ + +| Shoaib gives yeast infection | 2021-11-20 |+ + +| Most likely reactive | 2022-05-11 || Ibuprofen 800 mg TID PRN | || Neck US | || RTC 1 month for follow-up | |+ + +| Ketoconazole 2% shampoo every other day. Allow to sit on scalp for 5 minutes | 2022-11-13 || before rinsing. | || Avoid scratching at scalp. | || RTO if symptoms have not improved in 2 months. | |+ + +| Complete mammogram referral | 2022-12-30 |+ + +| Patient reports family no hx of colon cancer: | 2022-12-30 || Patient educated and given FIT Card | || Patient educated on colon cancer screening options risk and benefits . | || Continue with healthy fiber, vegetables, fruits, and water | |+ + +| Patient without medications for 3 weeks due to her financial situation. She has | 2022-12-30 || monies to purchase all medications today. | || She will return 01/01/2023 for labs | |+ + +| Patient without medications with noted edema | 2022-12-30 || RX Losartan Potassium 100 MG Tablet TAKE 1 TABLET DAILY. QUANTITY 90 Tablet - | || REFILL 1 | || Potassium Chloride Kamini ER 20 MEQ Tablet Extended Release : TAKE 1 TABLET | || DAILY. QUANTITY 90 Tablet | || Furosemide 40 MG Tablet TAKE 1 TABLET DAILY. QUANTITY 90 Tablet | || Continue annual appointments with cardiology | || RTC if symptoms worsen or persist | |+ + +| COVID test, pending | 2023-04-16 |+ + +| Rx: Amoxicillin-Pot Clavulanate 875-125 MG Tablet - Sig: TAKE 1 TABLET TWICE | 2023-04-16 || DAILY WITH FOOD. QUANTITY 20 Tablet - Days 10 [facility] | || Treat symptomatically using analgesic/antipyretic | || Adequate rest & hydration, daily antihistamine and Nasal [place] | || Warm facial packs and steam inhalation | || RTO prn for follow up | |+ + +| recommend control blood sugars, could be causing symptoms. | 2023-06-11 || RTO 1 month | |+ + +| TDAP | 2023-08-25 |+ + +| Hep A, varicella, MMR | 2023-08-25 || await results | || RTC 1 week for results | |+ + +| RX glipiZIDE 10 MG Tablet TAKE 1 TABLET TWICE DAILY 30 MINUTES BEFORE MEALS. | 2023-10-04 || QUANTITY 90 Tablet | || RX Janumet 50-500 MG Tablet TAKE 1 TABLET BY MOUTH TWICE A DAY QUANTITY 180 | || Tablet | || ADA diet, reduce sugary beverages and candies | || CV risk reduction (BP, lipid control, nonsmoking, daily ASA) | || Schedule routine f/u for DM care 3 months | || Daily Foot Checks, Reminded of yearly eye and podiatry exams | || A1c goal <7.0% | || CPT codes- 27937 collection of venous blood by venipuncture | || 84236-BIP | || 89999-TM | || 44298-gyfgt albumin | || 19418-llf in house- finger [id number] FASTING | || 25825-KpgK8O | || 56790-YXC | || | || MICROALBUMIN | || diatated eye exam needed yearly | || | || | || Diabetes with labs-Maryann | |+ + +| RX Losartan Potassium 100 MG Tablet TAKE 1 TABLET DAILY. QUANTITY 90 Tablet - | 2023-10-04 || REFILL 1 | || Potassium Chloride ER 20 MEQ Tablet Extended Release : TAKE 1 TABLET DAILY. | || QUANTITY 90 Tablet | || Furosemide 40 MG Tablet TAKE 1 TABLET DAILY. QUANTITY 90 Tablet | || EKG- ABNORMAL EKG WITH ISCHEMIA - NO CHEST PAIN BUT SWELLING EXTREMITIES | || CONTINUES GO TO ER OR - SEE CARDIOLGIST | || | || CLOPIDOGREL 75MG 1 TAP PO QD | || JUAN MANUEL ASA 325 MG 1 TAB PO QD | || METOPROLOL SUCCINATE 100MG 1 TAB PO BID- stopped per pt statement due to | || adverse effect | || EKG-IN HOUSE- ABNORMAL - ISCHEMIA | || REFER DR STOREY APARTMENT LEASING SPECIALIST | || Refer APARTMENT LEASING SPECIALIST | || CBC | || CMP | || U/A | |+ + +| Rosuvastatin 20 mg 1 PO QHS | 2023-10-04 || | || Medications-see todays med list | || Recommendations- alcohol avoidance, exercise, low cholesterol/low fat diet and | || weight loss -stop smoking | || F/u- 6 months | || LIPID | |+ + +| SWOLLEN HAND - TO SEE APARTMENT LEASING SPECIALIST | 2023-10-04 || REFER HAND - PT HAS LIST - 4TH FINGER CANNOT EXTEND- SEE APARTMENT LEASING SPECIALIST FIRST | |+ + +| cbc | 2023-10-04 || cmp | || U/A | |+ + +39250-2 Plan of TreatmentLNCARE PLANTXTSFA|SOC-[id number] 76060.10.20.22.2.10AVAvailable for patient mepbTividgaRnmcnaxrfQKBOh20 Section NarrativeNARRATIVEFormatted C-CDA narrative textSFAStwon [facility]Lat[facility]2024-05-06T00:00:00 Mikey [facility] 2023-09-06 23:13:53 3422-14-92H92:13:53 Pt given printed and verbal discharge instructions regarding bronchitis, UTI, encouraged hydration,Prescriptions providedDiscussed antibiotic therapy and to take until all completed unless adverse reaction occurs - if occurs, discontinue medication and follow up with pcp/seek medical attentionDiscussed Tylenol # 3 side affects and to avoid driving/operating machinery/or engaging in activities requiring alertness while taking.Pt verbalized understanding of instructions, pt awake alert oriented, resp reg unlabored, skin w/d, color appropriate for race, moves all ext well,pt encouraged to follow up with pcp.Advised to seek medical attention for new/prolonged/worsening of symptoms.No adverse reaction to meds given in ER noted upon dischargeAwake, alert oriented, resp reg unlabored, skin w/d, pt leaving amb with steady gait, in no apparent distress. 73454-5Ayrsubmbo department VwsfQZ0225-18-75A36:15:45[facility]ull[facility] department NoteTXT1.2.840.560662.1.13.104.2.7. 2.454790|[id number] for patient sthv76285-6TqbiWOSVCILXGCPEgxnzyozh C-CDA narrative [id number] HAGEN[address] StreetFn[id number] 5RYAPAOFPMZGGRKZCUGUEJE6828-70-96M7 3:15:451.2.840.483752.1.72.3.15|1.2 .840.853155.1.13.104.2.7.2.727879_2 [id number] Ness Porter RN [facility] 2023-09-06 19:54:50 9483-38-93O32:54:50Summary: Triage CC: Patient states that she has been running fever, cough, chills, generalized body aches.PMHx: HTN Diabeties CHFPSH:c-sectionMEDS:blood pressure medication, lasix, glipizide, janument, KCLLMP: NATetanus: UTDAwake, alert, oriented, resp reg unlabored, skin warm, color appropriate for race, moves all ext without difficulty, amb with out assistanceAppears in no distress 00571-8Xairavbhx department Triage dyqkZW8634-02-06L74:57:05Emermercy [facility] department Triage [id number]. 2.659090|[id number] for patient afbh95939-7Pmgvjhwmj department NoteLNNARRATIVEFormatted C-CDA narrative text[address] Edwards [id number] 6VEDHYITAYUMKVNKYIOUHNU8241-13-77T0 9:57:051.2.840.170281.1.72.3.15|1.2 .840.514332.1.13.104.2.7.2.727879_2 [id number] [facility] Health 2023-09-06 19:47:00 1012-74-46B63:47:00 [facility] Emergency Department NotePatient Name: Sadie StewartDaadina of : 1970 52 year old femaleTreatment Room: [place] [address]Medical Record Number: [id number] Care Physician: PATIENT DOES NOT HAVE A PCPPatient Escorted by: Family [5]Mode of Arrival: Personal means [1]EMS Treatment Prior to ED 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 female with cough, congestion, fever, chills , nausea x 1 week.Past Medical History/Immunizations:Past Medical History:Diagnosis Date Abnormal Pap smear 01/30/1980cryo Diabetes mellitus Genital warts Hypertension Syphilis 05/31/1993treatedTetanus received in last 5 years: YesAllergies:AllergiesAllergen Reactions Amlodipine Swelling Lisinopril CoughPast Social History:Tobacco UseNever smoked or used smokeless tobacco.Alcohol UseNo.Drug UseNo.Sexual ActivitySexually active; Partners: Male; Control/Protection: Surgical.Past Surgical History:Past Surgical History:Procedure Laterality Date SECTION 1996 TUBAL LIGATION 1997Review of Systems:Review of SystemsConstitutional: Positive for chills, fatigue and fever.HENT: Positive for congestion, postnasal drip, rhinorrhea and sinus pressure.Eyes: Negative.Respiratory: Positive for cough. Negative for shortness of breath, wheezing and stridor.Breasts: Negative.Cardiovascular: Negative.Gastrointestinal: Negative.Genitourinary: Negative.Musculoskeletal: Negative.Neurological: Negative.Psychiatric/Behavioral: Negative.Endocrine: Endocrine negativePhysical Exam:ED Triage Vitals [09/06/231999]Weight 83.5 kg (184 lb 1.6 oz)Actual or estimated ActualHeight 1.651 m (5' 5")BP (!) 145/69Pulse 98Resp 16Temp 37.7 ?C (99.9 ?F)Temp source OralSpO2 100 %Measured on Room airPhysical ExamVitals and nursing note reviewed.Constitutional:General: She is not in acute distress.Appearance: Normal appearance. She is not ill-appearing, toxic-appearing or diaphoretic.HENT:Head: Normocephalic.Right Ear: Tympanic membrane, ear canal and external ear normal.Left Ear: Tympanic membrane, ear canal and external ear normal.Nose: Congestion and rhinorrhea present.Mouth/Throat:Mouth: Mucous membranes are moist.Eyes:Pupils: Pupils are equal, round, and reactive to light.Cardiovascular:Rate and Rhythm: Normal rate.Pulses: Normal pulses.Pulmonary:Effort: Pulmonary effort is normal. No respiratory distress.Breath sounds: No stridor. No wheezing, rhonchi or rales.Chest:Chest wall: No tenderness.Musculoskeletal:General: Normal range of motion.Skin:General: Skin is warm.Neurological:General: No focal deficit present.Mental Status: She is alert and oriented to person, place, and time.Psychiatric:Mood and Affect: Mood normal.Behavior: Behavior normal.Radiology:XR CHEST 2 VWPreliminary ResultEXAM: XR CHEST 2 VWCOMPARISON: NoneHISTORY: cough, feverFINDINGS:Lungs: The lungs are well-expanded. No focal opacities. No pleuralabnormalities are detected.Heart/Mediastinum: The cardiomediastinal silhouette is normal in size.Bones and soft tissues: No focal osseous lesions are identified. No acuteosseous findings.IMPRESSIONNo acute cardiopulmonary process.Preliminary Report Dictated by Resident: Carol Lenz Results:Lab ResultsURINALYSIS - AbnormalResult Value Ref RangeAPPEARANCE Clear ClearCOLOR Yellow YellowPH 8.0 4.8 - 8.0SP GRAVITY 1.014 1.003 - 1.030GLU U QUAL Normal NormalBLOOD 1+ (*) NegativeKETONES Negative NegativePROTEIN 500 mg/dL (*) NegativeUROBILIN 4.0 mg/dL (*) NormalBILIRUBIN Negative NegativeNITRITE Negative NegativeLEUK CHRISTIANO 250/uL (*) NegativeRBC/HPF 10 (*) 0 - 3 HPFWBC/HPF 32 (*) 0 - 5 HPFBACTERIA Few (*) NegativeSQ EPITH 8 HPFTRANS EPI 3 (*) <=1 HPFRAPID INFLUENZA A/B - NormalRapid Influenza A Negative NegativeRapid Influenza B Negative NegativeCOVID-19 (ID NOW RAPID TESTING) - CnammqKPVZ-JkS-9 Rapid ID NOW Not Detected Not DetectedEKG:If EKG completed, see Procedure Note.Orders and Treatments:Orders Placed This EncounterProcedures XR CHEST 2 VW RAPID INFLUENZA A/B COVID-19 (ID NOW TESTING) Lab Only COVID Interpretation UrinalysisOrders Placed This EncounterMedications acetaminophen-codeine (TYLENOL #3) 300-30 mg tablet 1 tablet levoFLOXacin (LEVAQUIN) tablet 500 mgFirst Provider Eval:ED EventsDate/Time Event User Iqavqnzm87/08/242019 Medical Screening Begins ESAU MERRITT MD --09/06/232019 First Provider Evaluation ESAU MERRITT MD --ED COURSEDiagnosis/Impression as of 09/06/23 2256BronchitisUrinary tract infection without hematuria, site unspecifiedProcedures:ProceduresMDM :Medical Decision MakingAmount and/or Complexity of Data ReviewedLabs: ordered.Radiology: ordered.RiskPrescription drug management.Flowsheet Documentation:Scoring Tools:No data recordedA) Bronchitis, UTIDisposition/Condition: Home, Levaquin, T#3 prn, Zofran , rest, hydration, ER warnings, f/u PCPED DispositionNoneDischarge Medications:Patient's MedicationsSTART taking these medicationsNo medications on fileCONTINUE taking these medications which have NOT CHANGEDAMLODIPINE (NORVASC) 5 MG TABLET Take 1 tablet by mouth in the morning.GLIMEPIRIDE ORAL Take 6 mg by mouth daily.HYDROCHLOROTHIAZIDE (ESIDRIX) 12.5 MG CAPSULE Take 12.5 mg by mouth daily.IBUPROFEN 600 MG TABLET Take 1 tablet by mouth every 6 (six) hours as needed for Pain (scale 4-6) for up to 30 doses.METFORMIN (GLUCOPHAGE) 500 MG TABLET Take 1 tablet by mouth in the morning and 1 tablet in the evening. Take with meals.METHOCARBAMOL 750 MG TABLET Take 1 tablet by mouth 4 (four) times daily.METOPROLOL SUCCINATE ORAL Take 1 Tab by mouth 2 (two) times daily.START taking Modified Medications as PrescribedNo medications on fileSTOP taking these medicationsNo medications on fileFollow-up: PCPElectronically signed by:Esau Merritt MD09/06/233 61081-4Xmfrtipgn Emergency department GhgeNX1721-68-30V43:53:29Physian Emergency department [id number]. 2.299168|[id number] for patient bnlp98399-2Ugclrpvzu department NoteLNNARRATIVEFormatted C-CDA narrative text[address] Bs[id number] 5APOVMIROTHWBAUBZMVGXJX7120-95-58X2 2:53:291.2.840.365014.1.72.3.15|1.2 .840.807046.1.13.104.2.7.2.727879_2 [id number] [facility]
--- NOTE | 2023-11-08 07:50 | RAD REPORT ---
EXAM DESCRIPTION: RAD - Chest Single View - 11/08/2023 7:43 am CLINICAL HISTORY: CHEST PAIN Chest pain. COMPARISON: Chest Single View dated 12/04/2018; Chest Single View dated 05/30/2018; Chest Pa And Lat ( 2 Views) dated 05/29/2018; Chest Single View dated 05/28/2018 FINDINGS: Portable technique limits examination quality. Moderate bilateral pulmonary opacities are present, greater on the left, likely representing pulmonar y edema. The heart is upper limit normal in size. No displaced fractures. IMPRESSION: Suspected yfvb-wb-mkxhveek pulmonary edema.
[2023-11-08 07:52] LABS: Absolute Eosinophils 0.1 K/uL (0-0.5); Absolute Lymphocytes (CBC) 1.4 K/uL (0.7-4.9); Absolute Monocytes 0.7 K/uL (0.1-1.3); Absolute Neutrophil 9.3 K/uL (1.8-8.0); Basophils % 0.4 % (0-1.3); Eosinophils % 0.7 % (0-4.4); Hematocrit 35.3 % (36.0-45.0); Hemoglobin 12.1 g/dL (12.0-15.0); Lymphocytes % 12.3 % (15.3-44.8); MCH 28.3 pg (27.0-35.0); MCHC 34.2 g/dL (32.0-36.0); MCV 82.7 fL (80-100); MPV 9.7 fL (7.6-11.3); Monocytes % 5.9 % (3.3-12.3); Neutrophils % 80.7 % (41.7-73.7); Platelets 259 thou/uL (152-406); RBC Red Blood Cell Count 4.26 M/uL (3.86-4.86); Red Cell Distribution Width 15.2 % (12.1-15.2)
[2023-11-08 07:59] LABS: SARS-CoV-2 Antigen CONTROL BLUE LINE VIS/BG OK; SARS-CoV-2 Antigen Rapid Res Negative (Negative)
[2023-11-08 08:03] LABS: ALT/SGPT 18 U/L (13-56); AST/SGOT 12 U/L (15-37); Albumin 3.3 g/dL (3.4-5.0); Albumin/Globulin Ratio 0.8 (1.1-1.8); Alkaline Phosphatase 55 U/L (45-117); Anion Gap 6.6 mEq/L (5.0-15.0); BUN Blood Urea Nitrogen 11 mg/dL (7-18); Bicarbonate 27 mEq/L (21-32); Bilirubin Total 0.3 mg/dL (0.2-1.0); Globulin 4.2 g/dL (2.3-3.5); Glomerular Filtration Rate 97 ml/min (=/>90); Glucose Level 211 mg/dL (74-106); Magnesium 1.5 mg/dL (1.6-2.4); NT PRO-BNP 1009 pg/mL (<125); Potassium 3.6 mEq/L (3.5-5.1); Protein, Total 7.5 g/dL (6.4-8.2); Sodium Level 135 mEq/L (136-145); Troponin High Sensitivity 13.9 pg/mL (<58.9)
[2023-11-08 08:13] LABS: Bilirubin Direct < 0.2 mg/dL (0-0.2); Bilirubin Indirect, Calculated 0.1 mg/dL (0.2-0.8)
[2023-11-08] MEDS ORDERED: FUROSEMIDE 40 MG/4 ML VIAL ONE (08:42)
--- NOTE | 2023-11-08 09:17 | ER ---
Nurse's Notes [facility] Name: Olivia Stewart Age: 52 yrs Sex: Female : 1970 Arrival Date: 11/08/2023 Time: 07:01 Bed 20 Private MD: Diagnosis: Acute systolic (congestive) heart failure Presentation: 11/07 07:12 Chief complaint: Patient states: CP and SOB began this morning. Coronavirus screen: ll1 Client denies travel out of the [place] in the last 14 days. At this time, the client does not indicate any symptoms associated with coronavirus-19. Ebola Screen: Patient denies travel to an Ebola-affected area in the 21 days before illness onset. Initial Sepsis Screen: Does the patient meet any 2 criteria? No. Patient's initial sepsis screen is negative. Does the patient have a suspected source of infection? No. Patient's initial sepsis screen is negative. Risk Assessment: Do you want to hurt yourself or someone else? Patient reports no desire to harm self or others. 07:12 Method Of Arrival: Ambulatory [facility] 07:12 Acuity: HARDY 3 [facility] 07:16 Onset of symptoms was November 08, 2023. [facility] Triage Assessment: 07:13 General: Appears in no apparent distress. Behavior is calm, cooperative, appropriate ll1 for age. Pain: Complains of pain in head Quality of pain is described as aching. Neuro: Reports headache. GI: Reports nausea. Historical: - Allergies: 07:12 Lisinopril; ll1 - PMHx: 07:12 Diabetes - NIDDM; Hypertension; Pneumonia; ll1 - Immunization history:: Adult Immunizations up to date. - Infectious Disease History:: Denies. - Social history:: Smoking status: Patient denies any tobacco usage or history of. Screenin:05 [facility] ED Fall Risk Assessment (Adult) History of falling in the last 3 months, rs5 including since admission No falls in past 3 months (0 pts) Confusion or Disorientation No (0 pts) Intoxicated or Sedated No (0 pts) Impaired Gait No (0 pts) Mobility Assist Device Used No (0 pt) Altered Elimination No (0 pt) Score/Fall Risk Level 0 - 2 = Low Risk Oriented to surroundings, Maintained a safe environment. Abuse screen: Denies threats or abuse. Nutritional screening: No deficits noted. Tuberculosis screening: No symptoms or risk factors identified. Assessment: 07:05 Reassessment: Patient and/or family updated on plan of care and expected duration. Pain rs5 level reassessed. Patient is alert, oriented x 3, equal unlabored respirations, skin warm/dry/pink. 08:00 General: Appears in no apparent distress. comfortable, Behavior is calm, cooperative. rs5 Pain: Complains of pain in head Pain currently is 4 out of 10 on a pain scale. Quality of pain is described as aching, Is continuous. Neuro: Level of Consciousness is awake, alert, obeys commands, Oriented to person, place, time, situation. Cardiovascular: Rhythm is sinus tachycardia. Respiratory: Airway is patent Respiratory effort is even, unlabored, Respiratory pattern is regular, symmetrical. GI: Abdomen is round non-distended, Abd is soft and non tender X 4 quads. Reports nausea. : No signs and/or symptoms were reported regarding the genitourinary system. EENT: No signs and/or symptoms were reported regarding the EENT system. Derm: No signs and/or symptoms reported regarding the dermatologic system. 09:15 Reassessment: Patient and/or family updated on plan of care and expected duration. Pain rs5 level reassessed. Patient is alert, oriented x 3, equal unlabored respirations, skin warm/dry/pink. Patient states feeling better. Vital Signs: 07:23 BP 136 / 101; Pulse 116; Resp 18; Temp 97.1; Pulse Ox 100% on R/A; aw1 07:59 BP 140 / 89; Pulse 110; Resp 18; Pulse Ox 99% on R/A; rs5 09:09 BP 138 / 86; Pulse 98; Resp 18; Pulse Ox 98% on R/A; rs5 ED Course: 07:03 Patient arrived in ED. rg4 07:05 No provider procedures requiring assistance completed. rs5 07:08 Abel Potts MD is Attending Physician. sp3 07:12 Arm band placed on Patient placed in an exam room, on a stretcher. ll1 07:13 Triage completed. ll1 07:28 Bed in low position. Call light in reach. Side rails up X 1. Adult w/ patient. Warm aw1 blanket given. satellite project site monitor on. 07:28 EKG done, by ED staff. aw1 07:30 Inserted saline lock: 20 gauge in right antecubital area, using aseptic technique. rc3 Blood collected. 07:44 Candido Odell, RN is Primary Nurse. rs5 07:45 XRAY Chest (1 view) In Process Unspecified. EDMS 09:25 IV discontinued, intact, bleeding controlled, No redness/swelling at site. Pressure rs5 dressing applied. Administered Medications: 08:50 Drug: Furosemide IVP 40 mg IVP once; give over 2 minutes Route: IVP; Site: right rs5 antecubital; 09:05 Follow up: Response: No adverse reaction rs5 Medication: 08:00 VIS not applicable for this client. rs5 Outcome: 09:16 Discharge ordered by . sp3 09:25 Discharged to home ambulatory, with family, rs5 09:25 Condition: stable 09:25 Discharge instructions given to patient, family, Instructed on discharge instructions, follow up and referral plans. Demonstrated understanding of instructions, follow-up care, 09:28 Patient left the ED. rs5 Signatures: Dispatcher [employer] EDMS Bea Dawkins rg4 Farhat Contreras, RN RN ll1 Abel Potts MD MD sp3 Candido Odell, RN RN rs5 Blanquita Monique aw1 Felicitas Montanez rc3 Corrections: (The following items were deleted from the chart) 07:12 07:12 Allergies: No Known Allergies; ll1 ll1 07:17 07:12 Chief complaint: Patient states: ARCEO with nausea ll1 ll1 08:04 08:03 Inserted saline lock: 20 gauge in right antecubital area, using aseptic rc3 technique. Blood collected. rc3
--- NOTE | 2023-11-08 09:17 | EDPHYS ---
Physician Documentation [facility] Name: Olivia Stewart Age: 52 yrs Sex: Female : 1970 Arrival Date: 11/08/2023 Time: 07:01 Bed 20 Private MD: ED Physician Abel Potts HPI: 11/07 07:47 This 52 yrs old Black Female presents to ER via Ambulatory with complaints of chest sp3 pain and SOB/chills. 07:47 52-year-old female with history of hypertension, diabetes, CHF, prior pneumonia now sp3 presents to the ED with chief complaint chest pain, shortness of breath and chills which is started since yesterday evening. Patient states that they were on the way to destination when after she got a vehicle her symptoms got worse and decided to come into the ED. The fatigue and shortness of breath are the largest of her complaints. She denies fever, headache, neck pain, back pain, abdominal pain, nausea, vomit, diarrhea, syncope, near syncope, rash, known sick contacts, travel history, prolonged immobilization, or any other signs or symptoms on ROS at this time. Patient currently takes Lasix as well as several other medications documented on the nursing note.. Historical: - Allergies: 07:12 Lisinopril; ll1 - PMHx: 07:12 Diabetes - NIDDM; Hypertension; Pneumonia; ll1 - Immunization history:: Adult Immunizations up to date. - Infectious Disease History:: Denies. - Social history:: Smoking status: Patient denies any tobacco usage or history of. ROS: 07:48 Eyes: Negative for injury, pain, redness, and discharge, ENT: Negative for injury, sp3 pain, and discharge, Neck: Negative for injury, pain, and swelling, Abdomen/GI: Negative for abdominal pain, nausea, vomiting, diarrhea, and constipation, Back: Negative for injury and pain, MS/Extremity: Negative for injury and deformity, Skin: Negative for injury, rash, and discoloration, Neuro: Negative for headache, weakness, numbness, tingling, and seizure, Psych: Negative for depression, anxiety, suicide ideation, homicidal ideation, and hallucinations, Allergy/Immunology: Negative for hives, rash, and allergies, Endocrine: Negative for neck swelling, polydipsia, polyuria, polyphagia, and marked weight changes, Hematologic/Lymphatic: Negative for swollen nodes, abnormal bleeding, and unusual bruising, 07:48 All other systems are negative, Exam: 07:48 Constitutional: This is a well developed, well nourished patient who is awake, alert, sp3 and in no acute distress. Head/Face: Normocephalic, atraumatic. Eyes: Pupils equal round and reactive to light, extra-ocular motions intact. Lids and lashes normal. Conjunctiva and sclera are non-icteric and not injected. Cornea within normal limits. Periorbital areas with no swelling, redness, or edema. ENT: Nares patent. No nasal discharge, no septal abnormalities noted. External auditory canals are clear. Oropharynx with no redness, swelling, or masses, exudates, or evidence of obstruction, uvula midline. Mucous membranes moist. Neck: Trachea midline, no thyromegaly or masses palpated, and no cervical lymphadenopathy. Supple, full range of motion without nuchal rigidity, or vertebral point tenderness. No Meningismus. Chest/axilla: Normal chest wall appearance and motion. Nontender with no deformity. No lesions are appreciated. Respiratory: Lungs have equal breath sounds bilaterally, clear to auscultation and percussion. No rales, rhonchi or wheezes noted. No increased work of breathing, no retractions or nasal flaring. Abdomen/GI: Soft, non-tender, with normal bowel sounds. No distension or tympany. No guarding or rebound. No evidence of tenderness throughout. Back: No spinal tenderness. No costovertebral tenderness. Full range of motion. Skin: Warm, dry with normal turgor. Normal color with no rashes, no lesions, and no evidence of cellulitis. MS/ Extremity: Pulses equal, no cyanosis. Neurovascular intact. Full, normal range of motion. Neuro: Awake and alert, GCS 15, oriented to person, place, time, and situation. Cranial nerves II-XII grossly intact. Motor strength 5/5 in all extremities. Sensory grossly intact. Cerebellar exam normal. Normal gait. Psych: Awake, alert, with orientation to person, place and time. Behavior, mood, and affect are within normal limits. 07:48 Cardiovascular: Rate: tachycardic, 07:48 ECG was reviewed by the Attending Physician. EKG demonstrates sinus tachycardia at 112 bpm with normal intervals, leftward axis and nonspecific diffuse ST/changes without evidence of acute ischemia. Vital Signs: 07:23 BP 136 / 101; Pulse 116; Resp 18; Temp 97.1; Pulse Ox 100% on R/A; aw1 07:59 BP 140 / 89; Pulse 110; Resp 18; Pulse Ox 99% on R/A; rs5 09:09 BP 138 / 86; Pulse 98; Resp 18; Pulse Ox 98% on R/A; rs5 MDM: 07:08 Patient medically screened. sp3 07:49 Data reviewed: vital signs, nurses notes, old medical records, lab test result(s), EKG, sp3 radiologic studies. ED course: 52-year-old female with PMH above now with chest pain, shortness of breath and chills. Differential diagnosis is broad and includes acute coronary syndrome, CHF exacerbation, pneumonia, bronchitis, viral illness, COVID-19, influenza, GI reflux/gastritis, among others. Clinically I am not highly suspicious for sepsis, shock, aortic pathology, PE, or any other critical pathway. Workup will include EKG, chest x-ray and general laboratory values including swabs. Disposition pending workup and patient course. Will follow heart rate and blood pressure and intervene as indicated once laboratory values are reviewed. Heart rate is already in the 100-105 range down from the 115 range upon arrival where patient was ambulating into the ED.. 09:14 ED course: BNP level at a little over 1000. Patient received 40 mg of Lasix IV in the sp3 ED and is now having significant urine output. She already feels much improved. Heart rate in the 10 5-110 range. Chest x-ray demonstrates pulmonary edema. EKG and troponin are without significant findings. At this point I believe patient does not require admission and we will discharge her home with instructions to take another oral Lasix dose at home. Upon further history taking, patient states that she has not taken her Lasix for the last 2 days because she gets cramping. We will safely discharge patient home at this time.. 11/07 07:18 Order name: Basic Metabolic Panel; Complete Time: 08:35 sp3 11/07 07:18 Order name: CBC with Diff; Complete Time: 08:06 sp3 11/07 07:18 Order name: LFT's; Complete Time: 08:35 sp3 11/07 07:18 Order name: Magnesium; Complete Time: 08:35 sp3 11/07 07:18 Order name: NT PRO-BNP; Complete Time: 08:35 sp3 11/07 07:18 Order name: PT-INR; Complete Time: 08:06 sp3 11/07 07:18 Order name: Troponin HS; Complete Time: 08:35 sp3 11/07 07:18 Order name: Flu; Complete Time: 08:35 sp3 11/07 07:18 Order name: SARS RAPID; Complete Time: 08:06 sp3 11/07 07:18 Order name: XRAY Chest (1 view); Complete Time: 07:51 sp3 11/07 07:18 Order name: EKG; Complete Time: 07:19 sp3 11/07 07:18 Order name: Cardiac monitoring; Complete Time: 07:29 sp3 11/07 07:18 Order name: EKG - Nurse/Tech; Complete Time: 07:29 sp3 11/07 07:18 Order name: IV Saline Lock; Complete Time: 07:50 sp3 11/07 07:18 Order name: Labs collected and sent; Complete Time: 07:50 sp3 11/07 07:18 Order name: O2 Per Protocol; Complete Time: 07:24 sp3 11/07 07:18 Order name: O2 Sat Monitoring; Complete Time: 07:24 sp3 Administered Medications: 08:50 Drug: Furosemide IVP 40 mg IVP once; give over 2 minutes Route: IVP; Site: right rs5 antecubital; 09:05 Follow up: Response: No adverse reaction rs5 Disposition Summary: 11/08/23 09:16 Discharge Ordered Notes: Location: Home sp3 Condition: Stable sp3 Diagnosis - Acute systolic (congestive) heart failure sp3 Followup: sp3 - With: Private Physician - When: Upon discharge from the Emergency Department - Reason: Continuance of care Discharge Instructions: - Discharge Summary Sheet sp3 - Heart Failure Exacerbation sp3 Forms: - Medication Reconciliation Form sp3 - Antibiotic Education sp3 - Prescription Opioid Use sp3 - Patient Portal Instructions sp3 - Leadership Thank You Letter sp3 - School release form rs5 - Work release form rs5 - Family Work Release rs5 Signatures: Dispatcher [employer] Farhat Mcbride RN RN ll1 Abel Potts MD MD sp3 Odell, Candido, RN RN rs5 Corrections: (The following items were deleted from the chart) 07:12 07:12 Allergies: No Known Allergies; ll1 ll1 07:19 07:19 BASIC METABOLIC PANEL+C.LAB.BRZ ordered. EDMS EDMS 07:19 07:19 CBC+H.LAB.BRZ ordered. EDMS EDMS 07:19 07:19 HEPATIC FUNCTION+C.LAB.BRZ ordered. EDMS EDMS 07:19 07:19 MAGNESIUM+C.LAB.BRZ ordered. EDMS EDMS 07:19 07:19 PROBNP+C.LAB.BRZ ordered. EDMS EDMS 07:19 07:19 PROTIME (+INR)+COAG.LAB.BRZ ordered. EDMS EDMS 07:19 07:19 Troponin High Sensitivity+C.LAB.BRZ ordered. EDMS EDMS 07:19 07:19 Influenza Screen (A \T\ B)+BA.LAB.BRZ ordered. EDMS EDMS 07:19 07:19 SARS-COV-2 Antigen Rapid+I.LAB.BRZ ordered. EDMS EDMS
[2023-11-08 09:46] VITALS: BP 140/89; TEMP 97.1; O2SAT 99
--- NOTE | 2023-11-09 15:11 | EKG ---
Test Date: 2023-11-08 Test Time: 07:24:45 Slide Fastener Chain Assembler: BRENDA MEASUREMENT RESULTS: Intervals: Rate: 112 AK: 148 QRSD: 80 QT: 328 QTc: 447 [place]: P: 74 AK: 148 QRS: -27 T: 73 INTERPRETIVE STATEMENTS: Sinus tachycardia Left ventricular hypertrophy Abnormal ECG Compared to ECG 12/04/2018 23:15:00 Left-axis deviation no longer present Myocardial infarct finding no longer present Electronically Signed On 11-09-23 15:06:40 CDT by Ronny Koch
== END 2023-11-08 09:28 | disposition home or self-care (01) ==
LOC: ER 07:01
DX: I50.21 Acute systolic (congestive) heart failure (principal); I10 Essential (primary) hypertension; Z11.52 Encounter for screening for COVID-19
CPT/HCPCS: 93005; 85025; 80048; 36415; 83735; 85610; 80076; 84484; 83880; 87804 ×2; 71045; 96374; 99285; 87811; J1940